=== PATIENT | female | born 1940 | race Caucasian/White ===

== ENCOUNTER 2021-12-05 19:41 | Observation (INO) | payer BC, SELFPAY ==
[2021-12-05 19:56] VITALS: BP 136/72; PULSE 76; RESP 18; TEMP 35.9; O2SAT 97; BMI 26.6
--- NOTE | 2021-12-05 20:15 | ED.GENADULT ---
HPI - General Adult General Time Seen by Provider: 20:16 Date Seen: 12/05/21 Chief complaint: Diarrhea Stated complaint: Black Stool Time Seen by Provider: 12/05/21 20:15 Source: patient, RN notes reviewed and old records reviewed Mode of arrival: ambulatory Limitations: no limitations History of Present Illness HPI narrative: Patient is an 81-year-old female coming in with diarrhea and dark tarry stools for about 2 weeks. She states every time she goes to the bathroom she is passing some stool and even has had 2 incontinent episodes today of stool. She is having some lower abdominal pain but no upper abdominal pain. She has had an ulcer about 20 years ago. She is taking iron but not using anything like Pepto-Bismol. She has no appetite but no nausea vomiting, no fevers or chills. The diarrhea has been present for 2 weeks. She has been on antibiotics in the past but has not had a history of C difficile colitis. She has some lower abdominal discomfort but no severe abdominal pain with this. She had contacted her doctor's office they recommended coming into the ER. She states she has not had a colonoscopy for about 20 years but has 1 scheduled for January 21. She was in with diarrhea and dark stools on 06/13/2021 post surgery. There is no significant concerning abnormality as far as labs are exam here in the ER. She was discharged home that visit. Related Data Home Medications Medication Instructions Recorded Confirmed acetaminophen 500 mg tablet mg 12/05/21 albuterol sulfate 2.5 mg/3 mL mg 12/05/21 (0.083 %) solution for nebulization amlodipine 5 mg tablet mg 12/05/21 aspirin 81 mg chewable tablet 12/05/21 atorvastatin 40 mg tablet mg 12/05/21 calcium carbonate 600 mg-vitamin tab PO 12/05/21 D3 10 mcg (400 unit) tablet cetirizine 10 mg tablet mg 12/05/21 cholecalciferol (vitamin D3) 50 12/05/21 mcg (2,000 unit) tablet fentanyl 50 mcg/hr transdermal 12/05/21 patch ferrous sulfate 324 mg (65 mg mg PO 12/05/21 iron) tablet,delayed release furosemide 40 mg tablet mg 12/05/21 ipratropium bromide 21 mcg (0.03 intranasal 12/05/21 %) nasal spray isosorbide mononitrate 120 mg mg PO 12/05/21 tablet,extended release 24 hr metformin 500 mg tablet mg 12/05/21 metoprolol succinate 50 mg mg PO 12/05/21 tablet,extended release 24 hr morphine 30 mg tablet,extended mg PO 12/05/21 release morphine 60 mg tablet,extended mg PO 12/05/21 release (MS Contin) mupirocin 2 % topical ointment topical 12/05/21 nitroglycerin 0.4 mg sublingual mg 12/05/21 tablet nystatin 100,000 unit/gram topical topical 12/05/21 powder (Nystop) omeprazole 20 mg capsule,delayed mg 12/05/21 release sennosides 8.6 mg tablet (senna) mg 12/05/21 sertraline 100 mg tablet mg 12/05/21 trazodone 50 mg tablet mg 12/05/21 Allergies Allergy/AdvReac Type Severity Reaction Status Date / Time Sulfa (Sulfonamide Allergy Intermediate Hives Verified 12/05/21 20:10 Antibiotics) nitrofurantoin AdvReac Unknown Verified 12/05/21 20:10 [From Macrobid] Review of Systems Status of ROS: Reports: 10 or more systems reviewed and unremarkable except as noted in History and below PFSH PFSH Social History Smoking Status: Former smoker What tobacco products do you use: cigarettes Smoking quit date/years: >15 years ago How often do you have a drink containing alcohol: never AUDIT-C Alcohol total score: 0 Non-prescribed substance use: denies use Exam Const: Vital Signs, click to edit/add: Vital Signs - 24 hr 12/05/21 19:56 12/05/21 20:45 12/05/21 23:22 Temperature 96.6 F L 97.6 F Pulse Rate [Pulse Oximeter] 76 67 Respiratory Rate 18 16 Blood Pressure [Le ft Upper Arm] 136/72 123/63 Pulse Oximetry 97 97 96 Oxygen Delivery Me thod Nasal Cannula Nasal Cannula Nasal Cannula Oxygen Flow Rate 2 2 2 Documenting provider has reviewed patient's vital signs: yes Common normals: no apparent distress, oriented x3, no limitations, healthy appearing, alert and well nourished General appearance: cooperative and comfortable Nutritional appearance: overweight HENMT: Common normals: normocephalic, head/scalp atraumatic, hearing grossly normal bilaterally, external ears normal, external nose normal, nasal mucous membranes and turbinates normal, moist oral mucous membranes, oropharynx normal, dentition normal and gingiva normal Head and scalp: normocephalic and atraumatic Nose: external nose normal and nasal mucous membranes and turbinates normal External ear: external ears normal Eye: Common normals: PERRL, EOMs intact bilaterally, conjunctivae normal and no scleral icterus Conjunctiva: conjunctiva(e) normal Pupil: PERRL Neck & C-Spine: Common normals: full ROM, no lymphadenopathy, supple, no meningeal signs, no JVD and thyroid normal Thyroid: thyroid normal Resp: Common normals: normal respiratory effort, no retractions, no use of accessory muscles and clear to auscultation bilaterally Auscultation: clear to auscultation bilaterally Cardio: Common normals: no JVD, regular rate, regular rhythm, S1 normal heart sound, S2 normal heart sound, no gallops and no clicks Rate: regular rate Rhythm: regular rhythm Heart sounds: S1 normal, S2 normal and murmur (2/6 systolic murmur heard upper sternal borders) GI: Common normals: Normal to inspection, nondistended, normoactive bowel sounds present, soft to palpation, non-tender, no hepatosplenomegaly and no masses Palpation: soft and no hepatosplenomegaly Other: Perianal area has some erythema and excoriations. She has a hemorrhoid that is non thrombosed. No active bleeding noted. Rectal vault is devoid of stool or masses. On withdrawal of the gloved finger, could see some dark flaxseed and darkish stool which was guaiac positive. Extremity: Other: No lower extremity edema noted the patient does have some noted excoriated areas of her lower legs. No active evidence of infection noted at this time. She does have some bandages over some smaller wounds on her legs. Neuro: Common normals: oriented x3 Sensorium/orientation: alert Meningeal signs: no meningeal signs Course Course Hospital Course: We will establish an IV, obtain blood work and obtain CT abdomen pelvis with IV contrast. We will give her a 500 mL fluid bolus. I have ordered C diff, stool culture and ova and parasites. With a 2 week history of diarrheal stools, colitis in her age range seems to be most probable. She does not seem ill like I would expect with C difficile but this is being considered. I am doubtful after 2 weeks that she has an ongoing active infection but again will look at stool culture and ova and parasite as well. With her having a colonoscopy scheduled in January, do wonder if she has been having some ongoing issues with diarrhea since we do have a visit from her in May of 2021 with diarrhea as a presenting problem as well. Reevaluation(s) Reevaluation #1: Have reviewed with patient that there are no concerning findings in the colon. It actually looks like there is some stool burden. However, reviewed that there could be some abnormalities within the stomach on the CT. I am going to have a hemoglobin 3 checked just to ensure no significant drop in, will type and screen her, give her 40 mg IV Protonix. I have spoken with Dr. Chino whom has taken many admits tonight. He has asked that I try to talk to JENNY for the admit which I will try to do. This patient certainly is hemodynamically stable, not actively profusely bleeding whatsoever. I do think that she is going to need follow-up endoscopy and have talked to her that I am not promising that this will be done in hospital but may have to be arranged somewhat more urgently outpatient. In any event, I feel it is safest for her to be monitored overnight, see if the scope could perhaps be done prior to discharge. Time: 22:56 Reevaluation #2: Spoke with JENNY hospitalist. Reviewed the case. He is aware that we have a pending hemoglobin and a type and screen have been ordered. He will be accepting of this patient. We did order COVID screening as well. Time: 23:21 Reevaluation #3: Reviewed stable repeat hemoglobin at 11.4, same as prior. No change in plan. Time: 00:36 Vital Signs Vital signs: Initial Vital Signs Temperature 96.6 F L 12/05/21 19:56 Temperature Source Temporal Artery Scan 12/05/21 19:56 Pulse Rate 76 12/05/21 19:56 Respiratory Rate 18 12/05/21 19:56 Blood Pressure 136/72 12/05/21 19:56 Blood Pressure Mean 93 12/05/21 19:56 Blood Pressure Position Sitting 12/05/21 19:56 Pulse Oximetry 97 12/05/21 19:56 Oxygen Delivery Method 12/05/21 19:56 Oxygen Flow Rate 2 12/05/21 19:56 Vital Signs Temperature 96.6 F L 12/05/21 19:56 Pulse Rate 76 12/05/21 19:56 Respiratory Rate 18 12/05/21 19:56 Blood Pressure 136/72 12/05/21 19:56 Pulse Oximetry 97 12/05/21 19:56 Oxygen Delivery Method 12/05/21 19:56 Oxygen Flow Rate 2 12/05/21 19:56 Temperature 97.6 F 12/05/21 23:22 Pulse Rate 67 12/05/21 23:22 Respiratory Rate 16 12/05/21 23:22 Blood Pressure 123/63 12/05/21 23:22 Pulse Oximetry 96 12/05/21 23:22 Oxygen Delivery Method 12/05/21 23:22 Oxygen Flow Rate 2 12/05/21 23:22 Medical Decision Making Lab Data Lab results reviewed: Yes I reviewed the patient's lab results Labs: Lab Results 12/05/21 12/05/21 12/05/21 Range/Units 20:35 20:35 20:35 WBC 10.06 (4.50-11.00) K/uL RBC 4.23 (4.00-5.20) m/uL Hgb 11.4 L (12.0-16.0) gm/dL Hct 35.0 (33.0-51.0) % MCV 83 (80-100) fL MCH 27 (26-34) pg MCHC 33 (32-36) gm/dL RDW Coeff of Sue 14.6 (11.5-15.5) % Plt Count 172 (140-440) K/uL Neut % (Auto) 68.8 (42.0-72.0) % Lymph % (Auto) 18.1 L (20-44) % [place] % (Auto) 6.9 (0.0-11.0) % Eos % (Auto) 5.1 (0.0-7.0) % Baso % (Auto) 0.5 (0.0-3.0) % Neut # (Auto) 6.93 (1.7-7.0) K/uL Lymph # (Auto) 1.80 (0.90-2.90) K/uL [place] # (Auto) 0.70 (0.00-0.90) K/UL Eos # (Auto) 0.51 H (0.00-0.50) K/uL Baso # (Auto) 0.05 (0.00-0.30) K/uL Abs Immat Gran (auto) 0.06 (0.00-0.30) K/uL Sodium 137 (135-149) mmol/L Potassium 4.1 (3.6-5.1) mmol/L Chloride 96 (96-114) mmol/L Carbon Dioxide 31 (20-32) mmol/L BUN 31 H (7-30) mg/dL Creatinine 1.4 (0.5-1.5) mg/dL Estimated Creat Clear 25.19 Estimated GFR 37 ml/min Glucose 143 H (60-115) mg/dL Lactate 1.0 (0.5-1.9) mmol/L Calcium 8.9 (8.4-10.6) mg/dL Total Bilirubin 0.5 (0.1-1.5) mg/dL AST 45 H (12-35) U/L ALT 24 (4-35) U/L Alkaline Phosphatase 154 H (40-150) U/L C-Reactive Protein 0.5 (0.5-1.0) mg/dL Total Protein 7.7 (6.0-8.3) g/dL Albumin 4.5 (3.3-5.0) g/dL Stl C.difficile Tox PCR (Negative) St C. diff Tox Epid 027 (Negative) SARS-CoV-2 (PCR) (Negative) Blood Type Antibody Screen 12/05/21 12/05/21 12/05/21 Range/Units 21:00 22:54 23:15 WBC (4.50-11.00) K/uL RBC (4.00-5.20) m/uL Hgb 11.4 L (12.0-16.0) gm/dL Hct (33.0-51.0) % MCV (80-100) fL MCH (26-34) pg MCHC (32-36) gm/dL RDW Coeff of Sue (11.5-15.5) % Plt Count (140-440) K/uL Neut % (Auto) (42.0-72.0) % Lymph % (Auto) (20-44) % [place] % (Auto) (0.0-11.0) % Eos % (Auto) (0.0-7.0) % Baso % (Auto) (0.0-3.0) % Neut # (Auto) (1.7-7.0) K/uL Lymph # (Auto) (0.90-2.90) K/uL [place] # (Auto) (0.00-0.90) K/UL Eos # (Auto) (0.00-0.50) K/uL Baso # (Auto) (0.00-0.30) K/uL Abs Immat Gran (auto) (0.00-0.30) K/uL Sodium (135-149) mmol/L Potassium (3.6-5.1) mmol/L Chloride (96-114) mmol/L Carbon Dioxide (20-32) mmol/L BUN (7-30) mg/dL Creatinine (0.5-1.5) mg/dL Estimated Creat Clear Estimated GFR ml/min Glucose (60-115) mg/dL Lactate (0.5-1.9) mmol/L Calcium (8.4-10.6) mg/dL Total Bilirubin (0.1-1.5) mg/dL AST (12-35) U/L ALT (4-35) U/L Alkaline Phosphatase (40-150) U/L C-Reactive Protein (0.5-1.0) mg/dL Total Protein (6.0-8.3) g/dL Albumin (3.3-5.0) g/dL Stl C.difficile Tox PCR Negative (Negative) St C. diff Tox Epid 027 PRESUMPTIVE NEGATIVE (Negative) SARS-CoV-2 (PCR) Negative SARS-CoV-2 (Negative) Blood Type Antibody Screen 12/05/21 Range/Units 23:15 WBC (4.50-11.00) K/uL RBC (4.00-5.20) m/uL Hgb (12.0-16.0) gm/dL Hct (33.0-51.0) % MCV (80-100) fL MCH (26-34) pg MCHC (32-36) gm/dL RDW Coeff of Sue (11.5-15.5) % Plt Count (140-440) K/uL Neut % (Auto) (42.0-72.0) % Lymph % (Auto) (20-44) % [place] % (Auto) (0.0-11.0) % Eos % (Auto) (0.0-7.0) % Baso % (Auto) (0.0-3.0) % Neut # (Auto) (1.7-7.0) K/uL Lymph # (Auto) (0.90-2.90) K/uL [place] # (Auto) (0.00-0.90) K/UL Eos # (Auto) (0.00-0.50) K/uL Baso # (Auto) (0.00-0.30) K/uL Abs Immat Gran (auto) (0.00-0.30) K/uL Sodium (135-149) mmol/L Potassium (3.6-5.1) mmol/L Chloride (96-114) mmol/L Carbon Dioxide (20-32) mmol/L BUN (7-30) mg/dL Creatinine (0.5-1.5) mg/dL Estimated Creat Clear Estimated GFR ml/min Glucose (60-115) mg/dL Lactate (0.5-1.9) mmol/L Calcium (8.4-10.6) mg/dL Total Bilirubin (0.1-1.5) mg/dL AST (12-35) U/L ALT (4-35) U/L Alkaline Phosphatase (40-150) U/L C-Reactive Protein (0.5-1.0) mg/dL Total Protein (6.0-8.3) g/dL Albumin (3.3-5.0) g/dL Stl C.difficile Tox PCR (Negative) St C. diff Tox Epid 027 (Negative) SARS-CoV-2 (PCR) (Negative) Blood Type B Positive Antibody Screen NEGATIVE Imaging Data CT scan - abdomen: Attestation: I have reviewed the pertinent imaging results. Radiologist's impression: Patient: REGIS MONTGOMERY Facility:?[facility] Patient ID:?[id number] Site Patient ID:?[id number]. Site :?[id number] Study:?CT Abdomen/Pelvis W/ISOVUE 370 74CC-12/05/2021 10:23:39 PM Ordering Physician:Susan Boss Final Report: INDICATION: Lower abdominal pain, diarrhea, dark tarry stools. TECHNIQUE: CT of the abdomen and pelvis with 74 cc Isovue 370 IV contrast. Coronal and sagittal reconstructions. COMPARISON: None. FINDINGS: The liver, gallbladder, spleen, pancreas, and adrenal glands are negative. No biliary dilation. Portal veins are patent. Symmetric enhancement of the kidneys. No hydronephrosis or ureteral dilation. No obstructing urinary calculi identified. The bladder is normal in appearance. Hysterectomy. No bowel dilation. Mild wall thickening of the gastric antrum is likely inflammatory. Multiple lobulated hyperdensities within the lumen of the gastric antrum could represent ingested material versus blood products. No active extravasation identified. Large amount of formed stool throughout the colon. No evidence of colonic inflammation. The appendix is not identified. No intraperitoneal free air or fluid. Aortoiliac vascular calcifications. There is subtle increased density of the left abdominal mesentery with mildly prominent mesenteric lymph nodes. 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 No lymphadenopathy by size criteria. Degenerative changes of the spine. Bibasilar atelectasis or scarring. Sternotomy. Coronary artery calcifications. IMPRESSION: 1. Mild wall thickening of the gastric antrum is likely inflammatory. 2. Multiple lobulated hyperdensities within the lumen of the gastric antrum could represent ingested material versus blood products. 3. Large amount of formed stool throughout the colon. No evidence of colonic inflammation. Please note that all CT scans at this facility use dose modulation, iterative reconstruction, and/or weight-based dosing when appropriate to reduce radiation dose to as low as reasonably achievable. Dictated by Belia Singh MD @ 12/05/2021 10:40:58 PM (Electronic Signature) Critical Care Time Critical Care Time Critical Care Time: No Discharge Plan Discharge Clinical Impression: Diarrhea, Abnormal CT of the abdomen, Guaiac positive stools Patient Disposition: Admitted As Inpatient Condition: Stable
--- NOTE | 2021-12-05 20:22 | CRLHL7_ITS ---
For Patients: As a result of the Century Cures Act, medical imaging exams and procedure reports are released immediately into your electronic medical record. You may view this report before your referring provider. If you have questions, please contact your health care provider. INDICATION: Lower abdominal pain, diarrhea, dark tarry stools. TECHNIQUE: CT of the abdomen and pelvis with 74 cc Isovue 370 IV contrast. Coronal and sagittal reconstructions. COMPARISON: None. FINDINGS: The liver, gallbladder, spleen, pancreas, and adrenal glands are negative. No biliary dilation. Portal veins are patent. Symmetric enhancement of the kidneys. No hydronephrosis or ureteral dilation. No obstructing urinary calculi identified. The bladder is normal in appearance. Hysterectomy. No bowel dilation. Mild wall thickening of the gastric antrum is likely inflammatory. Multiple lobulated hyperdensities within the lumen of the gastric antrum could represent ingested material versus blood products. No active extravasation identified. Large amount of formed stool throughout the colon. No evidence of colonic inflammation. The appendix is not identified. No intraperitoneal free air or fluid. Aortoiliac vascular calcifications. There is subtle increased density of the left abdominal mesentery with mildly prominent mesenteric lymph nodes. 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 No lymphadenopathy by size criteria. Degenerative changes of the spine. Bibasilar atelectasis or scarring. Sternotomy. Coronary artery calcifications. IMPRESSION: 1. Mild wall thickening of the gastric antrum is likely inflammatory. 2. Multiple lobulated hyperdensities within the lumen of the gastric antrum could represent ingested material versus blood products. 3. Large amount of formed stool throughout the colon. No evidence of colonic inflammation. Please note that all CT scans at this facility use dose modulation, iterative reconstruction, and/or weight-based dosing when appropriate to reduce radiation dose to as low as reasonably achievable. Dictated by Belia Singh MD @ 12/05/2021 10:40:58 PM (Electronically Signed)
[2021-12-05 20:45] VITALS: O2SAT 97
[2021-12-05] MEDS: 0.9 % SODIUM CHLORIDE 500 ML 500 ML IV (20:52)
[2021-12-05 21:03] LABS: Basophils Absolute Auto 0.05 K/uL (0.00-0.30); Basophils Percent Auto 0.5 % (0.0-3.0); Eosinophils Absolute Auto 0.51 K/uL (0.00-0.50); Eosinophils Percent Auto 5.1 % (0.0-7.0); Hemoglobin* 11.4 gm/dL (12.0-16.0); Immature Granulocytes Abs Auto 0.06 K/uL (0.00-0.30); Lymphocytes Percent Auto 18.1 % (20-44); Mean Corpuscular HGB Conc 33 gm/dL (32-36); Mean Corpuscular Hemoglobin 27 pg (26-34); Mean Corpuscular Volume 83 fL (80-100); Monocytes Percent Auto 6.9 % (0.0-11.0); Neutrophils Absolute Auto 6.93 K/uL (1.7-7.0); Neutrophils Percent Auto 68.8 % (42.0-72.0); Platelet Count* 172 K/uL (140-440); RDW Coefficient of Variation % 14.6 % (11.5-15.5); Red Blood Count 4.23 m/uL (4.00-5.20); White Blood Count* 10.06 K/uL (4.50-11.00)
[2021-12-05 21:05] LABS: Albumin* 4.5 g/dL (3.3-5.0); Chloride* 96 mmol/L (96-114)
[2021-12-05 21:06] LABS: Potassium* 4.1 mmol/L (3.6-5.1); Sodium* 137 mmol/L (135-149)
[2021-12-05 21:09] LABS: Alanine Aminotransferase* 24 U/L (4-35); Alkaline Phosphatase* 154 U/L (40-150); Aspartate Amino Transferase* 45 U/L (12-35); Bilirubin Total* 0.5 mg/dL (0.1-1.5); Blood Urea Nitrogen* 31 mg/dL (7-30); Calcium* 8.9 mg/dL (8.4-10.6); Carbon Dioxide* 31 mmol/L (20-32); Creatinine* 1.4 mg/dL (0.5-1.5); Est. Creatinine Clearance* 25.19; Estimated Glomerular Filt Rate 37 ml/min; Glucose* 143 mg/dL (60-115); Slide Review Reflex No; Total Protein* 7.7 g/dL (6.0-8.3)
[2021-12-05 21:11] LABS: C Reactive Protein* 0.5 mg/dL (0.5-1.0)
--- OUTSIDE RECORDS SUMMARY | 2021-12-05 21:16 | XMS_ITS | Clinical Summary ---
:1940 External Reference #:CL#[id number] Author Organization [facility] [place] [address] Care Team Providers Name Role Phone Marissa Williamson MD Primary Care Provider [phone] [facility], [place] Unavailable [phone] Allergies Active Allergy Reactions Severity Noted Date Comments Camphor Rash Low 06/13/2021 Camphor-Menthol Itching 12/06/2009 Sarna Lotion Makes itching worse Nitrofurantoin *Unknown 08/02/2005 Sulfa (Sulfonamide Antibiotics) Hives 6 Medications Medication Sig Dispensed Refills Start End Status Date Date estrogens, Twice weekly at 60 g 3 12/04/19 Act hilary conjugated bedtime on (PREMARIN) 0.625 Tuesdays and mg/gram vaginal Fridays creamIndications: Atrophic vaginitis Diaper,Brief, For home use. 1 box 12/30/19 Ac tive Adult,DisposableI ndications: Female stress incontinence oxygen-air Oxygen for home 1 Device 0 04/07/19 Act hilary delivery systems use. Liters per 20 (HOME minute: 2 per OXYGEN)Indication nasal cannula. s: Chronic Frequency of use: obstructive Nocturnal and pulmonary with activity disease, Length of need: unspecified COPD 99 Months. type (HC) flash glucose As directed. 1 Each 0 05/17/19 Act hilary scanning reader Indications: 20 (FREESTYLE GERMAN diabetes 14 DAY READER) miscIndications: diabetes mellitus fluticasone (50 Inhale 2 Sprays 1 Bottle 11 09/22/19 Active mcg per to both nostrils 21 actuation) nasal 2 times daily. solution (FLONASE)Indicati ons: Allergic rhinitis, unspecified seasonality, unspecified trigger ipratropium Inhale 2 Sprays 60 mL 2 09/22/19 Ac tive (ATROVENT NASAL) into affected 21 21 mcg (0.03 %) nostril(s) 3 nasal times daily. sprayIndications: Jeanerette dose in Chronic rhinitis each nostril. cholecalciferol, TAKE ONE TABLET 90 Tablet 2 01/16/20 Active Vitamin D3, 2,000 BY MOUTH EVERY 21 unit DAY tabletIndications : Vitamin D deficiency aspirin chewable CHEW AND SWALLOW 90 Tablet 3 03/16/20 Active 81 mg chewable 1 TABLET BY MOUTH 21 tabletIndications ONCE A DAY WITH A : CAD in [place] MEAL artery albuterol INHALE 3ML VIAL 75 mL 3 03/26/19 Acti ve (PROVENTIL) 0.083 VIA NEBULIZER 22 % neb EVERY 6 HOURS IF solutionIndicatio NEEDED FOR ns: Mild SHORTNESS OF persistent asthma BREATH. without complication BiPapIndications: BIPAP machine for 1 Each 03/29/19 Active Complex sleep home use at 22 apnea syndrome pressure: epap 11cmw PS 5-12cmw , full face mask x1/3month with full face cushion x2/mo Mucinex 600 mg TAKE 1 TABLET BY 180 Tablet 2 04/26/19 Active Extended-Release MOUTH 2 TIMES 22 tabletIndications DAILY. : Allergic rhinitis, unspecified seasonality, unspecified trigger clotrimazole-beta Apply topically 0 Active methasone cream to affected (LOTRISONE) area(s) 2 times 1-0.05 % cream daily. Restasis 0.05 % Place 1 Drop into 1 Each 05/30/19 Active ophthalmic the eye(s) 2 22 emulsionIndicatio times daily. ns: Dry eyes nitroglycerin Place 1 Tablet 25 tablet. 3 05/30/19 Active (NITROSTAT) 0.4 (0.4 mg) under 22 mg sublingual the tongue every tabletIndications 5 minutes if : CAD in [place] needed for Chest artery Pain. If patient requesting 25 or more dose doses in 30D, to provider to authorize mupirocin Apply topically 30 g 11 05/30/19 Acti ve (BACTROBAN to affected 22 OINTMENT) area(s) once ointmentIndicatio daily if needed ns: Recurrent (rash). boils Ventolin HFA 90 Inhale 1-2 Puffs 18 g 5 05/30/19 Active mcg/actuation by mouth every 4 22 inhalerIndication hours while s: Chronic awake. obstructive pulmonary disease, unspecified COPD type (HC) nystatin powder Apply 1 Strip 60 g 2 05/30/19 Active (MYCOSTATIN) topically to 22 powderIndications affected area(s) : Yeast 3 times daily. To dermatitis rash in the belly button acetaminophen Take 2 Tablets 30 Tablet 0 06/07/19 A ctive (TYLENOL EXTRA (1,000 mg) by 22 STRGTH) 500 mg mouth 3 times tabletIndications daily if needed : Closed for Pain. Max displaced oblique acetaminophen fracture of shaft dose: 4000mg in of left humerus 24 hrs. with nonunion amLODIPine Take 1 Tablet (5 90 Tablet 3 06/30/19 Ac tive (NORVASC) 5 mg mg) by mouth once 22 tabletIndications daily. : Essential hypertension atorvastatin Take 1 Tablet (40 90 Tablet 06/30/19 Active (LIPITOR) 40 mg mg) by mouth at 22 tabletIndications bedtime. : S/P CABG x 5 calcium combo Take 1 Tablet 90 Tablet 3 06/30/19 Ac tive no.2-vit. D3 (600 mg) by mouth 22 (CITRACAL + D once daily. SLOW REL.) 600 mg-12.5 mcg (500 unit) Extended-Release tabletIndications : Low calcium levels cetirizine Take 1 Tablet (10 90 Tablet 3 06/30/19 A ctive (ZYRTEC) 10 mg mg) by mouth once 22 tabletIndications daily. : Seasonal allergic rhinitis due to pollen exenatide Inject 10.2 mL 06/30/19 Active microspheres subcutaneous once 22 (Bydureon BCise) weekly. 2 mg/0.85 mL atInIndications: Type 2 diabetes mellitus with other circulatory complication, without long-term current use of insulin (HC) ferrous sulfate, Take 1 Tablet 90 Tablet 3 06/30/19 Active 65 mg elemental, (324 mg) by mouth 22 324 mg (65 mg once daily with a iron) meal. Delayed-Release tabletIndications : Anemia of unknown etiology omeprazole Take 1 Capsule 180 capsule. 3 06/30/19 A ctive (PRILOSEC) 20 mg (20 mg) by mouth 22 Delayed-Release 2 times daily capsuleIndication before meals. s: Chest pain, unspecified type sertraline TAKE 2 TABLETS 180 tablet. 3 06/30/19 Ac tive (ZOLOFT) 100 mg (200MG) BY MOUTH 22 tabletIndications ONCE DAILY. : Major depressive disorder, recurrent episode, moderate (HC) traZODone Take 1 Tablet (50 90 Tablet 3 06/30/19 Ac tive (DESYREL) 50 mg mg) by mouth at 22 tabletIndications bedtime. : Insomnia, unspecified type furosemide Take 2 Tablets 90 tablet. 3 07/28/19 Act hilary (LASIX) 40 mg (80 mg) by mouth 22 tabletIndications every morning. : Lower extremity edema Insulin [place], As directed. 100 Each 3 07/30/19 Active Disposable, 32 Remove the 2 22 gauge x covers on the Indications: insulin pen Type 2 diabetes needle before mellitus without administering complication, insulin dose. 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 mellitus without complication, without long-term current use of insulin (HC) Senna 8.6 mg TAKE ONE TABLET 180 Tablet 3 11/07/19 Active tabletIndications BY MOUTH TWO 22 : Chronic TIMES A DAY constipation metoprolol Take 1 Tablet (50 90 Tablet 3 11/14/19 A ctive succinate (Toprol mg) by mouth once 22 XL) 50 mg daily. sustained-release tabletIndications : CAD in [place] artery FreeStyle German WEAR EACH SENSOR 6 Each 3 11/17/19 Active 14 Day FOR 14 DAYS AT A 22 SensorIndications TIME. : Diabetes mellitus without complication (HC) isosorbide Take 2 Tablets 180 Tablet 3 11/14/19 Act hilary mononitrate SR (240 mg) by mouth 22 (IMDUR) 120 mg once daily. Sustained-Release tabletIndications : CAD in [place] artery morphine Take 1 Tablet (60 60 Tablet 0 12/15/19 Ac tive CONTROLLED mg) by mouth 22 RELEASE (MS twice daily 12 Contin) 60 mg hours apart. Take tabletIndications evening dose with : Chronic 30 mg tablet to bilateral low equal 90 mg at back pain without bedtime sciatica morphine TAKE 1 TABLET (30 30 Tablet 0 12/15/19 Ac tive CONTROLLED MG) BY MOUTH 22 RELEASE (MS EVERY 24 HOURS. CONTIN) 30 mg CR IN THE EVENING tabletIndications WITH 60 MG TO : Chronic EQUAL 90 MG AT bilateral low BEDTIME back pain without sciatica morphine Take 1 Tablet (60 60 Tablet 0 01/13/20 Ac tive CONTROLLED mg) by mouth 22 RELEASE (MS twice daily 12 Contin) 60 mg hours apart. Take tabletIndications evening dose with : Chronic 30 mg tablet to bilateral low equal 90 mg at back pain without bedtime. sciatica morphine TAKE 1 TABLET (30 30 Tablet 0 01/13/20 Ac tive CONTROLLED MG) BY MOUTH 22 RELEASE (MS EVERY 24 HOURS. Contin) 30 mg CR IN THE EVENING tabletIndications WITH 60 MG TO : Chronic EQUAL 90 MG AT bilateral low BEDTIME back pain without sciatica Lantus Christienohemyar Take 8-10 units 3 mL 3 11/21/19 Active U-100 Insulin 100 once daily. 22 unit/mL (3 mL) penIndications: Type 2 diabetes mellitus without complication, with long-term current use of insulin (HC) metFORMIN Take 1 Tablet 180 Tablet 3 11/21/19 Activ e (GLUCOPHAGE) 500 (500 mg) by mouth 22 mg three times daily tabletIndications with meals. : Type 2 diabetes mellitus without complication, without long-term current use of insulin (HC) MS Contin 60 mg Take 1 Tablet (60 60 Tablet 0 11/24/19 Active tabletIndications mg) by mouth 22 : Chronic twice daily 12 bilateral low hours apart. Take back pain without evening dose with sciatica 30 mg tablet to equal 90 mg at bedtime. MS Contin 30 mg Take 1 Tablet (30 30 Tablet 0 11/24/19 Active CR mg) by mouth 22 tabletIndications every 24 hours. : Chronic TAKE ONE TABLET bilateral low BY MOUTH ONCE back pain without DAILY IN THE sciatica evening WITH A 60MG TAB. TOTAL 90MG at bedtime polyethylene Drink half the 4000 mL 0 12/01/19 Ac tive glycol-electrolyt day before 22 e (GOLYTELY) procedure and [id number] half 6 hours -5.86 gram before procedure. suspensionIndicat ions: Black tarry stools FreeStyle German WEAR EACH SENSOR 6 Each 3 02/06/20 Discontinued 14 Day FOR 14 DAYS AT A 21 022 SensorIndications TIME. : Diabetes mellitus without complication (HC) isosorbide Take 3 tablets 270 Tablet 3 06/30/19 Dis continued mononitrate (180 mg) by mouth (*Medication (IMDUR) 60 mg once daily before adjustment) extended release a meal tablet 24 hourIndications: CAD in [place] artery metFORMIN Take 1 Tablet 180 Tablet 3 06/30/19 Disco ntinued (GLUCOPHAGE) 500 (500 mg) by mouth (Reorder mg 2 times daily (E-can hunter not tabletIndications with meals. sent)) : Type 2 diabetes mellitus without complication, without long-term current use of insulin (HC) metoprolol Take 1 Tablet (25 180 tablet. 3 06/30/19 Discontinued tartrate mg) by mouth 2 (*Med (LOPRESSOR) 25 mg times daily. complete/Regime tabletIndications n : CAD in [place] comp lete/Level artery of care ch ryan) Lantus Solostar Inject 8 units 3 mL 3 09/21/19 Discontinued U-100 Insulin 100 subcutaneous in (Reorder unit/mL (3 mL) the morning and 8 (E-cancel not penIndications: units in the s ent)) Type 2 diabetes evening. Product mellitus without desired: BASAGLAR complication, or long acting with long-term insulin as current use of covered by insulin () patient insurance.. MS Contin 60 mg Take 1 Tablet (60 90 Tablet 0 10/19/19 Discontinued tabletIndications mg) by mouth (Reorder : Chronic twice daily 12 (E-ca ncel not bilateral low hours apart. Take sent)) back pain without evening dose with sciatica 30 mg tablet to equal 90 mg at bedtime. morphine Take 1 Tablet (30 30 Tablet 0 10/19/19 Di scontinued CONTROLLED mg) by mouth RELEASE (MS every 24 hours. Contin) 30 mg CR In the evening tabletIndications with 60 mg to : Chronic equal 90 mg at bilateral low bedtime back pain without sciatica morphine TAKE 1 TABLET (30 30 Tablet 0 11/07/19 Di scontinued CONTROLLED MG) BY MOUTH 22 022 RELEASE (MS EVERY 24 HOURS. CONTIN) 30 mg CR IN THE EVENING tabletIndications WITH 60 MG TO : Chronic EQUAL 90 MG AT bilateral low BEDTIME back pain without sciatica isosorbide Take 2 Tablets 180 Tablet 3 11/14/19 Dis continued mononitrate (240 mg) by mouth 22 022 (Reorder (IMDUR) 120 mg once daily. Take (E-cancel not Sustained-Release 3 tablets (180 sent)) tabletIndications mg) by mouth once : CAD in [place] daily before a artery meal MS Contin 30 mg TAKE ONE TABLET 30 Tablet 0 11/16/19 Discontinued CR BY MOUTH ONCE 22 022 (Reord er tabletIndications DAILY IN THE (E-cancel not : Chronic MORNING WITH A sent) ) bilateral low 60MG TAB. TOTAL back pain without 90MG IN THE sciatica MORNING MS Contin 60 mg Take 1 Tablet (60 60 Tablet 0 11/16/19 Discontinued tabletIndications mg) by mouth 22 022 (Reorder : Chronic twice daily 12 (E-ca ncel not bilateral low hours apart. Take sent)) back pain without evening dose with sciatica 30 mg tablet to equal 90 mg at bedtime. fentaNYL Apply 1 Patch on 10 Patch 0 11/21/19 Dis continued (DURAGESIC) 50 dry, clean, 022 (*M edication mcg/hr trasdermal hairless skin adjustment) patchIndications: every 72 hours. Chronic pain disorder Active Problems Problem Noted Date S/p Right humeral shaft repair of nonunion with compre ssion plating and 06/27/2021 autograft bone grafting 06/04/21 Dr. Roland Goel Renal insufficiency 02/26/2021 Stable angina pectoris 06/22/2020 Chest pain 07/24/2018 Type 2 diabetes mellitus with complication, without lo ng-term current use 05/19/2018 of insulin Major depressive disorder, recurrent episode, moderate 05/19/2018 Venous stasis ulcer 02/17/2018 Ulcer of left lower extremity, limited to breakdown of skin 01/28/2018 Paroxysmal A-fib 07/08/2017 S/P CABG x 5 06/21/2017 Overview: Formatting of this note is dif ferent from the original. 06/20/17 s/p CABG X5 with MIR MIR to LAD Saphenous vein graft to PDA Saphenous vein graft sequential to D1, R 1, OM ?? Chronic midline low back pain without sciatica 018 COPD mixed type 06/03/2017 Overview: - home O2 Prurigo nodularis 06/23/2015 HTN (hypertension) 01/18/2014 [facility] arthritis, thumb, degenerative 11/24/2013 Chronic back pain 05/28/2013 Pain medication agreement 08/16/2011 Overview: Controlled substance agreement for MSCon tin 60mg, 3 tablets bid on file and signed 08/16/2011 . Designated pharmacy: [facility] Prescribing physician: Duane Gardiner M.D Diagnosis: chronic severe back pain. Primary central sleep apnea 11/12/2010 REAL/CSA AHI-52 04/22, 08/25 AHI-12,CSA 6 09/30/2010 Overview: 05/10/2005 AHI- 52, treatment brought out central apnea Repeat 09/11/2010 AHI-12, CSA-6 Female stress incontinence 10/06/2009 DIABETES, type 2, A1c goal < 7 09/12/2008 Unspecified vitamin D deficiency 04/27/2007 ASCVD (arteriosclerotic cardiovascular disease) 2006 Overview: - 06/20/17 s/p CABG X5: MIR to LAD, saphe nous vein graft to PDA, Saphenous vein graft sequential to D1, R 1, OM - 07/2018 angiogram: patent grafts - 08/30/2020 NM Stress test: There is a s mall area of mild ischemia in the apical inferolateral wall. EF 58%. 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 Resolved Problems Problem Noted Date Resolved Date Thrombocytopenia 07/24/2018 01/20/2020 Uncomplicated opioid dependence 05/19/2018 07/25/19 19 Other forms of angina pectoris 05/19/2018 9 Chest pain 06/18/2017 07/24/2018 Chronic midline back pain 06/18/2017 07/24/2018 IDDM (insulin dependent diabetes mellitus) 11/09/2015 10/28/2017 Mild persistent asthma without complication 06/22/2015 07/24/2018 SLEEP DISTURBANCE 05/12/2014 07/24/2018 Asthma 01/21/2012 06/22/2015 REAL 05/10/2005 AHI- 52, treatment brought out central apnea 0 08/20/2010 09/30/2010 Neck pain 03/27/2009 07/24/2018 Depression, major 07/25/2008 07/24/2018 Chronic airway obstruction, not elsewhere classified 007 07/24/2018 Overview: WITH BRONCHOSPASM Sleep disturbance, unspecified 06/05/2006 1 Unspecified essential hypertension 06/05/200604/27 Other and unspecified hyperlipidemia 06/05/200601/2008 DIABETES 02/04/2002 09/12/2008 Anemia 12/04/2012 Acute postoperative pain 07/24/2018 Chest wall pain following surgery 2018 Hx of CABG 07/24/2018 Encounters Date Type Specialty Care Team Description 12/05/2021 Telephone Marissa Williamson Questions MD [place] 11/30/2021 Office Visit Marissa Williamson Procedure ( Right great toe MD [place] nail removal) 11/30/2021 Telephone Marissa Williamson Prior Autho rishakeel Arias MD 11/30/2021 Telephone Ambrosio Maciel MD 11/30/2021 Travel 11/28/2021 Nurse Triage Marissa Williamson illness (Trell childress has runs MD [place] and her stool i s very black in color. ) 11/23/2021 Telephone Marissa Williamson Form; RETUR FRANCISCO CALL MD [place] 11/20/2021 Office Visit Marissa Williamson Follow Up; Medication MD [place] Management; Edenilson m Problem (Recheck cellul itis of bilateral lower legs) 11/20/2021 Telephone Marissa Williamson Prior Autho rishakeel Arias MD (fentaNYL (DURA GESIC) 50 mcg/hr trasderm al patch APPROVED (08/23/21-11/21)) 11/20/2021 Travel 11/16/2021 Telephone Marissa Williamson Prior Autho rupa (MS [place] MD Contin 60 mg ta blet (SWITCHED TO FE NTANYL)) 11/16/2021 Telephone Marissa Williamson Prior Autho rupa (MS [place] MD Contin 30 mg CR tablet APPROVED (08/18/21-11/16)) 11/14/2021 Refill Marissa Williamson Refill Requ est MD [place] (Clarification Request -- ISOSORBIDE MONO NITRATE ER 1) 11/14/2021 Refill Marissa Williamson Refill Requ est (Ms Contin) MD [place] 11/13/2021 Phone Office Visit Liam James MD 11/13/2021 Refill Marissa Williamson Refill Requ est (Roslyn Arias MD German 14 Day Se nsor) 11/01/2021 Refill Marissa Williamson Refill Requ est ([place] Marino MD Morphine Contro lled Release) 10/26/2021 Telephone Marissa Williamson Error-pleas e disregard MD [place] 10/23/2021 Telephone Marissa Williamson Questions ( Ingrown Nail) MD [place] 10/18/2021 Office Visit Marissa Williamson Procedure ( Toenail MD [place] removal); Medic ation Management 10/18/2021 Travel 10/17/2021 Refill Marissa Williamson Refill Requ est (Ms Contin) MD [place] 10/15/2021 Telephone Raúl Arrieta MD DME Supply 10/08/2021 Telephone Marissa Williamson Refill Requ est (ROSLYN Arias MD GERMAN METER) 09/20/2021 Office Visit Marissa Williamson Follow Up; Diabetes; MD [place] Medication Velia gement (pt has increased d ose to 12 units); Derm Pr oblem (sores all over body, small water blisters/rash t hat pop open by themsel ves then cause red sores ) 09/20/2021 Orders Only Lab, [facility] 09/20/2021 Travel 09/19/2021 Telephone Marissa Williamson Form MD [place] 09/14/2021 Refill Marissa Williamson Refill Requ est (Ms Contin) MD [place] 09/11/2021 Telephone Marissa Williamson Prior Autho rization (MS [place] MD Contin 60 mg ta blet JEFERSON DENIED) from Last 3 Months Immunizations Name Administration Dates Next Due COVID-19 vaccine ([place] 01/05/2021, 06/01/2020, 30mcg/0.3mL) PF, MDV Hepatitis A (Adult) 07/25/2008, 11/02/2007 Influenza A (H1N1), Inactivated 03/27/2009 Influenza A (H1N1), Inactivated (Age 0103/27/2009 >=3 Years) Influenza, High-dose Inactivated 12/28/2015, 01/10/2015, 06/2013 Influenza, IIV3 (Age 6-35 mos) 11/09/2010, 12/13/2009 Influenza, IIV3 (Age >=3 years) 12/04/2012, 12/06/2011, 10/16, 12/13/2009, 11/23/2008, 02/15/2008, 01/19/2007, 12/18/2005, 01/07/2005, 01/05/2004, 02/18/2003, 01/21/2002 Influenza, Inactivated AIIV4 (Age 65+ 11/30/2020, 12/16/2019 Years) Preserv Free Influenza, Inactivated IIV3 (Age 65+ 12/17/2018, 12/18/2017, 01/14/2017 Years) Preserv Free Pneumococcal Poly,23-Valent 12/14/2010, 02/18/2003 (Pneumovax) Pneumococcal conj 13-Valent (Prevnar 10/27/2014 13) Td, Preservative Free (age >= 7 08/04/2006 Years) Tdap 11/30/2020, 05/25/2010 Zoster (Shingrix-RZV, recombinant) 01/22/2018, 07/31/2017 Zoster (Zostavax-ZVL, live) 08/03/2007 Family History Medical History Relation Name Comments Cancer-prostate Brother Heart Disease Father at 45 then mi at 59 Diabetes Mother Cancer Sister stomache Relation Name Status Comments Brother Father (Age 84) Mother (Age 59) Sister Social History Tobacco Use Types Packs/Day Years Used Date Former Smoker Cigarettes 3 10 Quit: 03/17/18 69 Smokeless Tobacco: Never Used Tobacco Cessation: Counseling Given: Yes Alcohol Use Standard Drinks/Week Comments Not Currently 0 (1 standard drink = 0.6 oz pure alcoho l) very seldom Alcohol Habits Answer Date Recorded How often do you have a drink containing alcohol? Never 08/22/2020 How many drinks containing alcohol do you have on a typical Not asked day when you are drinking? How often do you have six or more drinks on one occasion? No t asked Comment: very seldom 09/20/2021 Sex Assigned at Date Recorded Not on file COVID-19 Exposure Response Date Recorded In the last 10 days, have you been in contact with No / Unsu re 11/30/2021 9:34 AM CDT someone who was confirmed or suspected to have Coronavirus/COVID-19? Obstetrics History Last Filed Vital Signs Vital Sign Reading Time Taken Comments Blood Pressure 116/69 11/30/2021 10:37 AM CDT Pulse 75 11/30/2021 10:37 AM CDT Temperature 35 ??C (95 ??F) 09/20/2021 9:49 AM CDT Respiratory Rate 18 06/07/2021 8:00 AM CDT Oxygen Saturation 96% 11/30/2021 10:37 AM CDT Inhaled Oxygen Concentration - - Weight 71.8 kg (158 lb 3.2 oz) 11/20/2021 9:46 AM CDT Height 161.3 cm (5' 3.5) 06/04/2021 6:40 AM CDT Body Mass Index 27.58 06/04/2021 6:40 AM CDT Plan of Treatment Upcoming Encounters Date Type Specialty Care Team Description 01/01/2022 Orders Only Lab, [facility] 01/01/2022 Office Visit Marissa Williamson MD [address] [phone] (Wo rk) 01/17/2022 Nurse/Clinic Staff Only 01/21/2022 Procedure Only Ambrosio Maciel MD [address] [place], [place] [phone] (Wo rk) Health Maintenance Due Date Last Done Comments COVID-19 vaccine series (4 - 05/08/2021 01/05/2021, 021, Booster for Pfizer series) 05/11/2020 Influenza for age 65+ 11/15/2021 11/30/2020, 12/16/2019, 12/17/2018, Additional history exists Depression screening for age 12+ 01/05/2022 01/05/2021, , 12/16/2019, Additional history exists BMI (ht and wt on same day) for 05/29/2022 05/29/2021, 05/15, age 18+ 02/27/2021, Additional history exists Tetanus booster 11/30/2030 11/30/2020, 05/25/2010, 08/04/2006 DEXA/DXA scan for age 65+ Completed 10/25/2014, 11/03/2007 , 11/24/2001 Pneumococcal series for age 65+ Completed 10/27/2014, 11/17, 02/18/2003 Zoster (shingles) series for age Completed 01/22/2018, , 50+ 08/03/2007 Tdap Completed 11/30/2020, 05/25/2010 Medical Devices Implanted Type Area Stoneworking Sander Device Shelf Model / Identifier Expiration Serial / Date Lot Screw Sm Joint 2.7x24mm Variax 2 Bone Titnm - [id number] Lef t: Arm [place] [id number] / Implanted: Qty: 2 on 06/04/2021 by Roland Goel MD at [facility] Orthopaedics / Explanted Type Area Stoneworking Sander Device Shelf Model / Identifier Expiration Date Ser ial / Lot Screw Sm Joint 6x30mm [id number] Canclls Full Thrd Titnm Left: A [id number] / Explanted: Qty: 1 on 06/04/2021 at [facility] / Description: SCREW SM JOINT 6X30MM AXSOS 3 CANCLLS FULL THRD TITNM Procedures Procedure Name Priority Date/Time Associated Comments Diagnosis CBC WITH AUTO Routine 11/30/2021 12:04 Black tarry stools Resu lts for this DIFFERENTIAL PM CDT procedure are i n the results section. CBC WITH AUTO Routine 11/30/2021 12:04 Black tarry stools Resu lts for this DIFFERENTIAL PM CDT procedure are i n the results section. CBC WITH AUTO Routine 09/20/2021 9:33 AM Anemia of unknown Res ults for this DIFFERENTIAL CDT etiology procedure are i n the results section. LIPID PANEL W REFLEX Routine 09/20/2021 9:33 AM S/P CABG x 5 R esults for this MEASURED LDL CDT procedure are i n the results section. CBC WITH AUTO Routine 09/20/2021 9:33 AM Anemia of unknown Res ults for this DIFFERENTIAL CDT etiology procedure are i n the results section. BASIC METABOLIC PANEL Routine 09/20/2021 9:33 AM Type 2 diabet es Results for this CDT mellitus without procedure a re in complication, with the resul ts long-term current section. use of insulin (HC) HEMOGLOBIN A1C Routine 09/20/2021 9:33 AM Type 2 diabetes Resu lts for this CDT mellitus without procedure a re in complication, with the resul ts long-term current section. use of insulin (HC) from Last 3 Months Results (ABNORMAL) CBC WITH AUTO DIFFERENTIAL (11/30/2021 12:04 PM CDT)Only the most recent of2 resultswithin the time period is included. [facility] Method Time Signature WHITE BLOOD 8.1 4.5 - 11/30/2021 [facility] COUNT 11.0 12:12 PM T [facility]/cu CLINIC mm RED BLOOD COUNT 4.11 4.00 - 11/30/2021 [facility] 5.20 12:12 PM T [facility]/ mm CLINIC HEMOGLOBIN 11.4 (L) 12.0 - 11/30/2021 [facility] 16.0 g/dL 12:12 PM [facility] [facility] HEM[facility]IT 34.7 33.0 - 11/30/2021 [facility] 51.0 % 12:12 PM [facility] MCV 84 80 - 100 11/30/2021 [facility] fL 12:12 PM T [facility] MCH 27.7 26.0 - 11/30/2021 [facility] 34.0 pg 12:12 PM CDT [facility] MCHC 32.9 32.0 - 11/30/2021 [facility] 36.0 g/dL 12:12 PM CDT [facility] RDW 15.3 11.5 - 11/30/2021 [facility] 15.5 % 12:12 PM CDT [facility] PLATELET COUNT 158 140 - 440 11/30/2021 [facility] thou/cu 12:12 PM CDT [facility] MPV 9.7 6.5 - 11/30/2021 [facility] 11.0 fL 12:12 PM CDT [facility] NEUTROPHILS 65.9 % 11/30/2021 [facility] 12:12 PM CDT [facility] LYMPHOCYTES 20.6 % 11/30/2021 [facility] 12:12 PM CDT [facility] MONOCYTES 7.3 % 11/30/2021 [facility] 12:12 PM CDT [facility] EOSINOPHILS 5.6 % 11/30/2021 [facility] 12:12 PM CDT [facility] BASOPHILS 0.6 % 11/30/2021 [facility] 12:12 PM CDT [facility] ABSOLUTE 5.3 1.7 - 7.0 11/30/2021 [facility] NEUTROPHILS thou/cu 12:12 PM CDT [facility] ABSOLUTE 1.7 0.9 - 2.9 11/30/2021 [facility] LYMPHOCYTES thou/cu 12:12 PM CDT [facility] ABSOLUTE 0.6 <0.9 11/30/2021 [facility] MONOCYTES thou/cu 12:12 PM CDT [facility] ABSOLUTE 0.5 (H) <0.5 11/30/2021 [facility] EOSINOPHILS thou/cu 12:12 PM CDT [facility] ABSOLUTE 0.1 <0.3 11/30/2021 [facility] BASOPHILS thou/cu 12:12 PM CDT [facility] Specimen Anatomical Collection Method / Collection Time Recei ramesh Time (Source) Location / Volume Laterality Blood BLOOD SPECIMEN / Venipuncture / 11/30/2021 12:04 11/30 Unknown Unknown PM CDT 12:05 PM CDT Marissa Williamson MD HEMATOLOGY Performing Organization Address City/State/ZIP Code Phon e Number [facility] [address] [place] [address] (ABNORMAL) LIPID PANEL W REFLEX MEASURED LDL (09/20/2021 9:33 AM CDT) [facility] gist Method Time Signature CHOLESTEROL,TOTAL 122 100 - 199 09/20/2021 [facility] mg/dL 4:23 PM CDT [facility] TRIGLYCERIDES 144 <150 09/20/2021 [facility] mg/dL 4:23 PM CDT [facility] HDL CHOLESTEROL 35 (L) >40 mg/dL 09/20/2021 [facility] 4:23 PM CDT [facility] NON-HDL 87 <145 09/20/2021 [facility] CHOLESTEROL mg/dl 4:23 PM CDT [facility] CHOL/HDL RATIO 3.49 <4.50 09/20/2021 [facility] 4:23 PM CDT [facility] LDL CHOLESTEROL 58 <=130 09/20/2021 [facility] mg/dL 4:23 PM CDT [facility] VLDL CHOLESTEROL 29 <=30 09/20/2021 [facility] mg/dL 4:23 PM CDT [facility] PROVIDER ORDERED RANDOM 09/20/2021 [facility] STATUS 4:23 PM CDT [facility] Specimen Anatomical Collection Method / Collection Time Recei ramesh Time (Source) Location / Volume Laterality Blood BLOOD SPECIMEN / Venipuncture / 09/20/2021 9:33 2021 9:33 Unknown Unknown AM CDT AM CDT Marissa Williamson MD CHEMISTRY Performing Organization Address City/State/ZIP Code Phon e Number [facility] [address] [place] [address] [place] [address] [facility]ORY (ABNORMAL) HEMOGLOBIN A1C MONITORING (POCT) (09/20/2021 9:33 AM CDT) Analysis Performed At [facility] logist Time Signature HEMOGLOBIN A1C 8.1 (H) <=6.4 % 09/20/2021 [facility] MONITORING 9:42 AM CDT [facility] Specimen Anatomical Collection Method / Collection Time Recei ramesh Time (Source) Location / Volume Laterality Blood BLOOD SPECIMEN / Venipuncture / 09/20/2021 9:33 2021 9:33 Unknown Unknown AM CDT AM CDT Narrative [facility] - 2021 9:42 AM CDT ? (<=6.9%) ? Indicates good control ? (7.0% to 7.9%) ? Indicates fa ir control ? (>=8.0%) ? Indicates poor control ?? NOTE: ??These thresholds are guideli jyoti and ?individual targets may va ry. Falsely low levels may be seen with: Recent Transfusion, Recent Significant B lood Loss, Hemolytic Diseases, or Falsely elevated levels may be seen with : Untreated Anemias, Splenectomy ? Marissa Williamson MD CHEMISTRY Performing Organization Address City/State/ZIP Code Phon e Number [facility] [address] [place] [address] (ABNORMAL) BASIC METABOLIC PANEL (09/20/2021 9:33 AM CDT) [facility] Method Time Signature SODIUM 140 135 - 145 09/20/2021 [facility] mmol/L 4:22 PM CDT [facility] POTASSIUM 4.2 3.5 - 5.0 09/20/2021 [facility] mmol/L 4:22 PM CDT [facility] CHLORIDE 98 98 - 110 09/20/2021 [facility] mmol/L 4:22 PM CDT [facility] CO2,TOTAL 31 21 - 31 09/20/2021 [facility] mmol/L 4:22 PM CDT [facility] ANION GAP 11 5 - 18 09/20/2021 [facility] 4:22 PM CDT [facility] GLUCOSE 181 (H) 65 - 100 09/20/2021 [facility] mg/dL 4:22 PM CDT [facility] CALCIUM 9.1 8.5 - 10.5 09/20/2021 [facility] mg/dL 4:22 PM CDT [facility] BUN 35 (H) 8 - 25 09/20/2021 [facility] mg/dL 4:22 PM CDT [facility] CREATININE 1.51 (H) 0.57 - 09/20/2021 [facility] 1.11 mg/dL 4:22 PM CDT [facility] BUN/CREAT RATIO 23 (H) 10 - 20 09/20/2021 [facility] 4:22 PM CDT [facility] eGFR 34 (L) >90 09/20/2021 [facility] mL/min/1.7 4:22 PM CDT [facility] 3m2 [facility] Comment: As of 2021, eGFR is calcu lated by the CKD-EPI creatinine equation without race adjustment. eGFR can be inf luenced by muscle mass, exercise, and diet. The reported eGFR is an estimation only and is only applicable if the renal function is stable. Specimen Anatomical Collection Method / Collection Time Recei ramesh Time (Source) Location / Volume Laterality Blood BLOOD SPECIMEN / Venipuncture / 09/20/2021 9:33 2021 9:33 Unknown Unknown AM CDT AM CDT Marissa Williamson MD CHEMISTRY Performing Organization Address City/State/ZIP Code Phon e Number [employer] [address] [address] [facility] [address] LABORATORY from Last 3 Months Insurance Payer Benefit Plan / Subscriber ID Effective Dates Phone Addre ss Type Group WC WORKERS COMP WINNIE [id number] 2019-Prese [address] [address] [place] [address] MEDICARE PART A MEDICARE PART A [id number] 1991-Presen ATTN: CLAIMS - HB USE ONLY HB ONLY t [address] 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 Explanati on Healthcare Directive 05/29/2021 10:02 AM HEALTH C ARE DIRECTIVE/NFLD A HC 05/29/2021 Healthcare Directive 06/25/2017 12:08 PM HEALTHCA RE DIRECTIVE, [facility], 06/13/17 Healthcare Directive 11/09/2015 12:00 AM CRITICAL LIEF SUSTANING MEDICA L EQUIPMENT Latest Code Status on File Code Status Date Activated Date Inactivated Comments Full Code 06/05/2021 9:50 AM 06/07/2021 2:44 PM Code Status Discussion: Reviewed Preferences Full Code 06/04/2021 6:19 AM 06/05/2021 9:50 AM Code Status Discussion: Unable to Assess Preferences, Provid er to review later Full Code 02/26/2021 9:08 AM 02/26/2021 4:45 PM Code Status Discussion: Reviewed Preferences Full Code 07/25/2018 11:12 AM 07/27/2018 10:18 PM DNR 07/24/2018 6:55 PM 07/25/2018 11:12 AM 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
[2021-12-05 22:15] LABS: C.Difficile Negative (Negative); CDIFFEPI 027 PRESUMPTIVE NEGATIVE (Negative)
[2021-12-05] MEDS: PANTOPRAZOLE SODIUM 40 MG INJ IVP (23:00)
[2021-12-05 23:22] VITALS: BP 123/63; PULSE 67; RESP 16; TEMP 36.4; O2SAT 96
[2021-12-05 23:24] LABS: Hemoglobin* 11.4 gm/dL (12.0-16.0)
[2021-12-06] VITALS (13 sets, daily range): BP systolic 132–180; BP diastolic 64–94; PULSE 63–76; RESP 16–20; TEMP 36.3–36.8; O2SAT 91–100; BMI 27.7
[2021-12-06] LABS: SARS PCR* Negative SARS-CoV-2 (Negative)
--- NOTE | 2021-12-06 00:05 | W.PC.EDHO ---
Primary Language: Preferred Language: Orientation Status: [] Alert & Oriented [] Slight Confusion [] Known Dx Dementia Transfers By: [] Assist of 1 [] Assist of 2 [] Lift Active Medications Discontinued Medications Generic Name Dose Route Start Last Admin Trade Name Vicki PRN Reason Stop Dose Admin Sodium Chloride 500 mls @ 500 mls/hr 12/05/21 20:25 12/05/21 21:42 0.9 % Sodium Chloride 500 Ml IV 12/05/21 21:24 Infused .Q1H ONE Infusion Pantoprazole Sodium 40 mg 12/05/21 22:46 12/05/21 23:00 Pantoprazole Sodium 40 Mg Inj IVP 12/05/21 22:47 40 mg ONCE ONE Administration Description of Symptoms ED Triage Present Problem black stool for 2 weeks, pt states occasional Description bright red. for past few days pt unable to control bowel movements, diarrhea. abd pain. no N/V. Called MD and advised to come to ED. wears 2L O2 at home. Pain Pain Intensity 6 Pain Intensity 7 Pain Scale Used Numeric (1 - 10) Pain Scale Used Numeric (1 - 10) Oxygen Administration Pulse Oximetry 96 Pulse Oximetry 97 Pulse Oximetry 97 Oxygen Delivery Method Nasal Cannula Oxygen Delivery Method Nasal Cannula Oxygen Delivery Method Nasal Cannula Oxygen Flow Rate 2 Oxygen Flow Rate 2 Oxygen Flow Rate 2
--- NOTE | 2021-12-06 01:11 | P.IMCN_ITS ---
Date of Consult Consult date: 12/06/21 Primary Care Provider: Marissa Williamson MD Consult Narrative Narrative: Cathy Kaplan is a 81 year old female [facility] Social History (Updated 12/06/21 @ 00:36 by Karyn Liu MD) Smoking Status: Former smoker What tobacco products do you use: cigarettes Smoking quit date/years: >15 years ago How often do you have a drink containing alcohol: never AUDIT-C Alcohol total score: 0 Non-prescribed substance use: denies use Meds Home Medications and Allergies Home Medications Medication Instructions Recorded Confirmed Type acetaminophen 500 mg tablet mg 12/05/21 History albuterol sulfate 2.5 mg/3 mL mg 12/05/21 History (0.083 %) solution for nebulization amlodipine 5 mg tablet mg 12/05/21 History aspirin 81 mg chewable tablet 12/05/21 History atorvastatin 40 mg tablet mg 12/05/21 History calcium carbonate 600 mg-vitamin tab PO 12/05/21 History D3 10 mcg (400 unit) tablet cetirizine 10 mg tablet mg 12/05/21 History cholecalciferol (vitamin D3) 50 12/05/21 History mcg (2,000 unit) tablet fentanyl 50 mcg/hr transdermal 12/05/21 History patch ferrous sulfate 324 mg (65 mg mg PO 12/05/21 History iron) tablet,delayed release furosemide 40 mg tablet mg 12/05/21 History ipratropium bromide 21 mcg (0.03 intranasal 12/05/21 History %) nasal spray isosorbide mononitrate 120 mg mg PO 12/05/21 History tablet,extended release 24 hr metformin 500 mg tablet mg 12/05/21 History metoprolol succinate 50 mg mg PO 12/05/21 History tablet,extended release 24 hr morphine 30 mg tablet,extended mg PO 12/05/21 History release morphine 60 mg tablet,extended mg PO 12/05/21 History release (MS Contin) mupirocin 2 % topical ointment topical 12/05/21 History nitroglycerin 0.4 mg sublingual mg 12/05/21 History tablet nystatin 100,000 unit/gram topical topical 12/05/21 History powder (Nystop) omeprazole 20 mg capsule,delayed mg 12/05/21 History release sennosides 8.6 mg tablet (senna) mg 12/05/21 History sertraline 100 mg tablet mg 12/05/21 History trazodone 50 mg tablet mg 12/05/21 History Allergies Allergy/AdvReac Type Severity Reaction Status Date / Time Sulfa (Sulfonamide Allergy Intermediate Hives Verified 12/05/21 20:10 Antibiotics) nitrofurantoin AdvReac Unknown Verified 12/05/21 20:10 [From Macrobid] Exam Const: Vital Signs, click to edit/add: Vital Signs - 24 hr 12/05/21 19:56 12/05/21 20:45 12/05/21 23:22 Temperature 96.6 F L 97.6 F Pulse Rate [Pulse Oximeter] 76 67 Respiratory Rate 18 16 Blood Pressure [Le ft Upper Arm] 136/72 123/63 Pulse Oximetry 97 97 96 Oxygen Delivery Me thod Nasal Cannula Nasal Cannula Nasal Cannula Oxygen Flow Rate 2 2 2 Labs Labs: Short CBC 12/05/21 12/05/21 Range/Units 20:35 23:15 WBC 10.06 (4.50-11.00) K/uL Hgb 11.4 L 11.4 L (12.0-16.0) gm/dL Hct 35.0 (33.0-51.0) % Plt Count 172 (140-440) K/uL BMP 12/05/21 20:35 Sodium 137 Potassium 4.1 Chloride 96 Carbon Dioxide 31 BUN 31 H Creatinine 1.4 Glucose 143 H Calcium 8.9 Liver Function 12/05/21 Range/Units 20:35 Total Bilirubin 0.5 (0.1-1.5) mg/dL AST 45 H (12-35) U/L ALT 24 (4-35) U/L Alkaline Phosphatase 154 H (40-150) U/L Albumin 4.5 (3.3-5.0) g/dL Assessment and Plan Assessment and plan (1) Diarrhea: Status: Acute (2) Guaiac positive stools: Status: Acute Plan [facility] Hospitalist CONSULTATION NOTE: Reason for consult: Diarrhea, concern for GI bleed HPI: Patient is a pleasant 81-year-old female who comes in for several weeks of diarrhea which has become dark. She is also had loss of appetite and some lower abdominal pain. In the ER she was noted to have guaiac positive stool. Her hemoglobin was measured twice and was stable however. She does have a history of prior GI bleed in the past. Patient has not had any significant headaches or lightheadedness. She denies any chest pain or shortness of breath. As mentioned she has had some lower abdominal pain. She has not had any nausea or vomiting. She has had a lot of's of appetite. She has had diarrhea for around 2 weeks. She denies any dysuria. She has not had fevers or chills. Patient is a former smoker quitting in the 70s. She does not drink alcohol. She does not use recreational drugs. We did discuss CODE STATUS and she wishes to be full code. Exam (performed via interactive video with assistance of bedside nurse): General: Alert, cooperative, no acute distress HEENT: Pupils reported ERRL, oral mucosa pink and moist without erythema Abd: Tenderness to left lower quadrant, but otherwise nontender palpation done by bedside nurse Ext: No pitting edema noted Skin: No rashes, bruises or lesions appreciated on gross visualization of exposed skin Neuro: Alert, oriented x 3. CN III -VII, XI, XII grossly intact, moves all extremities without any significant focal deficit appreciated by nurse Assessment and Plan: 1. Diarrhea 2. Concern for GI bleed Patient is a pleasant 81-year-old female admitted for concern for GI bleed. We will get serial hemoglobins and transfuse for hemoglobins less than 7. We will place her on pantoprazole IV twice daily. We will keep her on a clear liquid diet until she can be evaluated for endoscopy and colonoscopy by surgical service. Patient will PRNs available for pain and nausea. Chronic outpatient medications will need to be continued as appropriate once fully verified, all antiplatelets and anticoagulants will need to be held. No pharmacologic DVT prophylaxis has been ordered with GI bleed. Patient is a full code. Thank you for including Semaj Tobar in the patients care. This service is available for further assistance as requested by your care team by calling [phone].
--- NOTE | 2021-12-06 05:12 | PC.NURSE ---
[id number]: patient admitted to floor, ambulates with assist X1, walker and gait belt. c/o chronic low back pain upon arrival but fell asleep and remained asleep for remainder of shift. no stools this shift. patient is alert/oriented. 2L oxygen chronically, sats 100%.
[2021-12-06 07:10] LABS: Basophils Absolute Auto 0.04 K/uL (0.00-0.30); Basophils Percent Auto 0.6 % (0.0-3.0); Eosinophils Absolute Auto 0.44 K/uL (0.00-0.50); Eosinophils Percent Auto 6.8 % (0.0-7.0); Hematocrit 32.3 % (33.0-51.0); Hemoglobin* 10.6 gm/dL (12.0-16.0); Immature Granulocytes Abs Auto 0.01 K/uL (0.00-0.30); Lymphocytes Absolute Auto 1.43 K/uL (0.90-2.90); Lymphocytes Percent Auto 22.2 % (20-44); Mean Corpuscular HGB Conc 33 gm/dL (32-36); Mean Corpuscular Hemoglobin 27 pg (26-34); Mean Corpuscular Volume 83 fL (80-100); Neutrophils Absolute Auto 3.93 K/uL (1.7-7.0); Neutrophils Percent Auto 61.2 % (42.0-72.0); Platelet Count* 147 K/uL (140-440); RDW Coefficient of Variation % 14.5 % (11.5-15.5); White Blood Count* 6.43 K/uL (4.50-11.00)
[2021-12-06 07:11] LABS: Slide Review Reflex No
[2021-12-06] MEDS: PANTOPRAZOLE SODIUM 40 MG INJ IVP ×2 (08:46→21:25)
[2021-12-06 11:19] LABS: Hemoglobin* 11.9 gm/dL (12.0-16.0)
[2021-12-06] MEDS: bisacodyL 5 MG TABLET DR 10 MG PO ×2 (12:33→23:33)
[2021-12-06] MEDS: PEG-3350 SODIUM CL/BICARB-KCL 4,000 ML SOLN 4000 ML PO (13:22)
--- NOTE | 2021-12-06 13:53 | P.IMHP_ITS ---
Hospitalist- H&P: HPI History of Present Illness Time Seen by Provider: 10:00 Date Seen: 12/06/21 Chief complaint: Black Stools Narrative: Cathy Kaplan is a 81 year old woman who presents for assessment of recurrent black and bloody stools. These black runny stools started on 11/27/2021. Lasted 2-3 days. Has intermittently had the same off and on since then. Has known hemorrhoids. On aspirin daily for coronary artery disease. Denies abdominal pain. Denies nausea vomiting. Acknowledges decreased interest in eating or drinking. In hospitals hemoglobins have been running around 11. Denies orthostasis. Has been hemodynamically stable. Last colonoscopy was 20 years ago. Review of Systems Status of ROS: Reports: 10 or more systems reviewed and unremarkable except as noted in History and below Narrative: Denies chest heaviness, pressure, tightness, or pain. Denies syncope or near-syncope. Denies orthostasis. Denies nausea vomiting. Has had loose stools with this, soft and pasty. Denies diarrhea. Denies palpitations or fluttering. Denies dyspnea at rest. Acknowledges baseline dyspnea with exertion. Acknowledges that she utilizes oxygen 2 liters/minute via nasal cannula when she goes to bed at night. This is longstanding. Denies fevers, rigors, diaphoresis. Denies dysuria, urgency, frequency, hematuria. Denies polyuria, polydipsia, polyphagia. No focal motor neurologic deficits. Denies myalgias or arthralgias other than her baseline. 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 Diabetes mellitus type 2 in nonobese Essential hypertension Hyperlipidemia Major depressive disorder, recurrent 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) Obstructive sleep apnea Osteopenia Pain medication agreement Paroxysmal atrial fibrillation Primary central sleep apnea Primary hypothyroidism Stable angina pectoris JOSE (stress urinary incontinence, female) Venous insufficiency (chronic) (peripheral) Venous stasis ulcer Vitamin D deficiency Surgical History Status post abdominal hysterectomy and left salpingo-oophorectomy Status post appendectomy Status post bilateral cataract extraction Status post bunionectomy Status post carpal tunnel release Status post coronary artery bypass grafts x 5 Status post nasal septoplasty Status post tonsillectomy Status post uvulopalatopharyngoplasty Status post vein stripping Family History Sister Cancer Brother FH: prostate cancer Mother Diabetes Father Coronary artery disease Social History Narrative: Lives alone with pet dog and cat. Adopted grand son, Omid donato, is her POA for health. Requests full resuscitation measures in event of cardiopulmonary demise (12/06/2021). Smoking Status: Former smoker What tobacco products do you use: cigarettes Smoking packs per day: 3 Smoking cigarettes per day: 60.0 Years smoked: 10 Smoking pack-years: 30.00 Smoking quit date/years: >15 years ago How often do you have a drink containing alcohol: never AUDIT-C Alcohol total score: 0 Non-prescribed substance use: denies use Caffeine: Yes (green tea) service: No Meds Home Medications and Allergies Home Medications Medication Instructions Recorded Confirmed Type albuterol sulfate 2.5 mg/3 mL 2.5 mg inhalation Q6H PRN 12/05/21 12/06/21 History (0.083 %) solution for nebulization amlodipine 5 mg tablet 5 mg PO DAILY 12/05/21 12/06/21 History aspirin 81 mg chewable tablet 81 mg PO DAILY 12/05/21 12/06/21 History atorvastatin 40 mg tablet 40 mg PO HS 12/05/21 12/06/21 History calcium carbonate 600 mg-vitamin 1 tab PO DAILY 12/05/21 12/06/21 History D3 10 mcg (400 unit) tablet cetirizine 10 mg tablet 10 mg PO DAILY 12/05/21 12/06/21 History cholecalciferol (vitamin D3) 50 2,000 unit PO DAILY 12/05/21 12/06/21 History mcg (2,000 unit) tablet ferrous sulfate 324 mg (65 mg 324 mg PO DAILY 12/05/21 12/06/21 History iron) tablet,delayed release furosemide 40 mg tablet 80 mg PO DAILY 12/05/21 12/06/21 History ipratropium bromide 21 mcg (0.03 2 spray intranasal TID 12/05/21 12/06/21 History %) nasal spray isosorbide mononitrate 120 mg 360 mg PO DAILY 12/05/21 12/06/21 History tablet,extended release 24 hr metformin 500 mg tablet 500 mg PO TIDWM 12/05/21 12/06/21 History metoprolol succinate 50 mg 50 mg PO DAILY 12/05/21 12/06/21 History tablet,extended release 24 hr morphine 30 mg tablet,extended 30 mg PO HS 12/05/21 12/06/21 History release morphine 60 mg tablet,extended 60 mg PO BID 12/05/21 12/06/21 History release (MS Contin) mupirocin 2 % topical ointment 1 applic topical DAILY PRN 12/05/21 12/06/21 History nitroglycerin 0.4 mg sublingual 0.4 mg sublingual Q5-10M PRN 12/05/21 12/06/21 History tablet nystatin 100,000 unit/gram topical 1 applic topical TID PRN 12/05/21 12/06/21 History powder (Nystop) omeprazole 20 mg capsule,delayed 20 mg PO BID 12/05/21 12/06/21 History release sertraline 100 mg tablet 200 mg PO DAILY 12/05/21 12/06/21 History trazodone 50 mg tablet 50 mg PO HS 12/05/21 12/06/21 History albuterol sulfate 90 mcg/actuation 1 - 2 puff inhalation Q4H PRN 12/06/21 12/06/21 History aerosol inhaler exenatide microspheres 2 mg/0.85 2 mg subcut Q7D 12/06/21 12/06/21 History mL subcutaneous auto-injector (Bydureon BCi) guaifenesin 600 mg tablet, 600 mg PO BID 12/06/21 12/06/21 History extended release 12 hr (Mucinex) insulin glargine 100 unit/mL (3 8 unit subcut QAM 12/06/21 12/06/21 History mL) subcutaneous pen (Lantus Solostar U-100 Insulin) Allergies Allergy/AdvReac Type Severity Reaction Status Date / Time Sulfa (Sulfonamide Allergy Intermediate Hives Verified 12/05/21 20:10 Antibiotics) nitrofurantoin AdvReac Unknown Verified 12/05/21 20:10 [From Macrobid] Exam Narrative: Exam Narrative: No acute distress. Appears tired. Pale complexion. Oriented to self, place, time, situation. Somewhat anxious, but friendly, cooperative, articulate. Mood and affect are congruent. Hearing and vision are grossly normal. Dentition in fair repair. Dry buccal mucosa. No icterus. Pupils equally round and reactive to light and accommodation. Extraocular muscles are intact. Neck is supple. Midline trachea. No JVD, hepatojugular reflux, or carotid bruits. No adenopathy in the pre or postauricular chains, anterior or posterior cervical chains, submandibular or submental fossa, supra or infraclavicular fossa, or axilla bilaterally. Lungs are clear to auscultation without wheezing, rhonchi, or rales. Barrel- shaped chest. Chest wall excursions are full with respiratory efforts. No CVA tenderness. Heart tones with regular rhythm, normal S1, S2. Abdomen with active bowel sounds, soft, nontender. No organomegaly or masses. No rebound or guarding. Bilateral lower extremity chronic venous stasis dermatitis. Trace edema pretibially bilaterally. Independent transfer, station, and gait. Moves all 4 extremities. Skin is warm, dry, intact. Const: Vital Signs, click to edit/add: Vital Signs - 24 hr 12/05/21 19:56 12/05/21 20:45 12/05/21 23:22 Temperature 96.6 F L 97.6 F Pulse Rate [Apical ] Pulse Rate [Pulse Oximeter] 76 67 Respiratory Rate 18 16 Blood Pressure [Le ft Upper Arm] 136/72 123/63 Blood Pressure [Ri ght Arm] Pulse Oximetry 97 97 96 Oxygen Delivery Me thod Nasal Cannula Nasal Cannula Nasal Cannula Oxygen Flow Rate 2 2 2 12/06/21 01:02 12/06/21 01:02 12/06/21 01:02 Temperature 98 F 98 F Pulse Rate [Apical ] 72 Pulse Rate [Pulse Oximeter] 72 Respiratory Rate 16 18 Blood Pressure [Le ft Upper Arm] Blood Pressure [Ri ght Arm] 132/75 132/75 Pulse Oximetry 91 92 92 Oxygen Delivery Me thod Nasal Cannula Nasal Cannula Nasal Cannula Oxygen Flow Rate 2 2 2 12/06/21 01:03 12/06/21 01:05 12/06/21 03:00 Temperature 98 F Pulse Rate [Apical ] 72 Pulse Rate [Pulse Oximeter] 72 68 Respiratory Rate 18 18 Blood Pressure [Le ft Upper Arm] Blood Pressure [Ri ght Arm] 132/75 Pulse Oximetry 92 94 100 Oxygen Delivery Me thod Nasal Cannula Nasal Cannula Oxygen Flow Rate 2 2 12/06/21 07:00 12/06/21 07:00 12/06/21 10:50 Temperature 98 F Pulse Rate [Apical ] Pulse Rate [Pulse Oximeter] 69 69 Respiratory Rate 18 18 Blood Pressure [Le ft Upper Arm] Blood Pressure [Ri ght Arm] Pulse Oximetry 98 96 Oxygen Delivery Me thod Nasal Cannula Oxygen Flow Rate 2 12/06/21 11:00 Temperature 98 F Pulse Rate [Apical ] Pulse Rate [Pulse Oximeter] 63 Respiratory Rate 18 Blood Pressure [Le ft Upper Arm] Blood Pressure [Ri ght Arm] 154/75 H Pulse Oximetry 96 Oxygen Delivery Me thod Nasal Cannula Oxygen Flow Rate 2 Hospitalist - H&P: Result Labs Labs: Short CBC 12/05/21 12/05/21 12/06/21 Range/Units 20:35 23:15 06:55 WBC 10.06 6.43 (4.50-11.00) K/uL Hgb 11.4 L 11.4 L 10.6 L (12.0-16.0) gm/dL Hct 35.0 32.3 L (33.0-51.0) % Plt Count 172 147 (140-440) K/uL 12/06/21 Range/Units 11:15 WBC (4.50-11.00) K/uL Hgb 11.9 L (12.0-16.0) gm/dL Hct (33.0-51.0) % Plt Count (140-440) K/uL BMP 12/05/21 20:35 Sodium 137 Potassium 4.1 Chloride 96 Carbon Dioxide 31 BUN 31 H Creatinine 1.4 Glucose 143 H Calcium 8.9 Liver Function 12/05/21 Range/Units 20:35 Total Bilirubin 0.5 (0.1-1.5) mg/dL AST 45 H (12-35) U/L ALT 24 (4-35) U/L Alkaline Phosphatase 154 H (40-150) U/L Albumin 4.5 (3.3-5.0) g/dL Imaging CT scan - abdomen: Attestation: I have reviewed the pertinent imaging results. Radiologist's impression: 1. Mild wall thickening of the gastric antrum is likely inflammatory. 2. Multiple lobulated hyperdensities within the lumen of the gastric antrum could represent ingested material versus blood products. 3. Large amount of formed stool throughout the colon. No evidence of colonic inflammation. Assessment and Plan Assessment and plan (1) Complaint of melena: Status: Acute (2) Guaiac positive stools: Status: Acute (3) Anemia: Status: Acute (4) Diarrhea: Status: Acute Plan 1. Patient has a constellation of chronic active problems as specified in the past medical history. 2. Melena most likely from an upper gastrointestinal source. CT scan suggests likely in the gastric antrum. 3. Continue with IV proton pump inhibitor pantoprazole for now. 4. Monitor serial hemoglobins and vital signs. 5. Will need to check a colonoscopy in esophagogastroduodenoscopies tomorrow. Reviewed with the patient and answered her questions. She is agreeable. Made arrangements for the same here in our hospital, including support from anesthesia. 6. Continue with other supportive efforts. Hold her aspirin. 7. Initiate bowel prep today. Continue on clear liquids only. 8. Patient agreeable to above stated plans and recommendations. 9. On observation status for now.
--- NOTE | 2021-12-06 15:34 | PC.NURSE ---
Pt. pleasant and cooperative, alert and oriented x4, ambulates with assist X1, walker and gait belt. c/o chronic low back pain but has been sleeping most of the shift. no stools this shift. 2L oxygen chronically, sats 98%. Pt. will remain clears until midnight in preparation for Endoscopy and Colonoscopy in the AM. Pt. had first extra large BM after Golytely drink, greenish in color.
[2021-12-06] MEDS: TRAZODONE HCL 50 MG TABLET PO (21:25)
[2021-12-06] MEDS: guaiFENesin 600 MG TAB.ER.12H PO (21:25)
[2021-12-06] MEDS: ATORVASTATIN CALCIUM 40 MG TABLET PO (21:25)
[2021-12-06] MEDS: MORPHINE 30 MG TABLET.ER 90 MG PO (21:25)
[2021-12-06] MEDS: OMEPRAZOLE 20 MG CAPSULE DR PO (21:25)
[2021-12-06] MEDS: ONDANSETRON 2 MG/ML inj 4 MG IVP (23:06)
[2021-12-07 02:00] VITALS: O2SAT 97
[2021-12-07 02:57] VITALS: BP 165/61; PULSE 59; RESP 18; TEMP 36.6; O2SAT 97
--- NOTE | 2021-12-07 05:34 | PC.NURSE ---
[id number]: Patient cooperative with cares. A&Ox3. Chronic back pain controlled with scheduled Morphine. A1,4ww,GB. Completed bowel prep at 0115 and stools clear/yellow since 0200. Continent and incontinent. Fatigued and extremely sleepy at times. NPO. Awaiting upper and lower scopes at 0830.
[2021-12-07 07:00] VITALS: BP 177/79; PULSE 68; RESP 16; TEMP 36.2; O2SAT 97
[2021-12-07 07:39] LABS: Hematocrit 37.9 % (33.0-51.0); Hemoglobin* 12.5 gm/dL (12.0-16.0); Mean Corpuscular HGB Conc 33 gm/dL (32-36); Mean Corpuscular Hemoglobin 27 pg (26-34); Mean Corpuscular Volume 82 fL (80-100); Platelet Count* 173 K/uL (140-440); Red Blood Count 4.62 m/uL (4.00-5.20); Reticulocyte Hemoglobin Equivi 28.1 pg (29.0-35.0); Reticulocyte Percent 1.4 % (0.5-2.0); Reticulocytes Absolute 0.06 # (0.03-0.08); White Blood Count* 7.88 K/uL (4.50-11.00)
[2021-12-07 07:40] LABS: Lactate* 1.2 mmol/L (0.5-1.9)
[2021-12-07 07:42] LABS: Slide Review Reflex No
[2021-12-07 07:57] LABS: Chloride* 97 mmol/L (96-114); Potassium* 3.1 mmol/L (3.6-5.1); Sodium* 139 mmol/L (135-149)
[2021-12-07 07:59] LABS: Est. Creatinine Clearance* 35.26; Estimated Glomerular Filt Rate 56 ml/min
[2021-12-07 08:00] LABS: Blood Urea Nitrogen* 19 mg/dL (7-30); Calcium* 8.6 mg/dL (8.4-10.6); Carbon Dioxide* 34 mmol/L (20-32); Glucose* 134 mg/dL (60-115); Phosphorus* 3.3 mg/dL (2.5-4.5)
[2021-12-07 08:01] LABS: Magnesium* 1.5 mg/dL (1.5-2.6)
--- NOTE | 2021-12-07 09:56 | W.ANESCHARGE ---
Anesthesia Charges Start Date/Time Anesthesia Start Date: 12/07/21 Anesthesia Start Time: 09:10 Stop Date/Time Anesthesia Stop Date: 12/07/21 Anesthesia Stop Time: 09:55 Summary Emergency: No Extremes of Age: Over 70-CPT 89304
[2021-12-07 10:00] VITALS: O2SAT 92
--- NOTE | 2021-12-07 10:10 | W.ANESCHARGE ---
Anesthesia Charges Start Date/Time Anesthesia Start Date: 12/07/21 Anesthesia Start Time: 09:10 Stop Date/Time Anesthesia Stop Date: 12/07/21 Anesthesia Stop Time: 09:55 Summary Emergency: No Extremes of Age: Over 68-CPT 46044
[2021-12-07 11:00] VITALS: BP 165/68; PULSE 64; RESP 16; TEMP 35.8; O2SAT 92
[2021-12-07] MEDS: SERTRALINE 100 MG TABLET 200 MG PO (11:27)
[2021-12-07] MEDS: METOPROLOL SUCCINATE (XL) 50 MG TAB PO (11:27)
[2021-12-07] MEDS: MORPHINE 30 MG TABLET.ER 60 MG PO (11:28)
[2021-12-07] MEDS: guaiFENesin 600 MG TAB.ER.12H PO (11:29)
[2021-12-07] MEDS: CETIRIZINE HCL 10 MG TABLET PO (11:29)
[2021-12-07] MEDS: AMLODIPINE 5 MG TABLET PO (11:29)
[2021-12-07] MEDS: FUROSEMIDE 40 MG TABLET 80 MG PO (11:29)
[2021-12-07] MEDS: OMEPRAZOLE 20 MG CAPSULE DR PO (11:29)
[2021-12-07] MEDS: PANTOPRAZOLE SODIUM 40 MG INJ IVP (11:30)
--- NOTE | 2021-12-07 14:31 | PC.NURSE ---
Pt. alert and oriented x4. Left for endoscopy and colonoscopy at 815 and returned to unit at 1015. Pt. denied any N/V or SOB. Pt. rated pain 2/10. Pt. did not have any more bowel movements. Pt. ate lunch and tolerated well. Pt. discharged at 1400 via wheelchair accompanied by grandson. Pt. verbalized understanding of discharge teaching and instructions. Pt. IV removed intact. Pt. signed belongings list and discharge sheet.
--- NOTE | 2021-12-07 16:39 | P.DS_ITS ---
DS: Providers Provider Time Seen by Provider: 13:00 Date Seen: 12/07/21 Date of admission: 12/05/21 23:48 Primary care physician: Marissa Williamson MD Admitting Clinician: Moise Chino MD Attending Physician on discharge: Gamal Cantor MD Date of Discharge: 12/07/21 DS: Diagnosis Discharge Diagnosis (1) Complaint of melena: Status: Acute (2) Diarrhea: Status: Acute (3) Anemia: Status: Acute (4) Abnormal CT of the abdomen: Status: Acute Problem details: Slightly thickened gastric mucosa 12/06/21, with normal EGD 12/07/2021 (5) Guaiac positive stools: Status: Acute DS: Summary Hospital Course Hospital Course: Cathy Kaplan is a 81 year old woman who presents for assessment of recurrent black and bloody stools.? These black runny stools started on 11/27/2021.? Lasted 2-3 days.? Has intermittently had the same off and on since then.? Has known hemorrhoids.? On aspirin daily for coronary artery disease.? Denies abdominal pain.? Denies nausea vomiting.? Acknowledges decreased interest in eating or drinking.? In hospitals hemoglobins have been running around 11.? Denies ortho stasis.? Has been hemodynamically stable.? Last colonoscopy was [address] scan abdomen and pelvis suggests thickening of the wall of the stomach otherwise no obvious etiology for her symptoms. Hemoglobin remained stable throughout hospitalization. Or time she does not have any melena or bloody stools in hospital. Ultimately decided on proceeding with colonoscopy and esophagogastroduodenoscopy while in hospital. This is undertaken on the date of discharge with support from anesthesia. No findings to explain patient's reported diarrhea and melena. Biopsies obtained. Those results are pending. Patient tolerated resumption of regular diet prior to discharge. Tolerated increased activities. Status at Discharge Overall status at discharge: patient is back to baseline Time Spent with Patient Time attestation: Total time spent providing and/or coordinating discharge services: Exam Narrative: Exam Narrative: No acute distress.? Appears tired.? Pale complexion. Oriented to self, place, time, situation. Somewhat anxious, but friendly, cooperative, articulate.? Mood and affect are congruent. Hearing and vision are grossly normal.? Upper and lower dentures.? Dry buccal mucosa.? No icterus.? Pupils equally round and reactive to light and accommodation.? Extraocular muscles are intact.? Neck is supple.? Midline trachea.? No JVD, hepatojugular reflux, or carotid bruits.? No adenopathy in the pre or postauricular chains, anterior or posterior cervical chains, submandibular or submental fossa, supra or infraclavicular fossa, or axilla bilaterally. Lungs are clear to auscultation without wheezing, rhonchi, or rales.? Barrel- shaped chest.? Chest wall excursions are full with respiratory efforts. No CVA tenderness. Heart tones with regular rhythm, normal S1, S2. Abdomen with active bowel sounds, soft, nontender.? No organomegaly or masses.? No rebound or guarding.? Bilateral lower extremity chronic venous stasis dermatitis.? Trace edema pretibially bilaterally. Independent transfer, station, and gait.? Moves all 4 extremities. Skin is warm, dry, intact. Const: Vital Signs, click to edit/add: Vital Signs - 24 hr 12/06/21 18:00 12/06/21 19:00 12/06/21 23:00 Temperature 97.7 F 97.7 F Pulse Rate [Pulse Oximeter] 74 74 Respiratory Rate 20 20 Blood Pressure [Ri ght Arm] 180/94 H 144/64 H Pulse Oximetry 93 95 95 Oxygen Delivery Me thod Nasal Cannula Nasal Cannula Oxygen Flow Rate 2 2 12/06/21 23:19 12/07/21 02:00 12/07/21 02:57 Temperature 97.4 F L 97.8 F Pulse Rate [Pulse Oximeter] 65 59 L Respiratory Rate 16 18 Blood Pressure [Ri ght Arm] 144/64 H 165/61 H Pulse Oximetry 97 97 97 Oxygen Delivery Me thod Nasal Cannula Nasal Cannula Oxygen Flow Rate 2.0 2.0 12/07/21 07:00 12/07/21 07:00 12/07/21 10:00 Temperature 97.1 F L Pulse Rate [Pulse Oximeter] 68 68 Respiratory Rate 16 16 Blood Pressure [Ri ght Arm] 177/79 H Pulse Oximetry 97 92 Oxygen Delivery Me thod Nasal Cannula Oxygen Flow Rate 2.0 12/07/21 11:00 Temperature 96.4 F L Pulse Rate [Pulse Oximeter] 64 Respiratory Rate 16 Blood Pressure [Ri ght Arm] 165/68 H Pulse Oximetry 92 Oxygen Delivery Me thod Nasal Cannula Oxygen Flow Rate 2.0 Documenting provider has reviewed patient's vital signs: yes DS: Data Data Completed and Pending Labs on day of discharge: Labs from last 24 hours 12/07/21 12/07/21 12/07/21 06:55 06:55 06:55 WBC 7.88 RBC 4.62 Hgb 12.5 Hct 37.9 MCV 82 MCH 27 MCHC 33 Plt Count 173 Absolute Retic 0.06 Percent Retic 1.4 Immature Retic Fraction 9.0 Retic Hgb Equivalent 28.1 L Sodium 139 Potassium 3.1 L Chloride 97 Carbon Dioxide 34 H BUN 19 Creatinine 1.0 Estimated Creat Clear 35.26 Estimated GFR 56 Glucose 134 H Lactate 1.2 Calcium 8.6 Phosphorus 3.3 Magnesium 1.5 Discharge Plan Discharge Disposition: Home, Self-Care Date of Admission: 12/05/21 23:48 Attending Provider on Discharge: Gamal Cantor Primary Care Provider: Marissa Williamson Condition: Stable Anticipated Discharge Date/Time: 12/07/21 13:45 Discharge Medications: Continued furosemide 40 mg tablet 80 mg PO DAILY atorvastatin 40 mg tablet 40 mg PO HS metformin 500 mg tablet 500 mg PO TIDWM albuterol sulfate 2.5 mg /3 mL (0.083 %) solution for nebulization 2.5 mg inhalation Q6H PRN trazodone 50 mg tablet 50 mg PO HS cetirizine 10 mg tablet 10 mg PO DAILY metoprolol succinate 50 mg tablet extended release 24 hr 50 mg PO DAILY sertraline 100 mg tablet 200 mg PO DAILY amlodipine 5 mg tablet 5 mg PO DAILY morphine 30 mg tablet extended release 30 mg PO HS Label Comments: TOTAL DOSE 90MG HS isosorbide mononitrate 120 mg tablet extended release 24 hr 360 mg PO DAILY morphine [MS Contin] 60 mg tablet extended release 60 mg PO BID nitroglycerin 0.4 mg tablet, sublingual 0.4 mg sublingual Q5-10M PRN omeprazole 20 mg capsule,delayed release(DR/EC) 20 mg PO BID aspirin 81 mg tablet,chewable 81 mg PO DAILY mupirocin 2 % ointment 1 applic TOPICAL DAILY PRN nystatin [Nystop] 100,000 unit/gram powder 1 applic TOPICAL TID PRN ipratropium bromide 21 mcg (0.03 %) spray,non-aerosol 2 spray INTRANASAL TID calcium carbonate-vitamin D3 600 mg-10 mcg (400 unit) tablet 1 tab PO DAILY ferrous sulfate 324 mg (65 mg iron) tablet,delayed release (DR/EC) 324 mg PO DAILY cholecalciferol (vitamin D3) 50 mcg (2,000 unit) tablet 2,000 unit PO DAILY albuterol sulfate 90 mcg/actuation HFA aerosol inhaler 1 - 2 puff INHALATION Q4H PRN Bydureon BCise 2 mg/0.85 mL auto-injector 2 mg SUBCUT Q7D guaifenesin [Mucinex] 600 mg tablet extended release 12hr 600 mg PO BID insulin glargine [Lantus Solostar U-100 Insulin] 100 unit/mL (3 mL) insulin pen 8 unit SUBCUT QAM Discharge Orders: Discharge Order (Routine); Ordered 12/07/21 Ordered By: Gamal Cantor Patient Education: [place] (GEN) Activity Restrictions/Additional Instructions: 1. Continue with oxygen use at home as directed. 2. Activity Level: Activity as Tolerated Discharge Diet: Heart Healthy (2 gm sodium, low fat) Follow Up Appointments: Marissa Williamson MD [Primary Care Provider] - 12/14/21 (Follow-up 5-7 days with pre-visit hemoglobin.) Forms: [employer] Info Instructions
--- NOTE | 2021-12-13 15:11 | PC.NURSE ---
REGIS ONOFRE CALLED NURSING STATION ON 12/13. SHE HAD DISCHARGED ON 12/07 AND FORGOT HER PILL BOX ON MED/SURG. SHE REPORTS SHE HAD CALLED ON 12/07 AND TALKED WITH A STAFF MEMBER WHO STATED SHE WOULD MAIL THE PILL BOX TO HER AND REGIS ONOFRE WAS CONCERNED IT HAD NOT YET ARRIVED. DISCUSSED WITH LXEUS SO WHO WAS CHARGE NURSE ON 12/07 EVENING AND JUDAH REPORTS THAT SHE DID SEND THE PILL BOX IN THE MAIL THAT DAY. CALLED REGIS ONOFRE BACK AND INFORMED HER IT WAS SENT BUT IT MAY TAKE LONGER IT WAS LIKELY NOT SENT OUT UNTIL FRIDAY. SHE WILL CONTACT US IF SHE HAS NOT RECEIVED BY NEXT WEEK.
[2021-12-13 15:35] LABS: Ova and Parasite, Fecal Negative (Negative)
== END 2021-12-07 14:00 | disposition home or self-care (01) ==
LOC: ED 23:23 → MEDSURG 23:49
PROVIDERS: Hospitalist; Internal Medicine; Admitting Provider Internal Medicine; Emergency Provider Family Medicine; PCP Family Medicine; Visit Provider Internal Medicine
DX: R19.5 Other fecal abnormalities (principal); R93.5 Abnormal findings on diagnostic imaging of other abdominal regions, including retroperitoneum; R19.7 Diarrhea, unspecified; D64.9 Anemia, unspecified; I25.10 Atherosclerotic heart disease of native coronary artery without angina pectoris; K64.9 Unspecified hemorrhoids; Z79.82 Long term (current) use of aspirin; Z79.84 Long term (current) use of oral hypoglycemic drugs; Z79.4 Long term (current) use of insulin; R10.30 Lower abdominal pain, unspecified; Z87.891 Personal history of nicotine dependence; Z87.19 Personal history of other diseases of the digestive system; E11.9 Type 2 diabetes mellitus without complications; I10 Essential (primary) hypertension; E78.5 Hyperlipidemia, unspecified; Z98.890 Other specified postprocedural states
CPT/HCPCS: 36415; 43239; 45380; 74177; 80048; 80053; 813; 82947; 82962; 83605; 83735; 84100; 85018; 85025; 85027; 85045; 86140; 86850; 86900; 86901; 87045; 87046; 87177; 87209; 87427; 87493; 87635; 88305; 94761; 99100; 99253; 99284; 99285; A9270; C9113; G0378; J2405; J2704; J7120; Q9967

== ENCOUNTER 2022-10-01 12:08 | Emergency (ER) | payer BC, SELFPAY ==
[2022-10-01 12:28] VITALS: BP 140/90; PULSE 64; RESP 12; TEMP 36.2; O2SAT 96; BMI 23.9
--- NOTE | 2022-10-01 12:43 | CRLHL7_ITS ---
For Patients: As a result of the Century Cures Act, medical imaging exams and procedure reports are released immediately into your electronic medical record. You may view this report before your referring provider. If you have questions, please contact your health care provider. INDICATION: Leg swelling TECHNIQUE: Ultrasound venous duplex lower left extremity. Compression venous exam was performed using bruno-scale, color Doppler, and spectral Doppler analysis. COMPARISON: None. FINDINGS: Sonographic imaging demonstrates the left common femoral, deep femoral, superficial femoral, popliteal, posterior tibial and greater saphenous and the contralateral right common femoral veins to be fully compressible with normal color Doppler blood flow. Atherosclerosis. IMPRESSION: No evidence of deep venous thrombosis left lower extremity. Dictated by Abelardo Smith MD @ 10/01/2022 2:55:43 PM (Electronically Signed)
--- NOTE | 2022-10-01 12:49 | ED_ITS ---
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 Patient states she has no skin wounds and legs for the past few weeks but started having swelling in the leg starting yesterday. States the swelling is better today compared to yesterday. Denies any history of blood clots no history of cancer or recent surgeries. Patient does have diabetes and states she has no sensation in her feet. Does have some pain leg at this time. Denies fevers, chills, chest pain, shortness of breath, abdominal pain, diarrhea, constipation, headache, weakness, numbness. Patient denies ever having symptoms like this before. Related Data Home Medications Medication Instructions Recorded Confirmed albuterol sulfate 2.5 mg/3 mL 2.5 mg inhalation Q6H PRN 12/05/21 10/01/22 (0.083 %) solution for nebulization amlodipine 5 mg tablet 5 mg PO DAILY 12/05/21 10/01/22 aspirin 81 mg chewable tablet 81 mg PO DAILY 12/05/21 10/01/22 atorvastatin 40 mg tablet 40 mg PO HS 12/05/21 10/01/22 calcium carbonate 600 mg-vitamin 1 tab PO DAILY 12/05/21 10/01/22 D3 10 mcg (400 unit) tablet cetirizine 10 mg tablet 10 mg PO DAILY 12/05/21 10/01/22 cholecalciferol (vitamin D3) 50 2,000 unit PO DAILY 12/05/21 10/01/22 mcg (2,000 unit) tablet ferrous sulfate 324 mg (65 mg 324 mg PO DAILY 12/05/21 10/01/22 iron) tablet,delayed release furosemide 40 mg tablet 80 mg PO DAILY 12/05/21 10/01/22 ipratropium bromide 21 mcg (0.03 2 spray intranasal TID 12/05/21 10/01/22 %) nasal spray isosorbide mononitrate 120 mg 360 mg PO DAILY 12/05/21 10/01/22 tablet,extended release 24 hr metformin 500 mg tablet 500 mg PO TIDWM 12/05/21 10/01/22 metoprolol succinate 50 mg 50 mg PO DAILY 12/05/21 10/01/22 tablet,extended release 24 hr morphine 30 mg tablet,extended 30 mg PO HS 12/05/21 10/01/22 release morphine 60 mg tablet,extended 60 mg PO BID 12/05/21 10/01/22 release (MS Contin) mupirocin 2 % topical ointment 1 applic topical DAILY PRN 12/05/21 10/01/22 nitroglycerin 0.4 mg sublingual 0.4 mg sublingual Q5-10M PRN 12/05/21 10/01/22 tablet nystatin 100,000 unit/gram topical 1 applic topical TID PRN 12/05/21 10/01/22 powder (Nystop) omeprazole 20 mg capsule,delayed 20 mg PO BID 12/05/21 10/01/22 release sertraline 100 mg tablet 200 mg PO DAILY 12/05/21 10/01/22 trazodone 50 mg tablet 50 mg PO HS 12/05/21 10/01/22 albuterol sulfate 90 mcg/actuation 1 - 2 puff inhalation Q4H PRN 12/06/21 10/01/22 aerosol inhaler exenatide microspheres 2 mg/0.85 2 mg subcut Q7D 12/06/21 10/01/22 mL subcutaneous auto-injector ([employer]) guaifenesin 600 mg tablet, 600 mg PO BID 12/06/21 10/01/22 extended release 12 hr (Mucinex) Previous Rx's Medication Instructions Recorded cephalexin 500 mg capsule 500 mg PO QID #20 caps 10/01/22 Allergies Allergy/AdvReac Type Severity Reaction Status Date / Time Sulfa (Sulfonamide Allergy Intermediate Hives Verified 10/01/22 12:18 Antibiotics) nitrofurantoin AdvReac Unknown Verified 10/01/22 12:18 [From Macrobid] [facility] Medical History Allergic rhinitis Atherosclerotic cardiovascular disease Atopic dermatitis and related condition Chronic back pain Chronic kidney disease Chronic, continuous use of opioids 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 Diabetes mellitus type 2 in nonobese Essential hypertension Hyperlipidemia Major depressive disorder, recurrent 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) Obstructive sleep apnea Osteopenia Pain medication agreement Paroxysmal atrial fibrillation Primary central sleep apnea Primary hypothyroidism Stable angina pectoris JOSE (stress urinary incontinence, female) Venous insufficiency (chronic) (peripheral) Venous stasis ulcer Vitamin D deficiency Surgical History Status post abdominal hysterectomy and left salpingo-oophorectomy Status post appendectomy Status post bilateral cataract extraction Status post bunionectomy Status post carpal tunnel release Status post coronary artery bypass grafts x 5 Status post nasal septoplasty Status post tonsillectomy Status post uvulopalatopharyngoplasty Status post vein stripping Family History Sister Cancer Brother FH: prostate cancer Mother Diabetes Father Coronary artery disease Social History Narrative: Lives alone with pet dog and cat. Adopted grand son, Omid Kaplan, is her POA for health. Requests full resuscitation measures in event of cardiopulmonary demise (12/06/2021). Smoking Status: Former smoker What tobacco products do you use: cigarettes Smoking packs per day: 3 Smoking cigarettes per day: 60.0 Years smoked: 10 Smoking pack-years: 30.00 Smoking quit date/years: >15 years ago How often do you have a drink containing alcohol: never AUDIT-C Alcohol total score: 0 Non-prescribed substance use: denies use Caffeine: Yes (green tea) service: No Exam Narrative: Exam Narrative: Const: Well-nourished, Well-developed, in mild distress Eyes: PERRL, no conjunctival injection, and symmetrical lids ENMT: Atraumatic external nose and ears. Moist mucous membranes. Neck: Symmetric, trachea midline, No thyromegaly. CVS: RRR, No murmurs or gallops. Peripheral pulses 2+ and equal in all extremities RESP: Unlabored respiratory effort. Clear to auscultation bilaterally. GI: Nontender/Nondistended, No rebound or guarding. MSK:Extremities w/o deformity, Normal Active ROM, mild tenderness to palpation left lower leg Skin: Warm, Dry. Erythema noted to low left lower leg going about residential up the leg with multiple small wounds with no current purulent discharge Neuro: Normal Muscle tone, No focal neurological deficits. Psych: Awake, Alert, & Oriented x3. Appropriate mood and affect. Const: Vital Signs, click to edit/add: Vital Signs - 24 hr 10/01/22 12:28 10/01/22 14:45 Temperature 97.1 F L 97.2 F L Pulse Rate [Pulse Oximeter] 64 55 L Respiratory Rate 12 16 Blood Pressure [Ri t Upper Arm] 140/90 H 142/61 H Pulse Oximetry 96 96 Oxygen Delivery Me thod Room Air Room Air Course Vital Signs Vital signs: Initial Vital Signs Temperature 97.1 F L 10/01/22 12:28 Temperature Source Temporal Artery Scan 10/01/22 12:28 Pulse Rate 64 10/01/22 12:28 Respiratory Rate 12 10/01/22 12:28 Blood Pressure 140/90 H 10/01/22 12:28 Blood Pressure Mean 106 H 10/01/22 12:28 Blood Pressure Position Sitting 10/01/22 12:28 Pulse Oximetry 96 10/01/22 12:28 Oxygen Delivery Method Room Air 10/01/22 12:28 Vital Signs Temperature 97.1 F L 10/01/22 12:28 Pulse Rate 64 10/01/22 12:28 Respiratory Rate 12 10/01/22 12:28 Blood Pressure 140/90 H 10/01/22 12:28 Pulse Oximetry 96 10/01/22 12:28 Oxygen Delivery Method Room Air 10/01/22 12:28 Temperature 97.2 F L 10/01/22 14:45 Pulse Rate 55 L 10/01/22 14:45 Respiratory Rate 16 10/01/22 14:45 Blood Pressure 142/61 H 10/01/22 14:45 Pulse Oximetry 96 10/01/22 14:45 Oxygen Delivery Method Room Air 10/01/22 14:45 Medical Decision Making MDM Narrative Medical decision making narrative: Patient is a 81-year-old female presenting was read for left lower leg swelling and erythema. 1st viewing the leg it does appear to be cellulitic in nature. She does note swelling has improved since yesterday. There are multiple nondraining wound seen on her legs. We cannot rule out a DVT at this time the also on ultrasound was ordered. Results came back showing no signs of a DVT. Her vital also color was well in her lab work shows no concerning abnormalities. I do not believe she has compartment syndrome over necrotizing fasciitis at this time. We she is safe for discharge home with antibiotics. She is agreeable to this plan. Lab Data Labs: Lab Results 10/01/22 Range/Units 13:00 WBC 6.46 (4.50-11.00) K/uL RBC 3.66 L (4.00-5.20) m/uL Hgb 10.3 L (12.0-16.0) gm/dL Hct 32.9 L (33.0-51.0) % MCV 90 (80-100) fL MCH 28 (26-34) pg MCHC 31 L (32-36) gm/dL RDW Coeff of Sue 13.5 (11.5-15.5) % Plt Count 140 (140-440) K/uL Neut % (Auto) 61.9 (42.0-72.0) % Lymph % (Auto) 21.2 (20-44) % [place] % (Auto) 8.0 (0.0-11.0) % Eos % (Auto) 7.9 H (0.0-7.0) % Baso % (Auto) 0.8 (0.0-3.0) % Neut # (Auto) 4.00 (1.7-7.0) K/uL Lymph # (Auto) 1.37 (0.90-2.90) K/uL [place] # (Auto) 0.50 (0.00-0.90) K/UL Eos # (Auto) 0.50 (0.00-0.50) K/uL Baso # (Auto) 0.05 (0.00-0.30) K/uL Abs Immat Gran (auto) 0.01 (0.00-0.30) K/uL Imm/Tot Granulo (auto) 0.2 % Sodium 137 (135-149) mmol/L Potassium 3.9 (3.6-5.1) mmol/L Chloride 91 L (96-114) mmol/L Carbon Dioxide 39 H (20-32) mmol/L BUN 36 H (7-30) mg/dL Creatinine 1.4 (0.5-1.5) mg/dL Estimated Creat Clear 25.19 Estimated GFR 37 ml/min Glucose 292 H (60-115) mg/dL Calcium 8.6 (8.4-10.6) mg/dL Discharge Plan Discharge Clinical Impression: Cellulitis Qualifiers: Site of cellulitis: extremity Site of cellulitis of extremity: lower extremity Laterality: left Qualified Code(s): L03.116 - Cellulitis of left lower limb Patient Disposition: Home, Self-Care Condition: Stable Instructions: Cellulitis (ED) Additional Instructions: Follow-up with the primary care provider in the next few days. Take the antibiotics directed. Return for new worsening symptoms. Prescriptions: New cephalexin 500 mg capsule 500 mg PO QID Qty: 20 0RF No Action furosemide 40 mg tablet 80 mg PO DAILY atorvastatin 40 mg tablet 40 mg PO HS metformin 500 mg tablet 500 mg PO TIDWM albuterol sulfate 2.5 mg /3 mL (0.083 %) solution for nebulization 2.5 mg inhalation Q6H PRN trazodone 50 mg tablet 50 mg PO HS cetirizine 10 mg tablet 10 mg PO DAILY metoprolol succinate 50 mg tablet extended release 24 hr 50 mg PO DAILY sertraline 100 mg tablet 200 mg PO DAILY amlodipine 5 mg tablet 5 mg PO DAILY morphine 30 mg tablet extended release 30 mg PO HS Patient Comments: TOTAL DOSE 90MG HS isosorbide mononitrate 120 mg tablet extended release 24 hr 360 mg PO DAILY morphine [MS Contin] 60 mg tablet extended release 60 mg PO BID nitroglycerin 0.4 mg tablet, sublingual 0.4 mg sublingual Q5-10M PRN omeprazole 20 mg capsule,delayed release(DR/EC) 20 mg PO BID aspirin 81 mg tablet,chewable 81 mg PO DAILY mupirocin 2 % ointment 1 applic TOPICAL DAILY PRN nystatin [Nystop] 100,000 unit/gram powder 1 applic TOPICAL TID PRN ipratropium bromide 21 mcg (0.03 %) spray,non-aerosol 2 spray INTRANASAL TID calcium carbonate-vitamin D3 600 mg-10 mcg (400 unit) tablet 1 tab PO DAILY ferrous sulfate 324 mg (65 mg iron) tablet,delayed release (DR/EC) 324 mg PO DAILY cholecalciferol (vitamin D3) 50 mcg (2,000 unit) tablet 2,000 unit PO DAILY albuterol sulfate 90 mcg/actuation HFA aerosol inhaler 1 - 2 puff INHALATION Q4H PRN Bydureon BCise 2 mg/0.85 mL auto-injector 2 mg SUBCUT Q7D guaifenesin [Mucinex] 600 mg tablet extended release 12hr 600 mg PO BID Follow Up/Referrals: Marissa Williamson MD [Primary Care Provider] - Stand Alone Forms: [facility] Info Instructions
[2022-10-01 13:15] LABS: Basophils Absolute Auto 0.05 K/uL (0.00-0.30); Basophils Percent Auto 0.8 % (0.0-3.0); Eosinophils Percent Auto 7.9 % (0.0-7.0); Hematocrit 32.9 % (33.0-51.0); Hemoglobin* 10.3 gm/dL (12.0-16.0); Immature Granulocytes Abs Auto 0.01 K/uL (0.00-0.30); Immature Granulocytes Pct Auto 0.2 %; Lymphocytes Absolute Auto 1.37 K/uL (0.90-2.90); Lymphocytes Percent Auto 21.2 % (20-44); Mean Corpuscular HGB Conc 31 gm/dL (32-36); Mean Corpuscular Hemoglobin 28 pg (26-34); Mean Corpuscular Volume 90 fL (80-100); Neutrophils Percent Auto 61.9 % (42.0-72.0); Platelet Count* 140 K/uL (140-440); RDW Coefficient of Variation % 13.5 % (11.5-15.5); Red Blood Count 3.66 m/uL (4.00-5.20); White Blood Count* 6.46 K/uL (4.50-11.00)
[2022-10-01 13:24] LABS: Slide Review Reflex No
[2022-10-01 13:29] LABS: Chloride* 91 mmol/L (96-114)
[2022-10-01 13:30] LABS: Potassium* 3.9 mmol/L (3.6-5.1); Sodium* 137 mmol/L (135-149)
[2022-10-01 13:32] LABS: Creatinine* 1.4 mg/dL (0.5-1.5); Est. Creatinine Clearance* 25.19; Estimated Glomerular Filt Rate 37 ml/min
[2022-10-01 13:33] LABS: Blood Urea Nitrogen* 36 mg/dL (7-30); Calcium* 8.6 mg/dL (8.4-10.6); Carbon Dioxide* 39 mmol/L (20-32); Glucose* 292 mg/dL (60-115)
[2022-10-01] MEDS: cephALEXin 500 MG CAPSULE PO (14:39)
[2022-10-01 14:45] VITALS: BP 142/61; PULSE 55; RESP 16; TEMP 36.2; O2SAT 96
== END 2022-10-01 15:22 | disposition home or self-care (01) ==
PROVIDERS: Emergency Provider Student in an Organized Health Care Education/Training Program; PCP Family Medicine
DX: L03.116 Cellulitis of left lower limb (principal)
CPT/HCPCS: 36415; 80048; 85025; 93971; 99283; 99284; A9270

== ENCOUNTER 2022-10-12 14:05 | Emergency (ER) | payer BC, SELFPAY ==
[2022-10-12 14:20] VITALS: BP 128/78; PULSE 93; RESP 18; TEMP 36.3; O2SAT 93; BMI 23.0
--- NOTE | 2022-10-12 14:25 | CRLHL7_ITS ---
For Patients: As a result of the Cures Act, medical imaging exams and procedure reports are released immediately into your electronic medical record. You may view this report before your referring provider. If you have questions, please contact your health care provider. INDICATION: Fall, hip pain. TECHNIQUE: Pelvis and right hip 3 views. COMPARISON: None. FINDINGS: No acute fracture or dislocation. Mild degenerative changes of the hips. Degenerative changes of the lower lumbar spine. The sacroiliac joints are normal in appearance. Vascular calcifications. Surgical clips left groin. Soft tissues are unremarkable. IMPRESSION: No acute findings. Dictated by Belia Singh MD @ 10/12/2022 4:00:41 PM (Electronically Signed)
--- NOTE | 2022-10-12 14:25 | CRLHL7_ITS ---
For Patients: As a result of the Century Cures Act, medical imaging exams and procedure reports are released immediately into your electronic medical record. You may view this report before your referring provider. If you have questions, please contact your health care provider. INDICATION: Fall rib pain TECHNIQUE: Two view chest. FINDINGS: Median sternotomy. Normal cardiac silhouette. Left basilar atelectasis. Postsurgical changes left humerus partially seen. No rib fractures seen. No pneumo thorax or effusion. Dictated by Leeann Gabriel MD @ 10/12/2022 5:02:46 PM (Electronically Signed)
[2022-10-12 14:30] VITALS: BP 132/61; RESP 16
--- NOTE | 2022-10-12 14:32 | ED_ITS ---
HPI - Fall General Date Seen: 10/12/22 Chief Complaint: Fall/Minor Trauma Stated Complaint: Multiple falls, hip pain Time Seen by Provider: 10/12/22 14:25 Source: patient and EMS Mode of arrival: EMS Limitations: no limitations History of Present Illness HPI Narrative: Patient is delightful 81-year-old female who presents here from her house where she lives on her own in [place], she has someone who helps her during the day, is a bit immobile, but is able to bear weight and walk with a walker, but notice that right hip pain is worsening, after a fall a couple days ago. She has no nu mbness tingling weakness, no nausea vomiting, she also some mild upper back discomfort she says, when she fell, she rolled out of bed. She does have a history of chronic back pain. She is brought in by EMS good she tells me there is no other way she could get to the hospital. Denies any loss of conscious, nausea vomiting, numbness tingling weakness, or visual changes. She is on no anticoagulants MD complaint: fall Onset (ago): day(s) Fall from: out of bed Fall witnessed: no Prolonged down time: no Symptoms prior to fall: none Context: history of frequent falls Related Data Home Medications Medication Instructions Recorded Confirmed albuterol sulfate 2.5 mg/3 mL 2.5 mg inhalation Q6H PRN 12/05/21 10/01/22 (0.083 %) solution for nebulization amlodipine 5 mg tablet 5 mg PO DAILY 12/05/21 10/12/22 aspirin 81 mg chewable tablet 81 mg PO DAILY 12/05/21 10/12/22 atorvastatin 40 mg tablet 40 mg PO HS 12/05/21 10/12/22 calcium carbonate 600 mg-vitamin 1 tab PO DAILY 12/05/21 10/12/22 D3 10 mcg (400 unit) tablet cetirizine 10 mg tablet 10 mg PO DAILY 12/05/21 10/12/22 cholecalciferol (vitamin D3) 50 2,000 unit PO DAILY 12/05/21 10/12/22 mcg (2,000 unit) tablet ferrous sulfate 324 mg (65 mg 324 mg PO DAILY 12/05/21 10/01/22 iron) tablet,delayed release furosemide 40 mg tablet 80 mg PO DAILY 12/05/21 10/12/22 ipratropium bromide 21 mcg (0.03 2 spray intranasal TID 12/05/21 10/01/22 %) nasal spray isosorbide mononitrate 120 mg 240 mg PO DAILY 12/05/21 10/12/22 tablet,extended release 24 hr metformin 500 mg tablet 500 mg PO BIDWM 12/05/21 10/12/22 metoprolol succinate 50 mg 50 mg PO DAILY 12/05/21 10/12/22 tablet,extended release 24 hr morphine 30 mg tablet,extended 30 mg PO HS 12/05/21 10/12/22 release morphine 60 mg tablet,extended 60 mg PO BID 12/05/21 10/12/22 release (MS Contin) mupirocin 2 % topical ointment 1 applic topical DAILY PRN 12/05/21 10/01/22 nitroglycerin 0.4 mg sublingual 0.4 mg sublingual Q5-10M PRN 12/05/21 10/12/22 tablet nystatin 100,000 unit/gram topical 1 applic topical TID PRN 12/05/21 10/01/22 powder (Nystop) omeprazole 20 mg capsule,delayed 20 mg PO BID 12/05/21 10/12/22 release sertraline 100 mg tablet 200 mg PO DAILY 12/05/21 10/12/22 trazodone 50 mg tablet 200 mg PO HS 12/05/21 10/12/22 albuterol sulfate 90 mcg/actuation 1 - 2 puff inhalation Q4H PRN 12/06/21 10/01/22 aerosol inhaler exenatide microspheres 2 mg/0.85 2 mg subcut Q7D 12/06/21 10/01/22 mL subcutaneous auto-injector (Bytone Otto) guaifenesin 600 mg tablet, 600 mg PO BID 12/06/21 10/12/22 extended release 12 hr (Mucinex) acetaminophen 500 mg capsule 1,000 mg PO .Q8 PRN 10/12/22 10/12/22 empagliflozin 10 mg tablet 10 mg PO DAILY 10/12/22 10/12/22 (Jardiance) Allergies Allergy/AdvReac Type Severity Reaction Status Date / Time Sulfa (Sulfonamide Allergy Intermediate Hives Verified 10/12/22 14:20 Antibiotics) camphor AdvReac Intermediate Rash Verified 10/12/22 14:54 nitrofurantoin AdvReac Unknown Verified 10/12/22 14:20 [From Macrobid] Review of Systems Status of ROS: Reports: 10 or more systems reviewed and unremarkable except as noted in History and below [facility] Medical History 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 ?S42.332K - Displaced oblique fracture of shaft of humerus, left arm, subsequent encounter for fracture with nonunion (ICD-10) Chronic kidney disease ?N18.9 - Chronic kidney disease, unspecified (ICD-10) Stable angina pectoris ?I20.8 - Other forms of angina pectoris (ICD-10) Major depressive disorder, recurrent ?F33.9 - Major depressive disorder, recurrent, unspecified (ICD-10) Venous stasis ulcer ?I83.009 - Varicose veins of unspecified lower extremity with ulcer of unspecified site (ICD-10) ?L97.909 - Non-pressure chronic ulcer of unspecified part of unspecified lower leg with unspecified severity (ICD-10) Venous insufficiency (chronic) (peripheral) ?I87.2 - Venous insufficiency (chronic) (peripheral) (ICD-10) Paroxysmal atrial fibrillation ?I48.0 - Paroxysmal atrial fibrillation (ICD-10) Chronic, continuous use of opioids ?F11.90 - Opioid use, unspecified, uncomplicated (ICD-10) 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) ?J44.9 - Chronic obstructive pulmonary disease, unspecified (ICD-10) Chronic back pain ?M54.9 - Dorsalgia, unspecified (ICD-10) ?G89.29 - Other chronic pain (ICD-10) Pain medication agreement ?Z02.89 - Encounter for other administrative examinations (ICD-10) Primary central sleep apnea ?G47.31 - Primary central sleep apnea (ICD-10) Obstructive sleep apnea ?G47.33 - Obstructive sleep apnea (adult) (pediatric) (ICD-10) JOSE (stress urinary incontinence, female) ?N39.3 - Stress incontinence (female) (male) (ICD-10) Diabetes mellitus type 2 in nonobese ?E11.9 - Type 2 diabetes mellitus without complications (ICD-10) Osteopenia ?M85.80 - Other specified disorders of bone density and structure, unspecified site (ICD-10) Primary hypothyroidism ?E03.9 - Hypothyroidism, unspecified (ICD-10) Vitamin D deficiency ?E55.9 - Vitamin D deficiency, unspecified (ICD-10) Atopic dermatitis and related condition ?L20.9 - Atopic dermatitis, unspecified (ICD-10) Allergic rhinitis ?J30.9 - Allergic rhinitis, unspecified (ICD-10) Hyperlipidemia ?E78.5 - Hyperlipidemia, unspecified (ICD-10) Essential hypertension ?I10 - Essential (primary) hypertension (ICD-10) Atherosclerotic cardiovascular disease ?I25.10 - Atherosclerotic heart disease of picayune coronary artery without angina pectoris (ICD-10) Surgical History Status post vein stripping ?Z98.890 - Other specified postprocedural states (ICD-10) Status post uvulopalatopharyngoplasty ?Z98.890 - Other specified postprocedural states (ICD-10) Status post tonsillectomy ?Z90.89 - Acquired absence of other organs (ICD-10) Status post nasal septoplasty ?Z98.890 - Other specified postprocedural states (ICD-10) Status post abdominal hysterectomy and left salpingo-oophorectomy ?Z90.710 - Acquired absence of both cervix and uterus (ICD-10) ?Z90.721 - Acquired absence of ovaries, unilateral (ICD-10) ?Z90.79 - Acquired absence of other genital organ(s) (ICD-10) Status post carpal tunnel release ?Z98.890 - Other specified postprocedural states (ICD-10) Status post bunionectomy ?Z98.890 - Other specified postprocedural states (ICD-10) Status post appendectomy ?Z90.49 - Acquired absence of other specified parts of digestive tract (ICD- 10) Status post bilateral cataract extraction ?Z98.41 - Cataract extraction status, right eye (ICD-10) ?Z98.42 - Cataract extraction status, left eye (ICD-10) Status post coronary artery bypass grafts x 5 ?Z95.1 - Presence of aortocoronary bypass graft (ICD-10) Family History Sister Cancer Brother FH: prostate cancer Mother Diabetes Father Coronary artery disease Social History Narrative: Lives alone with pet dog and cat. Adopted grand son, Omid Montgomery, is her POA for health. Requests full resuscitation measures in event of cardiopulmonary demise (12/06/2021). Smoking Status: Former smoker What tobacco products do you use: cigarettes Smoking packs per day: 3 Smoking cigarettes per day: 60.0 Years smoked: 10 Smoking pack-years: 30.00 Smoking quit date/years: >15 years ago Do you use any of these nicotine containing products: None Second hand tobacco smoke exposure: No How often do you have a drink containing alcohol: never AUDIT-C Alcohol total score: 0 Non-prescribed substance use: denies use Caffeine: Yes (green tea) service: No Exam Narrative: Exam Narrative: Patient is seen in room a, she has appears to be in no apparent distress, alert oriented x3. Pupils equal round reactive to light, TMs are normal, cranial nerves 3-12 are normal oropharynx is normal her neck is supple, excellent flexion extension, lateral flexion rotation there is no C-spine tenderness tenderness over her lumbar or thoracic. Is notable. Chest is good air entry bilaterally with no wheezing crackles noted colorist photography strengths are equal bilaterally both proximal distal muscle groups are equal. Bilaterally in her upper lower extremities. Her abdomen is soft, there is no guarding, no organomegaly, bowel sounds are normal, no bruising, she does have some bruising over upper back region across her scapula, consistent with her fall. They appear to be old older bruises. Her right hip does have some limitation on flexion, with pain, there is no shortening of her legs, there is internal external rotation which a re normal, pelvis otherwise seems normal stable to rocking her left leg is normal. Const: Vital Signs, click to edit/add: Vital Signs - 24 hr 10/12/22 14:20 10/12/22 14:30 10/12/22 15:30 Temperature 97.4 F L Pulse Rate [Pulse Oximeter] 93 58 L Respiratory Rate 18 16 16 Blood Pressure [Le ft Upper Arm] 128/78 132/61 135/69 Pulse Oximetry 93 96 Oxygen Delivery Me thod Room Air Room Air 10/12/22 16:00 Temperature Pulse Rate [Pulse Oximeter] 64 Respiratory Rate 16 Blood Pressure [Le ft Upper Arm] 147/66 H Pulse Oximetry 95 Oxygen Delivery Me thod Room Air Documenting provider has reviewed patient's vital signs: yes Course Vital Signs Vital signs: Initial Vital Signs Temperature 97.4 F L 10/12/22 14:20 Temperature Source Temporal Artery Scan 10/12/22 14:20 Pulse Rate 93 10/12/22 14:20 Respiratory Rate 18 10/12/22 14:20 Blood Pressure 128/78 10/12/22 14:20 Blood Pressure Mean 94 10/12/22 14:20 Blood Pressure Position Sitting 10/12/22 14:20 Pulse Oximetry 93 10/12/22 14:20 Oxygen Delivery Method Room Air 10/12/22 14:20 Vital Signs Temperature 97.4 F L 10/12/22 14:20 Pulse Rate 93 10/12/22 14:20 Respiratory Rate 18 10/12/22 14:20 Blood Pressure 128/78 10/12/22 14:20 Pulse Oximetry 93 10/12/22 14:20 Oxygen Delivery Method Room Air 10/12/22 14:20 Temperature 97.4 F L 10/12/22 14:20 Pulse Rate 64 10/12/22 16:00 Respiratory Rate 16 10/12/22 16:00 Blood Pressure 147/66 H 10/12/22 16:00 Pulse Oximetry 95 10/12/22 16:00 Oxygen Delivery Method Room Air 10/12/22 16:00 MDM - Fall MDM Narrative Medical decision making narrative: We will go ahead and do an x-ray of her right hip pelvis, and chest x-ray, she may be an issue with her ability to go home, Medical Records Attestation: I reviewed the patient's medical records. Imaging Data Pelvic x-ray: Attestation: I have reviewed the pertinent imaging results. My impression: Negative for fracture Radiologist's impression: Patient: REGIS MONTGOMERY Facility: [facility] Site . Site : 1940 Study: XRay Chest 2 VIEW-10/12/2022 3:03:38 PM Ordering Physician: Dipti Perez Final Report: INDICATION: Fall rib pain TECHNIQUE: Two view chest. FINDINGS: Median sternotomy. Normal cardiac silhouette. Left basilar atelectasis. Postsurgical changes left humerus partially seen. No rib fractures seen. No pneumo thorax or effusion. Dictated by Leeann Gabriel MD @ 10/12/2022 5:02:46 PM (Electronic Signature) Patient: REGIS MONTGOMERY Facility: [facility] Site . Site : 1940 Study: XRay Hip Right -10/12/2022 3:04:19 PM Ordering Physician: Dipti Perez Final Report: INDICATION: Fall, hip pain. TECHNIQUE: Pelvis and right hip 3 views. COMPARISON: None. FINDINGS: No acute fracture or dislocation. Mild degenerative changes of the hips. Degenerative changes of the lower lumbar spine. The sacroiliac joints are normal in appearance. Vascular calcifications. Surgical clips left groin. Soft tissues are unremarkable. IMPRESSION: No acute findings. Dictated by Belia Singh MD @ 10/12/2022 4:00:41 PM (Electronic Signature) Discharge Plan Discharge Clinical Impression: Acute pain of right hip, Back pain, Fall Patient Disposition: Home w/ Parent or Adult Condition: Stable Instructions: Fall Prevention for Older Adults (ED), Chronic Back Pain (DC), Fall Prevention (ED), Hip Pain (ED) Additional Instructions: Home rest continue medications, be careful, return here if unable to get around or the pain gets worse. Prescriptions: No Action furosemide 40 mg tablet 80 mg PO DAILY atorvastatin 40 mg tablet 40 mg PO HS metformin 500 mg tablet 500 mg PO BIDWM albuterol sulfate 2.5 mg /3 mL (0.083 %) solution for nebulization 2.5 mg inhalation Q6H PRN trazodone 50 mg tablet 200 mg PO HS cetirizine 10 mg tablet 10 mg PO DAILY metoprolol succinate 50 mg tablet extended release 24 hr 50 mg PO DAILY sertraline 100 mg tablet 200 mg PO DAILY amlodipine 5 mg tablet 5 mg PO DAILY morphine 30 mg tablet extended release 30 mg PO HS Patient Comments: TOTAL DOSE 90MG HS isosorbide mononitrate 120 mg tablet extended release 24 hr 240 mg PO DAILY morphine [MS Contin] 60 mg tablet extended release 60 mg PO BID nitroglycerin 0.4 mg tablet, sublingual 0.4 mg sublingual Q5-10M PRN omeprazole 20 mg capsule,delayed release(/EC) 20 mg PO BID aspirin 81 mg tablet,chewable 81 mg PO DAILY mupirocin 2 % ointment 1 applic TOPICAL DAILY PRN nystatin [Nystop] 100,000 unit/gram powder 1 applic TOPICAL TID PRN ipratropium bromide 21 mcg (0.03 %) spray,non-aerosol 2 spray INTRANASAL TID calcium carbonate-vitamin D3 600 mg-10 mcg (400 unit) tablet 1 tab PO DAILY ferrous sulfate 324 mg (65 mg iron) tablet,delayed release (DR/EC) 324 mg PO DAILY cholecalciferol (vitamin D3) 50 mcg (2,000 unit) tablet 2,000 unit PO DAILY albuterol sulfate 90 mcg/actuation HFA aerosol inhaler 1 - 2 puff INHALATION Q4H PRN Bydureon BCise 2 mg/0.85 mL auto-injector 2 mg SUBCUT Q7D guaifenesin [Mucinex] 600 mg tablet extended release 12hr 600 mg PO BID acetaminophen 500 mg capsule 1,000 mg PO .Q8 PRN Jardiance 10 mg tablet 10 mg PO DAILY Follow Up/Referrals: Marissa Williamson MD [Primary Care Provider] - Stand Alone Forms: [facility] Info Instructions
[2022-10-12 15:30] VITALS: BP 135/69; PULSE 58; RESP 16; O2SAT 96
[2022-10-12 16:00] VITALS: BP 147/66; PULSE 64; RESP 16; O2SAT 95
== END 2022-10-12 16:58 | disposition home or self-care (01) ==
PROVIDERS: Emergency Provider Family Medicine; PCP Family Medicine
DX: M25.551 Pain in right hip (principal); M54.9 Dorsalgia, unspecified; W06.XXXA Fall from bed, initial encounter
CPT/HCPCS: 71046; 73502; 99284

== ENCOUNTER 2022-10-25 08:15 | Emergency (ER) | payer BC, SELFPAY ==
[2022-10-25] VITALS (7 sets, daily range): BP systolic 122–160; BP diastolic 61–93; PULSE 64–72; RESP 16–18; TEMP 36.6; O2SAT 94–97; BMI 23.0
--- NOTE | 2022-10-25 08:29 | ED_ITS ---
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 She has been falling more, just states when she gets up she collapses. There was no loss of consciousness. She has been having increasing falls. She has underlying COPD and has a chronic ex-smoker's cough per the care provider but this has not worsened or changed from baseline. No fevers or chills. No known illness. She has a little sore in her buttocks from the fall, did hit her chest wall with the falls at 1 point. She can walk without any pain in the hips or knees. She is unclear why she is falling. She does report over 100 lb weight loss over the last 2-3 years. She does do the cooking for her and her care provider. The care provider has lost over 100 lb as well. She believes for her it is a combination of being more active having to take stairs where she resides as well as eating strictly 3 meals a day and possibly healthier eating. Patient is on chronic morphine for her back pain from an old injury. She states she has significant back pain. On questioning the back pain is not worse with getting up to cause her to fall. Falls are reportedly escalating. She denies any underlying chest pain that she feels might be cardiac. As far as her morphine, she used to be on quite high amounts and states she is back down to 60 mg twice a day and then another 30 mg dose. Her buttocks are most sore, maybe some right knee pain. She has some chest wall soreness. There is no dizziness, no loss of consciousness, does not sound syncopal. She is reportedly using a walker to ambulate. Related Data Home Medications Medication Instructions Recorded Confirmed albuterol sulfate 2.5 mg/3 mL 2.5 mg inhalation Q6H PRN 12/05/21 10/01/22 (0.083 %) solution for nebulization amlodipine 5 mg tablet 5 mg PO DAILY 12/05/21 10/12/22 aspirin 81 mg chewable tablet 81 mg PO DAILY 12/05/21 10/12/22 atorvastatin 40 mg tablet 40 mg PO HS 12/05/21 10/12/22 calcium carbonate 600 mg-vitamin 1 tab PO DAILY 12/05/21 10/12/22 D3 10 mcg (400 unit) tablet cetirizine 10 mg tablet 10 mg PO DAILY 12/05/21 10/12/22 cholecalciferol (vitamin D3) 50 2,000 unit PO DAILY 12/05/21 10/12/22 mcg (2,000 unit) tablet ferrous sulfate 324 mg (65 mg 324 mg PO DAILY 12/05/21 10/01/22 iron) tablet,delayed release furosemide 40 mg tablet 80 mg PO DAILY 12/05/21 10/12/22 ipratropium bromide 21 mcg (0.03 2 spray intranasal TID 12/05/21 10/01/22 %) nasal spray isosorbide mononitrate 120 mg 240 mg PO DAILY 12/05/21 10/12/22 tablet,extended release 24 hr metformin 500 mg tablet 500 mg PO BIDWM 12/05/21 10/12/22 metoprolol succinate 50 mg 50 mg PO DAILY 12/05/21 10/12/22 tablet,extended release 24 hr morphine 30 mg tablet,extended 30 mg PO HS 12/05/21 10/12/22 release morphine 60 mg tablet,extended 60 mg PO BID 12/05/21 10/12/22 release (MS Contin) mupirocin 2 % topical ointment 1 applic topical DAILY PRN 12/05/21 10/01/22 nitroglycerin 0.4 mg sublingual 0.4 mg sublingual Q5-10M PRN 12/05/21 10/12/22 tablet nystatin 100,000 unit/gram topical 1 applic topical TID PRN 12/05/21 10/01/22 powder (Nystop) omeprazole 20 mg capsule,delayed 20 mg PO BID 12/05/21 10/12/22 release sertraline 100 mg tablet 200 mg PO DAILY 12/05/21 10/12/22 trazodone 50 mg tablet 200 mg PO HS 12/05/21 10/12/22 albuterol sulfate 90 mcg/actuation 1 - 2 puff inhalation Q4H PRN 12/06/21 10/01/22 aerosol inhaler exenatide microspheres 2 mg/0.85 2 mg subcut Q7D 12/06/21 10/01/22 mL subcutaneous auto-injector (ByCollarity) guaifenesin 600 mg tablet, 600 mg PO BID 12/06/21 10/12/22 extended release 12 hr (Mucinex) acetaminophen 500 mg capsule 1,000 mg PO .Q8 PRN 10/12/22 10/12/22 empagliflozin 10 mg tablet 10 mg PO DAILY 10/12/22 10/12/22 (Jardiance) Previous Rx's Medication Instructions Recorded magnesium oxide,aspartate,citr 400 mg PO DAILY #30 caps 10/25/22 Allergies Allergy/AdvReac Type Severity Reaction Status Date / Time Sulfa (Sulfonamide Allergy Intermediate Hives Verified 10/12/22 14:20 Antibiotics) camphor AdvReac Intermediate Rash Verified 10/12/22 14:54 nitrofurantoin AdvReac Unknown Verified 10/12/22 14:20 [From Macrobid] Review of Systems Status of ROS: Reports: 6 or more systems reviewed and unremarkable except as noted in History and below [facility] Medical History 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 ?S42.332K - Displaced oblique fracture of shaft of humerus, left arm, subsequent encounter for fracture with nonunion (ICD-10) Chronic kidney disease ?N18.9 - Chronic kidney disease, unspecified (ICD-10) Stable angina pectoris ?I20.8 - Other forms of angina pectoris (ICD-10) Major depressive disorder, recurrent ?F33.9 - Major depressive disorder, recurrent, unspecified (ICD-10) Venous stasis ulcer ?I83.009 - Varicose veins of unspecified lower extremity with ulcer of unspecified site (ICD-10) ?L97.909 - Non-pressure chronic ulcer of unspecified part of unspecified lower leg with unspecified severity (ICD-10) Venous insufficiency (chronic) (peripheral) ?I87.2 - Venous insufficiency (chronic) (peripheral) (ICD-10) Paroxysmal atrial fibrillation ?I48.0 - Paroxysmal atrial fibrillation (ICD-10) Chronic, continuous use of opioids ?F11.90 - Opioid use, unspecified, uncomplicated (ICD-10) 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) ?J44.9 - Chronic obstructive pulmonary disease, unspecified (ICD-10) Chronic back pain ?M54.9 - Dorsalgia, unspecified (ICD-10) ?G89.29 - Other chronic pain (ICD-10) Pain medication agreement ?Z02.89 - Encounter for other administrative examinations (ICD-10) Primary central sleep apnea ?G47.31 - Primary central sleep apnea (ICD-10) Obstructive sleep apnea ?G47.33 - Obstructive sleep apnea (adult) (pediatric) (ICD-10) JOSE (stress urinary incontinence, female) ?N39.3 - Stress incontinence (female) (male) (ICD-10) Diabetes mellitus type 2 in nonobese ?E11.9 - Type 2 diabetes mellitus without complications (ICD-10) Osteopenia ?M85.80 - Other specified disorders of bone density and structure, unspecified site (ICD-10) Primary hypothyroidism ?E03.9 - Hypothyroidism, unspecified (ICD-10) Vitamin D deficiency ?E55.9 - Vitamin D deficiency, unspecified (ICD-10) Atopic dermatitis and related condition ?L20.9 - Atopic dermatitis, unspecified (ICD-10) Allergic rhinitis ?J30.9 - Allergic rhinitis, unspecified (ICD-10) Hyperlipidemia ?E78.5 - Hyperlipidemia, unspecified (ICD-10) Essential hypertension ?I10 - Essential (primary) hypertension (ICD-10) Atherosclerotic cardiovascular disease ?I25.10 - Atherosclerotic heart disease of [place] coronary artery without angina pectoris (ICD-10) Surgical History Status post vein stripping ?Z98.890 - Other specified postprocedural states (ICD-10) Status post uvulopalatopharyngoplasty ?Z98.890 - Other specified postprocedural states (ICD-10) Status post tonsillectomy ?Z90.89 - Acquired absence of other organs (ICD-10) Status post nasal septoplasty ?Z98.890 - Other specified postprocedural states (ICD-10) Status post abdominal hysterectomy and left salpingo-oophorectomy ?Z90.710 - Acquired absence of both cervix and uterus (ICD-10) ?Z90.721 - Acquired absence of ovaries, unilateral (ICD-10) ?Z90.79 - Acquired absence of other genital organ(s) (ICD-10) Status post carpal tunnel release ?Z98.890 - Other specified postprocedural states (ICD-10) Status post bunionectomy ?Z98.890 - Other specified postprocedural states (ICD-10) Status post appendectomy ?Z90.49 - Acquired absence of other specified parts of digestive tract (ICD- 10) Status post bilateral cataract extraction ?Z98.41 - Cataract extraction status, right eye (ICD-10) ?Z98.42 - Cataract extraction status, left eye (ICD-10) Status post coronary artery bypass grafts x 5 ?Z95.1 - Presence of aortocoronary bypass graft (ICD-10) Family History Sister Cancer Brother FH: prostate cancer Mother Diabetes Father Coronary artery disease Social History Narrative: Lives alone with pet dog and cat. Adopted grand son, Omid Montgomery, is her POA for health. Requests full resuscitation measures in event of cardiopulmonary demise (12/06/2021). Smoking Status: Former smoker What tobacco products do you use: cigarettes Smoking packs per day: 3 Smoking cigarettes per day: 60.0 Years smoked: 10 Smoking pack-years: 30.00 Smoking quit date/years: >15 years ago Do you use any of these nicotine containing products: None Second hand tobacco smoke exposure: No How often do you have a drink containing alcohol: never AUDIT-C Alcohol total score: 0 Non-prescribed substance use: denies use Caffeine: Yes (green tea) service: No Exam Const: Vital Signs, click to edit/add: Vital Signs - 24 hr 10/25/22 08:24 10/25/22 08:31 10/25/22 08:31 Temperature 97.9 F Pulse Rate [Right Pulse Oximeter] 67 Pulse Rate [orthos tatic lying Right Pulse Oximeter] 64 Pulse Rate [orthos tatic sitting Righ t Pulse Oximeter] 65 Pulse Rate [orthos tatic standing Rig ht Pulse Oximeter] 66 Respiratory Rate 18 Blood Pressure [Ri ght Upper Arm] 160/76 H Blood Pressure [or thostatic lying Ri ght Arm] 126/93 H Blood Pressure [or thostatic sitting Right Arm] 133/75 Blood Pressure [or thostatic standing Right Arm] 122/61 Pulse Oximetry 95 96 Oxygen Delivery Me thod Room Air Documenting provider has reviewed patient's vital signs: yes Common normals: no apparent distress, average body habitus, oriented x3, no limitations and alert General appearance: cooperative, comfortable, well kempt, well developed and frail appearing Other: Is very pleasant and conversive, does seem mildly pale to me. HENMT: Common normals: normocephalic, head/scalp atraumatic, hearing grossly normal bilaterally, external ears normal, external nose normal and oropharynx normal Head and scalp: normocephalic and atraumatic Nose: external nose normal External ear: external ears normal Other: She has a small superficial open area above her left eye which they state is from her picking. This is not an injury. Eye: Common normals: PERRL, EOMs intact bilaterally, conjunctivae normal and no scleral icterus Conjunctiva: conjunctiva(e) normal Pupil: PERRL Neck & C-Spine: Common normals: full ROM (No midline tenderness, no paraspinous tenderness.), no lymphadenopathy, supple, no meningeal signs, no JVD and thyroid normal Thyroid: thyroid normal Chest: Other: She has bruising over the left posterior chest wall over the lateral scapula area, right upper anterior chest wall bruising. Resp: Common normals: normal respiratory effort, no retractions, no use of accessory muscles and clear to auscultation bilaterally Effort & inspection: able to speak in complete sentences Auscultation: clear to auscultation bilaterally Cardio: Common normals: no JVD, regular rate, regular rhythm, S1 normal heart sound, S2 normal heart sound, no gallops, no clicks and no murmurs Rate: regular rate Rhythm: regular rhythm Heart sounds: S1 normal and S2 normal GI: Common normals: Normal to inspection, nondistended, normoactive bowel sounds present, soft to palpation, non-tender, no hepatosplenomegaly and no masses Palpation: soft and no hepatosplenomegaly Neuro: Common normals: oriented x3 Sensorium/orientation: alert Meningeal signs: no meningeal signs Psych: Appearance: well kempt Course Course Hospital Course: Orthostatics were done on intake as I had ordered them, was able to review with the patient that she is not showing any orthostatic changes at this time. Will have her on cardiac monitoring and pulse oximetry to see if there is any hypoxia or arrhythmia. Will get EKG and full complement of labs. Will do neuro imaging with a head CT, chest x-ray, pelvis and right knee. Have reviewed if we find no underlying metabolic derangement, any evidence of infectious etiology that we need to consider medications which would include the morphine. Did review that narcotics are a well known cause of increased risk of falls in the elderly. It certainly could be combined medication issues combine with aging. Have stressed 1st and foremost that we need to rule out underlying causative etiologies such as infection, electrolyte disturbances, things like anemia and look for resultant diagnoses if we find an abnormality. Reevaluation(s) Time of Reevaluation #1: 11:15 Reevaluation #1: Patient is an 81-year-old female that is re-evaluated. Have reviewed her imaging is all coming back normal. Only new abnormality on her labs is low magnesium of 1.3. She believes that this has been low. We are going to give her 2 g IV magnesium and initiate oral supplementation. As far as her falls, do think that this is probably multifactorial with aging in her chronic conditions, medications and potentially even the hypo magnesemia contributing. She has assistance at her home, would like to return to home. They have been working on trying to find an assisted living that she is happy with and will continue to do so. I have talked about making sure she either uses her walker at home, she states she also has a wheelchair. In any event she is likely to be at risk for falls and highly encourage consideration of tapering or stopping the narcotics. The other thing that we could potentially provide is a referral for physical therapy to do gait assessment and potentially strengthening. She would like this. She has a follow-up appointment with her primary care provider at the end of the month which she should keep. Vital Signs Vital signs: Initial Vital Signs Temperature 97.9 F 10/25/22 08:24 Temperature Source Temporal Artery Scan 10/25/22 08:24 Pulse Rate 67 10/25/22 08:24 Respiratory Rate 18 10/25/22 08:24 Blood Pressure 160/76 H 10/25/22 08:24 Blood Pressure Mean 104 10/25/22 08:24 Blood Pressure Position Sitting 10/25/22 08:24 Pulse Oximetry 95 10/25/22 08:24 Oxygen Delivery Method Room Air 10/25/22 08:24 Vital Signs Temperature 97.9 F 10/25/22 08:24 Pulse Rate 67 10/25/22 08:24 Respiratory Rate 18 10/25/22 08:24 Blood Pressure 160/76 H 10/25/22 08:24 Pulse Oximetry 95 10/25/22 08:24 Oxygen Delivery Method Room Air 10/25/22 08:24 Temperature 97.9 F 10/25/22 08:24 Pulse Rate 66 10/25/22 11:00 Respiratory Rate 16 10/25/22 11:00 Blood Pressure 139/92 H 10/25/22 11:00 Pulse Oximetry 96 10/25/22 11:00 Oxygen Delivery Method Room Air 10/25/22 11:00 Medical Decision Making Lab Data Lab results reviewed: Yes I reviewed the patient's lab results Labs: Lab Results 10/25/22 10/25/22 10/25/22 Range/Units 08:34 09:15 Unknown WBC 9.49 (4.50-11.00) K/uL RBC 3.73 L (4.00-5.20) m/uL Hgb 10.6 L (12.0-16.0) gm/dL Hct 33.0 (33.0-51.0) % MCV 89 (80-100) fL MCH 28 (26-34) pg MCHC 32 (32-36) gm/dL RDW Coeff of Sue 12.8 (11.5-15.5) % Plt Count 168 (140-440) K/uL Neut % (Auto) 77.0 H (42.0-72.0) % Lymph % (Auto) 12.0 L (20-44) % [place] % (Auto) 6.4 (0.0-11.0) % Eos % (Auto) 4.0 (0.0-7.0) % Baso % (Auto) 0.3 (0.0-3.0) % Neut # (Auto) 7.30 H (1.7-7.0) K/uL Lymph # (Auto) 1.10 (0.90-2.90) K/uL [place] # (Auto) 0.60 (0.00-0.90) K/UL Eos # (Auto) 0.38 (0.00-0.50) K/uL Baso # (Auto) 0.03 (0.00-0.30) K/uL Abs Immat Gran (auto) 0.03 (0.00-0.30) K/uL Imm/Tot Granulo (auto) 0.3 % Sodium 137 (135-149) mmol/L Potassium 3.9 (3.6-5.1) mmol/L Chloride 93 L (96-114) mmol/L Carbon Dioxide 36 H (20-32) mmol/L BUN 41 H (7-30) mg/dL Creatinine 1.4 (0.5-1.5) mg/dL Estimated Creat Clear 25.19 Estimated GFR 37 ml/min Glucose 343 H (60-115) mg/dL Lactate 1.3 (0.5-1.9) mmol/L Calcium 8.5 (8.4-10.6) mg/dL Magnesium 1.3 L (1.5-2.6) mg/dL Total Bilirubin 0.5 (0.1-1.5) mg/dL AST 43 H (12-35) U/L ALT 29 (4-35) U/L Alkaline Phosphatase 182 H (40-150) U/L Troponin I < 0.01 L (0.01-0.04) ng/mL C-Reactive Protein 1.0 (0.5-1.0) mg/dL NT-Pro-B Natriuret Pep 1030 pg/mL Total Protein 6.5 (6.0-8.3) g/dL Albumin 3.7 (3.3-5.0) g/dL TSH 3.910 (0.270-4.200) uIU/mL Urine Color Yellow (Yellow) Urine Appearance Clear (Clear) Urine pH 7.0 (5.0-8.5) Ur Specific [place] 1.015 (1.000-1.030) Urine Protein Negative (Negative) Urine Glucose (UA) 1+ A (Negative) Urine Ketones Negative (Negative) Urine Blood Trace-intact A (Negative) Urine Nitrite Negative (Negative) Urine Bilirubin Negative (Negative) Urine Urobilinogen 0.2 (0.2-1.0) Ur Leukocyte Esterase Negative (Negative) Urine RBC 0-2 (0-2) Urine WBC 0-2 (0-5) Ur Squamous Epith Cells Few (None-Few) Urine Bacteria None (None) SARS-CoV-2 (PCR) Negative SARS-CoV-2 (Negative) Lab Acknowledgement Test Added Imaging Data Chest x-ray: Attestation: I have reviewed the pertinent imaging results. My impression: I see no evidence of any acute infiltrate or congestive heart failure my preliminary review, no traumatic changes or pneumothorax. Await Radiology over- read. Radiologist's impression: Patient: REGIS MONTGOMERY Facility:?[facility] Patient ID:?[id number] Site Patient ID:?[id number]. Site :?[id number] Study:?XRay Chest v-10/25/2022 10:05:13 AM Ordering Physician:Susan Boss Final Report: INDICATION: Recurrent falls. TECHNIQUE: Chest 1 views. COMPARISON: 10/12/2022. FINDINGS: Cardiovasculature and mediastinum: Stable Lungs and pleural spaces: Unchanged peripheral left basilar linear opacity consistent with nonspecific fibrosis. Differential diagnostic considerations include subsegmental atelectasis. No sign of infiltrate or mass. No sign of pleural effusion. No pneumothorax. Bones and soft tissues: Prior CABG. Postsurgical change involving the right shoulder and proximal left humor. IMPRESSION: No acute findings and no significant changes from the prior exam. Dictated by Caio Galloway MD @ 10/25/2022 11:01:39 AM (Electronic Signature) XR pelvis: Attestation: I have reviewed the pertinent imaging results. My impression: No acute fracture on my preliminary review, can see calcifications of arteries on the pelvic film. Radiologist's impression: Patient: REGIS MONTGOMERY Facility:?[facility] Patient ID:?[id number] Site Patient ID:?[id number]. Site :?[id number] Study:?XRay Pelvis v-10/25/2022 10:04:32 AM Ordering Physician:Susan Boss Final Report: Indication: Falling 3-4 times/day x 2 weeks Technique: AP pelvis Comparison: 10/12/2022 Findings: Degenerative changes are present at both hips and both SI joints. There is no fracture. Vascular calcifications. No intrinsic lesion. Spurring at the iliac crests. Impression: No fracture deformity. Dictated by Paresh Tovar MD @ 10/25/2022 10:18:43 AM (Electronic Signature) XR right knee: Attestation: I have reviewed the pertinent imaging results. My impression: No acute fracture my preliminary review. Radiologist's impression: Patient: REGIS MONTGOMERY Facility:?[facility] Patient ID:?[id number] Site Patient ID:?[id number]. Site :?[id number] Study:?XRay Knee Right 2v-10/25/2022 10:04:01 AM Ordering Physician:Susan Boss Final Report: Indication: Knee pain Technique: Right knee 2 views Comparison: None Findings: Vascular calcifications are present. Mild spurring at the medial compartment. Spurring of the medial tibial spine. Patellofemoral spurring. No fracture. Osteopenia. Impression: No sign of acute injury. Dictated by Paresh Tovar MD @ 10/25/2022 10:11:37 AM (Electronic Signature) ECG Data Attestation: I personally reviewed and interpreted this ECG as follows: (Normal sinus rhythm, 63 beats per minute. No ischemia on, QT corrected 442 milliseconds.) Critical Care Time Critical Care Time Critical Care Time: No Discharge Plan Discharge Clinical Impression: Contusion of front wall of thorax, Contusion of back wall of thorax, Recurrent falls, Hypomagnesemia Patient Disposition: Home, Self-Care Condition: Unchanged Instructions: Fall Prevention for Older Adults (ED), Contusion in Adults (ED), Hypomagnesemia (ED) Additional Instructions: Do not attempt ambulation with out using a gait aid like your walker. Need to discuss with her primary care provider about medications and consider diminishing narcotic pain medicines as they are well known to increase falls in older patients. Physical therapy referral form provided, do recommend going through with this. Take magnesium supplement as this was found to be mildly low while you were here. This can be rechecked at your clinic follow-up. Prescriptions: New magnesium oxide,aspartate,citr 400 mg magnesium capsule 400 mg PO DAILY Qty: 30 0RF No Action furosemide 40 mg tablet 80 mg PO DAILY atorvastatin 40 mg tablet 40 mg PO HS metformin 500 mg tablet 500 mg PO BIDWM albuterol sulfate 2.5 mg /3 mL (0.083 %) solution for nebulization 2.5 mg inhalation Q6H PRN trazodone 50 mg tablet 200 mg PO HS cetirizine 10 mg tablet 10 mg PO DAILY metoprolol succinate 50 mg tablet extended release 24 hr 50 mg PO DAILY sertraline 100 mg tablet 200 mg PO DAILY amlodipine 5 mg tablet 5 mg PO DAILY morphine 30 mg tablet extended release 30 mg PO HS Patient Comments: TOTAL DOSE 90MG HS isosorbide mononitrate 120 mg tablet extended release 24 hr 240 mg PO DAILY morphine [MS Contin] 60 mg tablet extended release 60 mg PO BID nitroglycerin 0.4 mg tablet, sublingual 0.4 mg sublingual Q5-10M PRN omeprazole 20 mg capsule,delayed release(DR/EC) 20 mg PO BID aspirin 81 mg tablet,chewable 81 mg PO DAILY mupirocin 2 % ointment 1 applic TOPICAL DAILY PRN nystatin [Nystop] 100,000 unit/gram powder 1 applic TOPICAL TID PRN ipratropium bromide 21 mcg (0.03 %) spray,non-aerosol 2 spray INTRANASAL TID calcium carbonate-vitamin D3 600 mg-10 mcg (400 unit) tablet 1 tab PO DAILY ferrous sulfate 324 mg (65 mg iron) tablet,delayed release (DR/EC) 324 mg PO DAILY cholecalciferol (vitamin D3) 50 mcg (2,000 unit) tablet 2,000 unit PO DAILY albuterol sulfate 90 mcg/actuation HFA aerosol inhaler 1 - 2 puff INHALATION Q4H PRN Bydureon BCise 2 mg/0.85 mL auto-injector 2 mg SUBCUT Q7D guaifenesin [Mucinex] 600 mg tablet extended release 12hr 600 mg PO BID acetaminophen 500 mg capsule 1,000 mg PO .Q8 PRN Jardiance 10 mg tablet 10 mg PO DAILY Follow Up/Referrals: Marissa Williamson MD [Primary Care Provider] - Stand Alone Forms: [facility] Info Instructions
--- NOTE | 2022-10-25 08:54 | CRLHL7_ITS ---
For Patients: As a result of the Century Cures Act, medical imaging exams and procedure reports are released immediately into your electronic medical record. You may view this report before your referring provider. If you have questions, please contact your health care provider. Indication: Following 3 to 4 times a day x2 weeks Technique: Volumetric multidetector CT images of the head were obtained without the administration of low osmolar intravenous contrast. Comparison: None available Findings: There is no intra-axial or extra-axial fluid collection. There is no mass effect or midline shift. There is age-related cortical atrophy with mild sulcal widening and ex vacuo dilatation of the lateral ventricles. There are chronic small vessel disease changes in the subcortical and periventricular white matter without lost bruno-white differentiation. The orbits and their contents are grossly within normal limits. There is mild to moderate frontal hyperostosis. The bony calvarium is grossly intact. The paranasal sinuses are clear. The mastoid air cells are well aerated. Impression: Age-related and chronic small-vessel disease changes of the brain without acute intracranial abnormality. Please note that all CT scans at this facility use dose modulation, iterative reconstruction, and/or weight-based dosing when appropriate to reduce radiation dose to as low as reasonably achievable. Dictated by Brandon Jeffries MD @ 10/25/2022 9:56:25 AM (Electronically Signed)
--- NOTE | 2022-10-25 08:54 | CRLHL7_ITS ---
For Patients: As a result of the Cures Act, medical imaging exams and procedure reports are released immediately into your electronic medical record. You may view this report before your referring provider. If you have questions, please contact your health care provider. Indication: Falling 3-4 times/day x 2 weeks Technique: AP pelvis Comparison: 10/12/2022 Findings: Degenerative changes are present at both hips and both SI joints. There is no fracture. Vascular calcifications. No intrinsic lesion. Spurring at the iliac crests. Impression: No fracture deformity. Dictated by Paresh Tovar MD @ 10/25/2022 10:18:43 AM (Electronically Signed)
--- NOTE | 2022-10-25 08:54 | XR_ITS ---
Patient: REGIS MONTGOMERY Facility:?[facility] Patient ID:?[id number] Site Patient ID:?[id number]. Site :?[id number] Study:?XRay-Chest 1v-10/25/2022 10:05:13 AM Ordering Physician:Susan Boss Final Report: INDICATION: Recurrent falls. TECHNIQUE: Chest 1 views. COMPARISON: 10/12/2022. FINDINGS: Cardiovasculature and mediastinum: Stable Lungs and pleural spaces: Unchanged peripheral left basilar linear opacity consistent with nonspecific fibrosis. Differential diagnostic considerations include subsegmental atelectasis. No sign of infiltrate or mass. No sign of pleural effusion. No pneumothorax. Bones and soft tissues: Prior CABG. Postsurgical change involving the right shoulder and proximal left humor. IMPRESSION: No acute findings and no significant changes from the prior exam. Dictated by Caio Galloway MD @ 10/25/2022 11:01:39 AM Signed by:?Caio Galloway MD @10/25/2022 11:01:39 AM (Electronic Signature)
--- NOTE | 2022-10-25 09:09 | CRLHL7_ITS ---
For Patients: As a result of the Century Cures Act, medical imaging exams and procedure reports are released immediately into your electronic medical record. You may view this report before your referring provider. If you have questions, please contact your health care provider. Indication: Knee pain Technique: Right knee 2 views Comparison: None Findings: Vascular calcifications are present. Mild spurring at the medial compartment. Spurring of the medial tibial spine. Patellofemoral spurring. No fracture. Osteopenia. Impression: No sign of acute injury. Dictated by Paresh Tovar MD @ 10/25/2022 10:11:37 AM (Electronically Signed)
[2022-10-25 09:23] LABS: Lactate* 1.3 mmol/L (0.5-1.9)
[2022-10-25 09:53] LABS: Albumin* 3.7 g/dL (3.3-5.0); Chloride* 93 mmol/L (96-114); Potassium* 3.9 mmol/L (3.6-5.1); Sodium* 137 mmol/L (135-149)
[2022-10-25 09:54] LABS: Magnesium* 1.3 mg/dL (1.5-2.6)
[2022-10-25 09:55] LABS: Bilirubin Total* 0.5 mg/dL (0.1-1.5); Creatinine* 1.4 mg/dL (0.5-1.5); Est. Creatinine Clearance* 25.19; Estimated Glomerular Filt Rate 37 ml/min
[2022-10-25 09:56] LABS: Alkaline Phosphatase* 182 U/L (40-150); Aspartate Amino Transferase* 43 U/L (12-35); Blood Urea Nitrogen* 41 mg/dL (7-30); Carbon Dioxide* 36 mmol/L (20-32); Glucose* 343 mg/dL (60-115); Total Protein* 6.5 g/dL (6.0-8.3)
[2022-10-25 09:57] LABS: Calcium* 8.5 mg/dL (8.4-10.6)
[2022-10-25 10:04] LABS: NT Pro B Type NatriureticPept* 1030 pg/mL
[2022-10-25 10:07] LABS: Troponin I* < 0.01 ng/mL (0.01-0.04)
[2022-10-25 10:11] LABS: SARS PCR* Negative SARS-CoV-2 (Negative)
[2022-10-25 10:12] LABS: Alanine Aminotransferase* 29 U/L (4-35)
[2022-10-25 10:36] LABS: Appearance Urine Clear (Clear); Bilirubin Urine Negative (Negative); Blood Urine Trace-intact (Negative); Color Urine Yellow (Yellow); Glucose Urine 1+ (Negative); Ketones Urine Negative (Negative); Leukocyte Esterase Urine Negative (Negative); Nitrite Urine Negative (Negative); Protein Urine Negative (Negative); Specific Gravity Urine 1.015 (1.000-1.030); Urobilinogen Urine 0.2 (0.2-1.0)
[2022-10-25 10:53] LABS: RBC Urine 0-2 (0-2); Squamous Epithelial Cell Urine Few (None-Few); WBC Urine 0-2 (0-5)
[2022-10-25 10:54] LABS: Basophils Absolute Auto 0.03 K/uL (0.00-0.30); Basophils Percent Auto 0.3 % (0.0-3.0); Eosinophils Absolute Auto 0.38 K/uL (0.00-0.50); Hemoglobin* 10.6 gm/dL (12.0-16.0); Immature Granulocytes Abs Auto 0.03 K/uL (0.00-0.30); Immature Granulocytes Pct Auto 0.3 %; Mean Corpuscular HGB Conc 32 gm/dL (32-36); Mean Corpuscular Hemoglobin 28 pg (26-34); Mean Corpuscular Volume 89 fL (80-100); Monocytes Percent Auto 6.4 % (0.0-11.0); Platelet Count* 168 K/uL (140-440); RDW Coefficient of Variation % 12.8 % (11.5-15.5); Red Blood Count 3.73 m/uL (4.00-5.20); White Blood Count* 9.49 K/uL (4.50-11.00)
[2022-10-25 11:08] LABS: Slide Review Reflex No
[2022-10-25] MEDS: MAGNESIUM IV 2 GM/50 ML PIGGYBACK IVPB (11:19)
--- NOTE | 2022-10-25 12:40 | ED.NURSE ---
patient wanted the medication to go in as fast as can and provider is okay with 50cc/hr to infuse in an hour as patient requested.
== END 2022-10-25 12:37 | disposition home or self-care (01) ==
PROVIDERS: Emergency Provider Family Medicine; PCP Family Medicine
DX: S20.229A Contusion of unspecified back wall of thorax, initial encounter (principal); S20.219A Contusion of unspecified front wall of thorax, initial encounter; W19.XXXA Unspecified fall, initial encounter; E83.42 Hypomagnesemia
CPT/HCPCS: 36415; 70450; 71045; 72170; 73560; 80053; 81001; 83605; 83735; 83880; 84443; 84484; 85025; 86140; 87635; 93005; 94761; 96365; 99284; 99285; J3475

== ENCOUNTER 2022-11-27 17:40 | Observation (INO) | payer BC, SELFPAY ==
[2022-11-27] VITALS (15 sets, daily range): BP systolic 96–130; BP diastolic 42–65; PULSE 62–80; RESP 18; TEMP 36.4–36.8; O2SAT 74–100; BMI 22.1; BMI 22.9
--- NOTE | 2022-11-27 17:46 | ED.GENADULT ---
HPI - General Adult General Time Seen by Provider: 17:47 Date Seen: 11/27/22 Chief complaint: Nausea/Vomiting Stated complaint: Vomiting Time Seen by Provider: 11/27/22 17:42 Source: patient and RN notes reviewed Mode of arrival: ambulatory Limitations: no limitations History of Present Illness HPI narrative: This 82-year-old female is coming in with complaint of vomiting for 3 days now. She has had nausea vomiting, only able to taken ice water. Is not able to eat or drink otherwise. She had a normal bowel movement this morning, denies any diarrhea. She is not having any abdominal pain. There are no fevers with this. She states she does feel cold all the time. Denies any sore throat or any respiratory symptoms with this. She did have a CABG in 2018, 5 vessel. She also has chronic kidney disease, paroxysmal atrial fibrillation, chronic opioid use with pain management agreement. Type 2 diabetes. She has had an appendectomy. She has had a total abdominal hysterectomy with LSO. Related Data Home Medications Medication Instructions Recorded Confirmed albuterol sulfate 2.5 mg/3 mL 2.5 mg inhalation Q6H PRN 12/05/21 10/01/22 (0.083 %) solution for nebulization amlodipine 5 mg tablet 5 mg PO DAILY 12/05/21 10/12/22 aspirin 81 mg chewable tablet 81 mg PO DAILY 12/05/21 10/12/22 atorvastatin 40 mg tablet 40 mg PO HS 12/05/21 10/12/22 calcium carbonate 600 mg-vitamin 1 tab PO DAILY 12/05/21 10/12/22 D3 10 mcg (400 unit) tablet cetirizine 10 mg tablet 10 mg PO DAILY 12/05/21 10/12/22 cholecalciferol (vitamin D3) 50 2,000 unit PO DAILY 12/05/21 10/12/22 mcg (2,000 unit) tablet ferrous sulfate 324 mg (65 mg 324 mg PO DAILY 12/05/21 10/01/22 iron) tablet,delayed release furosemide 40 mg tablet 80 mg PO DAILY 12/05/21 10/12/22 ipratropium bromide 21 mcg (0.03 2 spray intranasal TID 12/05/21 10/01/22 %) nasal spray isosorbide mononitrate 120 mg 240 mg PO DAILY 12/05/21 10/12/22 tablet,extended release 24 hr metformin 500 mg tablet 500 mg PO BIDWM 12/05/21 10/12/22 metoprolol succinate 50 mg 50 mg PO DAILY 12/05/21 10/12/22 tablet,extended release 24 hr morphine 30 mg tablet,extended 30 mg PO HS 12/05/21 10/12/22 release morphine 60 mg tablet,extended 60 mg PO BID 12/05/21 10/12/22 release (MS Contin) mupirocin 2 % topical ointment 1 applic topical DAILY PRN 12/05/21 10/01/22 nitroglycerin 0.4 mg sublingual 0.4 mg sublingual Q5-10M PRN 12/05/21 10/12/22 tablet nystatin 100,000 unit/gram topical 1 applic topical TID PRN 12/05/21 10/01/22 powder (Nystop) omeprazole 20 mg capsule,delayed 20 mg PO BID 12/05/21 10/12/22 release sertraline 100 mg tablet 200 mg PO DAILY 12/05/21 10/12/22 trazodone 50 mg tablet 200 mg PO HS 12/05/21 10/12/22 albuterol sulfate 90 mcg/actuation 1 - 2 puff inhalation Q4H PRN 12/06/21 10/01/22 aerosol inhaler exenatide microspheres 2 mg/0.85 2 mg subcut Q7D 12/06/21 10/01/22 mL subcutaneous auto-injector ([employer]) guaifenesin 600 mg tablet, 600 mg PO BID 12/06/21 10/12/22 extended release 12 hr (Mucinex) acetaminophen 500 mg capsule 1,000 mg PO .Q8 PRN 10/12/22 10/12/22 empagliflozin 10 mg tablet 10 mg PO DAILY 10/12/22 10/12/22 (Jardiance) Previous Rx's Medication Instructions Recorded magnesium oxide,aspartate,citr 400 mg PO DAILY #30 caps 10/25/22 Allergies Allergy/AdvReac Type Severity Reaction Status Date / Time Sulfa (Sulfonamide Allergy Intermediate Hives Verified 11/27/22 19:33 Antibiotics) camphor AdvReac Intermediate Rash Verified 11/27/22 19:33 nitrofurantoin AdvReac Unknown Verified 11/27/22 19:33 [From Macrobid] Review of Systems Status of ROS: Reports: 6 or more systems reviewed and unremarkable except as noted in History and below [facility] Medical History 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 ?S42.332K - Displaced oblique fracture of shaft of humerus, left arm, subsequent encounter for fracture with nonunion (ICD-10) Chronic kidney disease ?N18.9 - Chronic kidney disease, unspecified (ICD-10) Stable angina pectoris ?I20.8 - Other forms of angina pectoris (ICD-10) Major depressive disorder, recurrent ?F33.9 - Major depressive disorder, recurrent, unspecified (ICD-10) Venous stasis ulcer ?I83.009 - Varicose veins of unspecified lower extremity with ulcer of unspecified site (ICD-10) ?L97.909 - Non-pressure chronic ulcer of unspecified part of unspecified lower leg with unspecified severity (ICD-10) Venous insufficiency (chronic) (peripheral) ?I87.2 - Venous insufficiency (chronic) (peripheral) (ICD-10) Paroxysmal atrial fibrillation ?I48.0 - Paroxysmal atrial fibrillation (ICD-10) Chronic, continuous use of opioids ?F11.90 - Opioid use, unspecified, uncomplicated (ICD-10) 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) ?J44.9 - Chronic obstructive pulmonary disease, unspecified (ICD-10) Chronic back pain ?M54.9 - Dorsalgia, unspecified (ICD-10) ?G89.29 - Other chronic pain (ICD-10) Pain medication agreement ?Z02.89 - Encounter for other administrative examinations (ICD-10) Primary central sleep apnea ?G47.31 - Primary central sleep apnea (ICD-10) Obstructive sleep apnea ?G47.33 - Obstructive sleep apnea (adult) (pediatric) (ICD-10) JOSE (stress urinary incontinence, female) ?N39.3 - Stress incontinence (female) (male) (ICD-10) Diabetes mellitus type 2 in nonobese ?E11.9 - Type 2 diabetes mellitus without complications (ICD-10) Osteopenia ?M85.80 - Other specified disorders of bone density and structure, unspecified site (ICD-10) Primary hypothyroidism ?E03.9 - Hypothyroidism, unspecified (ICD-10) Vitamin D deficiency ?E55.9 - Vitamin D deficiency, unspecified (ICD-10) Atopic dermatitis and related condition ?L20.9 - Atopic dermatitis, unspecified (ICD-10) Allergic rhinitis ?J30.9 - Allergic rhinitis, unspecified (ICD-10) Hyperlipidemia ?E78.5 - Hyperlipidemia, unspecified (ICD-10) Essential hypertension ?I10 - Essential (primary) hypertension (ICD-10) Atherosclerotic cardiovascular disease ?I25.10 - Atherosclerotic heart disease of campo coronary artery without angina pectoris (ICD-10) Surgical History Status post vein stripping ?Z98.890 - Other specified postprocedural states (ICD-10) Status post uvulopalatopharyngoplasty ?Z98.890 - Other specified postprocedural states (ICD-10) Status post tonsillectomy ?Z90.89 - Acquired absence of other organs (ICD-10) Status post nasal septoplasty ?Z98.890 - Other specified postprocedural states (ICD-10) Status post abdominal hysterectomy and left salpingo-oophorectomy ?Z90.710 - Acquired absence of both cervix and uterus (ICD-10) ?Z90.721 - Acquired absence of ovaries, unilateral (ICD-10) ?Z90.79 - Acquired absence of other genital organ(s) (ICD-10) Status post carpal tunnel release ?Z98.890 - Other specified postprocedural states (ICD-10) Status post bunionectomy ?Z98.890 - Other specified postprocedural states (ICD-10) Status post appendectomy ?Z90.49 - Acquired absence of other specified parts of digestive tract (ICD-10) Status post bilateral cataract extraction ?Z98.41 - Cataract extraction status, right eye (ICD-10) ?Z98.42 - Cataract extraction status, left eye (ICD-10) Status post coronary artery bypass grafts x 5 ?Z95.1 - Presence of aortocoronary bypass graft (ICD-10) Family History Sister Cancer Brother FH: prostate cancer Mother Diabetes Father Coronary artery disease Social History Narrative: Lives alone with pet dog and cat. Adopted grand son, Omid Montgomery, is her POA for health. Requests full resuscitation measures in event of cardiopulmonary demise (12/06/2021). Smoking Status: Former smoker What tobacco products do you use: cigarettes Smoking packs per day: 3 Smoking cigarettes per day: 60.0 Years smoked: 10 Smoking pack-years: 30.00 Smoking quit date/years: >15 years ago Do you use any of these nicotine containing products: None Second hand tobacco smoke exposure: No How often do you have a drink containing alcohol: never How often do you have six or more drinks on one occasion: Never AUDIT-C Alcohol total score: 0 Non-prescribed substance use: denies use Caffeine: Yes (green tea) service: No Exam Const: Vital Signs, click to edit/add: Vital Signs - 24 hr 11/27/22 17:43 11/27/22 17:51 11/27/22 18:44 Temperature 97.5 F L Pulse Rate 65 Pulse Rate [Right Pulse Oximeter] 80 Respiratory Rate 18 Blood Pressure 104/53 L Blood Pressure [Ri ght Upper Arm] 120/65 Pulse Oximetry 98 96 96 Oxygen Delivery Me thod Room Air 11/27/22 18:47 11/27/22 19:00 11/27/22 19:01 Temperature Pulse Rate 66 63 62 Pulse Rate [Right Pulse Oximeter] Respiratory Rate Blood Pressure 96/44 L Blood Pressure [Ri ght Upper Arm] Pulse Oximetry 94 96 92 Oxygen Delivery Me thod 11/27/22 19:02 11/27/22 19:33 11/27/22 19:37 Temperature Pulse Rate 64 70 65 Pulse Rate [Right Pulse Oximeter] Respiratory Rate Blood Pressure 102/45 L Blood Pressure [Ri ght Upper Arm] Pulse Oximetry 96 74 L 94 Oxygen Delivery Me thod She is an 82-year-old frail looking female but is alert and interactive, very pleasant. She has pictures nodules on her face and extremities. Sclera clear, conjugate gaze. Symmetrical facial function. Bottom denture is out, mucosa is dry. Neck is supple, no masses, nontender. Some kyphosis but lungs are clear, no wheezing or crackles, good air entry. CV regular rate and rhythm, no murmur noted, normal S1 and S2. Abdomen is soft, nondistended, no organomegaly, normal bowel sounds. She was ambulatory in the ED of her own accord, no lower extremity edema. Documenting provider has reviewed patient's vital signs: yes Course Course ED Course: Will place an IV, give her 4 mg IV Zofran and a L of normal saline. Will do imaging with flattened upright. She is having no fevers, is passing stool and abdominal exam is quite benign. Will consider advanced imaging depending on her course here and the laboratory results. Will get a full complement of labs, will include COVID in this. This could be gastroenteritis, other intra-abdominal pathology presenting as nausea vomiting. This also could be a cardiac equivalent and will get an EKG and troponin. She will be monitored on pulse oximetry while here. Reevaluation(s) Time of Reevaluation #1: 18:44 Reevaluation #1: Patient continues to ask nursing staff to drink. I have went back to review with her that her abdominal film looks to have abnormal small bowel on my preliminary review. She is getting IV fluids, we are going to hold NPO status at this time. She will be getting a CT of her abdomen pelvis with IV contrast. Time of Reevaluation #2: 20:27 Reevaluation #2: Have explained to the patient that she seems to have a significant fecal burden, there could be early partial bowel obstruction but she certainly has definitely been vomiting for 3 days from what she is telling me. It is recommended that she come into the hospital, she does agree, will be talking to our hospitalist. Consultations Consultation #1: Have spoken with Dr. Hoffman on this patient. She will await to see the CT and the radiology report. 2024pm have spoken with Dr. Hoffman again. The patient certainly could have an early or partial obstruction, given that she has been vomiting 3 days and does have fecal burden, it is recommended that she come into the hospital for decompression or ball working on constipation, monitoring her vomiting. Hopefully with reduction of the stool burden, she may improve. Time: 19:34 Consultation #2: Have spoken with our hospitalist Dr. Cantor, he accepts. Time: 20:31 Vital Signs Vital signs: Initial Vital Signs Temperature 97.5 F L 11/27/22 17:43 Temperature Source Temporal Artery Scan 11/27/22 17:43 Pulse Rate 80 11/27/22 17:43 Respiratory Rate 18 11/27/22 17:43 Blood Pressure 120/65 11/27/22 17:43 Blood Pressure Mean 83 11/27/22 17:43 Blood Pressure Position Sitting 11/27/22 17:43 Pulse Oximetry 98 11/27/22 17:43 Oxygen Delivery Method Room Air 11/27/22 17:43 Vital Signs Temperature 97.5 F L 11/27/22 17:43 Pulse Rate 80 11/27/22 17:43 Respiratory Rate 18 11/27/22 17:43 Blood Pressure 120/65 11/27/22 17:43 Pulse Oximetry 98 11/27/22 17:43 Oxygen Delivery Method Room Air 11/27/22 17:43 Temperature 97.5 F L 11/27/22 17:43 Pulse Rate 65 11/27/22 19:37 Respiratory Rate 18 11/27/22 17:43 Blood Pressure 102/45 L 11/27/22 19:37 Pulse Oximetry 94 11/27/22 19:37 Oxygen Delivery Method Room Air 11/27/22 17:43 Medical Decision Making Lab Data Labs: Lab Results 11/27/22 11/27/22 11/27/22 Range/Units 17:53 18:14 18:14 WBC 10.73 (4.50-11.00) K/uL RBC 4.03 (4.00-5.20) m/uL Hgb 11.4 L (12.0-16.0) gm/dL Hct 35.3 (33.0-51.0) % MCV 88 (80-100) fL MCH 28 (26-34) pg MCHC 32 (32-36) gm/dL RDW Coeff of Sue 14.1 (11.5-15.5) % Plt Count 233 (140-440) K/uL Neut % (Auto) 85.7 H (42.0-72.0) % Lymph % (Auto) 4.8 L (20-44) % [place] % (Auto) 8.5 (0.0-11.0) % Eos % (Auto) 0.1 (0.0-7.0) % Baso % (Auto) 0.2 (0.0-3.0) % Neut # (Auto) 9.20 H (1.7-7.0) K/uL Lymph # (Auto) 0.50 L (0.90-2.90) K/uL [place] # (Auto) 0.90 (0.00-0.90) K/UL Eos # (Auto) 0.01 (0.00-0.50) K/uL Baso # (Auto) 0.02 (0.00-0.30) K/uL Abs Immat Gran (auto) 0.07 (0.00-0.30) K/uL Imm/Tot Granulo (auto) 0.7 % Sodium 135 (135-149) mmol/L Potassium 3.6 (3.6-5.1) mmol/L Chloride 94 L (96-114) mmol/L Carbon Dioxide 33 H (20-32) mmol/L Anion Gap 8 (7-15) mEq/L BUN 35 H (7-30) mg/dL Creatinine 1.4 (0.5-1.5) mg/dL Estimated Creat Clear 24.74 Estimated GFR 37 ml/min Glucose 447 H* (60-115) mg/dL Lactate 2.3 H (0.5-1.9) mmol/L Calcium 9.7 (8.4-10.6) mg/dL Total Bilirubin 0.6 (0.1-1.5) mg/dL AST 43 H (12-35) U/L ALT 31 (4-35) U/L Alkaline Phosphatase 194 H (40-150) U/L C-Reactive Protein 1.4 H (0.5-1.0) mg/dL Total Protein 7.3 (6.0-8.3) g/dL Albumin 4.1 (3.3-5.0) g/dL Lipase 128 Cancelled (23-300) U/L SARS-CoV-2 (PCR) Negative SARS-CoV-2 (Negative) POC Troponin I 0.04 (0.01-0.04) ng/ml Imaging Data Abdominal x-ray: Attestation: I have reviewed the pertinent imaging results. My impression: She looks to have abnormal character of small bowel on her abdominal x-ray my preliminary review. Will be ordering CT of her abdomen pelvis with IV contrast while I await Radiology over-read and labs to return. Radiologist's impression: Patient: REGIS MONTGOMERY Facility:[facility] Patient ID:?[id number] Site Patient ID:?[id number] Site :?[id number] Study:?XRay Abdomen/Pelvis 2V-11/27/2022 6:43:08 PM Ordering Physician:Susan Boss Final Report: INDICATION: Vomiting TECHNIQUE: Upright and supine views. COMPARISON: None available FINDINGS: There are dilated loops of small bowel with air-fluid levels on upright within the central abdomen consistent with likely bowel obstruction. There is a moderate to severe diffuse amount of intracolonic fecal distention. There is no intra-abdominal free air or pathologic calcification. There is no acute osseous abnormality. IMPRESSION: Multiple dilated loops of central small bowel consistent with bowel obstruction. Dictated by Brandon Jeffries MD @ 11/27/2022 7:08:01 PM (Electronic Signature) CT scan - abdomen: Attestation: I have reviewed the pertinent imaging results. Radiologist's impression: Patient: REGIS MONTGOMERY Facility:?[facility] Patient ID:?[id number] Site Patient ID:?[id number]. Site :?[id number] Study:?CT Abdomen/Pelvis w/62 cc's Isovue 370-11/27/2022 7:32:32 PM Ordering Physician:?Noe Boss Final Report: Indication: Vomiting, abnormal x-ray and Technique: Volumetric multidetector CT images of the abdomen and pelvis were obtained after the administration of intravenous contrast. 62 cc Isovue 370 low osmolar intravenous contrast Comparison: And two-view abdomen November 27, [address] abdomen and pelvis December 05, 2021 Findings: The lung bases are clear. The liver is normal in attenuation without intrahepatic biliary ductal dilatation. The portal vein is patent. The gallbladder is unremarkable without evidence of radiopaque calculus. There is no significant common biliary ductal dilatation or abrupt cut off. The spleen is normal in enhancement and size. There is mild thickening of the gastric antrum with gastric rugal fold thickening. The pancreas is normal in enhancement without significant atrophy. The adrenal glands are unremarkable. The kidneys demonstrate preserved corticomedullary differentiation without evidence of obstructive uropathy. There is moderate stool seen throughout the colon with severe stool in the distal rectum consistent with constipation and fecal impaction. There again seen moderately dilated fluid-filled loops of central small bowel with mucosal hyperemia which may represent early obstruction versus enteritis changes. The appendix is unremarkable. There is no significant mesenteric, retroperitoneal, or pelvic sidewall lymph nodes. The aorta is not aneurysmal with moderate scattered atherosclerotic calcification. There is prior hysterectomy. The bladder is somewhat distended. There is minimal fluid within the central pelvis. The anterior abdominal wall is intact without significant hernias. The lumbar vertebral body heights are grossly maintained with minimal endplate Schmorl`s defects. There is moderate to severe facet arthrosis. Impression: Fluid-filled central small bowel loops with minimal mucosal hyperemia which may represent early obstruction versus enteritis changes. Severe stool seen throughout the colon and rectum consistent with constipation and fecal impaction. Please note that all CT scans at this facility use dose modulation, iterative reconstruction, and/or weight-based dosing when appropriate to reduce radiation dose to as low as reasonably achievable. Dictated by Brandon Jeffries MD @ 11/27/2022 7:59:52 PM (Electronic Signature) ECG Data Attestation: I personally reviewed and interpreted this ECG as follows: (Sinus rhythm, 65 beats per minute. No evidence of any ischemic change. QT corrected 4 and 65 milliseconds.) Critical Care Time Critical Care Time Critical Care Time: No Discharge Plan Discharge Clinical Impression: Partial bowel obstruction, Constipation, Vomiting Patient Disposition: Admitted As Observation
--- NOTE | 2022-11-27 17:51 | CRLHL7_ITS ---
For Patients: As a result of the Century Cures Act, medical imaging exams and procedure reports are released immediately into your electronic medical record. You may view this report before your referring provider. If you have questions, please contact your health care provider. INDICATION: Vomiting TECHNIQUE: Upright and supine views. COMPARISON: None available FINDINGS: There are dilated loops of small bowel with air-fluid levels on upright within the central abdomen consistent with likely bowel obstruction. There is a moderate to severe diffuse amount of intracolonic fecal distention. There is no intra-abdominal free air or pathologic calcification. There is no acute osseous abnormality. IMPRESSION: Multiple dilated loops of central small bowel consistent with bowel obstruction. Dictated by Brandon Jeffries MD @ 11/27/2022 7:08:01 PM (Electronically Signed)
[2022-11-27] MEDS: 0.9 % SODIUM CHLORIDE 1000 ml 1,000 ML 500 ML IV (18:18)
[2022-11-27] MEDS: ONDANSETRON 2 MG/ML inj 4 MG IVP (18:18)
[2022-11-27 18:32] LABS: Troponin, Point-of-Care* 0.04 ng/ml (0.01-0.04)
[2022-11-27 18:36] LABS: Lactate* 2.3 mmol/L (0.5-1.9)
[2022-11-27 18:38] LABS: Basophils Absolute Auto 0.02 K/uL (0.00-0.30); Basophils Percent Auto 0.2 % (0.0-3.0); Eosinophils Absolute Auto 0.01 K/uL (0.00-0.50); Eosinophils Percent Auto 0.1 % (0.0-7.0); Hematocrit 35.3 % (33.0-51.0); Hemoglobin* 11.4 gm/dL (12.0-16.0); Immature Granulocytes Abs Auto 0.07 K/uL (0.00-0.30); Immature Granulocytes Pct Auto 0.7 %; Lymphocytes Percent Auto 4.8 % (20-44); Mean Corpuscular HGB Conc 32 gm/dL (32-36); Mean Corpuscular Hemoglobin 28 pg (26-34); Mean Corpuscular Volume 88 fL (80-100); Monocytes Percent Auto 8.5 % (0.0-11.0); Neutrophils Percent Auto 85.7 % (42.0-72.0); Platelet Count* 233 K/uL (140-440); RDW Coefficient of Variation % 14.1 % (11.5-15.5); Red Blood Count 4.03 m/uL (4.00-5.20); White Blood Count* 10.73 K/uL (4.50-11.00)
--- NOTE | 2022-11-27 18:38 | CRLHL7_ITS ---
For Patients: As a result of the Century Cures Act, medical imaging exams and procedure reports are released immediately into your electronic medical record. You may view this report before your referring provider. If you have questions, please contact your health care provider. Indication: Vomiting, abnormal x-ray and Technique: Volumetric multidetector CT images of the abdomen and pelvis were obtained after the administration of intravenous contrast. 62 cc Isovue 370 low osmolar intravenous contrast Comparison: And two-view abdomen November 27, [address] abdomen and pelvis December 05, 2021 Findings: The lung bases are clear. The liver is normal in attenuation without intrahepatic biliary ductal dilatation. The portal vein is patent. The gallbladder is unremarkable without evidence of radiopaque calculus. There is no significant common biliary ductal dilatation or abrupt cut off. The spleen is normal in enhancement and size. There is mild thickening of the gastric antrum with gastric rugal fold thickening. The pancreas is normal in enhancement without significant atrophy. The adrenal glands are unremarkable. The kidneys demonstrate preserved corticomedullary differentiation without evidence of obstructive uropathy. There is moderate stool seen throughout the colon with severe stool in the distal rectum consistent with constipation and fecal impaction. There again seen moderately dilated fluid-filled loops of central small bowel with mucosal hyperemia which may represent early obstruction versus enteritis changes. The appendix is unremarkable. There is no significant mesenteric, retroperitoneal, or pelvic sidewall lymph nodes. The aorta is not aneurysmal with moderate scattered atherosclerotic calcification. There is prior hysterectomy. The bladder is somewhat distended. There is minimal fluid within the central pelvis. The anterior abdominal wall is intact without significant hernias. The lumbar vertebral body heights are grossly maintained with minimal endplate Schmorl`s defects. There is moderate to severe facet arthrosis. Impression: Fluid-filled central small bowel loops with minimal mucosal hyperemia which may represent early obstruction versus enteritis changes. Severe stool seen throughout the colon and rectum consistent with constipation and fecal impaction. Please note that all CT scans at this facility use dose modulation, iterative reconstruction, and/or weight-based dosing when appropriate to reduce radiation dose to as low as reasonably achievable. Dictated by Brandon Jeffries MD @ 11/27/2022 7:59:52 PM (Electronically Signed)
[2022-11-27 18:41] LABS: Slide Review Reflex No
[2022-11-27 18:56] LABS: Albumin* 4.1 g/dL (3.3-5.0); Chloride* 94 mmol/L (96-114)
[2022-11-27 18:57] LABS: Potassium* 3.6 mmol/L (3.6-5.1); Sodium* 135 mmol/L (135-149)
[2022-11-27 18:59] LABS: Bilirubin Total* 0.6 mg/dL (0.1-1.5); Creatinine* 1.4 mg/dL (0.5-1.5); Est. Creatinine Clearance* 24.74; Estimated Glomerular Filt Rate 37 ml/min
[2022-11-27 19:00] LABS: Alanine Aminotransferase* 31 U/L (4-35); Alkaline Phosphatase* 194 U/L (40-150); Anion Gap 8 mEq/L (7-15); Aspartate Amino Transferase* 43 U/L (12-35); Blood Urea Nitrogen* 35 mg/dL (7-30); Calcium* 9.7 mg/dL (8.4-10.6); Carbon Dioxide* 33 mmol/L (20-32); Lipase* 128 U/L (23-300); Total Protein* 7.3 g/dL (6.0-8.3)
[2022-11-27 19:03] LABS: C Reactive Protein* 1.4 mg/dL (0.5-1.0); Glucose* 447 mg/dL (60-115)
--- NOTE | 2022-11-27 19:03 | ED.NURSE ---
Critical result from lab: Glucose 447. and RN updated.
[2022-11-27 19:28] LABS: SARS PCR* Negative SARS-CoV-2 (Negative)
--- NOTE | 2022-11-27 22:22 | PM.IMHP1 ---
Hospitalist- H&P: HPI History of Present Illness Time Seen by Provider: 21:30 Date Seen: 11/27/22 Chief complaint: Partial SBO with nausea and vomiting Narrative: Cathy Kaplan is a 82 year old woman who has had nausea and vomiting for the past 3 days. Unable to eat anything and keep it down. Has been drinking a lot of cold water. Did have a bowel movement this morning. Does not believe she has constipation or diarrhea. For the most part she is not having abdominal pain. Denies fevers, rigors, diaphoresis. Believes her abdomen is more distended than usual. Review of Systems Status of ROS: Reports: 10 or more systems reviewed and unremarkable except as noted in History and below Narrative: Denies chest heaviness, pressure, tightness, or pain. Denies dyspnea at rest, paroxysmal nocturnal dyspnea, orthopnea. Has baseline level of dyspnea with exertion. Very active in her house including she does most of the cooking and cleaning in the kitchen. Has chronic obstructive pulmonary disease and utilizing her medications successfully at this time in that regard. No recent cough. Denies syncope or near-syncope. Denies orthostasis, lightheadedness, dizziness. Has chronic pain. Takes opioids on a chronic basis. Recently decreased her morphine dose by 30 mg per day such that she is now taking MS Contin 60 mg twice daily. Does not take senna or other medication to prevent constipation. Lives with her friend. Her friend works outside of the home. Her friend helps her with some of her activities. Patient still very active in her home. 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 ?S42.332K - Displaced oblique fracture of shaft of humerus, left arm, subsequent encounter for fracture with nonunion (ICD-10) Chronic kidney disease ?N18.9 - Chronic kidney disease, unspecified (ICD-10) Stable angina pectoris ?I20.8 - Other forms of angina pectoris (ICD-10) Major depressive disorder, recurrent ?F33.9 - Major depressive disorder, recurrent, unspecified (ICD-10) Venous stasis ulcer ?I83.009 - Varicose veins of unspecified lower extremity with ulcer of unspecified site (ICD-10) ?L97.909 - Non-pressure chronic ulcer of unspecified part of unspecified lower leg with unspecified severity (ICD-10) Venous insufficiency (chronic) (peripheral) ?I87.2 - Venous insufficiency (chronic) (peripheral) (ICD-10) Paroxysmal atrial fibrillation ?I48.0 - Paroxysmal atrial fibrillation (ICD-10) Chronic, continuous use of opioids ?F11.90 - Opioid use, unspecified, uncomplicated (ICD-10) 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) ?J44.9 - Chronic obstructive pulmonary disease, unspecified (ICD-10) Chronic back pain ?M54.9 - Dorsalgia, unspecified (ICD-10) ?G89.29 - Other chronic pain (ICD-10) Pain medication agreement ?Z02.89 - Encounter for other administrative examinations (ICD-10) Primary central sleep apnea ?G47.31 - Primary central sleep apnea (ICD-10) Obstructive sleep apnea ?G47.33 - Obstructive sleep apnea (adult) (pediatric) (ICD-10) JOSE (stress urinary incontinence, female) ?N39.3 - Stress incontinence (female) (male) (ICD-10) Diabetes mellitus type 2 in nonobese ?E11.9 - Type 2 diabetes mellitus without complications (ICD-10) Osteopenia ?M85.80 - Other specified disorders of bone density and structure, unspecified site (ICD-10) Primary hypothyroidism ?E03.9 - Hypothyroidism, unspecified (ICD-10) Vitamin D deficiency ?E55.9 - Vitamin D deficiency, unspecified (ICD-10) Atopic dermatitis and related condition ?L20.9 - Atopic dermatitis, unspecified (ICD-10) Allergic rhinitis ?J30.9 - Allergic rhinitis, unspecified (ICD-10) Hyperlipidemia ?E78.5 - Hyperlipidemia, unspecified (ICD-10) Essential hypertension ?I10 - Essential (primary) hypertension (ICD-10) Atherosclerotic cardiovascular disease ?I25.10 - Atherosclerotic heart disease of [place] coronary artery without angina pectoris (ICD-10) Surgical History Status post vein stripping ?Z98.890 - Other specified postprocedural states (ICD-10) Status post uvulopalatopharyngoplasty ?Z98.890 - Other specified postprocedural states (ICD-10) Status post tonsillectomy ?Z90.89 - Acquired absence of other organs (ICD-10) Status post nasal septoplasty ?Z98.890 - Other specified postprocedural states (ICD-10) Status post abdominal hysterectomy and left salpingo-oophorectomy ?Z90.710 - Acquired absence of both cervix and uterus (ICD-10) ?Z90.721 - Acquired absence of ovaries, unilateral (ICD-10) ?Z90.79 - Acquired absence of other genital organ(s) (ICD-10) Status post carpal tunnel release ?Z98.890 - Other specified postprocedural states (ICD-10) Status post bunionectomy ?Z98.890 - Other specified postprocedural states (ICD-10) Status post appendectomy ?Z90.49 - Acquired absence of other specified parts of digestive tract (ICD-10) Status post bilateral cataract extraction ?Z98.41 - Cataract extraction status, right eye (ICD-10) ?Z98.42 - Cataract extraction status, left eye (ICD-10) Status post coronary artery bypass grafts x 5 ?Z95.1 - Presence of aortocoronary bypass graft (ICD-10) Family History Sister Cancer Brother FH: prostate cancer Mother Diabetes Father Coronary artery disease Social History (Updated 11/27/22 @ 22:29 by Gamal Cantor MD) Narrative: Lives with her girlfriend and with pet dog and cat. Adopted grand son, Omid Kaplan, is her POA for health. Requests full resuscitation measures in event of cardiopulmonary demise (12/14/2022). What is your current living situation?: I presently have a place to live Problems where you live: no known problems Problems where you live details: na In the past 12 months, utilities in danger of being shut off: no In the past 12 mos, have been you worried that your food would run out before you had money to buy more?: never true In the past 12 mos, the food you bought just didn't last and you didn't have money to buy more?: never true Smoking Status: Former smoker What tobacco products do you use: cigarettes Smoking packs per day: 3 Smoking cigarettes per day: 60.0 Years smoked: 10 Smoking pack-years: 30.00 Smoking quit date/years: >15 years ago Do you use any of these nicotine containing products: None Second hand tobacco smoke exposure: No How often do you have a drink containing alcohol: monthly or less Alcohol type: other Alcohol type details: Occ [employer] How many standard drinks containing alcohol do you have on a typical day: 1 or 2 How often do you have six or more drinks on one occasion: Never AUDIT-C Alcohol total score: 1 Non-prescribed substance use: denies use Caffeine: Yes How often does anyone, including family, friends and others, physically hurt you: never How often does anyone, including family, friends and others, insult or talk down to you: never How often does anyone, including family, friends and others, threaten you with harm: never How often does anyone, including family, friends and others, scream or curse at you: never service: No Meds Home Medications and Allergies Home Medications Medication Instructions Recorded Confirmed Type albuterol sulfate 2.5 mg/3 mL 2.5 mg inhalation Q6H PRN 12/05/21 10/01/22 History (0.083 %) solution for nebulization amlodipine 5 mg tablet 5 mg PO DAILY 12/05/21 10/12/22 History aspirin 81 mg chewable tablet 81 mg PO DAILY 12/05/21 10/12/22 History atorvastatin 40 mg tablet 40 mg PO HS 12/05/21 10/12/22 History calcium carbonate 600 mg-vitamin 1 tab PO DAILY 12/05/21 10/12/22 History D3 10 mcg (400 unit) tablet cetirizine 10 mg tablet 10 mg PO DAILY 12/05/21 10/12/22 History cholecalciferol (vitamin D3) 50 2,000 unit PO DAILY 12/05/21 10/12/22 History mcg (2,000 unit) tablet ferrous sulfate 324 mg (65 mg 324 mg PO DAILY 12/05/21 10/01/22 History iron) tablet,delayed release furosemide 40 mg tablet 80 mg PO DAILY 12/05/21 10/12/22 History ipratropium bromide 21 mcg (0.03 2 spray intranasal TID 12/05/21 10/01/22 History %) nasal spray isosorbide mononitrate 120 mg 240 mg PO DAILY 12/05/21 10/12/22 History tablet,extended release 24 hr metformin 500 mg tablet 500 mg PO BIDWM 12/05/21 10/12/22 History metoprolol succinate 50 mg 50 mg PO DAILY 12/05/21 10/12/22 History tablet,extended release 24 hr morphine 30 mg tablet,extended 30 mg PO HS 12/05/21 10/12/22 History release morphine 60 mg tablet,extended 60 mg PO BID 12/05/21 10/12/22 History release (MS Contin) mupirocin 2 % topical ointment 1 applic topical DAILY PRN 12/05/21 10/01/22 History nitroglycerin 0.4 mg sublingual 0.4 mg sublingual Q5-10M PRN 12/05/21 10/12/22 History tablet nystatin 100,000 unit/gram topical 1 applic topical TID PRN 12/05/21 10/01/22 History powder (Nystop) omeprazole 20 mg capsule,delayed 20 mg PO BID 12/05/21 10/12/22 History release sertraline 100 mg tablet 200 mg PO DAILY 12/05/21 10/12/22 History trazodone 50 mg tablet 200 mg PO HS 12/05/21 10/12/22 History albuterol sulfate 90 mcg/actuation 1 - 2 puff inhalation Q4H PRN 12/06/21 10/01/22 History aerosol inhaler exenatide microspheres 2 mg/0.85 2 mg subcut Q7D 12/06/21 10/01/22 History mL subcutaneous auto-injector (Bytone Otto) guaifenesin 600 mg tablet, 600 mg PO BID 12/06/21 10/12/22 History extended release 12 hr (Mucinex) acetaminophen 500 mg capsule 1,000 mg PO .Q8 PRN 10/12/22 10/12/22 History empagliflozin 10 mg tablet 10 mg PO DAILY 10/12/22 10/12/22 History (Jardiance) Allergies Allergy/AdvReac Type Severity Reaction Status Date / Time Sulfa (Sulfonamide Allergy Intermediate Hives Verified 11/27/22 19:33 Antibiotics) camphor AdvReac Intermediate Rash Verified 11/27/22 19:33 nitrofurantoin AdvReac Unknown Verified 11/27/22 19:33 [From Macrobid] Exam Narrative: Exam Narrative: Examined the patient in hospital room. When I 1st walk in the room she is sound asleep. She is easily arousable by calling out her name. Appears comfortable and in no acute distress. Vision and hearing are grossly normal. Alert and oriented to self, place, time, situation. Friendly, articulate, cooperative. Mood and affect are congruent. Appears thin. Normal conjunctiva without injection or icterus. Pupils equally round and reactive to light and accommodation. Extraocular muscles are intact. Conjugate gaze. Normal tympanic membranes. Midline nasal septum. Edentulous. Dry buccal mucosa. Neck is supple. Midline trachea. No JVD or hepatojugular reflux. No carotid bruits. No head neck lymphadenopathy. Lungs for the most part clear with some scattered rhonchi. No wheezing or rales. Chest wall excursions are full. Barrel-shaped chest. No CVA tenderness. Heart tones with regular rhythm, normal S1-S2. Soft systolic murmur lot of some left lower sternal border. No gallop or rub. PMI not laterally displaced. Abdomen with active bowel sounds and soft. Does have hypertympany. No rebound or guarding however. No organomegaly or masses. Moves all 4 extremities. No focal motor neurologic deficits. Skin is dry and intact. No jaundice. No petechiae. No rashes. Const: Vital Signs, click to edit/add: Vital Signs - 24 hr 11/27/22 17:43 11/27/22 17:51 11/27/22 18:44 Temperature 97.5 F L Pulse Rate 65 Pulse Rate [Right Brachial] Pulse Rate [Right Pulse Oximeter] 80 Respiratory Rate 18 Blood Pressure 104/53 L Blood Pressure [Ri ght Arm] Blood Pressure [Ri ght Upper Arm] 120/65 Pulse Oximetry 98 96 96 Oxygen Delivery Me thod Room Air Oxygen Flow Rate 11/27/22 18:47 11/27/22 19:00 11/27/22 19:01 Temperature Pulse Rate 66 63 62 Pulse Rate [Right Brachial] Pulse Rate [Right Pulse Oximeter] Respiratory Rate Blood Pressure 96/44 L Blood Pressure [Ri ght Arm] Blood Pressure [Ri ght Upper Arm] Pulse Oximetry 94 96 92 Oxygen Delivery Me thod Oxygen Flow Rate 11/27/22 19:02 11/27/22 19:33 11/27/22 19:37 Temperature Pulse Rate 64 70 65 Pulse Rate [Right Brachial] Pulse Rate [Right Pulse Oximeter] Respiratory Rate Blood Pressure 102/45 L Blood Pressure [Ri ght Arm] Blood Pressure [Ri ght Upper Arm] Pulse Oximetry 96 74 L 94 Oxygen Delivery Me thod Oxygen Flow Rate 11/27/22 19:38 11/27/22 20:00 11/27/22 20:01 Temperature Pulse Rate 64 68 67 Pulse Rate [Right Brachial] Pulse Rate [Right Pulse Oximeter] Respiratory Rate Blood Pressure 112/51 L Blood Pressure [Ri ght Arm] Blood Pressure [Ri ght Upper Arm] Pulse Oximetry 94 99 99 Oxygen Delivery Me thod Oxygen Flow Rate 11/27/22 20:30 11/27/22 20:31 11/27/22 21:12 Temperature 98.3 F Pulse Rate 64 63 Pulse Rate [Right Brachial] 70 Pulse Rate [Right Pulse Oximeter] Respiratory Rate 18 Blood Pressure 99/42 L Blood Pressure [Ri ght Arm] 130/60 Blood Pressure [Ri ght Upper Arm] Pulse Oximetry 98 98 100 Oxygen Delivery Me thod Nasal Cannula Oxygen Flow Rate 2 Documenting provider has reviewed patient's vital signs: yes Hospitalist - H&P: Result Labs Labs: Short CBC 11/27/22 Range/Units 18:14 WBC 10.73 (4.50-11.00) K/uL Hgb 11.4 L (12.0-16.0) gm/dL Hct 35.3 (33.0-51.0) % Plt Count 233 (140-440) K/uL BMP 11/27/22 18:14 Sodium 135 Potassium 3.6 Chloride 94 L Carbon Dioxide 33 H BUN 35 H Creatinine 1.4 Glucose 447 H* Calcium 9.7 Liver Function 11/27/22 Range/Units 18:14 Total Bilirubin 0.6 (0.1-1.5) mg/dL AST 43 H (12-35) U/L ALT 31 (4-35) U/L Alkaline Phosphatase 194 H (40-150) U/L Albumin 4.1 (3.3-5.0) g/dL ECG Attestation: I personally reviewed and interpreted this ECG as follows: ECG interpretation date: 11/27/22 ECG interpretation time: 22:00 Prior ECG tracings: not available for review Interpretation: Normal sinus rhythm without evidence of ischemic changes. Imaging Abdominal x-ray: Attestation: I have reviewed the pertinent imaging results. Radiologist's impression: Dilated loops of small bowel with scattered stool throughout colon. CT scan - abdomen: Attestation: I have reviewed the pertinent imaging results. Radiologist's impression: Impression: Fluid-filled central small bowel loops with minimal mucosal hyperemia which may represent early obstruction versus enteritis changes. Severe stool seen throughout the colon and rectum consistent with constipation and fecal impaction. Assessment and Plan Assessment and plan (1) Partial bowel obstruction: Status: Acute (2) Obstipation: Status: Acute (3) Vomiting: Status: Acute (4) Dehydration: Status: Acute (5) Anemia: Status: Acute (6) Pain medication agreement: Status: Acute (7) Chronic, continuous use of opioids: Status: Acute (8) Chronic back pain: Status: Acute Plan 1. Reviewed impression with patient. 2. Recommended admission to the hospital 3. IV fluids and pain management. 4. Antiemetics as needed. 5. Clear liquids as tolerated. 6. Glycerin suppository per rectum. 7. Polyethylene glycol modified bowel prep slowly as tolerated to initiate evacuation of colon. 8. Of medications in an effort to try to prevent recurrent constipation and obstipation. 9. Monitor labs closely 10. Sliding scale insulin 11. Continue with other supportive medications. 12. Answered patient's questions to her satisfaction. She asked us to proceed.
[2022-11-27] MEDS: polyethylene glycoL 238 GM BULK BOTTLE PO (23:11)
[2022-11-27] MEDS: GLYCERIN SUPP (ADULT) 1 SUPP PR (23:12)
[2022-11-27] MEDS: 0.9 % SODIUM CHLORIDE 1000 ml 1,000 ML 125 ML IV (23:12)
[2022-11-28 01:38] VITALS: BP 123/107; PULSE 75; RESP 18; O2SAT 97
[2022-11-28 01:54] VITALS: O2SAT 96
[2022-11-28 02:01] LABS: Appearance Urine Cloudy (Clear); Bilirubin Urine Negative (Negative); Blood Urine 1+ (Negative); Color Urine Yellow (Yellow); Glucose Urine 3+ (Negative); Ketones Urine Negative (Negative); Leukocyte Esterase Urine 1+ (Negative); Nitrite Urine Positive (Negative); Protein Urine Negative (Negative); Specific Gravity Urine <= 1.005 (1.000-1.030); Urobilinogen Urine 0.2 (0.2-1.0); pH Urine 5.5 (5.0-8.5)
[2022-11-28 02:08] LABS: Bacteria Urine Many; Squamous Epithelial Cell Urine Moderate (None-Few); WBC Urine 25-50 (0-5)
[2022-11-28] MEDS: 0.9 % SODIUM CHLORIDE 1000 ml 1,000 ML 125 ML IV (06:05)
--- NOTE | 2022-11-28 06:11 | PC.NURSE ---
End Of Shift: VSS on RA. Pleasant and cooperative. Arrived to the floor last night w/ 3 days of N/V. No complaints of nausea this shift, and no vomiting. Clear liquid diet, blue bowel prep is in her room she needs to drink all that is remaining. Abdominal CT showed possible impaction/ SBO. Incontinent of both urine and stool. No reports of pain. Calls appropriately. Normal saline running @ 125 hr. Per patient she uses a wheelchair at home and has had recent falls. Up to BR Ax1 and RW. UA was collected and resulted see diagnostics. Sacral Mepilex to coccyx, buttocks is reddened- barrier cream applied PRN.
[2022-11-28 06:44] LABS: Hematocrit 30.7 % (33.0-51.0); Hemoglobin* 9.9 gm/dL (12.0-16.0); Mean Corpuscular HGB Conc 32 gm/dL (32-36); Mean Corpuscular Hemoglobin 28 pg (26-34); Mean Corpuscular Volume 88 fL (80-100); Platelet Count* 225 K/uL (140-440); Red Blood Count 3.48 m/uL (4.00-5.20); White Blood Count* 9.09 K/uL (4.50-11.00)
[2022-11-28 06:46] LABS: Lactate* 1.4 mmol/L (0.5-1.9)
[2022-11-28 07:00] VITALS: BP 141/66; PULSE 58; RESP 12; TEMP 36.8; O2SAT 92
[2022-11-28 07:02] LABS: Slide Review Reflex No
[2022-11-28 07:11] LABS: Chloride* 102 mmol/L (96-114); Potassium* 3.4 mmol/L (3.6-5.1); Sodium* 140 mmol/L (135-149)
[2022-11-28 07:14] LABS: Creatinine* 1.3 mg/dL (0.5-1.5); Est. Creatinine Clearance* 26.65; Estimated Glomerular Filt Rate 41 ml/min
[2022-11-28 07:15] LABS: Anion Gap 5 mEq/L (7-15); Blood Urea Nitrogen* 36 mg/dL (7-30); Carbon Dioxide* 33 mmol/L (20-32); Glucose* 76 mg/dL (60-115); Phosphorus* 3.6 mg/dL (2.5-4.5)
[2022-11-28 07:16] LABS: Magnesium* 1.8 mg/dL (1.5-2.6)
[2022-11-28 07:18] LABS: C Reactive Protein* 1.7 mg/dL (0.5-1.0)
[2022-11-28 09:34] VITALS: BMI 20.7
[2022-11-28] MEDS: cefTRIAXone 1 GM in 0.9 % SODIUM CHLORIDE Mini-bag 100 ML IVPB (09:43)
[2022-11-28] MEDS: MORPHINE 30 MG TABLET.ER 60 MG PO ×2 (09:44→20:29)
[2022-11-28] MEDS: SENNOSIDES/DOCUSATE TABLET 2 TAB PO ×2 (09:44→20:29)
[2022-11-28] MEDS: ISOSORBIDE MONONITRATE ER 30 MG TAB 240 MG PO (09:45)
[2022-11-28] MEDS: FUROSEMIDE 40 MG TABLET 80 MG PO (09:46)
[2022-11-28] MEDS: SERTRALINE 100 MG TABLET 200 MG PO (09:47)
[2022-11-28] MEDS: CETIRIZINE HCL 10 MG TABLET PO (09:47)
[2022-11-28] MEDS: METOPROLOL SUCCINATE (XL) 50 MG TAB PO (09:47)
[2022-11-28] MEDS: guaiFENesin 600 MG TAB.ER.12H PO ×2 (09:47→20:30)
[2022-11-28] MEDS: OMEPRAZOLE 20 MG CAPSULE DR PO ×2 (09:48→20:29)
[2022-11-28 11:00] VITALS: BP 124/58; PULSE 68; RESP 12; TEMP 37; O2SAT 95
--- NOTE | 2022-11-28 14:33 | P.IMPN_ITS ---
Progress Note: A&P Assessment and plan (1) Partial bowel obstruction: Problem details: - no further nausea or abdominal pain on hospital day 1 - tolerating MiraLax Status: Acute (2) Obstipation: Problem details: - likely iatrogenic from chronic opiate use Status: Acute (3) Anemia: Problem details: - normocytic, chronic per chart review Status: Acute (4) Pain medication agreement: Status: Acute (5) Chronic, continuous use of opioids: Status: Acute (6) Chronic back pain: Status: Acute (7) Diabetes mellitus type 2 in nonobese: Problem details: - Accu-Chek and SSI Status: Acute Plan - per above - continue home medications for other comorbidities - SCDs and aspirin for prophylaxis - likely home with close PCP follow-up after resumption of normal bowel function Subjective Date Seen: 11/28/22 Interval history: Cathy Sahu was admitted last night for abdominal pain and constipation, likely iatrogenic from chronic opiate use. She is tolerating a clear liquid diet with MiraLax, she has not yet passed flatus or stool, but does feel like things are ?moving?. She has had no further vomiting since hospitalization and has no other concerns for hospitalist staff. Exam Narrative: Exam Narrative: GEN: Alert and oriented, answering questions appropriately HEENT: EOMIs bilaterally, no scleral icterus CV: RRR, soft systolic murmur without concerning features R: LCTA bilaterally without concerning wheezing Ab: Soft, tolerates palpation, hyperactive bowel sounds Skin: No concerning skin lesions or rashes on exposed skin Neuro: No focal deficits Psych: Appropriate Const: Vital Signs, click to edit/add: Vital Signs - 24 hr 11/27/22 17:43 11/27/22 17:51 11/27/22 18:44 Temperature 97.5 F L Pulse Rate 65 Pulse Rate [Pulse Oximeter] Pulse Rate [Right Brachial] Pulse Rate [Right Pulse Oximeter] 80 Respiratory Rate 18 Blood Pressure 104/53 L Blood Pressure [Ri ght Arm] Blood Pressure [Ri ght Upper Arm] 120/65 Pulse Oximetry 98 96 96 Oxygen Delivery Me thod Room Air Oxygen Flow Rate 11/27/22 18:47 11/27/22 19:00 11/27/22 19:01 Temperature Pulse Rate 66 63 62 Pulse Rate [Pulse Oximeter] Pulse Rate [Right Brachial] Pulse Rate [Right Pulse Oximeter] Respiratory Rate Blood Pressure 96/44 L Blood Pressure [Ri ght Arm] Blood Pressure [Ri ght Upper Arm] Pulse Oximetry 94 96 92 Oxygen Delivery Me thod Oxygen Flow Rate 11/27/22 19:02 11/27/22 19:33 11/27/22 19:37 Temperature Pulse Rate 64 70 65 Pulse Rate [Pulse Oximeter] Pulse Rate [Right Brachial] Pulse Rate [Right Pulse Oximeter] Respiratory Rate Blood Pressure 102/45 L Blood Pressure [Ri ght Arm] Blood Pressure [Ri ght Upper Arm] Pulse Oximetry 96 74 L 94 Oxygen Delivery Me thod Oxygen Flow Rate 11/27/22 19:38 11/27/22 20:00 11/27/22 20:01 Temperature Pulse Rate 64 68 67 Pulse Rate [Pulse Oximeter] Pulse Rate [Right Brachial] Pulse Rate [Right Pulse Oximeter] Respiratory Rate Blood Pressure 112/51 L Blood Pressure [Ri ght Arm] Blood Pressure [Ri ght Upper Arm] Pulse Oximetry 94 99 99 Oxygen Delivery Me thod Oxygen Flow Rate 11/27/22 20:30 11/27/22 20:31 11/27/22 21:12 Temperature 98.3 F Pulse Rate 64 63 Pulse Rate [Pulse Oximeter] Pulse Rate [Right Brachial] 70 Pulse Rate [Right Pulse Oximeter] Respiratory Rate 18 Blood Pressure 99/42 L Blood Pressure [Ri ght Arm] 130/60 Blood Pressure [Ri ght Upper Arm] Pulse Oximetry 98 98 100 Oxygen Delivery Me thod Nasal Cannula Oxygen Flow Rate 2 11/28/22 01:38 11/28/22 01:54 11/28/22 07:00 Temperature Pulse Rate Pulse Rate [Pulse Oximeter] Pulse Rate [Right Brachial] 75 Pulse Rate [Right Pulse Oximeter] Respiratory Rate 18 Blood Pressure Blood Pressure [Ri ght Arm] 123/107 H Blood Pressure [Ri ght Upper Arm] Pulse Oximetry 97 96 92 Oxygen Delivery Me thod Room Air Room Air Room Air Oxygen Flow Rate 11/28/22 07:00 11/28/22 11:00 Temperature 98.2 F 98.6 F Pulse Rate Pulse Rate [Pulse Oximeter] 68 Pulse Rate [Right Brachial] 58 L Pulse Rate [Right Pulse Oximeter] Respiratory Rate 12 12 Blood Pressure Blood Pressure [Ri ght Arm] 141/66 H 124/58 L Blood Pressure [Ri ght Upper Arm] Pulse Oximetry 92 95 Oxygen Delivery Me thod Room Air Room Air Oxygen Flow Rate Labs Labs: Laboratory Results - last 24 hr 11/27/22 11/27/22 11/27/22 17:53 18:14 18:14 WBC 10.73 RBC 4.03 Hgb 11.4 L Hct 35.3 MCV 88 MCH 28 MCHC 32 RDW Coeff of Sue 14.1 Plt Count 233 Neut % (Auto) 85.7 H Lymph % (Auto) 4.8 L [place] % (Auto) 8.5 Eos % (Auto) 0.1 Baso % (Auto) 0.2 Neut # (Auto) 9.20 H Lymph # (Auto) 0.50 L [place] # (Auto) 0.90 Eos # (Auto) 0.01 Baso # (Auto) 0.02 Abs Immat Gran (auto) 0.07 Imm/Tot Granulo (auto) 0.7 Sodium 135 Potassium 3.6 Chloride 94 L Carbon Dioxide 33 H Anion Gap 8 BUN 35 H Creatinine 1.4 Estimated Creat Clear 24.74 Estimated GFR 37 Glucose 447 H* Lactate 2.3 H Calcium 9.7 Phosphorus Magnesium Total Bilirubin 0.6 AST 43 H ALT 31 Alkaline Phosphatase 194 H C-Reactive Protein 1.4 H Total Protein 7.3 Albumin 4.1 Lipase 128 Cancelled TSH Urine Color Urine Appearance Urine pH Ur Specific [place] Urine Protein Urine Glucose (UA) Urine Ketones Urine Blood Urine Nitrite Urine Bilirubin Urine Urobilinogen Ur Leukocyte Esterase Urine RBC Urine WBC Ur Squamous Epith Cells Urine Bacteria SARS-CoV-2 (PCR) Negative SARS-CoV-2 POC Troponin I 0.04 11/28/22 11/28/22 01:57 05:52 WBC 9.09 RBC 3.48 L Hgb 9.9 L Hct 30.7 L MCV 88 MCH 28 MCHC 32 RDW Coeff of Sue Plt Count 225 Neut % (Auto) Lymph % (Auto) [place] % (Auto) Eos % (Auto) Baso % (Auto) Neut # (Auto) Lymph # (Auto) [place] # (Auto) Eos # (Auto) Baso # (Auto) Abs Immat Gran (auto) Imm/Tot Granulo (auto) Sodium 140 Potassium 3.4 L Chloride 102 Carbon Dioxide 33 H Anion Gap 5 L BUN 36 H Creatinine 1.3 Estimated Creat Clear 26.65 Estimated GFR 41 Glucose 76 Lactate 1.4 Calcium 9.0 Phosphorus 3.6 Magnesium 1.8 Total Bilirubin AST ALT Alkaline Phosphatase C-Reactive Protein 1.7 H Total Protein Albumin Lipase TSH 1.500 Urine Color Yellow Urine Appearance Cloudy A Urine pH 5.5 Ur Specific [place] <= 1.005 Urine Protein Negative Urine Glucose (UA) 3+ A Urine Ketones Negative Urine Blood 1+ A Urine Nitrite Positive A Urine Bilirubin Negative Urine Urobilinogen 0.2 Ur Leukocyte Esterase 1+ A Urine RBC 2-5 A Urine WBC 25-50 A Ur Squamous Epith Cells Moderate A Urine Bacteria Many A SARS-CoV-2 (PCR) POC Troponin I
[2022-11-28 15:00] VITALS: BP 133/61; PULSE 65; RESP 16; TEMP 36.7; O2SAT 95
--- NOTE | 2022-11-28 15:32 | PC.NURSE ---
Patient is alert and oriented to person, place, time, and situation. Patient is pleasant and cooperative, with instances of forgetfulness. Patient ambulates with an assist of 1 and requires assistance in the bathroom. Patient requires encouragement to move from bed to chair and ambulate to bathroom. Patient tolerates physical activity well. Patient had 1 BM during shift and is currently on a clear liquid diet, which is being tolerated. Patient denies pain during shift, given scheduled pain relief per MAY.
--- NOTE | 2022-11-28 15:46 | PC.SOCIAL ---
Received a phone call from Chrissie Loomis ([facility], ) requesting an update on pt. Chrissie informs that pt is not as forth coming on needs for assistance and [facility] has concerns that pt may need SNF for rehab due to mobility issues in the home. Provided information on PT evaluation (recommendation to return to prior living situation) informed that pt was standby assist when completing PT evaluation and moving well. Provided information to charge nurse and therapy. Social work will follow up as needed.
[2022-11-28 19:00] VITALS: BP 131/57; PULSE 70; RESP 16; TEMP 36.9; O2SAT 94
[2022-11-28] MEDS: TRAZODONE HCL 50 MG TABLET 200 MG PO (20:29)
[2022-11-28] MEDS: SODIUM CHLORIDE 0.9 % (FLUSH) 10 ML SYRINGE 5 ML IVF (20:29)
[2022-11-28] MEDS: ATORVASTATIN CALCIUM 40 MG TABLET PO (20:30)
--- NOTE | 2022-11-28 23:40 | PC.NURSE ---
Tolerated malt-o-meal without difficulty for supper, she is continuing to drink bowel prep solution. Elevated BG, sliding scale Novolog given per protocol. Ongoing urinary incontinence.
[2022-11-29 01:05] VITALS: BP 121/70; PULSE 59; RESP 16; TEMP 36.4; O2SAT 97
[2022-11-29 06:40] VITALS: BP 150/70; PULSE 66; RESP 14; TEMP 36.8; O2SAT 97
[2022-11-29 06:40] LABS: Basophils Absolute Auto 0.05 K/uL (0.00-0.30); Basophils Percent Auto 0.6 % (0.0-3.0); Eosinophils Absolute Auto 0.34 K/uL (0.00-0.50); Eosinophils Percent Auto 4.3 % (0.0-7.0); Hematocrit 34.2 % (33.0-51.0); Hemoglobin* 10.9 gm/dL (12.0-16.0); Immature Granulocytes Abs Auto 0.02 K/uL (0.00-0.30); Immature Granulocytes Pct Auto 0.3 %; Lymphocytes Absolute Auto 2.11 K/uL (0.90-2.90); Lymphocytes Percent Auto 26.8 % (20-44); Mean Corpuscular HGB Conc 32 gm/dL (32-36); Mean Corpuscular Hemoglobin 28 pg (26-34); Mean Corpuscular Volume 88 fL (80-100); Monocytes Percent Auto 7.5 % (0.0-11.0); Neutrophils Absolute Auto 4.77 K/uL (1.7-7.0); Neutrophils Percent Auto 60.5 % (42.0-72.0); Platelet Count* 193 K/uL (140-440); RDW Coefficient of Variation % 14.2 % (11.5-15.5); Red Blood Count 3.87 m/uL (4.00-5.20); White Blood Count* 7.88 K/uL (4.50-11.00)
[2022-11-29 06:52] LABS: Slide Review Reflex No
[2022-11-29 06:58] LABS: Albumin* 3.7 g/dL (3.3-5.0); Chloride* 99 mmol/L (96-114); Potassium* 3.4 mmol/L (3.6-5.1); Sodium* 138 mmol/L (135-149)
[2022-11-29 07:00] VITALS: BP 145/70; PULSE 67; RESP 16; TEMP 36.6; O2SAT 97
[2022-11-29 07:00] LABS: Bilirubin Total* 0.5 mg/dL (0.1-1.5); Creatinine* 1.2 mg/dL (0.5-1.5); Est. Creatinine Clearance* 28.87; Estimated Glomerular Filt Rate 45 ml/min
[2022-11-29 07:01] LABS: Alanine Aminotransferase* 25 U/L (4-35); Alkaline Phosphatase* 147 U/L (40-150); Anion Gap 12 mEq/L (7-15); Aspartate Amino Transferase* 48 U/L (12-35); Blood Urea Nitrogen* 31 mg/dL (7-30); Calcium* 8.8 mg/dL (8.4-10.6); Carbon Dioxide* 27 mmol/L (20-32); Glucose* 182 mg/dL (60-115)
--- NOTE | 2022-11-29 07:42 | PC.NURSE ---
END OF SHIFT NOTE: PT PLEASANT AND COOPERATIVE. A&Ox3. DENIES CP, SOB, N/V. AMBULATES 1/WALKER, GB. VSS ON RA; AFEBRILE. PT INCONTINENT OF BOWEL AND BLADDER. PT SLEPT WELL. UNEVENTFUL NIGHT. BED ALARM ON AND CALL LIGHT WITHIN PT?S REACH
[2022-11-29] MEDS: cefTRIAXone 1 GM in 0.9 % SODIUM CHLORIDE Mini-bag 100 ML IVPB (07:45)
[2022-11-29] MEDS: guaiFENesin 600 MG TAB.ER.12H PO (09:11)
[2022-11-29] MEDS: MORPHINE 30 MG TABLET.ER 60 MG PO (09:11)
[2022-11-29] MEDS: CETIRIZINE HCL 10 MG TABLET PO (09:11)
[2022-11-29] MEDS: SENNOSIDES/DOCUSATE TABLET 2 TAB PO (09:11)
[2022-11-29] MEDS: SERTRALINE 100 MG TABLET 200 MG PO (09:11)
[2022-11-29] MEDS: METOPROLOL SUCCINATE (XL) 50 MG TAB PO (09:11)
[2022-11-29] MEDS: FUROSEMIDE 40 MG TABLET 80 MG PO (09:11)
[2022-11-29] MEDS: ISOSORBIDE MONONITRATE ER 30 MG TAB 240 MG PO (09:12)
[2022-11-29] MEDS: OMEPRAZOLE 20 MG CAPSULE DR PO (09:17)
[2022-11-29 11:00] VITALS: BP 112/61; PULSE 64; RESP 16; TEMP 36.6; O2SAT 98
--- NOTE | 2022-11-29 13:01 | P.DS_ITS ---
DS: Providers Provider Date Seen: 11/29/22 Date of admission: 11/28/22 10:45 Primary care physician: Marissa Williamson MD Admitting Clinician: Gamal Cantor MD Consults: 11/27/22 22:18 Consult to Building Maintenance Supervisor [CONS] Routine Comment: Reason for Consult:: Social Service Consult 11/28/22 02:14 Consult to Physical Therapy [CONS] Routine Comment: Reason(s) for PT Consult:: Recent Falls Any Restrictions?:: No Restrictions Attending Physician on discharge: ARMIDA Melgoza, [facility] Date of Discharge: 11/29/22 DS: Diagnosis Discharge Diagnosis (1) Partial bowel obstruction: Status: Acute Problem details: - CT showed evidence of early obstruction versus enteritis. - patient initiated on IV fluids, clear liquid diet, and a modified bowel prep resulting in passing gas and significant bowel movement the following day. - abdominal pain, nausea, vomiting resolved without further episodes. Diet advanced as tolerated without return of symptoms. (2) Obstipation: Status: Acute Problem details: - CT showing severe stool throughout the colon and rectum consistent with constipation and fecal impaction. Suspected likely iatrogenic from chronic opiate use. Discussed use of daily stool softeners, appropriate fluid intake, and activity. Management as above. (3) UTI (urinary tract infection): Status: Acute Problem details: -urine culture grew out E coli. Patient was started on IV ceftriaxone, receiving 2 doses, and transitioned to oral Omnicef on discharge to complete a 5 day course of antibiotic therapy. DS: Summary Hospital Course Hospital Course: [age] year old female past medical history significant for chronic back pain on chronic opiates, diabetes mellitus type 2, chronic anemia was admitted to the medical floor for concern of early partial bowel obstruction in the s etting of abdominal pain, nausea, vomiting. Course of care and details as noted above. Remainder of chronic medical comorbidities were monitored and managed with home medications. Status at Discharge Overall status at discharge: patient is back to baseline Time Spent with Patient Time attestation: Total time spent providing and/or coordinating discharge services: Time spent: Greater than 30 minutes Exam Narrative: Exam Narrative: PHYSICAL EXAM General: Sitting up in chair, very pleasant, conversant, NAD HEENT: Normocephalic, atraumatic, sclera white, EOMI, oral mucosa moist Cardiovascular: RRR, S1S2. No pitting edema Pulmonary: CTA bilaterally without rhonchi, rales, expiratory wheezes. No dyspnea Abdominal: Soft, nondistended, NTTP Neurological: Alert, answering questions appropriately, cranial nerves intact, no focal findings Extremities: No gross joint deformity or swelling. AROMI Skin: Warm, dry. No rash Const: Vital Signs, click to edit/add: Vital Signs - 24 hr 11/28/22 15:00 11/28/22 15:00 11/28/22 15:00 Temperature 98.0 F Pulse Rate [Pulse Oximeter] 65 65 Respiratory Rate 16 16 16 Blood Pressure [Ri ght Arm] 133/61 Pulse Oximetry 95 95 Oxygen Delivery Me thod Room Air Room Air 11/28/22 19:00 11/29/22 01:05 11/29/22 01:05 Temperature 98.4 F Pulse Rate [Pulse Oximeter] 70 59 L Respiratory Rate 16 16 16 Blood Pressure [Ri ght Arm] 131/57 L Pulse Oximetry 94 97 Oxygen Delivery Ca thod Room Air Room Air 11/29/22 01:05 11/29/22 06:40 11/29/22 07:00 Temperature 97.5 F L 98.2 F Pulse Rate [Pulse Oximeter] 59 L 66 67 Respiratory Rate 16 14 16 Blood Pressure [Ri ght Arm] 121/70 150/70 H Pulse Oximetry 97 97 Oxygen Delivery Ca thod Room Air Room Air 11/29/22 07:00 11/29/22 07:00 Temperature 98 F Pulse Rate [Pulse Oximeter] 67 Respiratory Rate 16 16 Blood Pressure [Ri ght Arm] 145/70 H Pulse Oximetry 97 97 Oxygen Delivery Me thod Room Air Room Air DS: Data Data Completed and Pending Labs on day of discharge: Labs from last 24 hours 11/29/22 05:41 WBC 7.88 RBC 3.87 L Hgb 10.9 L Hct 34.2 MCV 88 MCH 28 MCHC 32 RDW Coeff of Sue 14.2 Plt Count 193 Neut % (Auto) 60.5 Lymph % (Auto) 26.8 [place] % (Auto) 7.5 Eos % (Auto) 4.3 Baso % (Auto) 0.6 Neut # (Auto) 4.77 Lymph # (Auto) 2.11 [place] # (Auto) 0.60 Eos # (Auto) 0.34 Baso # (Auto) 0.05 Abs Immat Gran (auto) 0.02 Imm/Tot Granulo (auto) 0.3 Sodium 138 Potassium 3.4 L Chloride 99 Carbon Dioxide 27 Anion Gap 12 BUN 31 H Creatinine 1.2 Estimated Creat Clear 28.87 Estimated GFR 45 Glucose 182 H Calcium 8.8 Total Bilirubin 0.5 AST 48 H ALT 25 Alkaline Phosphatase 147 Total Protein 7.0 Albumin 3.7 Discharge Plan Discharge Disposition: Home, Self-Care Date of Admission: 11/28/22 10:45 Attending Provider on Discharge: Leora Interiano Primary Care Provider: Marissa Williamson Condition: Stable Anticipated Discharge Date/Time: 11/29/22 13:22 Discharge Medications: New sennosides-docusate sodium [Stool Softener-Laxative] 8.6-50 mg Tablet 2 tab PO BID Qty: 120 0RF cefdinir 300 mg capsule 300 mg PO BID 3 Days Qty: 6 0RF Continued furosemide 40 mg tablet 40 mg PO DAILY atorvastatin 40 mg tablet 40 mg PO HS metformin 500 mg tablet 500 mg PO BIDWM cetirizine 10 mg tablet 10 mg PO DAILY metoprolol succinate 50 mg tablet extended release 24 hr 50 mg PO DAILY sertraline 100 mg tablet 200 mg PO DAILY amlodipine 5 mg tablet 5 mg PO DAILY isosorbide mononitrate 120 mg tablet extended release 24 hr 240 mg PO DAILY morphine [MS Contin] 60 mg tablet extended release 60 mg PO BID nitroglycerin 0.4 mg tablet, sublingual 0.4 mg sublingual Q5-10M PRN omeprazole 20 mg capsule,delayed release(DR/EC) 20 mg PO DAILY aspirin 81 mg tablet,chewable 81 mg PO DAILY calcium carbonate-vitamin D3 600 mg-10 mcg (400 unit) tablet 1 tab PO DAILY cholecalciferol (vitamin D3) 50 mcg (2,000 unit) tablet 2,000 unit PO DAILY guaifenesin [Mucinex] 600 mg tablet extended release 12hr 600 mg PO BID acetaminophen 500 mg capsule 1,000 mg PO TID PRN Jardiance 10 mg tablet 20 mg PO DAILY magnesium gluconate 27 mg magnesium (500 mg) tablet 27 mg PO DAILY trazodone 100 mg tablet 200 mg PO HS Discharge Orders: Discharge Order (Routine); Ordered 11/29/22 Ordered By: Leora Interiano Patient Education: Obstipation (DC), Urinary Tract Infection in Older Adults (DC) Activity Level: No Restrictions Discharge Diet: Regular Diet Detail: gradually resume your routine diet as tolerated Follow Up Appointments: Marissa Williamson MD [Primary Care Provider] - 12/06/22 (Post hospital follow up for suspected early bowel obstruction, obstipation, acute cystitis) Forms: [facility] Info Instructions
--- NOTE | 2022-11-29 15:05 | PC.NURSE ---
End of Shift: Pt AO, pleasant and cooperative throughout shift. Pt denied any pain. Remained incontinent with bladder frequently, no BM. Ambulatory with walker, GB, SBA. Pt advanced to regular diet as tolerated. Tolerated well, denied any pain or discomfort. Public health nurse updated on d/c plan per pt request. Discharge teaching completed, IV removed without issue. Pt brought home with roommate via w/c.
== END 2022-11-29 14:50 | disposition home or self-care (01) ==
LOC: ED 20:25 → MEDSURG 21:48
PROVIDERS: Family Medicine; Admitting Provider Internal Medicine; Emergency Provider Family Medicine; PCP Family Medicine; Visit Provider Internal Medicine
DX: K56.600 Partial intestinal obstruction, unspecified as to cause (principal); N39.0 Urinary tract infection, site not specified; K56.41 Fecal impaction; K59.00 Constipation, unspecified; I12.9 Hypertensive chronic kidney disease with stage 1 through stage 4 chronic kidney disease, or unspecified chronic kidney disease; E11.22 Type 2 diabetes mellitus with diabetic chronic kidney disease; N18.9 Chronic kidney disease, unspecified; D64.9 Anemia, unspecified; I48.0 Paroxysmal atrial fibrillation; K21.9 Gastro-esophageal reflux disease without esophagitis; B96.20 Unspecified Escherichia coli [E. coli] as the cause of diseases classified elsewhere; J44.9 Chronic obstructive pulmonary disease, unspecified; E78.5 Hyperlipidemia, unspecified; E03.9 Hypothyroidism, unspecified; M85.80 Other specified disorders of bone density and structure, unspecified site; I87.2 Venous insufficiency (chronic) (peripheral); E86.0 Dehydration; M54.9 Dorsalgia, unspecified; G89.29 Other chronic pain; R10.9 Unspecified abdominal pain; R11.0 Nausea; R11.10 Vomiting, unspecified; M40.209 Unspecified kyphosis, site unspecified; Z79.82 Long term (current) use of aspirin; Z79.01 Long term (current) use of anticoagulants; Z79.84 Long term (current) use of oral hypoglycemic drugs; Z79.891 Long term (current) use of opiate analgesic; Z90.49 Acquired absence of other specified parts of digestive tract; Z90.710 Acquired absence of both cervix and uterus; Z90.721 Acquired absence of ovaries, unilateral; Z98.890 Other specified postprocedural states; Z90.89 Acquired absence of other organs; Z90.79 Acquired absence of other genital organ(s); Z98.41 Cataract extraction status, right eye; Z98.42 Cataract extraction status, left eye; Z95.1 Presence of aortocoronary bypass graft; Z87.891 Personal history of nicotine dependence
CPT/HCPCS: 36415; 74019; 74177; 80048; 80053; 81001; 82962; 83605; 83690; 83735; 84100; 84443; 84484; 85025; 85027; 86140; 87086; 87186; 87635; 93005; 94640; 94761; 96361; 96365; 96366; 96372; 96375; 97116; 97161; 99284; 99285; A9270; G0378; J0696; J2405; J7030; Q9967

== ENCOUNTER 2023-09-20 14:45 | Emergency (ER) | payer BC, SELFPAY ==
[2023-09-20 14:49] VITALS: BP 145/66; PULSE 68; RESP 18; TEMP 36.2; O2SAT 96; BMI 26.6
--- NOTE | 2023-09-20 15:00 | ED_ITS ---
HPI - General Adult General Date Seen: 09/20/23 Chief complaint: Weakness Stated complaint: flu like symptoms, fever, chills Time Seen by Provider: 09/20/23 14:51 Source: patient, RN notes reviewed and old records reviewed Mode of arrival: EMS Limitations: no limitations History of Present Illness HPI narrative: Patient is an 82-year-old woman who lives in an assisted living in [place], sees Dr. Williamson for primary care. She presents for evaluation of flu-like symptoms for the past couple of days including body aches, chills, nausea, diarrhea. She has not had a fever that she knows of. She denies specific symptoms such as headache, sore throat congestion, cough, chest pain, shortness of breath, abdominal pain, or urinary symptoms. She has chronic back pain, she notes that she has been on MS Contin since the , she had been on over 200 mg a day and has been weaning down. She said that she was down to 30 mg twice a day, but there was an issue this week with getting the prescription filled and so she has not had any for the past several days. She wonders if her symptoms might be related to withdrawal. She does not smoke or drink. She lives in assisted living where her medications are dispensed to her. Related Data Home Medications ?Medication ?Instructions ?Recorded ?Confirmed amlodipine 5 mg tablet 5 mg PO DAILY 12/05/21 11/28/22 aspirin 81 mg chewable tablet 81 mg PO DAILY 12/05/21 11/28/22 atorvastatin 40 mg tablet 40 mg PO HS 12/05/21 11/28/22 calcium carbonate 600 mg-vitamin 1 tab PO DAILY 12/05/21 11/28/22 D3 10 mcg (400 unit) tablet cetirizine 10 mg tablet 10 mg PO DAILY 12/05/21 11/28/22 cholecalciferol (vitamin D3) 50 2,000 unit PO DAILY 12/05/21 11/28/22 mcg (2,000 unit) tablet furosemide 40 mg tablet 40 mg PO DAILY 12/05/21 11/28/22 isosorbide mononitrate 120 mg 240 mg PO DAILY 12/05/21 11/28/22 tablet,extended release 24 hr metformin 500 mg tablet 500 mg PO BIDWM 12/05/21 11/28/22 metoprolol succinate 50 mg 50 mg PO DAILY 12/05/21 11/28/22 tablet,extended release 24 hr morphine 60 mg tablet,extended 60 mg PO BID 12/05/21 11/28/22 release (MS Contin) nitroglycerin 0.4 mg sublingual 0.4 mg sublingual Q5-10M PRN 12/05/21 11/28/22 tablet omeprazole 20 mg capsule,delayed 20 mg PO DAILY 12/05/21 11/28/22 release sertraline 100 mg tablet 200 mg PO DAILY 12/05/21 11/28/22 guaifenesin 600 mg tablet, 600 mg PO BID 12/06/21 11/28/22 extended release 12 hr (Mucinex) acetaminophen 500 mg capsule 1,000 mg PO TID PRN 10/12/22 11/28/22 empagliflozin 10 mg tablet 20 mg PO DAILY 10/12/22 11/28/22 (Jardiance) magnesium gluconate 27 mg 27 mg PO DAILY 11/28/22 11/28/22 magnesium (500 mg) tablet trazodone 100 mg tablet 200 mg PO HS 11/28/22 11/28/22 Previous Rx's ?Medication ?Instructions ?Recorded cefdinir 300 mg capsule 300 mg PO BID 3 days #6 caps 11/29/22 sennosides 8.6 mg-docusate sodium 2 tab PO BID #120 tabs 11/29/22 50 mg tablet (Stool Softener-Laxative) Allergies Allergy/AdvReac Type Severity Reaction Status Date / Time Sulfa (Sulfonamide Allergy Intermediate Hives Verified 11/27/22 19:33 Antibiotics) camphor AdvReac Intermediate Rash Verified 11/27/22 19:33 nitrofurantoin AdvReac Unknown Verified 11/27/22 19:33 [From Macrobid] Review of Systems Status of ROS: Reports: 10 or more systems reviewed and unremarkable except as noted in History and below [facility] Medical History Dehydration ?E86.0 - Dehydration (ICD-10) Vomiting ?R11.10 - Vomiting, unspecified (ICD-10) Constipation ?K59.00 - Constipation, unspecified (ICD-10) Anemia ?D64.9 - Anemia, unspecified (ICD-10) 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 ?S42.332K - Displaced oblique fracture of shaft of humerus, left arm, subsequent encounter for fracture with nonunion (ICD-10) Chronic kidney disease ?N18.9 - Chronic kidney disease, unspecified (ICD-10) Stable angina pectoris ?I20.8 - Other forms of angina pectoris (ICD-10) Major depressive disorder, recurrent ?F33.9 - Major depressive disorder, recurrent, unspecified (ICD-10) Venous stasis ulcer ?I83.009 - Varicose veins of unspecified lower extremity with ulcer of unspecified site (ICD-10) ?L97.909 - Non-pressure chronic ulcer of unspecified part of unspecified lower leg with unspecified severity (ICD-10) Venous insufficiency (chronic) (peripheral) ?I87.2 - Venous insufficiency (chronic) (peripheral) (ICD-10) Paroxysmal atrial fibrillation ?I48.0 - Paroxysmal atrial fibrillation (ICD-10) Chronic, continuous use of opioids ?F11.90 - Opioid use, unspecified, uncomplicated (ICD-10) 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) ?J44.9 - Chronic obstructive pulmonary disease, unspecified (ICD-10) Chronic back pain ?M54.9 - Dorsalgia, unspecified (ICD-10) ?G89.29 - Other chronic pain (ICD-10) Pain medication agreement ?Z02.89 - Encounter for other administrative examinations (ICD-10) Primary central sleep apnea ?G47.31 - Primary central sleep apnea (ICD-10) Obstructive sleep apnea ?G47.33 - Obstructive sleep apnea (adult) (pediatric) (ICD-10) JOSE (stress urinary incontinence, female) ?N39.3 - Stress incontinence (female) (male) (ICD-10) Diabetes mellitus type 2 in nonobese ?E11.9 - Type 2 diabetes mellitus without complications (ICD-10) Osteopenia ?M85.80 - Other specified disorders of bone density and structure, unspecified site (ICD-10) Primary hypothyroidism ?E03.9 - Hypothyroidism, unspecified (ICD-10) Vitamin D deficiency ?E55.9 - Vitamin D deficiency, unspecified (ICD-10) Atopic dermatitis and related condition ?L20.9 - Atopic dermatitis, unspecified (ICD-10) Allergic rhinitis ?J30.9 - Allergic rhinitis, unspecified (ICD-10) Hyperlipidemia ?E78.5 - Hyperlipidemia, unspecified (ICD-10) Essential hypertension ?I10 - Essential (primary) hypertension (ICD-10) Atherosclerotic cardiovascular disease ?I25.10 - Atherosclerotic heart disease of [place] coronary artery without angina pectoris (ICD-10) Surgical History Status post vein stripping ?Z98.890 - Other specified postprocedural states (ICD-10) Status post uvulopalatopharyngoplasty ?Z98.890 - Other specified postprocedural states (ICD-10) Status post tonsillectomy ?Z90.89 - Acquired absence of other organs (ICD-10) Status post nasal septoplasty ?Z98.890 - Other specified postprocedural states (ICD-10) Status post abdominal hysterectomy and left salpingo-oophorectomy ?Z90.710 - Acquired absence of both cervix and uterus (ICD-10) ?Z90.721 - Acquired absence of ovaries, unilateral (ICD-10) ?Z90.79 - Acquired absence of other genital organ(s) (ICD-10) Status post carpal tunnel release ?Z98.890 - Other specified postprocedural states (ICD-10) Status post bunionectomy ?Z98.890 - Other specified postprocedural states (ICD-10) Status post appendectomy ?Z90.49 - Acquired absence of other specified parts of digestive tract (ICD- 10) Status post bilateral cataract extraction ?Z98.41 - Cataract extraction status, right eye (ICD-10) ?Z98.42 - Cataract extraction status, left eye (ICD-10) Status post coronary artery bypass grafts x 5 ?Z95.1 - Presence of aortocoronary bypass graft (ICD-10) Family History Sister Cancer Brother FH: prostate cancer Mother Diabetes Father Coronary artery disease Social History Narrative: Lives with her girlfriend and with pet dog and cat. Adopted grand son, Omid Kaplan, is her POA for health. Requests full resuscitation measures in event of cardiopulmonary demise (12/14/2022). What is your current living situation?: I presently have a place to live Problems where you live: no known problems Problems where you live details: na In the past 12 months, utilities in danger of being shut off: no In past 12 months, lack of transportation kept you from medical appts, meetings, work, or getting things needed for daily living: yes In the past 12 mos, have been you worried that your food would run out before you had money to buy more?: never true In the past 12 mos, the food you bought just didn't last and you didn't have money to buy more?: never true Smoking Status: Former smoker What tobacco products do you use: cigarettes Smoking packs per day: 3 Smoking cigarettes per day: 60.0 Years smoked: 10 Smoking pack-years: 30.00 Smoking quit date/years: >15 years ago Do you use any of these nicotine containing products: None Second hand tobacco smoke exposure: No How often do you have a drink containing alcohol: monthly or less Alcohol type: other Alcohol type details: Occ [employer] How many standard drinks containing alcohol do you have on a typical day: 1 or 2 How often do you have six or more drinks on one occasion: Never AUDIT-C Alcohol total score: 1 Non-prescribed substance use: denies use Caffeine: Yes How often does anyone, including family, friends and others, physically hurt you : never How often does anyone, including family, friends and others, insult or talk down to you: never How often does anyone, including family, friends and others, threaten you with harm: never How often does anyone, including family, friends and others, scream or curse at you: never service: No Exam Narrative: Exam Narrative: Vital signs as noted above. In general, an alert, well-appearing patient. Head: Normocephalic, atraumatic. Eyes: Pupils are equal reactive. Extraocular movements are full. Conjunctivae are normal. ENT: Mucous membranes are moist. Throat is normal. Neck: Supple without lymphadenopathy. Heart: Regular rate and rhythm. No murmur or rub. Lungs: Clear bilaterally. No increased work of breathing, crackles or wheezes. Abdomen: Soft and nontender. No organomegaly. Extremities: Well perfused. No edema. No calf tenderness. Pulses intact. Neurologic: Patient is alert and oriented to person and place. Speech is fluent. Face is symmetric. Moves all extremities equally. Affect: Normal. Skin: Warm and dry. Well perfused. Const: Vital Signs, click to edit/add: Vital Signs - 24 hr 09/20/23 14:49 09/20/23 15:31 09/20/23 16:01 Temperature 97.2 F L Pulse Rate 61 62 Pulse Rate [Pulse Oximeter] 68 Respiratory Rate 18 14 12 Blood Pressure 150/68 H 152/70 H Blood Pressure [Ri ght Upper Arm] 145/66 H Pulse Oximetry 96 96 96 Oxygen Delivery Me thod Room Air 09/20/23 16:32 09/20/23 17:02 Temperature Pulse Rate 65 68 Pulse Rate [Pulse Oximeter] Respiratory Rate 12 16 Blood Pressure 144/66 H 154/70 H Blood Pressure [Ri ght Upper Arm] Pulse Oximetry 95 94 Oxygen Delivery Me thod Course Course ED Course: Patient presents with flu-like symptoms in the setting of possible opioid withdrawal. Looking through her records, it does appear that she has been weaning down but not completely off of the MS Contin. Will give her a dose of 30 mg here. Also will evaluate for possible infectious etiology of her symptoms with UA, blood work, at this time imaging does not seem warranted in the absence of symptoms. Will assess further when labs are back and we see how she feels after medication. Workup here is reassuring, white blood cell count is 7.35, hemoglobin is 9.4, which is down a little over a g since last fall. This can be followed with primary care, I do not think this is directly related to her symptoms today. Metabolic panel is normal, blood sugar 166, LFTs are unremarkable and CRP is less than 0.5. Viral swab is negative, point of care troponin is 0, EKG by my review showed a sinus rhythm, ventricular rate of 66, first-degree AV block, unremarkable T-waves and no acute ST segment changes. She is feeling improved after morphine. Urine is still pending and we will obtain that before she goes, but I think it is likely that her symptoms represented some opioid withdrawal. I will prescribe some oxycodone so that she has something she can take over the next 36 hours. She feels she will have access to her MS Contin again at that point but if not call clinic. Return to the ER at any time for acute worsening, new symptoms such as fever etcetera. Vital Signs Vital signs: Initial Vital Signs Temperature 97.2 F L 09/20/23 14:49 Temperature Source Temporal Artery Scan 09/20/23 14:49 Pulse Rate 68 09/20/23 14:49 Pulse Rhythm Regular 09/20/23 14:49 Respiratory Rate 18 09/20/23 14:49 Blood Pressure 145/66 H 09/20/23 14:49 Blood Pressure Mean 92 09/20/23 14:49 Blood Pressure Position Supine 09/20/23 14:49 Pulse Oximetry 96 09/20/23 14:49 Oxygen Delivery Method Room Air 09/20/23 14:49 Vital Signs Temperature 97.2 F L 09/20/23 14:49 Pulse Rate 68 09/20/23 14:49 Respiratory Rate 18 09/20/23 14:49 Blood Pressure 145/66 H 09/20/23 14:49 Pulse Oximetry 96 09/20/23 14:49 Oxygen Delivery Method Room Air 09/20/23 14:49 Temperature 97.2 F L 09/20/23 14:49 Pulse Rate 68 09/20/23 17:02 Respiratory Rate 16 09/20/23 17:02 Blood Pressure 154/70 H 09/20/23 17:02 Pulse Oximetry 94 09/20/23 17:02 Oxygen Delivery Method Room Air 09/20/23 14:49 Medications Administered Medications: Discontinued Medications Generic Name Dose Route Start Last Admin Trade Name Freq PRN Reason Stop Dose Admin Sodium Chloride 500 mls @ 500 mls/hr 09/20/23 14:58 09/20/23 16:25 0.9 % Sodium Chloride 500 Ml IV 09/20/23 15:57 Infused .Q1H ONE Infusion Morphine Sulfate 30 mg 09/20/23 14:59 09/20/23 15:23 Morphine 30 Mg Tablet.Er PO 09/20/23 15:00 30 mg ONCE ONE Administration Medical Decision Making Lab Data Labs: Lab Results 09/20/23 09/20/23 09/20/23 Range/Units 15:10 15:25 17:40 WBC 7.35 (4.50-11.00) K/uL RBC 3.51 L (4.00-5.20) m/uL Hgb 9.4 L (12.0-16.0) gm/dL Hct 30.0 L (33.0-51.0) % MCV 86 (80-100) fL MCH 27 (26-34) pg MCHC 31 L (32-36) gm/dL RDW Coeff of Sue 14.2 (11.5-15.5) % Plt Count 162 (140-440) K/uL Neut % (Auto) 78.6 H (42.0-72.0) % Lymph % (Auto) 12.1 L (20-44) % [place] % (Auto) 6.1 (0.0-11.0) % Eos % (Auto) 1.5 (0.0-7.0) % Baso % (Auto) 0.7 (0.0-3.0) % Neut # (Auto) 5.80 (1.7-7.0) K/uL Lymph # (Auto) 0.90 (0.90-2.90) K/uL [place] # (Auto) 0.40 (0.00-0.90) K/UL Eos # (Auto) 0.11 (0.00-0.50) K/uL Baso # (Auto) 0.05 (0.00-0.30) K/uL Abs Immat Gran (auto) 0.07 (0.00-0.30) K/uL Imm/Tot Granulo (auto) 1.0 % Sodium 138 (135-149) mmol/L Potassium 4.1 (3.6-5.1) mmol/L Chloride 107 (96-114) mmol/L Carbon Dioxide 25 (20-32) mmol/L Anion Gap 6 L (7-15) mEq/L BUN 29 (7-30) mg/dL Creatinine 1.4 (0.5-1.5) mg/dL Estimated Creat Clear 24.74 Estimated GFR 37 ml/min Glucose 166 H (60-115) mg/dL Lactate 1.9 (0.5-1.9) mmol/L Calcium 8.6 (8.4-10.6) mg/dL Total Bilirubin 0.4 (0.1-1.5) mg/dL Direct Bilirubin 0.4 (0.0-0.5) mg/dL AST 35 (12-35) U/L ALT 18 (4-35) U/L Alkaline Phosphatase 119 (40-150) U/L C-Reactive Protein < 0.5 L (0.5-1.0) mg/dL Total Protein 6.8 (6.0-8.3) g/dL Albumin 3.8 (3.3-5.0) g/dL Urine Color Yellow (Yellow) Urine Appearance Slightly Cloudy A (Clear) Urine pH 8.5 (5.0-8.5) Ur Specific [place] 1.020 (1.000-1.030) Urine Protein 2+ A (Negative) Urine Glucose (UA) Negative (Negative) Urine Ketones Negative (Negative) Urine Blood Negative (Negative) Urine Nitrite Negative (Negative) Urine Bilirubin Negative (Negative) Urine Urobilinogen 0.2 (0.2-1.0) Ur Leukocyte Esterase Negative (Negative) Urine RBC 5-10 A (0-2) Urine WBC 0-2 (0-5) Ur Squamous Epith Cells Few (None-Few) Urine Bacteria None (None) SARS-CoV-2 (PCR) Negative SARS-CoV-2 (Negative) Influenza Type A (PCR) Negative PCR FLU A (Negative) Influenza Type B (PCR) Negative PCR FLU B (Negative) RSV (PCR) Negative PCR RSV (Negative) POC Troponin I 0.00 L (0.01-0.04) ng/ml Discharge Plan Discharge Clinical Impression: Opioid 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 Over the weekend, I prescribed oxycodone that you can used to bridge the gap until you have your MS Contin again. If any problems on Friday, please call Dr. Williamson's clinic. Prescriptions: No Action furosemide 40 mg tablet 40 mg PO DAILY atorvastatin 40 mg tablet 40 mg PO HS metformin 500 mg tablet 500 mg PO BIDWM cetirizine 10 mg tablet 10 mg PO DAILY metoprolol succinate 50 mg tablet extended release 24 hr 50 mg PO DAILY sertraline 100 mg tablet 200 mg PO DAILY amlodipine 5 mg tablet 5 mg PO DAILY isosorbide mononitrate 120 mg tablet extended release 24 hr 240 mg PO DAILY morphine [MS Contin] 60 mg tablet extended release 60 mg PO BID nitroglycerin 0.4 mg tablet, sublingual 0.4 mg sublingual Q5-10M PRN omeprazole 20 mg capsule,delayed release(DR/EC) 20 mg PO DAILY aspirin 81 mg tablet,chewable 81 mg PO DAILY calcium carbonate-vitamin D3 600 mg-10 mcg (400 unit) tablet 1 tab PO DAILY cholecalciferol (vitamin D3) 50 mcg (2,000 unit) tablet 2,000 unit PO DAILY guaifenesin [Mucinex] 600 mg tablet extended release 12hr 600 mg PO BID acetaminophen 500 mg capsule 1,000 mg PO TID PRN Jardiance 10 mg tablet 20 mg PO DAILY magnesium gluconate 27 mg magnesium (500 mg) tablet 27 mg PO DAILY trazodone 100 mg tablet 200 mg PO HS sennosides-docusate sodium [Stool Softener-Laxative] 8.6-50 mg Tablet 2 tab PO BID Qty: 120 0RF cefdinir 300 mg capsule 300 mg PO BID 3 Days Qty: 6 0RF Follow Up/Referrals: Marissa Williamson MD [Primary Care Provider] - Stand Alone Forms: [facility] Info Instructions
--- OUTSIDE RECORDS SUMMARY | 2023-09-20 15:18 | XMS_ITS | Continuity of Care Document ---
Author Organization TONI Ferris Address [address] [place] [address] Phone Care Team Providers Care Bell Attendant Name Role Phone Leidy Hernandez PA-C Unavailable [...] QA DONE Inj-s I Jt Arthrog &/ Anes/harper 11 Rad Exam S I Jt Arthrogrphy [...] Lumb/sac 1 Le 11 Offic/outpt E&m Estab [facility] [place]-md 2 11 Trans Epid Lumbosac each addl 1 Inj Anes Epidur; Lumb/sac 1 Le 11 QA DONE Offic/outpt E&m Estab [facility] Offic/outpt E&m Estab [facility] Offic/outpt E&m Estab [facility] Offic/outpt E&m Estab [facility] [place]-md 2 10 Offic/outpt E&m Estab [facility] Offic/outpt E&m Estab [facility] Offic/outpt E&m Estab [facility] [place]-md 2 10 Offic/outpt E&m Estab [facility] [place]-md 2 10 Destrct; Nerv Lumbar Ea Add Le 10 Destrct; Paravert Facet Jt Lum 10 Fluoroscopic Guidance For Needle Placeme nt - Spine Destrct; Nerv Lumbar Ea Add Le 10 Destrct; Nerv Lumbar Ea Add Le 10 Offic/outpt E&m Estab [facility] 0 Inj Anes Epidur; Lumb/sac 1 Le 10 Fluoroscopic Guidance For Needle Placeme nt - Spine Inj Not Lytic-epidur; Lumb/sac 10 Epidurography Rad S&i Offic/outpt E&m Estab Mod-md 2 10 Offic/outpt E&m Estab Mod-md 2 10 Offic/outpt E&m Estab Low-mod 0 Offic/outpt E&m Estab Low-mod 0 Offic/outpt E&m Estab Low-mod 0 Offic/outpt E&m Estab Mod-md 2 10 Offic/outpt E&m Estab Mod-md 2 09 Offic/outpt E&m Estab Mod-md 2 09 Offic/outpt E&m Estab Low-mod 9 [...] Placeme nt - Spine Offic/outpt E&m Estab Mod-md 2 09 Offic/outpt E&m Estab [facility] [place]-md 2 09 Current Med Dosages Verified & [...] ented In Final Report Offic/outpt E&m Estab Mod-md 2 09 Patient encounter was documented using a CCHIT cer Subsequent Visit For Low Back Pain Offic/outpt E&m Estab Low-mod 9 Offic/outpt E&m Estab Mod-hi 2 09 Offic/outpt E&m Estab Mod-md 2 09 Destruc Facet Nrv; Cerv/thor 1 [...] Placeme nt - Spine Offic/outpt E&m Estab Mod-md 2 09 Destrct; Paravert Facet Jt Lum [...] Placeme nt - Spine Offic/outpt E&m Estab [facility] [place]-md 2 08 Destrct; Paravert Facet Jt Lum 08 Destrct; Nerv Lumbar Ea Add Le 08 Destrct; Nerv Lumbar Ea Add Le 08 Fluoroscopic Guidance For Needle Placeme nt - Spine Inj Anes Facet Jt; Lumb/sac-1l 08 Inj Anes Facet Jt; Lumb/sac-ea 08 Inj Anes Facet Jt; Lumb/sac-1l 08 Fluoroscopic Guidance For Needle Placeme nt - Spine Offic/outpt E&m Estab [facility] [place]-md 2 08 Offic/outpt E&m Estab [facility] [place]-md 2 08 Inj Not Lytic-epidur; Lumb/sac 08 Fluoroscopic Guidance For Needle Placeme nt - Spine Offic/outpt E&m Estab [facility] [place]-md 2 08 Offic/outpt E&m Estab [facility]-md 2 08 Offic/outpt E&m Estab [facility] 8 Inj Anes Facet Jt; Cerv/thor-1 08 Inj Anes Facet Jt; Cerv/thor-e 08 Fluoroscopic Guidance For Needle Placeme nt - Spine Offic/outpt E&m Estab [facility] [place]-md 2 08 Offic/outpt E&m Estab [facility] [place] 8 Offic/outpt E&m Estab [facility] 8 Offic/outpt E&m Estab [facility] 8 Offic/outpt E&m Estab [facility] [place] 7 Offic/outpt E&m Estab [facility] [place] 7 Inj Not Lytic-epidur; Lumb/sac 07 Fluoroscopic Guidance For Needle Placeme nt - Spine Inj Not Lytic-epidur; Lumb/sac 07 Fluoroscopic Guidance For Needle Placeme nt - Spine Offic/outpt E&m Estab [facility] [place] 7 Offic/outpt E&m Estab [facility] 2 07 Offic/outpt E&m Estab [facility] 7 Offic/outpt E&m Estab [facility] 2 07 Offic/outpt E&m Estab [facility] 7 Offic/outpt E&m Estab [facility] 2 07 Offic/outpt E&m Estab [facility] [place] 7 Offic/outpt E&m Estab [facility] 2 07 Offic/outpt E&m Estab [facility] 2 06 Offic/outpt E&m Estab [facility] [place] 6 Offic/outpt E&m Estab Minor 06 Offic/outpt E&m Estab [facility] [place] 6 Offic/outpt E&m Estab [facility] 6 Offic/outpt E&m Estab [facility] 6 Offic/outpt E&m Estab [facility] 6 Offic/outpt E&m Estab [facility] [place] 5 Offic/outpt E&m Estab [facility] [place] 5 Offic/outpt E&m Estab [facility] [place] 5 Offic/outpt E&m Estab [facility] [place] 5 Advance Directives Directive Yes / No Effective Date File Name No Information Encounters Encounter Description Practice Location Reason(s) For Visit Diagnoses Date Provider Providers Copied on Encounter Offic/outpt E&m Estab [facility] Barrington [facility], [address], [place], [place], [address], [place] tel:[phone] [facility] No Information 2 David Forbes. [address] [place], [address], [place]. tel:[phone] Referring Provider: Duane Gardiner MD, [address] [place], [address]. tel:[phone] Offic/outpt E&m Estab Low [place] [facility], [address], [place], [place], [address], [place] tel:[phone] [facility] No Information 4201 2 David Forbes. [address], [facility] [place], [address], [place]. tel:[phone] Referring Provider: Duane Gardiner MD, [address] [place], [address]. tel:[phone] Offic/outpt E&m Estab Mod [place] [facility], [address], [place], [place], [address], [place] tel:[phone] [facility] No Information Dec-2 0-201 1 David Forbes. [address], [place], [address], [place]. tel:[phone] KEVIN Ferris, [address], [place], [place], [address], [place] tel:[phone] [facility] No Information Dec-0 9-201 1 Cassim Hazmer. [address], [place], [address], [place]. tel:[phone] Referring Provider: REFERRAL SELF, [place]. TOIN Ferris, [address], [place], [place], [address], [place] tel:[phone] [facility] No Information Dec-0 2-201 1 Cassim Hazmer. [address], [place], [address], [place]. tel:[phone] Referring Provider: REFERRAL SELF, [place]. KEVIN Ferris, [address], [place], [place], [address], [place] tel:[phone] [facility] No Information 1 Mikel Corey. [address], [address], [place], [address], [place]. tel:[phone] Referring Provider: REFERRAL SELF, [place]. Offic/outpt [facility], [facility], [address], [place], [place], [address], [place] tel:[phone] [facility] No Information 1 David Forbes. [address], [facility] [place], [address], [place]. tel:[phone] Referring Provider: REFERRAL SELF, HUNTER. Offic/outpt E&m Estab [facility], [facility], [address], [place], [place], [address], [place] tel:[phone] [facility] No Information 1 David Forbes. [address], [facility] [place], [address], [place]. tel:[phone] Referring Provider: REFERRAL SELF, [place]UNTER. Offic/outpt E&m Estab Low [facility], [facility], [address], [place], [place], [address], [place] tel:[phone] [facility] No Information 1 David Forbes. [address], [place], [address], [place]. tel:[phone] Referring Provider: REFERRAL SELF, [place]. Offic/outpt E&m Estab [facility], [facility], [address] [facility], [place], [place], [address], [place] tel:[phone] [facility] No Information 1 David Forbes. [address], [facility], [place], [address], [place]. tel:[phone] Referring Provider: REFERRAL [place] SHIELDS. KEVIN Ferris, [address], [place], [place], [address], [place] tel:[phone] [facility] No Information 1 David Forbes. [address], [facility], [place], [address], [place]. tel:[phone] Referring Provider: REFERRAL [place] SHIELDS. Offic/outpt E&m Estab Mod-hi 2 KEVIN Ferris, [address], [place], [place], [address], [place] tel:[phone] [facility] No Information 1 Leier Joanna. [address] [place], [address], [place]. tel:[phone] Referring Provider: REFERRAL [place]. [facility], [address], [place], [place], [address], [place] tel:[phone] [facility] No Information 1 Leier Joanna. [address] [place], [address], [place]. tel:[phone] Referring Provider: REFERRAL [place] SHIELDS. KEVIN Ferris, [address], [place], [place], [address], [place] tel:[phone] [facility] No Information 1 Mikel Starrmer. [address], [address], [place], [address], [place]. tel:[phone] Referring Provider: REFERRAL [place] [facility], [address], [place], [place], [address], [place] tel:[phone] [facility] No Information 1 Cassim Hazmer. [address], [address], [place], [address], [place]. tel:[phone] Referring Provider: REFERRAL SELF, [place]. KEVIN Ferris, [address], [place], [place], [address], [place] tel:[phone] [facility] No Information 1 Cassim Hazmer. [address], [address], [place], [address], [place]. tel:[phone] Referring Provider: REFERRAL SELF, [place]. TONI Ferris, [address], [place], [place], [address], [place] tel:[phone] [facility] No Information 1 Cassim Hazmer. [address], [address], [place], [address], [place]. tel:[phone] Referring Provider: Minor Fierro MD, [address] [facility], [place], [address]. tel:[phone] Offic/outpt E&m Estab Mod-hi 2 Barrington [facility], [address], [place], [place], [address], [place] tel:[phone] [facility] No Information 1 Andres Masrhall. [address], [place], [address], [place]. tel:[phone] Referring Provider: Minor Fierro MD, [address] [facility], [place], [address]. tel:[phone] Bar[place] [facility], [address], [place], [place], [address], [place] tel:[phone] [facility] No Information 1 Cassim Hazmer. [address], [address], [place], [address], [place]. tel:[phone] Referring Provider: Leora Griffiths, [address], [place], [address]. tel:[phone] [place], [facility], [address], [place], [place], [address], [place] tel:[phone] [facility] No Information Feb-2 2-201 0 Averyer Joanna. [address] [place], [address], [place]. tel:[phone] Referring Provider: REFERRAL SELFHUNTER. Offic/outpt E&m Estab Low-mod [place], [facility], [address], [place], [place], [address], [place] tel:[phone] [facility] No Information Dec-0 3-201 0 Leier Joanna. [address] [place], [address], [place]. tel:[phone] Referring Provider: Joanna Campos, [address] [place], [address]. tel:[phone] Offic/outpt E&m Estab Low-mod [facility], [address], [place], [place], [address], [place] tel:[phone] [facility] No Information 0-201 0 Leier Joanna. [address] [place], [address], [place]. tel:[phone] Referring Provider: REFERRAL SELFHUNTER. Offic/outpt E&m Estab Mod-hi 2 [place], [facility], [address], [place], [place], [address], [place] tel:[phone] [facility] No Information Dec-2 2-201 0 Andres Marshall. [address] [place], [address], [place]. tel:[phone] Referring Provider: REFERRAL SELF, [place]. Offic/outpt E&m Estab Low-mod [place], [facility], [address], [place], [place], [address], [place] tel:[phone] [facility] No Information 1-201 0 Leier Joanna. [address], [place], [place], [facility], [place]. tel:[phone] Referring Provider: REFERRAL SELF, [place]. Offic/outpt E&m Estab Low-mod [place], [facility], [address], [place], [place], [address], [place] tel:[phone] [facility] No Information 0-201 0 Leier Joanna. [address], [place], [place], [facility], [place]. tel:[phone] Referring Provider: REFERRAL SELF, [place]. Offic/outpt E&m Estab Mod-hi 2 [place], [facility], [address], [place], [place], [address], [place] tel:[phone] [facility] No Information 3-201 0 Leier Joanna. [address], [place], [address], [place]. tel:[phone] Referring Provider: REFERRAL SELF, [place]. Offic/outpt E&m Estab Mod-hi 2 [place], [facility], [address], [place], [place], [address], [place] tel:[phone] [facility] No Information 3 0-201 0 Leier Joanna. [address] [place], [address], [place]. tel:[phone] Referring Provider: REFERRAL [place]ELF, [place], [facility], [address], [place], [place], [address], [place] tel:[phone] [facility] No Information 4-201 0 Cassim Hazmer. [address] , [address], [place], [address], [place]. tel:[phone] Referring Provider: REFERRAL [place]ELF, [place]. Offic/outpt E&m Estab Low-mod [place], [facility], [address], [place], [place], [address], [place] tel:[phone] [facility] No Information 7-201 0 Leier Joanna. [address] [place], [address], [place]. tel:[phone] Referring Provider: REFERRAL SELFHUNTER. [place], [facility], [address], [place], [place], [address], [place] tel:[phone] [facility] No Information 0-201 0 Cassim Hazmer. [address] , [address], [place], [address], [place]. tel:[phone] Referring Provider: REFERRAL SELFHUNTER. [place], [facility], [address], [place], [place], [address], [place] tel:[phone] [facility] No Information 6 0 Cassim Hazmer. [address] , [address], [place], [address], [place]. tel:[phone] Referring Provider: REFERRAL SELF, [place]TER. Offic/outpt E&m Estab Mod-hi 2 [place], [facility], [address], [place], [place], [address], [place] tel:[phone] [facility] No Information 1- 0 Leier Joanna. [address], [place], [address], [place]. tel:[phone] Referring Provider: REFERRAL SELF, [place]TER. Offic/outpt E&m Estab Mod-hi 2 [place], [facility], [address], [place], [place], [address], [place] tel:[phone] [facility] No Information 0 Leier Joanna. [address], [place], [address], [place]. tel:[phone] Referring Provider: REFERRAL SELF, [place]UNTER. Offic/outpt E&m Estab Low-mod [place], [facility], [address], [place], [place], [address], [place] tel:[phone] [facility] No Information 0 Leier Joanna. [address] [place], [address], [place]. tel:[phone] Referring Provider: REFERRAL SELFHUNTER. Offic/outpt E&m Estab Low-mod [place], [facility], [address], [place], [place], [address], [place] tel:[phone] [facility] No Information 0 Budnick Noreen. [address], [address], [place], [place], [address], [place]. tel:[phone] Referring Provider: REFERRAL SELFHUNTER. Offic/outpt E&m Estab Low-mod [place], [facility], [address], [place], [place], [address], [place] tel:[phone] [facility] No Information 0 Leier Joanna. [address] [place], [address], [place]. tel:[phone] Referring Provider: REFERRAL SELFHUNTER. Offic/outpt E&m Estab Mod-hi 2 [place], [facility], [address], [place], [place], [address], [place] tel:[phone] [facility] No Information 0 Leier Joanna. [address] [place], [address], [place]. tel:[phone] Referring Provider: REFERRAL [place]ELF, [place]. Offic/outpt E&m Estab Mod-hi 2 [place], [facility], [address], [place], [place], [address], [place] tel:[phone] [facility] No Information Dec-0 9-200 9 Leier Joanna. [address], [place], [place], [facility], [place]. tel:[phone] Referring Provider: REFERRAL SELF, HUNTER. Offic/outpt E&m Estab Mod-hi 2 [place], [facility], [address], [place], [place], [address], [place] tel:[phone] [facility] No Information 6-200 9 Leier Joanna. [address] [place], [place], [facility], [place]. tel:[phone] Referring Provider: REFERRAL SELF, HUNTER. Offic/outpt E&m Estab Low-mod [place], [facility], [address], [place], [place], [address], [place] tel:[phone] [facility] No Information Oct-2 3-200 9 Leier Joanna. [address] [place], [place], [facility], [place]. tel:[phone] Referring Provider: REFERRAL SELF, TONI Power, [address], [place], [place], [address], [place] tel:[phone] [facility] No Information Oct-0 7-200 9 No Information Referring Provider: REFERRAL SELF, KEVIN Power, [address], [place], [place], [address], [place] tel:[phone] [facility] No Information Sep-3 0-200 9 No Information Referring Provider: REFERRAL SELF, TONI PowerC, [address], [place], [place], [address], [place] tel:[phone] [facility] No Information Nov-2 3-200 9 No Information Referring Provider: REFERRAL SELF, [place]. Offic/outpt E&m Estab Mod-hi 2 [facility], [address], [place], [place], [address], [place] tel:[phone] [facility] No Information Sep-0 4200 9 Leier Joanna. [address] [place], [address], [place]. tel:[phone] Referring Provider: REFERRAL SELF, [place]. Offic/outpt E&m Estab Mod-hi 2 [place], [facility], [address], [place], [place], [address], [place] tel:[phone] [facility] No Information 0-200 9 Leier Joanna. [address] [place], [address], [place]. tel:[phone] Referring Provider: REFERRAL SELF, H[place]TER. [place], [facility], [address], [place], [place], [address], [place] tel:[phone] [facility] No Information 2 2-200 9 No Information Referring Provider: REFERRAL SELF, [place]TER. [place], [facility], [address], [place], [place], [address], [place] tel:[phone] [facility] No Information 0 8200 9 No Information Referring Provider: REFERRAL SELF, [place]. Offic/outpt E&m Estab Mod-hi 2 [place], [facility], [address], [place], [place], [address], [place] tel:[phone] [facility] No Information 2 6200 9 Leier Joanna. [address] [place], [address], [place]. tel:[phone] Referring Provider: REFERRAL SELF, [place]. Offic/outpt E&m Estab Low-mod [place] [facility], [address] [facility], [place], [place], [address], [place] tel:[phone] [facility] No Information 1200 9 Leier Joanna. [address] [place], [address], [place]. tel:[phone] Referring Provider: REFERRAL SELF, HUNTER. Offic/outpt E&m Estab Mod-hi 2 [facility], [address], [place], [place], [address], [place] tel:[phone] [facility] No Information 6200 9 Leier Joanna. [address] [place], [address], [place]. tel:[phone] Referring Provider: REFERRAL SELF, HUNTER. Offic/outpt [facility], [address] [facility] [address], [place], [address], [place] tel:[phone] [facility] No Information 3200 9 Leier Joanna. [address] [place], [address], [place]. tel:[phone] Referring Provider: Nagi Bailey, [address], [address]. tel:[phone] [place] [facility], [address] [facility] [address], [place], [address], [place] tel:[phone] [facility] No Information 2 5200 9 Denice Kennedy. [address], [address], [place]. tel:[phone] Referring Provider: REFERRAL SELF, HUNTER. Barrington [facility], [address] [facility] [address], [place], [address], [place] tel:[phone] [facility] No Information Mar 9 Denice Kennedy. [address], [place], [address], [place]. tel:[phone] Referring Provider: REFERRAL SELF, HUNTER. KEVIN Ferris, [address], [place], [place], [address], [place] tel:[phone] [facility] No Information 9 Denice Kennedy. [address], [address], [place], [address], [place]. tel:[phone] Referring Provider: REFERRAL SELF, HUNTER. Offic/outpt E&m Estab Mod-hi 2 KEVIN Ferris, [address], [place], [address], [place] tel:[phone] [facility] No Information 9 Andres Marshall. [address] [place], [address], [place]. tel:[phone] Referring Provider: Brent Dutta, [address], [address]. tel:[phone] KEVIN Ferris, [address], [place], [address], [place] tel:[phone] [facility] No Information 9 Denice Kennedy. [address], [address], [place]. tel:[phone] Referring Provider: REFERRAL SELF, HUNTER. KEVIN Ferris, [address], [place], [address], [place] tel:[phone] [facility] No Information 9 Denice Kennedy. [address], [address], [place], [address], [place]. tel:[phone] Referring Provider: REFERRAL SELF, HUNTER. KEVIN Ferris, [address], [place], [place], [address], [place] tel:[phone] [facility] No Information 9 Denice Kennedy. [address], [address], [place], [address], [place]. tel:[phone] Referring Provider: REFERRAL SELF, HUNTER. KEVIN Ferris, [address], [place], [place], [address], [place] tel:[phone] [facility] No Information 9 Denice Kennedy. [address], [address], [place], [address], [place]. tel:[phone] Referring Provider: REFERRAL SELF, HUNTER. KEVIN Ferris, [address], [place], [place], [address], [place] tel:[phone] [facility] No Information 9 Denice Kennedy. [address], [address], [place], [address], [place]. tel:[phone] Referring Provider: REFERRAL SELF, HUNTER. KEVIN Ferris, [address] [facility], [place], [place], [address], [place] tel:[phone] [facility] No Information 9 Denice Kennedy. [address], [address], [place], [address], [place]. tel:[phone] Referring Provider: REFERRAL SELF, HUNTER. Offic/outpt E&m Estab Mod-hi 2 Barrington [facility], [address], [place], [place], [address], [place] tel:[phone] [facility] No Information 8 Andres Marshall. [address] [facility], [place], [address], [place]. tel:[phone] Referring Provider: Brent Dutta, [address], [place], [address]. tel:[phone] [place], [facility], [address], [place], [place], [address], [place] tel:[phone] [facility] No Information 7-200 8 Denice Kennedy. [address], [address], [place], [address], [place]. tel:[phone] Referring Provider: Brent Dutta, [address], [place], [address]. tel:[phone] [place], [facility], [address] [facility], [place], [place], [id number], [place] tel:[phone] [facility] No Information 0200 8 Denice Kennedy. [address] , [address], [place], [address], [place]. tel:[phone] Referring Provider: REFERRAL SELF, HUNTER. [place], [facility], [address] [facility], [place], [place], [address], [place] tel:[phone] [facility] No Information 0 3200 8 Denice Kennedy. [address] , [address], [place], [address], [place]. tel:[phone] Referring Provider: REFERRAL SELF, HUNTER. Offic/outpt E&m Estab Mod-hi 2 [place]rington, [facility], [address] [facility] [place], [place], [address], [place] tel:[phone] [facility] No Information 8 Andres Marshall. [address] [facility] [address], [place], [address], [place]. tel:[phone] Referring Provider: REFERRAL SELF, [place]. Offic/outpt E&m Estab Mod-hi 2 [facility], [address] [facility], [place], [place], [address], [place] tel:[phone] [facility] No Information Oct-2 7-200 8 Serena Chandra. [address] [place], [address], [place]. Referring Provider: REFERRAL SELFHUNTER. TONI Ferris, [address], [place], [place], [address], [place] tel:[phone] [facility] No Information Sep-2 5-200 8 Denice Kennedy. [address] [address], [place], [address], [place]. tel:[phone] Referring Provider: REFERRAL SELF, HUNTER. Offic/outpt E&m Estab Mod-hi 2 [place], [facility], [address] [facility] [address], [place], [place], [address], [place] tel:[phone] [facility] No Information Sep-1 9-200 8 Andres Marshall. [address] [place], [address], [place]. tel:[phone] Referring Provider: REFERRAL SELF, HUNTER. Offic/outpt E&m Estab Mod-hi 2 Barrington [facility], [address] [facility], [place], [place], [address], [place] tel:[phone] [facility] No Information Sep-1 0-200 8 Andres Marshall. [address] [place], [address], [place]. tel:[phone] Referring Provider: REFERRAL SELF, HUNTER. Offic/outpt E&m Estab Low-mod [place], [facility], [address] [facility] [address], [place], [place], [address], [place] tel:[phone] [facility] No Information Sep-0 8-200 8 Maria E Ying. [address], [facility] [place], [address], [place]. tel:[phone] Referring Provider: REFERRAL SELF, HUNTER. Offic/outpt E&m Estab Mod-hi 2 [place], [facility], [address] [facility] [address], [place], [place], [address], [place] tel:[phone] [facility] No Information 8 Leier Joanna. [address] [place], [address], [place]. tel:[phone] Referring Provider: [facility], HUNTER. Offic/outpt E&m Estab Low-mod [facility], [facility], [address] [facility] [address], [place], [place], [address], [place] tel:[phone] [facility] No Information 8 Leier Joanna. [address] [place], [address], [place]. tel:[phone] Referring Provider: Stepan Pryor, [address] [place], [address]. tel:[phone] Offic/outpt E&m Estab Low-mod [place], [facility], [address] [facility] [address], [place], [address], [place] tel:[phone] [facility] No Information 8 Leier Joanna. [address] [place], [address], [place]. tel:[phone] Referring Provider: Stepan Pryor, [address] [place], [address]. tel:[phone] Offic/outpt E&m Estab Low-mod [facility], [facility], [address] [facility] [address], [place], [address], [place] tel:[phone] [facility] No Information 8 Leier Joanna. [address] [place], [address], [place]. tel:[phone] Referring Provider: Stepan Pryor, [address] [place], [address]. tel:[phone] Offic/outpt E&m Estab Low-mod [facility], [address], [place], [place], [address], [place] tel:[phone] [facility] No Information 8 Kor[employer] Gail. [address], [address], [address], [place]. tel:[phone] Referring Provider: Brent Dutta, [address], [address]. tel:[phone] Offic/outpt E&m Estab Low-mod [facility], [address], [place], [address], [place] tel:[phone] [facility] No Information 200 7 [employer] Gail. [address], [address], [address], [place]. tel:[phone] Referring Provider: Stepan Pryor, [address] [facility], [place], [address]. tel:[phone] [facility], [address] [facility] [facility] , [place], [place], [address], [place] tel:[phone] [facility] No Information 7 Denice Kennedy. [address], [address], [address], [place]. tel:[phone] Referring Provider: Brent Dutta, [address], [address]. tel:[phone] [facility], [address] [facility] [address], [place], [address], [place] tel:[phone] [facility] No Information 200 7 Denice Kennedy. [address], [address], [address], [place]. tel:[phone] Referring Provider: Brent Dutta, [address], [place], [address]. tel:[phone] Offic/outpt E&m Estab Low-mod [facility], [address] [facility], [place], [place], [address], [place] tel:[phone] [facility] No Information Nov-0 2-200 7 [employer] Gail. [address] [facility], [address], [place], [address], [place]. tel:[phone] Referring Provider: Stepan Pryor, [address] [place], [address]. tel:[phone] Offic/outpt E&m Estab Mod-hi 2 [place], [facility], [address] [facility] 220[place], [place], [address], [place] tel:[phone] [facility] No Information Sep-2 1-200 [address] [facility], [address], [place], [address], [place]. tel:[phone] Referring Provider: Stepan Pryor, [address] [place] [address], [address]. tel:[phone] Offic/outpt E&m Estab Low-mod [facility], [facility], [address] [facility], [place], [place], [address], [place] tel:[phone] [facility] No Information Sep-0 5-200 7 [employer] Gail. [address] [facility], [facility] [address], [place], [address], [place]. tel:[phone] Referring Provider: Brent Dutta, [address], [place], [address]. tel:[phone] Offic/outpt E&m Estab Mod-hi 2 [place], [facility], [address] [facility], [place], [place], [address], [place] tel:[phone] [facility] No Information 6200 7 Kor[employer]ATOR Gail. [address] [facility], [address], [place], [address], [place]. tel:[phone] Referring Provider: REFERRAL SELF, [place]. Offic/outpt E&m Estab Low-mod [place], [facility], [address] [facility], [place], [place], [address], [place] tel:[phone] [facility] No Information 0200 7 [employer] Gail. [address] [facility], [facility] [address], [place], [address], [place]. tel:[phone] Referring Provider: REFERRAL SELF, HUNTER. Offic/outpt E&m Estab Mod-hi 2 [facility], [facility], [address] [facility], [place], [place], [address], [place] tel:[phone] [facility] No Information 200 7 [employer]ATOR Gail. [address] [facility] [address], [address], [place]. tel:[phone] Referring Provider: Stepan Pryor, [address] [place], [address]. tel:[phone] Offic/outpt E&m Estab Low-mod [facility], [facility], [address] [facility] [address], [place], [address], [place] tel:[phone] [facility] No Information 200 7 [employer] Gail. [address] [facility] 220[place], [address], [place]. tel:[phone] Referring Provider: Stepan Pryor, [address] [place], [address]. tel:[phone] Offic/outpt E&m Estab Mod-hi 2 [place], [facility], [address] [facility], [place], [address], [place] tel:[phone] [facility] No Information 6-200 7 [employer]INATOR Gail. [address] [facility], [address], [place], [address], [place]. tel:[phone] Referring Provider: Stepan Pryor, [address] [place], [address]. tel:[phone] Offic/outpt E&m Estab Mod-hi 2 [facility], [facility], [address], [address], [place] tel:[phone] [facility] No Information 7-200 6 Budnick Noreen. [address] , [address], [place], [place], [address], [place]. tel:[phone] Referring Provider: Stepan Pryor, [address] [facility], [place], [address]. tel:[phone] Offic/outpt E&m Estab Low-mod [facility], [facility], [address] [facility] [address], [place], [address], [place] tel:[phone] [facility] No Information Dec- 4-200 6 Budnick Noreen. [address], [place], [place], [address], [place]. tel:[phone] Offic/outpt E&m Estab Minor 10 [place], [facility], [address] [facility] [address], [place], [address], [place] tel:[phone] [facility] No Information Sep-0 5-200 6 Budnick Noreen. [address] , [address], [place], [place], [address], [place]. tel:[phone] Referring Provider: Brent Dutta, [address], [place], [address]. tel:[phone] Offic/outpt E&m Estab Low-mod [facility], [facility], [address], [place], [place], [address], [place] tel:[phone] [facility] No Information 200 6 Pete Abdul. [address], [address], [place], [address], [place]. tel:[phone] Referring Provider: Brent Dutta, [address], [place], [address]. tel:[phone] Offic/outpt E&m Estab Low-mod [place], [facility], [address], [place], [place], [address], [place] tel:[phone] [facility] No Information 200 6 Budnick Noreen. [address], [address], [place], [place], [address], [place]. tel:[phone] Offic/outpt E&m Estab Low-mod [place], [facility], [address], [place], [place], [address], [place] tel:[phone] [facility] No Information 1-200 6 Budnick Noreen. [address], [address], [place], [place], [address], [place]. tel:[phone] Referring Provider: Stepan Pryor, [address] [facility], [place], [address]. tel:[phone] Offic/outpt E&m Estab Low-mod [place], [facility], [address], [place], [place], [address], [place] tel:[phone] [facility] No Information 5200 6 Budnick Noreen. [address], [address], [place], [place], [address], [place]. tel:[phone] Referring Provider: Leisa Moore MD, [address], [address]. tel:[phone] Offic/outpt E&m Estab Low-mod [facility], [address], [place], [place], [address], [place] tel:[phone] [facility] No Information 5 Pete Abdul. [address], [address], [place], [address], [place]. tel:[phone] Referring Provider: Stepan Pryor, [address] [place], [address]. tel:[phone] Offic/outpt E&m Estab Low-mod [facility], [address], [place], [place], [address], [place] tel:[phone] [facility] No Information 0 5 Pete Abdul. [address] , [address], [place], [address], [place]. tel:[phone] Referring Provider: Stepan Pryor, [address] [place], [address]. tel:[phone] Offic/outpt E&m Estab Low-mod [facility], [address], [place], [address], [place] tel:[phone] [facility] No Information 4200 5 Budchris Noreen. [address], [address], [place], [place], [address], [place]. tel:[phone] Referring Provider: Stepan Pryor, [address] [facility], [place], [address]. tel:[phone] Offic/outpt E&m Estab Low-mod [facility], [address] [facility] [address], [place], [place], [address], [place] tel:[phone] [facility] No Information 5 Debbie Sorto. [address] [facility] [address], [place], [place], [address], [place]. tel:[phone] Referring Provider: REFERRAL SELF, HUNTER. Family History Family Member Type Diagnosis Age At Onset No Information Payers Payer name Insurance type Covered republican ID Authordeepak butler(s) [facility] Administrators [facility] [id number] [employer] [id number] Social History Type Description Quantity Date Captured [...]
--- OUTSIDE RECORDS SUMMARY | 2023-09-20 15:18 | XMS_ITS | Clinical Summary ---
Author Organization [facility] Address [place], [place] [address] Care Team Providers Care Aerodynamic Consultant Name Role Phone Marissa Williamson MD Primary Care Provide r Allergies Active Allergy Reactions Criticality Noted Date Comments Camphor Rash High 06/13/2021 Camphor-Menthol Itching 12/06/2009 Sarna Lotion Makes itching worse Nitrofurantoin *Unknown 08/02/2005 Sulfa (Sulfonamide Antibiotics) Hives High 08/02/2005 Medications Medication Sig Dispensed Refills Start Date End Date Status flash glucose scanning reader (FREESTYLE GERMAN 14 DAY READER) miscIndications:di abetes mellitus As directed. 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 Max acetaminophen dose: 4000mg in 24 hrs. 30 Tablet 2 Active continuous glucose monitor READER (FREESYLE GERMAN)Indications: Type 2 diabetes mellitus without complication, without long-term current use of insulin (HC) To be used to read blood sugars per behavioral technician's directions. 1 Each 2 Active FreeStyle German 2 ReaderIndications: Type 2 diabetes mellitus with diabetic nephropathy, unspecified whether snf insulin use (HC) To be used to read blood sugars per behavioral technician's directions. 1 Each 2 Active FreeStyle German 2 SensorIndications: Type 2 diabetes mellitus with diabetic nephropathy, unspecified whether termite control servicer insulin use (HC) To be used to read blood sugars per behavioral technician's directions. 7 Each 3 2 Active BiPapIndications:C omplex sleep apnea syndrome BIPAP machine for home use at pressure: epap 11cmw PS 3-8cmw , full face mask x1/3month with full face cushion x2/mo 1 Each 3 Active oxygen-air delivery systems (HOME OXYGEN)Indications :Chronic obstructive pulmonary disease, unspecified COPD type (HC) Oxygen conserving for home use. Liters per minute: 2 per nasal cannula. Frequency of use: Nocturnal and with activity Length of need: 99 Months. 1 Each 3 Active isosorbide mononitrate SR (IMDUR) 120 mg Sustained-Release tabletIndications: CAD in [place] artery Take 2 Tablets (240 mg) by mouth once daily. 180 Tablet 3 3 Active Viviana Pen Needle 32 gauge x 5/32Indications:T ype 2 diabetes mellitus without complication, with long-term current use of insulin (HC) USE DIRECTED FOR INJECTIONS TWO TIMES A DAY 100 Each 3 3 Active metFORMIN (GLUCOPHAGE) 500 mg tabletIndications: Type 2 diabetes mellitus without complication, without long-term current use of insulin (HC) Take 1 Tablet (500 mg) by mouth two times daily with meals. 270 Tablet 3 3 Active Diaper,Brief, Adult,DisposableIn dications:Female stress incontinence For home use. 120 per box 1 Each 3 Active Incontinence Pad, Liner, Disp padsIndications:Fe male stress incontinence As directed. Use the pads 3 times a day as needed. 96 Each 3 Active omeprazole 20 mg tabletIndications: Nausea Take 1 Tablet (20 mg) by mouth once daily before a meal. 90 Tablet 3 3 Active amLODIPine (NORVASC) 5 mg tabletIndications: HTN (hypertension) Take 1 Tablet (5 mg) by mouth once daily. 90 Tablet 3 3 Active miscellaneous medical supply miscIndications:Ur ge incontinence of urine As directed. Bedside commode 1 Each 3 Active OneTouch Ultra Test stripIndications:T ype 2 diabetes mellitus without complication, with long-term current use of insulin (HC) USE TO TEST BLOOD SUGAR FOUR TIMES A DAY 100 Each 3 3 Active magnesium oxide (MAG-OX 400) 400 mg tabletIndications: Hypomagnesemia Take 1 Tablet (400 mg) by mouth two times daily. 60 Tablet 3 3 Active Dexcom G7 Sensor for continuous blood glucose monitor (CGM)Indications:T ype 2 diabetes mellitus with diabetic mononeuropathy, with long-term current use of insulin (HC) To be used to read blood sugars, follow behavioral technician directions. 9 Each 3 3 Active Dexcom G7 Med Peds for continuous blood glucose monitor (CGM)Indications:T ype 2 diabetes mellitus with diabetic mononeuropathy, with long-term current use of insulin (HC) To be used to read blood sugars follow behavioral technician directions. 1 Each 3 Active Magnesium 200 mg tabIndications:Low magnesium level Take 1 Tablet (200 mg) by mouth once daily. 90 Tablet 3 3 Active cholecalciferol, Vitamin D3, 2,000 unit tabletIndications: Vitamin D deficiency TAKE ONE TABLET BY MOUTH EVERY DAY 30 Tablet 3 3 Active durable medical equipment (DME)Indications:C hronic pain of both knees Foam Wedge for under legs at night Fax to [facility] Dhruv Escobar 1 Each 3 Active aspirin chewable 81 mg chewable tabletIndications: CAD in [place] artery CHEW AND SWALLOW 1 TABLET BY MOUTH ONCE A DAY WITH A MEAL 90 Tablet 2 3 Active ketoconazole 2% topical (NIZORAL) creamIndications:R carolyn Apply to itchy abdomen PRN 60 g 3 Active sennosides-docusat e (SENOKOT S) (8.6-50 mg) tabletIndications: Chronic constipation Take 2 Tablets by mouth two times daily. 120 Tablet 11 3 Active insulin lispro, U-100, (HumaLOG KwikPen Insulin) 100 unit/mL inpn penIndications:Typ e 2 diabetes mellitus with diabetic mononeuropathy, with long-term current use of insulin (HC) Inject 4 units subcutaneous two times daily after meals. Breakfast and lunch only. No Humalog at supper 3 mL 3 Active pen needle, diabetic, safety (DropSafe Pen Needle) 31 gauge x 1/4 ndleIndications:Ty pe 2 diabetes mellitus without complication, with long-term current use of insulin (HC) USE DIRECTED TO INJECT INSULIN 200 Each 3 3 Active furosemide (LASIX) 20 mg tabletIndications: Lower extremity edema Take 1 Tablet (20 mg) by mouth every morning. 90 Tablet 3 3 Active ferrous gluconate 324 mg (37 mg iron) tabletIndications: Anemia of unknown etiology Take 1 Tablet by mouth once daily with a meal. 90 Tablet 3 3 Active honey (MediHoney, honey,) 80 % topical gelIndications:Lisa lulitis and abscess of left leg For bilateral lower extremities to be changed daily and PRN if saturated or falling off. 44 mL 2 3 Active Non-Adherent Bandage (Telfa) 3 X 8 bndgIndications:Ce llulitis and abscess of left leg For bilateral lower extremities to be changed daily and PRN if saturated or falling off. 144 Each 2 3 Active Gauze Bandage 2 X 5 -yard bndgIndications:Ce llulitis and abscess of left leg For bilateral lower extremities to be changed daily and PRN if saturated or falling off. 96 Each 2 3 Active Adhesive Tape (Paper Tape) 1 X 10 -yard tapeIndications:Ce llulitis and abscess of left leg For bilateral lower extremities to be changed daily and PRN if saturated or falling off. 1 Each 2 3 Active polyethylene glycoL (MIRALAX) 17 gram/scoop powderIndications: Chronic constipation Mix 1 scoop (17 g) in liquid then take by mouth every other day. 850 g 5 4 Active Phenyleph-Pramoxin -Glycr-W.Pet (Hemorrhoidal Cream) 0.25-1 % creaIndications:He morrhoids, external Apply 1 g topically to affected area(s) 2 times daily if needed (hemorrhoids). 51 g 3 4 Active dextrose (glucose) 2 gram chewIndications:Hy poglycemia Chew 2 Tablets by mouth 4 times daily if needed (hypoglycemia). 60 Tablet 3 4 Active white petrolatum-mineral oil-lanolin (Eucerin) topical creamIndications:D ry skin Apply topically to affected area(s) two times daily. 90 g 3 4 Active miscellaneous medical supply miscIndications:Ve nous stasis ulcer, unspecified site, unspecified ulcer stage, unspecified whether varicose veins present (HC),Peripheral sensory neuropathy,COPD mixed type (HC) As directed. Medical lift chair, diagnosis 1 Each 4 Active codeine-guaiFENesi n (ROBITUSSIN AC) 10-100 mg/5 mL liquidIndications: Cough, unspecified type Take 5 mL by mouth every 6 hours if needed for Cough. Max dose 60 mL per 24 hrs. 118 mL 4 Active atorvastatin (LIPITOR) 40 mg tabletIndications: S/P CABG x 5 Take 1 Tablet (40 mg) by mouth at bedtime. 90 Tablet 3 4 Active cetirizine (ZYRTEC) 10 mg tabletIndications: Seasonal allergic rhinitis due to pollen Take 1 Tablet (10 mg) by mouth once daily. 90 Tablet 3 4 Active metoprolol succinate (Toprol XL) 50 mg sustained-release tabletIndications: CAD in [place] artery Take 1 Tablet (50 mg) by mouth once daily. 90 Tablet 3 4 Active sertraline (ZOLOFT) 100 mg tabletIndications: Major depressive disorder, recurrent episode, moderate (HC) TAKE 2 TABLETS (200MG) BY MOUTH ONCE DAILY. 180 Tablet 3 4 Active traZODone (DESYREL) 100 mg tabletIndications: Insomnia, idiopathic Take 2 Tablets (200 mg) by mouth at bedtime. 180 Tablet 3 4 Active guaiFENesin (Mucus Relief ER) 600 mg Extended-Release tabletIndications: Allergic rhinitis, unspecified seasonality, unspecified trigger Take 1 Tablet (600 mg) by mouth two times daily. 180 Tablet 1 4 Active miscellaneous medical supply miscIndications:Ac cidental fall, initial encounter As directed. Gripper socks--two pair 4 Each 4 Active Restasis 0.05 % ophthalmic emulsionIndication s:Dry eyes PLACE 1 DROP INTO THE EYE(S) TWO TIMES DAILY. 60 Each 13 4 Active bacitracin ointmentIndication s:Sore on leg Apply topically to affected area(s) two times daily. 28 g 3 4 Active insulin glargine, U-100, (Lantus Solostar U-100 Insulin) 100 unit/mL (3 mL) penIndications:Typ e 2 diabetes mellitus without complication, with long-term current use of insulin (HC) Inject 8 units subcutaneous before bedtime. Product desired: LANTUS SOLOSTAR 60 mL 4 Active Ventolin HFA 90 mcg/actuation inhalerIndications :Chronic obstructive pulmonary disease, unspecified COPD type (HC) Inhale 1-2 Puffs by mouth every 4 hours if needed for Shortness Of Breath. 4 Active dextromethorphan-g uaiFENesin (ROBITUSSIN DM) (5-50 mg/5 mL) liquidIndications: Cough, unspecified type Take 10 mL by mouth every 4 hours if needed for Cough 1st choice. 4 Active durable medical equipment (DME)Indications:C OPD mixed type (HC),Venous stasis ulcer, unspecified site, unspecified ulcer stage, unspecified whether varicose veins present (HC),ASCVD (arteriosclerotic cardiovascular disease),Chronic bilateral back pain, unspecified back location Recliner chair--motorized 1 Each 4 Active miscellaneous medical supply miscIndications:Ch ronic midline low back pain without sciatica As directed. Lift chair (recliner), patient is 150 lbs, diagnosis COPD, coronary artery disease, chronic low back pain to [facility] [place] 1 Each 4 Active nitroglycerin (NITROSTAT) 0.4 mg sublingual tabletIndications: CAD in [place] artery PLACE 1 TABLET (0.4 MG) UNDER THE TONGUE EVERY 5 MINUTES IF NEEDED FOR CHEST PAIN. IF REQUESTING 25 OR MORE DOSE DOSES IN 30 DAYS TELL PROVIDER 25 Tablet 4 4 Active morphine CONTROLLED RELEASE (MS CONTIN) 30 mg CR tabletIndications: Peripheral sensory neuropathy,Celluli tis and abscess of toe of right foot Take 1 Tablet (30 mg) by mouth every 12 hours. 60 Tablet 4 Active nitroglycerin (NITROSTAT) 0.4 mg sublingual tabletIndications: CAD in [place] artery Place 1 Tablet (0.4 mg) under the tongue every 5 minutes if needed for Chest Pain (My keep at bedside and self administer). If patient requesting 25 or more dose doses in 30D, to provider to authorize 25 Tablet 5 3 024 Discontinued morphine CONTROLLED RELEASE (MS CONTIN) 30 mg CR tabletIndications: Peripheral sensory neuropathy,Celluli tis and abscess of toe of right foot TAKE ONE TABLET BY MOUTH TWICE DAILY 60 Tablet 4 024 Discontinued amoxicillin-clavul anate, 500 mg-125 mg, (AUGMENTIN) 500-125 mg tabletIndications: Cellulitis and abscess of toe, unspecified laterality Take 1 Tablet by mouth two times daily with meals for 10 days. 20 Tablet 4 024 doxycycline 100 mg tabletIndications: Bronchitis Take 1 Tablet (100 mg) by mouth two times daily before meals for 14 days. 28 Tablet 4 024 Active Problems Problem Noted Date Diagnosed Date Atherosclerosis of [place] co ronary artery of [place] heart with angina pectoris 04/01/2023 S/p Right humeral shaft repa ir of nonunion with compression plating and autograft bone grafting DOS: 06/04/21 Dr. Roland Goel 05/20/2022 Venous stasis ulcer, unspeci fied site, unspecified ulcer stage, unspecified whether varicose veins present 05/16/2022 Venous stasis ulcer, unspeci fied site, unspecified ulcer stage, unspecified whether varicose veins present 04/04/2022 Renal insufficiency 02/26/2021 Stable angina pectoris 06/22/2020 Chest pain 07/24/2018 Type 2 diabetes mellitus wit h complication, without long-term current use of insulin 05/19/2018 Major depressive disorder, recurrent episode, mo derate 05/19/2018 Venous stasis ulcer 02/17/2018 Ulcer of left lower extremity, limited to breakd own of skin 01/28/2018 S/P CABG x 5 06/21/2017 Overview: 06/20/17 s/p CABG X5 with MIR MIR to LAD Saphenous vein graft to PDA Saphenous vein graft sequential to D1, R1, OM ?? Chronic midline low back pain without sciatica 0 06/18/2017 COPD mixed type 06/03/2017 Overview: - home O2 Prurigo nodularis 06/23/2015 HTN (hypertension) 01/18/2014 [facility] arthritis, thumb, degenerative 11/24/2013 Chronic back pain 05/28/2013 Pain medication agreement 08/16/2011 Overview: Controlled substance agreement for MSContin 60mg, 3 tablets bid on file and signed 08/16/2011 . Designated pharmacy: [facility] Prescribing physician: Duane Gardiner M.D Diagnosis: chronic severe back pain. Primary central sleep apnea 11/12/2010 REAL/CSA AHI-52 04/22, 08/25 AHI-12,CSA 6 1 Overview: 05/10/2005 AHI- 52, treatment brought out central apnea Repeat 09/11/2010 AHI-12, CSA-6 Female stress incontinence 10/06/2009 DIABETES, type 2, A1c goal < 7 09/12/2008 Unspecified vitamin D deficiency 04/27/2007 ASCVD (arteriosclerotic cardiovascular disease) 06/05/2006 Overview: - 06/20/17 s/p CABG X5: MIR to LAD, saphenous vein graft to PDA, Saphenous vein graft sequential to D1, R1, OM - 07/2018 angiogram: patent grafts - 08/30/2020 NM Stress test: There is a small area of mild ischemia in the apical inferolateral wall. EF 58%. 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 Roland Goel 06/27/20212022 Thrombocytopenia 07/24/2018 01/20/2020 Uncomplicated opioid dependence 05/19/2018 07/24/2018 Other forms of angina pectoris 05/19/2018 07/24/2018 Paroxysmal A-fib 07/08/2017 04/04/2022 Chest pain 06/18/2017 07/24/2018 Chronic midline back pain 06/18/2017 IDDM (insulin dependent diabetes mellitus) 11/09/2015 10/28/2017 Mild persistent asthma without complication 06/22/2015 07/24/2018 SLEEP DISTURBANCE 05/12/2014 07/24/2018 Asthma 01/21/2012 06/22/2015 REAL 05/10/2005 AHI- 52, treat ment brought out central apnea 08/20/2010 09/30/2010 Neck pain 03/27/2009 07/24/2018 Depression, major 07/25/2008 07/24/2018 Chronic airway obstruction, not elsewhere classified 06/05/2006 07/24/2018 Overview: WITH BRONCHOSPASM Sleep disturbance, unspecified 06/05/2006 08/31/2010 Unspecified essential hypertension 06/05/2006 04/27/2007 Other and unspecified hyperlipidemia 06/05/2006 04/27/2007 DIABETES 02/04/2002 09/12/2008 Anemia 12/04/2012 Acute postoperative pain 12/2018 Chest wall pain following surgery 07/24/2018 Hx of CABG 07/24/2018 Encounters Date Type Department Care Team Description 09/17/2023 Refill [facility] [address] [place] [address] Marissa Williamson MD Refill Request (Morphine Controlled Release) 09/13/2023 Refill [facility] [address] [place] [address] Marissa Williamson MD Refill Request (Nitroglycerin) 08/25/2023 Telephone [facility] [address] [place] [address] Marissa Williamson MD 08/21/2023 7:25 AM CDT Office Visit [facility] [address] [place] [address] Marissa Williamson MD Vascular Problems (f/u sores on legs) 08/21/2023 Telephone [facility] [address] [place] [address] Marissa Williamson MD Medication Management 08/21/2023 Travel 08/13/[address] [address] Marissa Williamson MD DME Supply (Left chair/) 08/12/[address] [address] Marissa Williamson MD Medication Management 08/08/[address] [address] Marissa Williamson MD Questions (recliner chair) 08/06/2023 Telephone [facility] [address] [place] [address] Marissa Williamson MD Medication Management 08/01/2023 Nurse Triage [address] [id number] Gabrielle Sevilla NP Breathing Problem 07/31/[address] [address] Marissa Williamson MD Refill Request (Albuterol inhaler) 07/24/[address] [address] Marissa Williamson MD Refill Request (Lantus Solostar U-100 Insulin) 07/23/2023 Nurse Triage [facility] [address] [place] [address] Marissa Williamson MD Toe Pain/problem 07/23/[address] [address] Marissa Williamson MD Concerns 07/22/[address] [address] Marissa Williamson MD Medication Management 07/21/2023 Telephone [facility] [address] [place] [address] Marissa Williamson MD Refill Request (bacitracin & doxycycline) 07/19/[address] [address] Marissa Williamson MD Refill Request (Restasis) 07/17/[address] [address] Marissa Williamson MD Results 07/16/[address] [address] Marissa Williamson MD other (leg) 07/15/2023 8:50 AM CDT Office Visit [address] [address] Marissa Williamson MD Wound Check (Right outer leg, near the knee. X1 month); Fall (Fell trying to keep cat in her apartment. Aches all over) 07/15/2023 Travel 07/14/[address] [address] Marissa Williamson MD Refill Request (Morphine Controlled Release) 07/10/[address] [address] Marissa Williamson MD appointment 07/02/[address] [address] Marissa Williamson MD Referral 07/02/[address] [address] Marissa Williamson MD 06/30/2023 Refill [facility] [address] [facility] [address] Marissa Williamson MD Refill Request (Triamcinolone 0.1% Topical) 06/27/2023 Telephone [facility] [address] [place] [address] Marissa Williamson MD Questions 06/26/2023 7:00 AM CDT Office Visit [facility] [address] [place] [address] Marissa Williamson MD Follow Up (Toes look much better. Would like the ingrown toe nail off. /Ankles both coming along. Did have bruise on right randall./Has had some low readings); Urinary Problem (Can not hold urine.) 06/26/2023 Travel 06/23/2023 Refill [facility] [address] [place] [address] Marissa Williamson MD Refill Request (Triamcinolone 0.1% Topical) from Last 3 Months Immunizations Name Administration Dates Next Due COVID-19 Vaccine Spikevax (M oderna 50mcg/0.5mL) 12YO+ [id number] Formula PF 01/23/2023 COVID-19 vaccine (?-Bio NTech 30mcg/0.3mL) 12YO+ BIVALENT PF, MDV 01/01/2022 COVID-19 vaccine (?-Bio NTech 30mcg/0.3mL) PF, MDV 01/05/2021,06/01/2020,05/11/2020 Hepatitis A (Adult) 07/25/2008,11/02/2007 Influenza A (H1N1), Inactivated 03/27/2009 Influenza A (H1N1), Inactiva gael (Age >=3 Years) 03/27/2009 Influenza, High-dose Inactivated 12/28/2015,12/16,11/18/2013 Influenza, IIV3 (Age 6-35 mos) 11/09/2010,2009 Influenza, IIV3 (Age >=3 years) 12/05/19 13,12/06/2011,11/09/2010,12/13,11/23/2008,02/15/2008,01/19/2007 ,12/18/2005,01/07/2005,01/05/2004,/07/2002,01/21/2002 Influenza, Inactivated AIIV4 (Age 65+ Years) Preserv Free 12/10/2022,01/01/2022,11/30/2020,12/15 Influenza, Inactivated IIV3 (Age 65+ Years) Preserv Free 12/17/2018,12/18/2017,01/14/2017 Pneumococcal Poly,23-Valent (Pneumovax) 12/14/2010,02/18/2003 Pneumococcal conj 13-Valent (Prevnar 13) 10/27/2014 RSV, Recombinant ADJ Reconst ituted (Arexvy 120MCG/0.5mL) 12/12/2022 Td, Preservative Free (age >= 7 Years) 7 Tdap 11/30/2020,05/25/2010 Zoster (Shingrix-RZV, recombinant) 01/22/2018, Zoster (Zostavax-ZVL, live) 08/03/2007 Family History Medical History Relation Name Comments Cancer-prostate Brother Heart Disease Father at 45 then mi at 59 Diabetes Mother Cancer Sister stomache Relation Name Status Comments Brother Father (Age 84) Mother (Age 59) Sister Social History Tobacco Use Types Packs/Day Years Used Date Smoking Tobacco: Former Cigarettes 3 10 0 03/17/1960 - 03/17/1970 Smokeless Tobacco: Never Tobacco Cessation:Counseling Given: Yes Alcohol Use Standard Drinks/Week Comments Not Currently 0 (1 standard drink = 0.6 oz pur e alcohol) very seldom PHQ-2 Answer Date Recorded PHQ-2 TOTAL SCORE 5 05/15/2023 Social Connections Answer Date Recorded Frequency of Communication with Friends and Fami ly 0 01/23/2023 Financial Resource Strain Answer Date R ecorded Difficulty of Paying Living Expenses 3 01/23/2023 Difficulty of Paying Living Expenses Not on file 01/23/2023 Food Insecurity Answer Date Recorded Worried About Running Out of Food in the Last Ye ar 1 01/23/2023 Transportation Needs Answer Date Record ed Lack of Transportation (Medical) 1 01/23/2023 Housing Stability Answer Date Recorded Unable to Pay for Housing in the Last Year 1 01/23/2023 Sex and Gender Information Value Date Recorded Sex Assigned at Not on file Gender Identity Not on file Sexual Orientation Not on file Obstetrics History Last Filed Vital Signs Vital Sign Reading Time Taken Comments Blood Pressure 152/58 08/21/2023 7:16 AM CDT Pulse 64 08/21/2023 7:16 AM CDT Temperature 36.2 ??C (97.1 ??F) 11/04/2022 10:10 AM C DT Respiratory Rate 19 11/04/2022 10:10 AM CDT Oxygen Saturation 99% 08/21/2023 7:16 AM CDT Inhaled Oxygen Concentration - - Weight 68.3 kg (150 lb 9.2 oz) 08/21/2023 7:16 A M CDT Height 160 cm (5' 3) 01/09/2023 9:18 AM CDT Body Mass Index 26.67 01/09/2023 9:18 AM CDT Plan of Treatment Upcoming Encounters Date Type Department Care Team (Late st Contact Info) Description 10/01/2023 1:45 PM CDT Office Visit [facility] [address] [place] [address] Bradford Guardado DPM [address] [place] [address] 10/02/2023 7:00 AM CDT Office Visit [facility] [address] [place] [address] Marissa Williamson MD [address] [place] [address] Health Maintenance Due Date Last Done Comments COVID-19 vaccine series ( season) 2023 01/23/2023, 01/01/2022, 01/05/2021, Additional history exists Influenza for age 65+ 11/16/2023 12/10/2022 , 01/01/2022, 11/30/2020, Additional history exists BMI (ht and wt on same day) for age 18+ 01/10/2024 01/09/2023, 01/01/2022, 05/29/2021, Additional history exists Depression screening for age 12+ 05/15/2024 05/16/2023, 05/16/2023, 05/15/2023, Additional history exists Medicare Wellness for age 65+ 05/15/2024, 01/01/2022, 09/24/2018, Additional history exists Tetanus booster 11/30/2030 11/30/2020, 05/15, 08/04/2006 DEXA/DXA scan for age 65+ Completed 2014, 11/03/2007, 11/24/2001 Pneumococcal series for age 65+ Completed 10/27/2014, 12/14/2010, 02/18/2003 Zoster (shingles) series for age 50+ Completed 01/22/2018, 07/31/2017, 08/03/2007 Tdap Completed 11/30/2020, 05/25/2010 Medical Devices Implanted Type Area Information Services Manager Device Identifier Shelf Expiration Date Model / Serial / Lot Screw Sm Joint 4.5x26mm Axsos Anthony Titnm - [id number] Implanted:Qty: 1 on 06/04/2021 by Roland Goel MD at [facility] Left: Arm [employer] [id number] / / Screw Sm Joint 6x35mm [id number] Canclls Full Thrd Titnm Implanted:Qty: 1 on 06/04/2021 at [facility] Left: Arm [id number] / / Description:SCREW SM JOINT 6 X35MM AXSOS3 CANCLLS FULL THRD TITNM Screw Sm Joint 2.7x20mm Variax 2 Bone Titnm - [id number] Implanted:Qty: 1 on 06/04/2021 at [facility] Left: Arm [employer] [id number] / / Screw Sm Joint 2.7x24mm Variax 2 Bone Titnm - [id number] Implanted:Qty: 2 on 06/04/2021 at [facility] Left: Arm [employer] [id number] / / Screw Sm Joint 4.5x28mm Axsos Anthony Titnm - [id number] Implanted:Qty: 2 on 06/04/2021 by Roland Goel MD at [facility] Left: Arm [employer] [id number] / / Screw Sm Joint 4.5x30mm Axsos Anthony Titnm - [id number] Implanted:Qty: 1 on 06/04/2021 by Roland Goel MD at [facility] Left: Arm [employer] [id number] / / Screw Sm Joint 4.5x32mm [employer] Anthony Titnm - [id number] Implanted:Qty: 1 on 06/04/2021 by Roland Goel MD at [facility] Left: Arm [employer] [id number] / / Screw Sm Joint 5x32mm [employer] Lock - [id number] Implanted:Qty: 1 on 06/04/2021 by Roland Goel MD at [facility] Left: Arm [employer] [id number] / / Screw Sm Joint 5x34mm [employer] Lock - [id number] Implanted:Qty: 1 on 06/04/2021 by Roland Goel MD at [facility] Left: Arm [employer] [id number] / / 12h Straight Narrow Plate Implanted:Qty: 1 on 06/04/2021 by Roland Goel MD at [facility] Left: Arm [id number] / / Description:12H STRAIGHT FERNANDO ROW PLATE Explanted Type Area Information Services Manager Device Identifier Shelf Expiration Date Model / Serial / Lot K-Wire [employer] 10pk - [id number] Explanted:Qty: 2 on 06/04/2021 at [facility] Left: Arm [employer] [id number] / / Screw Sm Joint 6x30mm Axsos3 Canclls Full Thrd Titnm Explanted:Qty: 1 on 06/04/2021 at [facility] Left: Arm [id number] / / Description:SCREW SM JOINT 6 X30MM AXSOS3 CANCLLS FULL THRD TITNM Screw Sm Joint 4.5x34mm Axs[employer] Anthony Titnm - [id number] Explanted:Qty: 1 on 06/04/2021 at [facility] Left: Arm [employer] [id number] / / Screw Sm Joint 5x30mm [employer] Lock - [id number] Explanted:Qty: 1 on 06/04/2021 at [facility] Left: Arm [employer] [id number] / / Procedures Procedure Name Priority Date/Time Associated Diagnosis Comments PATH TISSUE EXAM Routine 07/15/2023 9:35 AM CDT Sore on leg Neoplasm of uncertain behavior of skin CBC WITH AUTO DIFFERENTIAL Routine 06/26/2023 8:10 AM CDT Type 2 diabetes mellitus without complication, with long-term current use of insulin (HC) BASIC METABOLIC PANEL Routine 06/26/2023 8:10 AM CDT Type 2 diabetes mellitus without complication, with long-term current use of insulin (HC) CBC WITH AUTO DIFFERENTIAL Routine 06/26/2023 8:10 AM CDT Type 2 diabetes mellitus without complication, with long-term current use of insulin (HC) HEMOGLOBIN A1C Routine 06/26/2023 8:10 AM CDT Type 2 diabetes mellitus without complication, with long-term current use of insulin (HC) URINALYSIS MICROSCOPIC Routine 06/26/2023 7:34 AM CDT Urinary urgency URINE CULTURE Routine 06/26/2023 7:34 AM CDT Urinary urgency UA W/ SEDIMENT EXAM REFLEXED PER CRITERIA Routine 06/26/2023 7:34 AM CDT Urinary urgency XR DXA BONE DENSITY 2 SITES AXIAL Routine 10/25/2014 8:58 AM CDT VITAMIN D DEFICIENCY from Last 3 Months or Most Recently Relevant to Health Maintenance Results * PATH TISSUE EXAM (07/15/2023 9:35 AM CDT) Case Report Pathology Report ?Case: [id number] ? Authorizing Provider: ??Clay, Marissa Arias, ??Collected: ? 07/15/2023 0935 ? MD ? [facility] ?? Received: ?07/15/2023 1004 ? Clinic ? Pathologist: ? Donnell Kohler, ? Specimen: ?Right Leg ? 07/17/2023 3:07 PM CDT [facility] Final Diagnosis A) SKIN, RIGHT LEG, BIOPSY: 1. Ulcer with suppurative inflammation and granulation tissue 2. A PAS-F stain is negative for fungal micro-organisms 3. No evidence of malignancy 07/17/2023 3:07 PM CDT [facility] [employer] [facility] Comment A) Deeper sections were examined in the interpretation for this specimen. The corresponding clinical photograph is reviewed in the interpretation. The differential diagnosis includes the various causes of ulceration including neuropathic, traumatic, infectious, and coagulopathic etiologies. Within the appropriate clinical setting, if the aforementioned causes are ruled-out with appropriate studies and tissue cultures, these findings may be seen in a chronic ulcer related pyoderma gangrenosum. Clinical correlation is recommended to determine if these features are agency sales representative of the entire targeted lesion. 07/17/2023 3:07 PM CDT [facility] Clinical Information Sore on leg 07/17/2023 3:07 PM CDT [facility] Gross Description A) Received in formalin, labeled with the patient's name and date of , is a 0.4 x 0.4 cm skin punch biopsy excised to a depth of 0.5 cm. The skin surface displays a 0.4 x 0.3 cm crusted variegated brown lesion. ??The specimen is inked red, bisected and entirely submitted in one cassette. EKW 07/15/2023 07/17/2023 3:07 PM CDT [facility] Microscopic Description The final diagnosis is based on microscopic examination of appropriate sections of all specimens. A) There is an ulcer beneath which is suppurative inflammation and granulation tissue. A distinct neoplastic process is not identified. The presence of red ink is confirmed on tissue sections. 07/17/2023 3:07 PM CDT [facility] [employer] [facility] Additional Information Interpreted at [facility], Central Laboratory - [address], [place] [address] 07/17/2023 3:07 PM CDT [facility] Other (Right Leg) Non-Blood / Unknown 07/15/2023 9:35 AM CDT 07/15/2023 10:04 AM CDT Marissa Williamson MD PATHOLOGY/CYT OLOGY [facility] [address] [place] [address], * (ABNORMAL) CBC WITH AUTO DIFFERENTIAL (06/26/2023 8:10 AM CDT) WHITE BLOOD COUNT 9.5 4.5 - 11.0 thou/cu mm 06/26/2023 8:21 AM CDT [facility] RED BLOOD COUNT 4.00 4.00 - 5.20 mil/cu mm 06/26/2023 8:21 AM CDT [facility] HEMOGLOBIN 10.9(L) 12.0 - 16.0 g/dL 06/26/2023 8:21 AM CDT [facility] HEMATOCRIT 34.4 33.0 - 51.0 % 06/26/2023 8:21 AM CDT [facility] MCV 86 80 - 100 fL 06/26/2023 8:21 AM CDT [facility] MCH 27.3 26.0 - 34.0 pg 06/26/2023 8:21 AM CDT [facility] MCHC 31.7(L) 32.0 - 36.0 g/dL 06/26/2023 8:21 AM CDT [facility] RDW 15.4 11.5 - 15.5 % 06/26/2023 8:21 AM CDT [facility] PLATELET COUNT 218 140 - 440 thou/cu mm 06/26/2023 8:21 AM CDT [facility] MPV 9.3 6.5 - 11.0 fL 06/26/2023 8:21 AM CDT [facility] % NEUT 64.6 % 06/26/2023 8:21 AM CDT [facility] % LYMPH 17.1 % 06/26/2023 8:21 AM CDT [facility] % MONO 8.0 % 06/26/2023 8:21 AM CDT [facility] % EOS 9.9 % 06/26/2023 8:21 AM CDT [facility] % BASO 0.4 % 06/26/2023 8:21 AM CDT [facility] ABSOLUTE NEUTROPHILS 6.1 1.7 - 7.0 thou/cu mm 06/26/2023 8:21 AM CDT [facility] ABSOLUTE LYMPHOCYTES 1.6 0.9 - 2.9 thou/cu mm 06/26/2023 8:21 AM CDT [facility] ABSOLUTE MONOCYTES 0.8 <0.9 thou/cu mm 06/26/2023 8:21 AM CDT [facility] ABSOLUTE EOSINOPHILS 0.9(H) <0.5 thou/cu mm 06/26/2023 8:21 AM CDT [facility] ABSOLUTE BASOPHILS 0.0 <0.3 thou/cu mm 06/26/2023 8:21 AM CDT [facility] Blood BLOOD SPECIMEN / Unknown Butterfly / Unknown 06/26/2023 8:10 AM CDT 06/26/2023 8:13 AM CDT Marissa Williamson MD HEMATOLOGY [facility] [address] [place] [address], * (ABNORMAL) HEMOGLOBIN A1C MONITORING (POCT) (06/26/2023 8:10 AM CDT) Pathologist [facility] HEMOGLOBIN A1C MONITORING (POCT) 7.2(H) <=6.4 % 06/26/2023 8:43 AM CDT [facility] Blood BLOOD SPECIMEN / Unknown Butterfly / Unknown 06/26/2023 8:10 AM CDT 06/26/2023 8:13 AM CDT Narrative [facility] - 06/26/2023 8:43 AM CDT ? (<=6.9%) ? Indicates good control ? (7.0% to 7.9%) ? Indicates fair control ? (>=8.0%) ? Indicates poor control ?? NOTE: ??These thresholds are guidelines and ?individual targets may vary. Falsely low levels may be seen with: Recent Transfusion, Recent Significant Blood Loss, Hemolytic Diseases, or Falsely elevated levels may be seen with: Untreated Anemias, Splenectomy ? Marissa Williamson MD CHEMISTRY [facility] [address] [place] [address], * (ABNORMAL) BASIC METABOLIC PANEL (06/26/2023 8:10 AM CDT) SODIUM 140 136 - 145 mmol/L 06/26/2023 2:14 PM CDT [facility] POTASSIUM 4.7 3.5 - 5.1 mmol/L 06/26/2023 2:14 PM CDT [facility] CHLORIDE 99 98 - 107 mmol/L 06/26/2023 2:14 PM CDT [facility] CO2,TOTAL 29 22 - 29 mmol/L 06/26/2023 2:14 PM CDT [facility] ANION GAP 12 5 - 18 06/26/2023 2:14 PM CDT [facility] GLUCOSE 161(H) 70 - 99 mg/dL 06/26/2023 2:14 PM CDT [facility] CALCIUM 9.3 8.8 - 10.2 mg/dL 06/26/2023 2:14 PM CDT [facility] BUN 29(H) 8 - 23 mg/dL 06/26/2023 2:14 PM CDT [facility] CREATININE 1.67(H) 0.50 - 0.90 mg/dL 06/26/2023 2:14 PM CDT [facility] BUN/CREAT RATIO 17 10 - 20 2:14 PM CDT [facility] eGFR 30(L) >90 mL/min/1.7 3m2 06/26/2023 2:14 PM CDT [facility] Comment:As of 2021, eG FR is calculated by the CKD-EPI creatinine equation without race adjustment. ??eGFR can be influenced by muscle mass, exercise, and diet. ??The reported eGFR is an estimation only and is only applicable if the renal function is stable. Blood BLOOD SPECIMEN / Unknown Butterfly / Unknown 06/26/2023 8:10 AM CDT 06/26/2023 8:13 AM CDT Marissa Williamson MD CHEMISTRY Performing Organization Address City/[facility]/ZIP Co de Phone Number [facility] [address] [place] [address], * URINALYSIS MICROSCOPIC (06/26/2023 7:34 AM CDT) RBC 0-2 0-2, None Seen /HPF 06/26/2023 7:46 AM CDT [facility] WBC 0-2 0-2, 3-5, None Seen /HPF 06/26/2023 7:46 AM CDT [facility] BACTERIA Few None Seen, Rare, Few Bacteria/H PF 06/26/2023 7:46 AM CDT [facility] EPITHELIAL CELLS Few None Seen, Few Epi/HPF 06/26/2023 7:46 AM CDT [facility] Urine URINE SPECIMEN / Unknown Non-Blood / Unknown 06/26/2023 7:34 AM CDT 06/26/2023 7:34 AM CDT Marissa Williamson MD URINE [facility] [address] [place] [address], * URINE CULTURE (06/26/2023 7:34 AM CDT) CULTURE <10,000 CFU/mL multiple organisms 06/27/2023 1:47 PM CDT [facility] Urine URINE SPECIMEN / Unknown Non-Blood / Unknown 06/26/2023 7:34 AM CDT 06/26/2023 7:34 AM CDT Marissa Williamson MD MICROBIOLOGY [facility] [address] [place] [address], [place] * (ABNORMAL) UA W/ SEDIMENT EXAM REFLEXED PER CRITERIA (06/26/2023 7:34 AM CDT) COLOR Yellow Yellow Color 06/26/2023 7:46 AM CDT [facility] CLARITY Clear Clear Clarity 06/26/2023 7:46 AM CDT [facility] SPECIFIC GRAVITY,URINE 1.020 1.010, 1.015, 1.020, 1.025 06/26/2023 7:46 AM CDT [facility] PH,URINE 8.5 6.0, 7.0, 8.0, 5.5, 6.5, 7.5, 8.5 06/26/2023 7:46 AM CDT [facility] UROBILINOGEN, QUALITATIVE Normal Normal EU/dl 06/26/2023 7:46 AM CDT [facility] PROTEIN, URINE 30(A) Negative mg/dL 06/26/2023 7:46 AM CDT [facility] GLUCOSE, URINE 500(A) Negative mg/dL 06/26/2023 7:46 AM CDT [facility] KETONES,URINE Negative Negative mg/dL 06/26/2023 7:46 AM CDT [facility] BILIRUBIN,URI NE Negative Negative 06/26/2023 7:46 AM CDT [facility] OCCULT BLOOD,URINE Negative Negative 06/26/2023 7:46 AM CDT [facility] NITRITE Negative Negative 06/26/2023 7:46 AM CDT [facility] LEUKOCYTE ESTERASE Negative Negative 06/26/2023 7:46 AM CDT [facility] Urine URINE SPECIMEN / Unknown Non-Blood / Unknown 06/26/2023 7:34 AM CDT 06/26/2023 7:34 AM CDT Marissa Williamson MD URINE [facility] [address] [place] [address], * XR DXA BONE DENSITY 2 SITES (10/25/2014 8:58 AM CDT) Anatomical Region Laterality Modality Spine, HIPS, HIPL, HIPR Other Narrative 10/26/2014 7:45 AM CDT Please see scanned document for results of this study. 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 Runner Expl anation POLST 12/10/2022 Healthcare Directive 05/29/2021 10:02 AM H EALTH CARE DIRECTIVE/[facility] 05/29/2021 Healthcare Directive 06/25/2017 12:08 PM H EALTHCARE DIRECTIVE, [facility], 06/13/17 Healthcare Directive 11/09/2015 12:00 AM C RITICAL LIEF [employer] 11/09/15 * Full Code (Latest Code Status on File) Date Activated Date Inactivated Comments 06/05/2021 9:50 AM 06/07/2021 2:44 PM Question Answer Comments Code Status Discussion: Reviewed Preferences * Full Code Date Activated Date Inactivated Comments 06/04/2021 6:19 AM 06/05/2021 9:50 AM Question Answer Comments Code Status Discussion: Unable to Assess Preferences, Provider to review later * Full Code Date Activated Date Inactivated Comments 02/26/2021 9:08 AM 02/26/2021 4:45 PM Question Answer Comments Code Status Discussion: Reviewed Preferences * Full Code Date Activated Date Inactivated Comments 07/25/2018 11:12 AM 07/27/2018 10:18 PM * DNR Date Activated Date Inactivated Comments 07/24/2018 6:55 PM 07/25/2018 11:12 AM Care Teams Aerodynamic Consultant Relationship Specialty Start Date End Date Marissa Williamson MD [address] [place] [address] PCP - General Family Practice 03/19/13
[2023-09-20] MEDS: MORPHINE 30 MG TABLET.ER PO (15:23)
[2023-09-20] MEDS: 0.9 % SODIUM CHLORIDE 500 ML 500 ML IV (15:24)
[2023-09-20 15:28] LABS: Lactate Sepsis w/Reflex* 1.9 mmol/L (0.5-1.9)
[2023-09-20 15:29] LABS: Basophils Absolute Auto 0.05 K/uL (0.00-0.30); Basophils Percent Auto 0.7 % (0.0-3.0); Eosinophils Absolute Auto 0.11 K/uL (0.00-0.50); Eosinophils Percent Auto 1.5 % (0.0-7.0); Hemoglobin* 9.4 gm/dL (12.0-16.0); Immature Granulocytes Abs Auto 0.07 K/uL (0.00-0.30); Lymphocytes Percent Auto 12.1 % (20-44); Mean Corpuscular HGB Conc 31 gm/dL (32-36); Mean Corpuscular Hemoglobin 27 pg (26-34); Mean Corpuscular Volume 86 fL (80-100); Monocytes Percent Auto 6.1 % (0.0-11.0); Neutrophils Percent Auto 78.6 % (42.0-72.0); Platelet Count* 162 K/uL (140-440); RDW Coefficient of Variation % 14.2 % (11.5-15.5); Red Blood Count 3.51 m/uL (4.00-5.20); White Blood Count* 7.35 K/uL (4.50-11.00)
[2023-09-20 15:31] VITALS: BP 150/68; PULSE 61; RESP 14; O2SAT 96
[2023-09-20 15:39] LABS: Slide Review Reflex No
[2023-09-20 15:49] LABS: Albumin* 3.8 g/dL (3.3-5.0); Chloride* 107 mmol/L (96-114)
[2023-09-20 15:50] LABS: Potassium* 4.1 mmol/L (3.6-5.1); Sodium* 138 mmol/L (135-149)
[2023-09-20 15:52] LABS: Alkaline Phosphatase* 119 U/L (40-150); Anion Gap 6 mEq/L (7-15); Aspartate Amino Transferase* 35 U/L (12-35); Bilirubin Direct* 0.4 mg/dL (0.0-0.5); Bilirubin Total* 0.4 mg/dL (0.1-1.5); Blood Urea Nitrogen* 29 mg/dL (7-30); Carbon Dioxide* 25 mmol/L (20-32); Creatinine* 1.4 mg/dL (0.5-1.5); Est. Creatinine Clearance* 24.74; Estimated Glomerular Filt Rate 37 ml/min; Total Protein* 6.8 g/dL (6.0-8.3)
[2023-09-20 15:53] LABS: Alanine Aminotransferase* 18 U/L (4-35); Calcium* 8.6 mg/dL (8.4-10.6); Glucose* 166 mg/dL (60-115)
[2023-09-20 15:55] LABS: C Reactive Protein* < 0.5 mg/dL (0.5-1.0)
[2023-09-20 16:01] VITALS: BP 152/70; PULSE 62; RESP 12; O2SAT 96
[2023-09-20 16:28] LABS: PCR FLU A Negative PCR FLU A (Negative); PCR FLU B Negative PCR FLU B (Negative); PCR RSV Negative PCR RSV (Negative); SARS PCR* Negative SARS-CoV-2 (Negative)
[2023-09-20 16:32] VITALS: BP 144/66; PULSE 65; RESP 12; O2SAT 95
[2023-09-20 17:02] VITALS: BP 154/70; PULSE 68; RESP 16; O2SAT 94
[2023-09-20 17:46] LABS: Appearance Urine Slightly Cloudy (Clear); Bilirubin Urine Negative (Negative); Blood Urine Negative (Negative); Color Urine Yellow (Yellow); Glucose Urine Negative (Negative); Ketones Urine Negative (Negative); Leukocyte Esterase Urine Negative (Negative); Nitrite Urine Negative (Negative); Protein Urine 2+ (Negative); Urobilinogen Urine 0.2 (0.2-1.0); pH Urine 8.5 (5.0-8.5)
[2023-09-20 17:55] LABS: Squamous Epithelial Cell Urine Few (None-Few); WBC Urine 0-2 (0-5)
== END 2023-09-20 19:17 | disposition home or self-care (01) ==
PROVIDERS: Emergency Provider Emergency Medicine; PCP Family Medicine
DX: F11.93 Opioid use, unspecified with withdrawal (principal)
CPT/HCPCS: 36415; 80048; 80076; 81001; 83605; 84484; 85025; 86140; 87631; 93005; 96360; 99284; A9270; J7030

== ENCOUNTER 2023-09-20 18:58 | Outpatient (CLI) | payer BC, SELFPAY ==
--- OUTSIDE RECORDS SUMMARY | 2023-09-22 20:33 | XMS_ITS | Continuity of Care Document ---
Author Organization TONI Ferris Address [address] [place] [address] Phone Care Team Providers Care Automobile Locator Name Role Phone Leidy Hernandez PA-C Unavailable [...] Lumb/sac 1 Le 11 Offic/outpt E&m Estab [facility]-[place] 2 11 Trans Epid Lumbosac each addl 1 Inj Anes Epidur; Lumb/sac 1 Le 11 QA DONE Offic/outpt E&m Estab [facility] Offic/outpt E&m Estab [facility] [place] 0 Offic/outpt E&m Estab [facility] [place] 0 Offic/outpt E&m Estab [facility]-[place] 2 10 Offic/outpt E&m Estab [facility] [place] 0 Offic/outpt E&m Estab [facility] [place] 0 Offic/outpt E&m Estab [facility]-[place] 2 10 Offic/outpt E&m Estab [facility]-[place] 2 10 Destrct; Nerv Lumbar Ea Add Le 10 Destrct; Paravert Facet Jt Lum 10 Fluoroscopic Guidance For Needle Placeme nt - Spine Destrct; Nerv Lumbar Ea Add Le 10 Destrct; Nerv Lumbar Ea Add Le 10 Offic/outpt E&m Estab [facility] [place] 0 Inj Anes Epidur; Lumb/sac 1 Le 10 Fluoroscopic Guidance For Needle Placeme nt - Spine Inj Not Lytic-epidur; Lumb/sac 10 Epidurography Rad S&i Offic/outpt E&m Estab Mod-il 2 10 Offic/outpt E&m Estab Mod-il 2 10 Offic/outpt E&m Estab Low-mod 0 Offic/outpt E&m Estab Low-mod 0 Offic/outpt E&m Estab Low-mod 0 Offic/outpt E&m Estab Mod-il 2 10 Offic/outpt E&m Estab Mod-il 2 09 Offic/outpt E&m Estab Mod-il 2 09 Offic/outpt E&m Estab Low-mod 9 [...] Placeme nt - Spine Offic/outpt E&m Estab Mod-il 2 09 Offic/outpt E&m Estab [facility]-[place] 2 09 Current Med Dosages Verified & [...] ented In Final Report Offic/outpt E&m Estab Mod-il 2 09 Patient encounter was documented using a CCHIT cer Subsequent Visit For Low Back Pain Offic/outpt E&m Estab Low-mod 9 Offic/outpt E&m Estab Mod-hi 2 09 Offic/outpt E&m Estab Mod-il 2 09 Destruc Facet Nrv; Cerv/thor 1 [...] Placeme nt - Spine Offic/outpt E&m Estab Mod-il 2 09 Destrct; Paravert Facet Jt Lum [...] Placeme nt - Spine Offic/outpt E&m Estab [facility] 2 08 Destrct; Paravert Facet Jt Lum 08 Destrct; Nerv Lumbar Ea Add Le 08 Destrct; Nerv Lumbar Ea Add Le 08 Fluoroscopic Guidance For Needle Placeme nt - Spine Inj Anes Facet Jt; Lumb/sac-1l 08 Inj Anes Facet Jt; Lumb/sac-ea 08 Inj Anes Facet Jt; Lumb/sac-1l 08 Fluoroscopic Guidance For Needle Placeme nt - Spine Offic/outpt E&m Estab [facility]-[place] 2 08 Offic/outpt E&m Estab [facility]-[place] 2 08 Inj Not Lytic-epidur; Lumb/sac 08 Fluoroscopic Guidance For Needle Placeme nt - Spine Offic/outpt E&m Estab [facility]-[place] 2 08 Offic/outpt E&m Estab [facility]-[place] 2 08 Offic/outpt E&m Estab [facility] [place] 8 Inj Anes Facet Jt; Cerv/thor-1 08 Inj Anes Facet Jt; Cerv/thor-e 08 Fluoroscopic Guidance For Needle Placeme nt - Spine Offic/outpt E&m Estab [facility] 2 08 [facility] Offic[facility]outpt E&m Estab [facility] [place] 8 Offic/outpt E&m Estab [facility] [place] 8 [facility] Inj Not Lytic-epidur; Lumb/sac 07 Fluoroscopic Guidance For Needle Placeme nt - Spine Inj Not Lytic-epidur; Lumb/sac 07 Fluoroscopic Guidance For Needle Placeme nt - Spine Offic[facility] Offic/outpt E&m Estab [facility] 2 07 Offic/outpt E&m Estab [facility] 7 Offic/outpt E&m Estab [facility] 2 07 Offic/outpt E&m Estab [facility] 7 Offic/outpt E&m Estab [facility] 2 07 Offic[facility] Offic/outpt E&m Estab [facility] 2 07 Offic/outpt E&m Estab [facility] 2 06 Offic[facility] Offic/outpt E&m Estab Minor 06 Offic[facility] Offic/outpt E&m Estab [facility] [place] 6 Offic/outpt E&m Estab [facility] [place] 6 Offic/outpt E&m Estab [facility] [place] 6 [facility] Advance Directives Directive Yes / No Effective Date File Name No Information Encounters Encounter Description Practice Location Reason(s) For Visit Diagnoses Date Provider Providers Copied on Encounter Offic/outpt E&m Estab [facility], [address], [place], [place], [address], [place] tel:[phone] [facility] No Information 2 David Forbes. [address] [place], [address], [place]. tel:[phone] Referring Provider: Duane Gardiner MD, [address] [place], [address]. tel:[phone] Offic/outpt E&m Estab Low [facility], [address], [place], [place], [address], [place] tel:[phone] [facility] No Information 4201 2 David Forbes. [address], [facility] [place], [address], [place]. tel:[phone] Referring Provider: Duane Gardiner MD, [address] [place], [address]. tel:[phone] Offic/outpt E&m Estab Mod [facility], [address], [place], [place], [address], [place] tel:[phone] [facility] No Information Dec-2 0-201 1 David Frobes. [address], [place], [address], [place]. tel:[phone] KEVIN Ferris, [address], [place], [place], [address], [place] tel:[phone] [facility] No Information Dec-0 9-201 1 Cassim Hazmer. [address], [address], [place], [address], [place]. tel:[phone] Referring Provider: REFERRAL SELF, [place]. TONI Ferris, [address], [place], [place], [address], [place] tel:[phone] [facility] No Information Dec-0 2-201 1 Cassim Hazmer. [address], [address], [place], [address], [place]. tel:[phone] Referring Provider: REFERRAL SELF, [place]. KEVIN Ferris, [address], [place], [place], [address], [place] tel:[phone] [facility] No Information 1 Mikel Corey. [address], [address], [place], [address], [place]. tel:[phone] Referring Provider: REFERRAL SELF, HUNTER. Offic/outpt E&m Estab [facility], [facility], [address], [place], [place], [address], [place] tel:[phone] [facility] No Information 1 David Forbes. [address], [facility] [place], [address], [place]. tel:[phone] Referring Provider: REFERRAL SELF, HUNTER. Offic/outpt E&m Estab [facility], [facility], [address], [place], [place], [address], [place] tel:[phone] [facility] No Information 1 David Forbes. [address], [facility] [place], [address], [place]. tel:[phone] Referring Provider: REFERRAL SELF, HUNTER. Offic/outpt E&m Estab [facility], [facility], [address], [place], [place], [address], [place] tel:[phone] [facility] No Information 1 David Forbes. [address], [place], [address], [place]. tel:[phone] Referring Provider: REFERRAL SELF, HUNTER. Offic/outpt E&m Estab [facility], [facility], [address] [facility], [place], [place], [address], [place] tel:[phone] [facility] No Information 1 David Forbes. [address], [facility], [place], [address], [place]. tel:[phone] Referring Provider: REFERRAL [place]DS. KEVIN Ferris, [address], [place], [place], [address], [place] tel:[phone] [facility] No Information 1 David Forbes. [address], [facility], [place], [address], [place]. tel:[phone] Referring Provider: REFERRAL [place] SHIELDS. Offic/outpt E&m Estab Mod-hi 2 KEVIN Ferris, [address], [place], [place], [address], [place] tel:[phone] [facility] No Information 1 Leier Joanna. [address] [place], [address], [place]. tel:[phone] Referring Provider: REFERRAL [place]. [facility], [address], [place], [place], [address], [place] tel:[phone] [facility] No Information 1 Leier Joanna. [address] [place], [address], [place]. tel:[phone] Referring Provider: REFERRAL [place] SHIELDS. KEVIN Ferris, [address], [place], [place], [address], [place] tel:[phone] [facility] No Information 1 Mikel Starrmer. [address], [address], [place], [address], [place]. tel:[phone] Referring Provider: REFERRAL [place], [address], [place], [place], [address], [place] tel:[phone] [facility] No Information 1 Cassim Hazmer. [address], [address], [place], [address], [place]. tel:[phone] Referring Provider: REFERRAL SELF, [place]. KEVIN Ferris, [address], [place], [place], [address], [place] tel:[phone] [facility] No Information 1 Cassim Hazmer. [address], [address], [place], [address], [place]. tel:[phone] Referring Provider: REFERRAL [place]ELF, [place]. TONI Ferris, [address], [place], [place], [address], [place] tel:[phone] [facility] No Information 1 Cassim Hazmer. [address], [address], [place], [address], [place]. tel:[phone] Referring Provider: Minor Fierro MD, [address] [facility], [place], [address]. tel:[phone] Offic/outpt E&m Estab Mod-hi 2 [facility], [address], [place], [place], [address], [place] tel:[phone] [facility] No Information 1 Andres Marshall. [address] [facility], [place], [address], [place]. tel:[phone] Referring Provider: Minor Fierro MD, [address] [facility], [place], [address]. tel:[phone] [facility], [address], [place], [place], [address], [place] tel:[phone] [facility] No Information 1 Cassim Hazmer. [address], [address], [place], [address], [place]. tel:[phone] Referring Provider: Leora Griffiths, [address], [place], [address]. tel:[phone] [facility], [facility], [address], [place], [place], [address], [place] tel:[phone] [facility] No Information Feb-2 2-201 0 Averyer Joanna. [address] [place], [address], [place]. tel:[phone] Referring Provider: REFERRAL SELFHUNTER. Offic/outpt E&m Estab Low-mod [place], [facility], [address], [place], [place], [address], [place] tel:[phone] [facility] No Information Dec-0 3-201 0 Leier Joanna. [address] [place], [address], [place]. tel:[phone] Referring Provider: Joanna Campos, [address] [place], [address]. tel:[phone] Offic/outpt E&m Estab Low-mod [facility], [address], [place], [place], [address], [place] tel:[phone] [facility] No Information 0-201 0 Leier Joanna. [address] [place], [address], [place]. tel:[phone] Referring Provider: REFERRAL SELFHUNTER. Offic/outpt E&m Estab Mod-hi 2 [facility], [facility], [address], [place], [place], [address], [place] tel:[phone] [facility] No Information Dec-2 2-201 0 Andres Marshall. [address] [place], [address], [place]. tel:[phone] Referring Provider: REFERRAL [place]ELF, [place]. Offic/outpt E&m Estab Low-mod [facility], [facility], [address], [place], [place], [address], [place] tel:[phone] [facility] No Information 1-201 0 Leier Joanna. [address] [facility], [place], [place], [facility], [place]. tel:[phone] Referring Provider: REFERRAL SELF, [place]. Offic/outpt E&m Estab Low-mod [facility], [facility], [address], [place], [place], [address], [place] tel:[phone] [facility] No Information 0-201 0 Leier Joanna. [address] [facility], [place], [place], [facility], [place]. tel:[phone] Referring Provider: REFERRAL SELF, [place]. Offic/outpt E&m Estab Mod-hi 2 [facility], [facility], [address], [place], [place], [address], [place] tel:[phone] [facility] No Information 3-201 0 Leier Joanna. [address] [facility], [place], [address], [place]. tel:[phone] Referring Provider: REFERRAL [place]ELF, [place]. Offic/outpt E&m Estab Mod-hi 2 [facility], [facility], [address], [place], [place], [address], [place] tel:[phone] [facility] No Information 3 0-201 0 Leier Joanna. [address] [place], [address], [place]. tel:[phone] Referring Provider: REFERRAL SELF, [place] [facility], [facility], [address], [place], [place], [address], [place] tel:[phone] [facility] No Information 4-201 0 Cassim Hazmer. [address] , [address], [place], [address], [place]. tel:[phone] Referring Provider: REFERRAL SELF, [place]. Offic/outpt E&m Estab Low-mod [facility], [facility], [address], [place], [place], [address], [place] tel:[phone] [facility] No Information 7-201 0 Leier Joanna. [address] [place], [address], [place]. tel:[phone] Referring Provider: REFERRAL SELFHUNTER. [facility], [facility], [address], [place], [place], [address], [place] tel:[phone] [facility] No Information 0-201 0 Cassim Hazmer. [address] , [address], [place], [address], [place]. tel:[phone] Referring Provider: REFERRAL SELFHUNTER. [facility], [facility], [address], [place], [place], [address], [place] tel:[phone] [facility] No Information 6 0 Cassim Hazmer. [address] , [address], [place], [address], [place]. tel:[phone] Referring Provider: REFERRAL SELF, HUNTER. Offic/outpt E&m Estab Mod-hi 2 [facility], [facility], [address], [place], [place], [address], [place] tel:[phone] [facility] No Information 1- 0 Leier Joanna. [address] [facility], [place], [address], [place]. tel:[phone] Referring Provider: REFERRAL SELF, HUNTER. Offic/outpt E&m Estab Mod-hi 2 [facility], [facility], [address], [place], [place], [address], [place] tel:[phone] [facility] No Information 0 Leier Joanna. [address] [facility], [place], [address], [place]. tel:[phone] Referring Provider: REFERRAL SELF, HUNTER. Offic/outpt E&m Estab Low-mod [facility], [facility], [address], [place], [place], [address], [place] tel:[phone] [facility] No Information 0 Leier Joanna. [address] [place], [address], [place]. tel:[phone] Referring Provider: REFERRAL SELFHUNTER. Offic/outpt E&m Estab Low-mod [facility], [facility], [address], [place], [place], [address], [place] tel:[phone] [facility] No Information 0 Budnick Noreen. [address], [address], [place], [place], [address], [place]. tel:[phone] Referring Provider: REFERRAL SELFHUNTER. Offic/outpt E&m Estab Low-mod [facility], [facility], [address], [place], [place], [address], [place] tel:[phone] [facility] No Information 0 Leier Joanna. [address] [place], [address], [place]. tel:[phone] Referring Provider: REFERRAL SELFHUNTER. Offic/outpt E&m Estab Mod-hi 2 [facility], [facility], [address], [place], [place], [address], [place] tel:[phone] [facility] No Information 0 Leier Joanna. [address] [place], [address], [place]. tel:[phone] Referring Provider: REFERRAL [place]ELF, [place]. Offic/outpt E&m Estab Mod-hi 2 [facility], [facility], [address], [place], [place], [address], [place] tel:[phone] [facility] No Information Dec-0 9-200 9 Leier Joanna. [address] [facility], [place], [place], [facility], [place]. tel:[phone] Referring Provider: REFERRAL SELF, HUNTER. Offic/outpt E&m Estab Mod-hi 2 [facility], [facility], [address], [place], [place], [address], [place] tel:[phone] [facility] No Information 6-200 9 Leier Joanna. [address] [place], [place], [facility], [place]. tel:[phone] Referring Provider: REFERRAL SELF, HUNTER. Offic/outpt E&m Estab Low-mod [facility], [facility], [address], [place], [place], [address], [place] tel:[phone] [facility] No Information Oct-2 3-200 9 Leier Joanan. [address], [place], [facility], [place]. tel:[phone] Referring Provider: REFERRAL SELF, TONI Power, [address], [place], [place], [address], [place] tel:[phone] [facility] No Information Oct-0 7-200 9 No Information Referring Provider: REFERRAL SELF, KEVIN Power, [address], [place], [place], [address], [place] tel:[phone] [facility] No Information Sep-3 0-200 9 No Information Referring Provider: REFERRAL SELF, TONI [facility]C, [address], [place], [place], [address], [place] tel:[phone] [facility] No Information Nov-2 3-200 9 No Information Referring Provider: REFERRAL SELF, [place]. Offic/outpt E&m Estab Mod-hi 2 [facility], [address], [place], [place], [address], [place] tel:[phone] [facility] No Information Sep-0 4200 9 Leier Joanna. [address] [place], [address], [place]. tel:[phone] Referring Provider: REFERRAL SELF, [place]. Offic/outpt E&m Estab Mod-hi 2 [facility], [facility], [address], [place], [place], [address], [place] tel:[phone] [facility] No Information 0-200 9 Leier Joanna. [address] [place], [address], [place]. tel:[phone] Referring Provider: REFERRAL SELF, [place]. [facility], [facility], [address], [place], [place], [address], [place] tel:[phone] [facility] No Information 2 2-200 9 No Information Referring Provider: REFERRAL SELF, [place]. [place], [facility], [address], [place], [place], [address], [place] tel:[phone] [facility] No Information 0 8200 9 No Information Referring Provider: REFERRAL SELF, [place]. Offic/outpt E&m Estab Mod-hi 2 [facility], [facility], [address], [place], [place], [address], [place] tel:[phone] [facility] No Information 2 6200 9 Leier Joanna. [address] [place], [address], [place]. tel:[phone] Referring Provider: REFERRAL SELF, [place]. Offic/outpt E&m Estab Low-mod [facility], [address] [facility], [place], [place], [address], [place] tel:[phone] [facility] No Information 1200 9 Leier Joanna. [address] [place], [address], [place]. tel:[phone] Referring Provider: REFERRAL SELF, HUNTER. Offic/outpt E&m Estab Mod-hi [address] [facility], [address], [place], [place], [address], [place] tel:[phone] [facility] No Information 6200 9 Leier Joanna. [address] [place], [address], [place]. tel:[phone] Referring Provider: REFERRAL SELF, HUNTER. Offic/outpt [facility] Est[facility], [address] [facility] [address], [place], [address], [place] tel:[phone] [facility] No Information 3200 9 Leier Joanna. [address] [place], [address], [place]. tel:[phone] Referring Provider: Nagi Bailey, [address], [place], [address]. tel:[phone] [facility], [address] [facility] [address], [place], [address], [place] tel:[phone] [facility] No Information 2 5200 9 Denice Kennedy. [address], [place], [address], [place]. tel:[phone] Referring Provider: REFERRAL SELF, [place]. [facility], [address] [facility] [address], [place], [address], [place] tel:[phone] [facility] No Information Mar 9 Denice Kennedy. [address], [address], [place], [address], [place]. tel:[phone] Referring Provider: REFERRAL SELF, HUNTER. KEVIN Ferris, [address], [place], [place], [address], [place] tel:[phone] [facility] No Information 9 Denice Kennedy. [address], [address], [place], [address], [place]. tel:[phone] Referring Provider: REFERRAL SELF, HUNTER. Offic/outpt E&m Estab Mod-hi 2 KEVIN Ferris, [address], [place], [address], [place] tel:[phone] [facility] No Information 9 Andres Marshall. [address] [place], [address], [place]. tel:[phone] Referring Provider: Brent Dutta, [address], [place], [address]. tel:[phone] KEVIN Ferris, [address], [place], [address], [place] tel:[phone] [facility] No Information 9 Denice Kennedy. [address], [place], [address], [place]. tel:[phone] Referring Provider: REFERRAL SELF, HUNTER. KEVIN Ferris, [address], [place], [address], [place] tel:[phone] [facility] No Information 9 Denice Kennedy. [address], [address], [place], [address], [place]. tel:[phone] Referring Provider: REFERRAL SELF, HUNTER. KEVIN Ferris, [address], [place], [place], [address], [place] tel:[phone] [facility] No Information 9 Denice Kennedy. [address], [address], [place], [address], [place]. tel:[phone] Referring Provider: REFERRAL SELF, HUNTER. KEVIN Ferris, [address], [place], [place], [address], [place] tel:[phone] [facility] No Information 9 Denice Kennedy. [address], [address], [place], [address], [place]. tel:[phone] Referring Provider: REFERRAL SELF, HUNTER. KEVIN Ferris, [address], [place], [place], [address], [place] tel:[phone] [facility] No Information 9 Denice Kennedy. [address], [address], [place], [address], [place]. tel:[phone] Referring Provider: REFERRAL SELF, HUNTER. KEVIN Ferris, [address] [facility] [facility], [place], [place], [address], [place] tel:[phone] [facility] No Information 9 Denice Kennedy. [address], [address], [place], [address], [place]. tel:[phone] Referring Provider: REFERRAL SELF, HUNTER. Offic/outpt E&m Estab Mod-hi 2 [facility], [address], [place], [place], [address], [place] tel:[phone] [facility] No Information 8 Andres Marshall. [address] [facility], [place], [address], [place]. tel:[phone] Referring Provider: Brent Dutta, [address], [place], [address]. tel:[phone] [place], [facility], [address], [place], [place], [address], [place] tel:[phone] [facility] No Information 7-200 8 Denice Kennedy. [address], [address], [place], [address], [place]. tel:[phone] Referring Provider: Brent Dutta, [address], [place], [address]. tel:[phone] [place], [facility], [address] [facility], [place], [place], [address], [place] tel:[phone] [facility] No Information 0200 8 Denice Kennedy. [address] , [address], [place], [address], [place]. tel:[phone] Referring Provider: REFERRAL SELF, HUNTER. [place], [facility], [address] [facility], [place], [place], [address], [place] tel:[phone] [facility] No Information 0 3200 8 Denice Kennedy. [address] , [address], [place], [address], [place]. tel:[phone] Referring Provider: REFERRAL SELF, HUNTER. Offic/outpt E&m Estab Mod-hi 2 [place], [facility], [address] [facility] , [place], [place], [address], [place] tel:[phone] [facility] No Information 8 Andres Marshall. [address] [facility], [place], [address], [place]. tel:[phone] Referring Provider: REFERRAL SELF, [place]. Offic/outpt E&m Estab Mod-hi 2 [facility], [address] [facility], [place], [place], [address], [place] tel:[phone] [facility] No Information Oct-2 7-200 8 Serena Chandra. [address] [place], [address], [place]. Referring Provider: REFERRAL SELFHUNTER. TONI Ferris, [address] [facility] [facility], [place], [place], [address], [place] tel:[phone] [facility] No Information Sep-2 5-200 8 Denice Kennedy. [address] [facility] [address], [place], [address], [place]. tel:[phone] Referring Provider: REFERRAL SELF, HUNTER. Offic/outpt E&m Estab Mod-hi 2 [place], [facility], [address] [facility] [address], [place], [place], [address], [place] tel:[phone] [facility] No Information Sep-1 9-200 8 Andres Marshall. [address] [place], [address], [place]. tel:[phone] Referring Provider: REFERRAL SELF, HUNTER. Offic/outpt E&m Estab Mod-hi 2 [place] [facility], [address] [facility], [place], [place], [address], [place] tel:[phone] [facility] No Information Sep-1 0-200 8 Andres Marshall. [address] [place], [address], [place]. tel:[phone] Referring Provider: REFERRAL SELF, HUNTER. Offic/outpt E&m Estab Low-mod [place], [facility], [address] [facility], [place], [place], [address], [place] tel:[phone] [facility] No Information Sep-0 8-200 8 Maria E Ying. [address], [place], [address], [place]. tel:[phone] Referring Provider: REFERRAL SELF, HUNTER. Offic/outpt E&m Estab Mod-hi 2 [place], [facility], [address] [facility] [address], [place], [place], [address], [place] tel:[phone] [facility] No Information 8 Leier Joanna. [address] [place], [address], [place]. tel:[phone] Referring Provider: [facility], HUNTER. Offic/outpt E&m Estab Low-mod [facility], [facility], [address] [facility] [address], [place], [place], [address], [place] tel:[phone] [facility] No Information 8 Leier Joanna. [address] [place], [address], [place]. tel:[phone] Referring Provider: Stepan Pryor, [address] [place], [address]. tel:[phone] Offic/outpt E&m Estab Low-mod [place], [facility], [address] [facility] [address], [place], [address], [place] tel:[phone] [facility] No Information 8 Leier Joanna. [address] [place], [address], [place]. tel:[phone] Referring Provider: Stepan Pryor, [address] [place], [address]. tel:[phone] Offic/outpt E&m Estab Low-mod [facility], [facility], [address] [facility] [address], [place], [address], [place] tel:[phone] [facility] No Information 8 Leier Joanna. [address] [place], [address], [place]. tel:[phone] Referring Provider: Stepan Pryor, [address] [place], [address]. tel:[phone] Offic/outpt E&m Estab Low-mod [facility], [address], [place], [place], [address], [place] tel:[phone] [facility] No Information 8 Korbitz DIE MAKER Gail. [address], [address], [place], [address], [place]. tel:[phone] Referring Provider: Brent Dutta, [address], [place], [address]. tel:[phone] Offic/outpt E&m Estab Low-mod [facility], [address], [place], [address], [place] tel:[phone] [facility] No Information 200 7 Korbitz DIE MAKER Gail. [address], [address], [place], [address], [place]. tel:[phone] Referring Provider: Stepan Pryor, [address] [facility], [place], [address]. tel:[phone] [facility], [address] [facility] , [place], [place], [address], [place] tel:[phone] [facility] No Information 7 Denice Kennedy. [address], [address], [place], [address], [place]. tel:[phone] Referring Provider: Brent Dutta, [address], [place], [address]. tel:[phone] [facility], [address] [facility] [address], [place], [address], [place] tel:[phone] [facility] No Information 200 7 Denice Kennedy. [address], [address], [place], [address], [place]. tel:[phone] Referring Provider: Brent Dutta, [address], [place], [address]. tel:[phone] Offic/outpt E&m Estab Low-mod [facility], [address] [facility] [address], [place], [place], [address], [place] tel:[phone] [facility] No Information Nov-0 2-200 7 Korbitz DIE MAKER Gail. [address] [facility], [address], [place], [address], [place]. tel:[phone] Referring Provider: Stepan Pryor, [address] [place], [address]. tel:[phone] Offic/outpt E&m Estab Mod-hi 2 [place], [facility], [address] [facility] [address], [place], [address], [place] tel:[phone] [facility] No Information Sep-2 1-200 7 Budnick Noreen. [address] [facility], [address], [place], [address], [place]. tel:[phone] Referring Provider: Stepan Pryor, [address] [place] [address], [address]. tel:[phone] Offic/outpt E&m Estab Low-mod [place], [facility], [address] [facility] [address], [place], [place], [address], [place] tel:[phone] [facility] No Information Sep-0 5-200 7 Korbitz DIE MAKER Gail. [address] [facility] [address], [place], [address], [place]. tel:[phone] Referring Provider: Brent Dutta, [address], [place], [address]. tel:[phone] Offic/outpt E&m Estab Mod-hi 2 [place], [facility], [address] [facility] [address], [place], [place], [address], [place] tel:[phone] [facility] No Information 6200 7 Korbitz DIE MAKER Gail. [address] [facility], [address], [place], [address], [place]. tel:[phone] Referring Provider: REFERRAL SELF, [place]. Offic/outpt E&m Estab Low-mod [place], [facility], [address] [facility] [address], [place], [place], [address], [place] tel:[phone] [facility] No Information 0200 7 Korbitz DIE MAKER Gail. [address] [facility], [facility] [address], [place], [address], [place]. tel:[phone] Referring Provider: REFERRAL SELF, HUNTER. Offic/outpt E&m Estab Mod-hi 2 [facility], [facility], [address] [facility] [address], [place], [place], [address], [place] tel:[phone] [facility] No Information 200 7 Korbitz DIE MAKER Gail. [address] [facility] [address], [place], [address], [place]. tel:[phone] Referring Provider: Stepan Pryor, [address] [place], [address]. tel:[phone] Offic/outpt E&m Estab Low-mod [facility], [facility], [address] [facility] [address], [place], [address], [place] tel:[phone] [facility] No Information 200 7 Korbitz DIE MAKER Gail. [address] [facility] [address], [place], [address], [place]. tel:[phone] Referring Provider: Stepan Pryor, [address] [place], [address]. tel:[phone] Offic/outpt E&m Estab Mod-hi 2 [place], [facility], [address] [facility] [address], [place], [address], [place] tel:[phone] [facility] No Information 6-200 7 Korbitz DIE MAKER Gail. [address] [facility], [address], [place], [address], [place]. tel:[phone] Referring Provider: Stepan Pryor, [address] [place], [address]. tel:[phone] Offic/outpt E&m Estab Mod-hi 2 [facility], [facility], [address], [address], [place] tel:[phone] [facility] No Information 7-200 6 Budnick Noreen. [address] , [address], [place], [place], [address], [place]. tel:[phone] Referring Provider: Stepan Pryor, [address] [facility], [place], [address]. tel:[phone] Offic/outpt E&m Estab Low-mod [facility], [facility], [address] [facility] [address], [place], [address], [place] tel:[phone] [facility] No Information Dec- 4-200 6 Budnick Noreen. [address] , [address], [place], [place], [address], [place]. tel:[phone] Offic/outpt E&m Estab Minor 10 [place], [facility], [address] [facility] [address], [place], [address], [place] tel:[phone] [facility] No Information Sep-0 5-200 6 Budnick Noreen. [address] , [address], [place], [place], [address], [place]. tel:[phone] Referring Provider: Brent Dutta, [address], [place], [address]. tel:[phone] Offic/outpt E&m Estab Low-mod [place], [facility], [address], [place], [place], [address], [place] tel:[phone] [facility] No Information 200 6 Pete Abdul. [address], [address], [place], [address], [place]. tel:[phone] Referring Provider: Brent Dutta, [address], [place], [address]. tel:[phone] Offic/outpt E&m Estab Low-mod [place], [facility], [address], [place], [place], [address], [place] tel:[phone] [facility] No Information 200 6 Budnick Noreen. [address], [address], [place], [place], [address], [place]. tel:[phone] Offic/outpt E&m Estab Low-mod [place], [facility], [address], [place], [place], [address], [place] tel:[phone] [facility] No Information 1-200 6 Budnick Noreen. [address], [address], [place], [place], [address], [place]. tel:[phone] Referring Provider: Stepan Pryor, [address] [facility], [place], [address]. tel:[phone] Offic/outpt E&m Estab Low-mod [place], [facility], [address], [place], [place], [address], [place] tel:[phone] [facility] No Information 5200 6 Budnick Noreen. [address], [address], [place], [place], [address], [place]. tel:[phone] Referring Provider: Leisa Moore MD, [address], [address]. tel:[phone] Offic/outpt E&m Estab Low-mod [facility], [address], [place], [place], [address], [place] tel:[phone] [facility] No Information 5 Pete Abdul. [address], [address], [place], [address], [place]. tel:[phone] Referring Provider: Stepan Pryor, [address] [place], [address]. tel:[phone] Offic/outpt E&m Estab Low-mod [facility], [address], [place], [place], [address], [place] tel:[phone] [facility] No Information 0 5 Pete Abdul. [address] , [address], [place], [address], [place]. tel:[phone] Referring Provider: Stepan Pryor, [address] [place], [address]. tel:[phone] Offic/outpt E&m Estab Low-mod [facility], [address], [place], [address], [place] tel:[phone] [facility] No Information 4200 5 Budchris Noreen. [address], [address], [place], [place], [address], [place]. tel:[phone] Referring Provider: Stepan Pryor, [address] [facility], [place], [address]. tel:[phone] Offic/outpt E&m Estab Low-mod [facility], [address] [facility] [address], [place], [place], [address], [place] tel:[phone] [facility] No Information 5 Debbie Sorto. [address] [facility] [address], [place], [place], [address], [place]. tel:[phone] Referring Provider: REFERRAL SELF, HUNTER. Family History Family Member Type Diagnosis Age At Onset No Information Payers Payer name Insurance type Covered republican ID Authordeepak butler(s) [facility] Administrators [facility] [id number] Blue Plus [id number] Social History Type Description Quantity Date Captured [...]
--- OUTSIDE RECORDS SUMMARY | 2023-09-22 20:33 | XMS_ITS | Clinical Summary ---
Author Organization [employer] [facility] Address [place], [place] [address] Care Team Providers Care Nip Wrapper Name Role Phone Marissa Williamson MD Primary [...] be used to read blood sugars per financial reporting advisor's directions. 1 Each 2 Active FreeStyle German 2 ReaderIndications: Type 2 diabetes mellitus with diabetic nephropathy, unspecified whether m[facility]p insulin use (HC) To be used to read blood sugars per financial reporting advisor's directions. 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 7 Each 3 2 Active BiPapIndications:C [...] (IMDUR) 120 mg Sustained-Release tabletIndications: CAD in [place] artery Take 2 Tablets (240 mg) by [...] be used to read blood sugars, follow financial reporting advisor directions. 9 Each 3 3 Active Dexcom G7 Warehouse Technician for continuous blood glucose monitor (CGM)Indications:T ype 2 diabetes mellitus with diabetic mononeuropathy, with long-term current use of insulin (HC) To be used to read blood sugars follow financial reporting advisor directions. 1 Each 3 Active Magnesium 200 [...] chewable 81 mg chewable tabletIndications: CAD in [place] artery CHEW AND SWALLOW 1 TABLET BY [...] XL) 50 mg sustained-release tabletIndications: CAD in [place] artery Take 1 Tablet (50 mg) by [...] artery disease, chronic low back pain to [facility] in [place] 1 Each 4 Active nitroglycerin (NITROSTAT) 0.4 mg sublingual tabletIndications: CAD in [place] artery PLACE 1 TABLET (0.4 MG) UNDER [...] (NITROSTAT) 0.4 mg sublingual tabletIndications: CAD in [place] artery Place 1 Tablet (0.4 mg) under [...] TWICE DAILY 60 Tablet 4 024 Discontinued doxycycline 100 mg tabletIndications: Bronchitis Take 1 Tablet (100 mg) by mouth two times daily before meals for 14 days. 28 Tablet 4 024 Active Problems Problem Noted Date Diagnosed Date Atherosclerosis of [place] co ronary artery of [place] heart with angina pectoris 04/01/2023 S/p Right [...] Type Department Care Team Description 09/17/[address] [address] Marissa Williamson MD Refill Request (Morphine Controlled Release) 09/13/2023 Refill [facility] [address] [place] [address] Marissa Williamson MD Refill Request (Nitroglycerin) 08/25/2023 Telephone [facility] [address] [place] [address] Marissa Williamson MD 08/21/2023 7:25 AM CDT Office Visit [facility] [address] [place] [address] Marissa Williamson MD Vascular Problems (f/u sores on legs) 08/21/[address] [address] Marissa Williamson MD Medication Management 08/21/2023 Travel 08/13/2023 Telephone [facility] [address] [place] [address] Marissa Williamson MD DME Supply (Left chair/) 08/12/2023 Telephone [facility] [address] [place] [address] Marissa Williamson MD Medication Management 08/08/2023 Telephone [facility] [address] [place] [address] Marissa Williamson MD Questions (recliner chair) 08/06/2023 Telephone [facility] [address] [place] [address] Marissa Williamson MD Medication Management 08/01/2023 Nurse Triage [address] [address] Gabrielle Sevilla NP Breathing Problem 07/31/[address] [address] Marissa Williamson MD Refill Request (Albuterol inhaler) 07/24/2023 Refill [facility] [address] [place] [address] Marissa Williamson MD Refill Request (Lantus Solostar U-100 Insulin) 07/23/2023 Nurse Triage [facility] [address] [place] [address] Marissa Williamson MD Toe Pain/problem 07/23/2023 Telephone [facility] [address] [place] [address] Marissa Williamson MD Concerns 07/22/2023 Telephone [facility] [address] [place] [address] Marissa Williamson MD Medication Management 07/21/2023 Telephone [facility] [address] [place] [address] Marissa Williamson MD Refill Request (bacitracin & doxycycline) 07/19/2023 Refill [facility] [address] [place] [address] Marissa Williamson MD Refill Request (Restasis) 07/17/[address] [address] Marissa Williamson MD Results 07/16/[address] [address] Marissa Williamson MD other (leg) 07/15/2023 8:50 AM CDT Office Visit [address] [address] Marissa Williamson MD Wound Check (Right outer leg, near the knee. X1 month); Fall (Fell trying to keep cat in her apartment. Aches all over) 07/15/2023 Travel 07/14/[address] [address] Marissa Williamson MD Refill Request (Morphine Controlled Release) 07/10/[address] [address] Marissa Williamson MD appointment 07/02/[address] [address] Marissa Williamson MD Referral 07/02/[address] [address] Marissa Williamson MD 06/30/[address] [address] Marissa Williamson MD Refill Request (Triamcinolone 0.1% Topical) 06/27/2023 Telephone [facility] [address] [place] [address] Marissa Williamson MD Questions 06/26/2023 7:00 AM CDT Office Visit [facility] [address] [facility] [address] Marissa Williamson MD Follow Up (Toes look much better. Would like the ingrown toe nail off. /Ankles both coming along. Did have bruise on right randall./Has had some low readings); Urinary Problem (Can not hold urine.) 06/26/2023 Travel 06/23/2023 Refill [facility] [address] [place] [address] Marissa Williamson MD Refill Request (Triamcinolone 0.1% Topical) from Last 3 Months Immunizations Name Administration Dates Next Due COVID-19 Vaccine Spikevax (M oderna 50mcg/0.5mL) 12YO+ [id number] Formula PF 01/23/2023 COVID-19 vaccine (Pfizer-Bio NTech 30mcg/0.3mL) 12YO+ BIVALENT PF, MDV 01/01/2022 COVID-19 vaccine (Pfizer-Bio NTech 30mcg/0.3mL) PF, MDV 01/05/2021,06/01/2020,05/11/2020 Hepatitis A (Adult) 07/25/2008,11/02/2007 Influenza A (H1N1), Inactivated 03/27/2009 Influenza A (H1N1), Inactiva gael (Age >=3 Years) 03/27/2009 Influenza, High-dose Inactivated 12/28/2015,12/16,11/18/2013 Influenza, IIV3 (Age 6-35 mos) 11/09/2010,2009 Influenza, IIV3 (Age >=3 years) 12/05/19 13,12/06/2011,11/09/2010,12/13,11/23/2008,02/15/2008,01/19/2007 ,12/18/2005,01/07/2005,01/05/2004,07/2002,01/21/2002 Influenza, Inactivated AIIV4 (Age 65+ Years) Preserv [...] Description 10/01/2023 1:45 PM CDT Office Visit [facility] [address] [place] [address] Bradford Guardado DPM [address] [place] [address] 10/02/2023 7:00 AM CDT Office Visit [facility] [address] [place] [address] Marissa Williamson MD [address] [place] [address] Health Maintenance Due Date Last Done Comments [...] 11/30/2020, 05/25/2010 Medical Devices Implanted Type Area Transportation Manager Device Identifier Shelf Expiration Date Model / Serial / Lot Screw Sm Joint 4.5x26mm Axsos Anthony Titnm - [id number] Implanted:Qty: 1 on 06/04/2021 by Roland Goel MD at [facility] Left: Arm [employer] [id number] / / Screw Sm Joint 6x35mm Axsos3 Canclls Full Thrd Titnm Implanted:Qty: 1 on 06/04/2021 at [facility] Left: Arm [id number] / / Description:SCREW SM JOINT 6 X35MM AXSOS3 CANCLLS FULL THRD TITNM Screw Sm Joint 2.7x20mm Variax 2 Bone Titnm - [id number] Implanted:Qty: 1 on 06/04/2021 at [facility] Left: Arm [employer] [id number] / / Screw Sm Joint 2.7x24mm Variax 2 Bone Titnm - [id number] Implanted:Qty: 2 on 06/04/2021 at [facility] Left: Arm [employer] [id number] / / Screw Sm Joint 4.5x28mm Axsos Anthony Titnm - [id number] Implanted:Qty: 2 on 06/04/2021 by Roland Goel MD at [facility] Left: Arm [employer] [id number] / / Screw Sm Joint 4.5x30mm Axsos Anthony Titnm - [id number] Implanted:Qty: 1 on 06/04/2021 by Roland Goel MD at [facility] Left: Arm [employer] [id number] / / Screw Sm Joint 4.5x32mm Axsos Anthony Titnm - [id number] Implanted:Qty: 1 on 06/04/2021 by Roland Goel MD at [facility] Left: Arm [employer] [id number] / / Screw Sm Joint 5x32mm Axsos Lock - [id number] Implanted:Qty: 1 on 06/04/2021 by Roland Goel MD at [facility] Left: Arm [employer] [id number] / / Screw Sm Joint 5x34mm Axsos Lock - [id number] Implanted:Qty: 1 on 06/04/2021 by Roland Goel MD at [facility] Left: Arm [employer] [id number] / / 12h Straight Narrow Plate Implanted:Qty: 1 on 06/04/2021 by Roland Goel MD at [facility] Left: Arm [id number] / / Description:12H STRAIGHT FERNANDO ROW PLATE Explanted Type Area Transportation Manager Device Identifier Shelf Expiration Date Model / Serial / Lot K-Wire [employer] 10pk - [id number] Explanted:Qty: 2 on 06/04/2021 at [facility] Left: Arm [employer] [id number] / / Screw Sm Joint 6x30mm Axsos3 Canclls Full Thrd Titnm Explanted:Qty: 1 on 06/04/2021 at [facility] Left: Arm [id number] / / Description:SCREW SM JOINT 6 X30MM AXSOS3 CANCLLS FULL THRD TITNM Screw Sm Joint 4.5x34mm Axsos Anthony Titnm - [id number] Explanted:Qty: 1 on 06/04/2021 at [facility] Left: Arm [employer] [id number] / / Screw Sm Joint 5x30mm Axsos Lock - [id number] Explanted:Qty: 1 on 06/04/2021 at [facility] Left: Arm [employer] [id number] / / Procedures Procedure Name Priority Date/Time [...] AM CDT) Case Report Pathology Report ?Case: [id number] ? Authorizing Provider: ??Marissa Williamson, ??Collected: ? 07/15/2023 0935 ? MD ? Ordering Location: ? [facility] ?? Received: ?07/15/2023 1004 ? Clinic ? Pathologist: ? Donnell Kohler MD ? Specimen: ?Right Leg ? 07/17/2023 3:07 PM CDT [facility] Final Diagnosis A) SKIN, RIGHT LEG, BIOPSY: 1. Ulcer with suppurative inflammation and granulation tissue 2. A PAS-F stain is negative for fungal micro-organisms 3. No evidence of malignancy 07/17/2023 3:07 PM CDT [facility] Comment A) Deeper sections were examined [...] recommended to determine if these features are sales representative publications of the entire targeted lesion. 07/17/2023 3:07 PM CDT [facility] Clinical Information Sore on leg 07/17/2023 3:07 PM CDT [facility] Gross Description A) Received in [...] cassette. EKW 07/15/2023 07/17/2023 3:07 PM CDT [facility] Microscopic Description The final diagnosis is based on microscopic examination of appropriate sections of all specimens. A) There is an ulcer beneath which is suppurative inflammation and granulation tissue. A distinct neoplastic process is not identified. The presence of red ink is confirmed on tissue sections. 07/17/2023 3:07 PM CDT [facility] Additional Information Interpreted at [facility] - [address], [place] [address] 07/17/2023 3:07 PM CDT [facility] Other (Right Leg) Non-Blood / Unknown 07/15/2023 9:35 AM CDT 07/15/2023 10:04 AM CDT Marissa Williamson MD PATHOLOGY/CYT [facility] [address] [place] [address], * (ABNORMAL) CBC WITH AUTO DIFFERENTIAL (06/26/2023 8:10 AM CDT) WHITE BLOOD COUNT 9.5 4.5 - 11.0 thou/cu mm 06/26/2023 8:21 AM CDT [facility] RED BLOOD COUNT 4.00 4.00 - 5.20 mil/cu mm 06/26/2023 8:21 AM CDT [facility] HEMOGLOBIN 10.9(L) 12.0 - 16.0 g/dL 06/26/2023 8:21 AM CDT [facility] HEMATOCRIT 34.4 33.0 - 51.0 % 06/26/2023 8:21 AM CDT [facility] MCV 86 80 - 100 fL 06/26/2023 8:21 AM CDT [facility] MCH 27.3 26.0 - 34.0 pg 06/26/2023 8:21 AM CDT [facility] MCHC 31.7(L) 32.0 - 36.0 g/dL 06/26/2023 8:21 AM CDT [facility] RDW 15.4 11.5 - 15.5 % 06/26/2023 8:21 AM CDT [facility] PLATELET COUNT 218 140 - 440 thou/cu mm 06/26/2023 8:21 AM CDT [facility] MPV 9.3 6.5 - 11.0 fL 06/26/2023 8:21 AM CDT [facility] % NEUT 64.6 % 06/26/2023 8:21 AM CDT [facility] % LYMPH 17.1 % 06/26/2023 8:21 AM CDT [facility] % MONO 8.0 % 06/26/2023 8:21 AM CDT [facility] % EOS 9.9 % 06/26/2023 8:21 AM CDT [facility] % BASO 0.4 % 06/26/2023 8:21 AM CDT [facility] ABSOLUTE NEUTROPHILS 6.1 1.7 - 7.0 thou/cu mm 06/26/2023 8:21 AM CDT [facility] ABSOLUTE LYMPHOCYTES 1.6 0.9 - 2.9 thou/cu mm 06/26/2023 8:21 AM CDT [facility] ABSOLUTE MONOCYTES 0.8 <0.9 thou/cu mm 06/26/2023 8:21 AM CDT [facility] ABSOLUTE EOSINOPHILS 0.9(H) <0.5 thou/cu mm 06/26/2023 8:21 AM CDT [facility] ABSOLUTE BASOPHILS 0.0 <0.3 thou/cu mm 06/26/2023 8:21 AM CDT [facility] Blood BLOOD SPECIMEN / Unknown Butterfly / Unknown 06/26/2023 8:10 AM CDT 06/26/2023 8:13 AM CDT Marissa Williamson MD HEMATOLOGY [facility] [address] [place] [address], * (ABNORMAL) HEMOGLOBIN A1C MONITORING (POCT) (06/26/2023 8:10 AM CDT) HEMOGLOBIN A1C MONITORING (POCT) 7.2(H) <=6.4 % 06/26/2023 8:43 AM CDT [facility] Blood BLOOD SPECIMEN / Unknown Butterfly / Unknown 06/26/2023 8:10 AM CDT 06/26/2023 8:13 AM CDT Narrative [facility] - 06/26/2023 8:43 AM CDT ? (<=6.9%) [...] Anemias, Splenectomy ? Marissa Williamson MD CHEMISTRY [facility] [address] [place] [address], * (ABNORMAL) BASIC METABOLIC PANEL (06/26/2023 8:10 AM CDT) SODIUM 140 136 - 145 mmol/L 06/26/2023 2:14 PM CDT [facility] POTASSIUM 4.7 3.5 - 5.1 mmol/L 06/26/2023 2:14 PM CDT [facility] CHLORIDE 99 98 - 107 mmol/L 06/26/2023 2:14 PM CDT [facility] CO2,TOTAL 29 22 - 29 mmol/L 06/26/2023 2:14 PM CDT [facility] ANION GAP 12 5 - 18 06/26/2023 2:14 PM CDT [facility] GLUCOSE 161(H) 70 - 99 mg/dL 06/26/2023 2:14 PM CDT [facility] CALCIUM 9.3 8.8 - 10.2 mg/dL 06/26/2023 2:14 PM CDT [facility] BUN 29(H) 8 - 23 mg/dL 06/26/2023 2:14 PM T [facility] CREATININE 1.67(H) 0.50 - 0.90 mg/dL 06/26/2023 2:14 PM T [facility] BUN/CREAT RATIO 17 10 - 20 2:14 PM T [facility] eGFR 30(L) >90 mL/min/1.7 3m2 06/26/2023 2:14 PM CDT [facility] Comment:As of 2021, eG FR [...] Marissa Williamson MD CHEMISTRY Performing Organization Address City/[facility]/ZIP Co de Phone Number [facility] [address] [place] [address], * URINALYSIS MICROSCOPIC (06/26/2023 7:34 AM CDT) RBC 0-2 0-2, None Seen /HPF 06/26/2023 7:46 AM CDT [facility] WBC 0-2 0-2, 3-5, None Seen /HPF 06/26/2023 7:46 AM CDT [facility] BACTERIA Few None Seen, Rare, Few Bacteria/H PF 06/26/2023 7:46 AM CDT [facility] EPITHELIAL CELLS Few None Seen, Few Epi/HPF 06/26/2023 7:46 AM CDT [facility] Urine URINE SPECIMEN / Unknown Non-Blood / Unknown 06/26/2023 7:34 AM CDT 06/26/2023 7:34 AM CDT Marissa Williamson MD URINE Performing Organization Address [facility] Co de Phone Number [facility] [address] [place] [address], * URINE CULTURE (06/26/2023 7:34 AM CDT) CULTURE <10,000 CFU/mL multiple organisms 06/27/2023 1:47 PM CDT [facility] Urine URINE SPECIMEN / Unknown Non-Blood / Unknown 06/26/2023 7:34 AM CDT 06/26/2023 7:34 AM CDT Marissa Williamson MD MICROBIOLOGY [facility] [address] [place] [id number], [place] * (ABNORMAL) UA W/ SEDIMENT EXAM REFLEXED PER CRITERIA (06/26/2023 7:34 AM CDT) COLOR Yellow Yellow Color 06/26/2023 7:46 AM CDT [facility] CLARITY Clear Clear Clarity 06/26/2023 7:46 AM CDT [facility] SPECIFIC GRAVITY,URINE 1.020 1.010, 1.015, 1.020, 1.025 06/26/2023 7:46 AM CDT [facility] PH,URINE 8.5 6.0, 7.0, 8.0, 5.5, 6.5, 7.5, 8.5 06/26/2023 7:46 AM CDT [facility] UROBILINOGEN, QUALITATIVE Normal Normal EU/dl 06/26/2023 7:46 AM CDT [facility] PROTEIN, URINE 30(A) Negative mg/dL 06/26/2023 7:46 AM CDT [facility] GLUCOSE, URINE 500(A) Negative mg/dL 06/26/2023 7:46 AM CDT [facility] KETONES,URINE Negative Negative mg/dL 06/26/2023 7:46 AM CDT [facility] BILIRUBIN,URI NE Negative Negative 06/26/2023 7:46 AM CDT [facility] OCCULT BLOOD,URINE Negative Negative 06/26/2023 7:46 AM CDT [facility] NITRITE Negative Negative 06/26/2023 7:46 AM CDT [facility] LEUKOCYTE ESTERASE Negative Negative 06/26/2023 7:46 AM CDT [facility] Urine URINE SPECIMEN / Unknown Non-Blood / Unknown 06/26/2023 7:34 AM CDT 06/26/2023 7:34 AM CDT Marissa Williamson MD URINE [facility] [address] [place] [address], [place] [phone] * XR DXA BONE DENSITY 2 SITES (10/25/2014 8:58 AM CDT) Anatomical Region Laterality Modality Spine, HIPS, HIPL, HIPR Other Narrative 10/26/2014 7:45 AM CDT Please see scanned document for results of this study. Marissa Williamson MD DEXA from Last 3 Months or Most Recently Relevant to Health Maintenance Advance Directives Documents on File Type Date Recorded Patient Merchandising Internship Expl anation POLST 12/10/2022 Healthcare Directive 05/29/2021 10:02 AM H EALTH CARE DIRECTIVE/NFLD [facility] 05/29/2021 Healthcare Directive 06/25/2017 12:08 PM H EALTHCARE DIRECTIVE, BAIRON BIRD, 06/13/17 Healthcare Directive 11/09/2015 12:00 AM C [...] 6:55 PM 07/25/2018 11:12 AM Care Teams Nip Wrapper Relationship Specialty Start Date End Date Marissa Williamson MD [address] [place] [address] PCP - General Family Practice 03/19/13
== END 2023-09-20 18:59 | disposition home or self-care (01) ==
LOC: AMB 09-22 20:32
PROVIDERS: PCP Family Medicine; Visit Provider Emergency Medicine
DX: R53.1 Weakness (principal); Z99.3 Dependence on wheelchair
CPT/HCPCS: A0425; A0428

== ENCOUNTER 2023-11-03 21:27 | Emergency (ER) | payer BC, SELFPAY ==
[2023-11-03 21:33] VITALS: BP 175/96; PULSE 78; RESP 18; TEMP 37.1; O2SAT 96; BMI 26.4
--- NOTE | 2023-11-03 21:39 | ED.SKABFB ---
HPI - Skin/Abscess/Foreign Bdy General Time Seen by Provider: 21:39 Date Seen: 11/03/23 Chief complaint: Skin/Abscess/Foreign Body Stated complaint: right hand poss cellulitis Time Seen by Provider: 11/03/23 21:39 Source: patient and RN notes reviewed Mode of arrival: ambulatory Limitations: no limitations History of Present Illness HPI narrative: Cathy Sahu is a very pleasant 82-year-old woman with multiple medical problems including history of coronary artery disease status post CABG, hypertension, hyperlipidemia, diabetes, chronic pain, COPD who comes to the emergency room for evaluation regarding right hand redness. Patient had the onset of redness on the back of her right hand on FridayOctober 30. It is painful. She cannot recall any specific trauma or injury. She does have pets but she notes no bites or injury. Cathy Sahu notes that she actually had a laceration at the base of her right thumb a few weeks ago. She felt that it healed up nicely. She did not require stitches. She notes that there is redness around this area as well. She denies any pain moving her fingers. She has not had fever or chills. Patient notes poorly healing wounds on her lower extremities. She notes that she does eat scratch these areas. 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 She does not recall a history of MRSA. She is a diabetic and does note poorly healing wounds. Related Data Home Medications ?Medication ?Instructions ?Recorded ?Confirmed amlodipine 5 mg tablet 5 mg PO DAILY 12/05/21 11/28/22 aspirin 81 mg chewable tablet 81 mg PO DAILY 12/05/21 11/28/22 atorvastatin 40 mg tablet 40 mg PO HS 12/05/21 11/28/22 calcium carbonate 600 mg-vitamin 1 tab PO DAILY 12/05/21 11/28/22 D3 10 mcg (400 unit) tablet cetirizine 10 mg tablet 10 mg PO DAILY 12/05/21 11/28/22 cholecalciferol (vitamin D3) 50 2,000 unit PO DAILY 12/05/21 11/28/22 mcg (2,000 unit) tablet furosemide 40 mg tablet 40 mg PO DAILY 12/05/21 11/28/22 isosorbide mononitrate 120 mg 240 mg PO DAILY 12/05/21 11/28/22 tablet,extended release 24 hr metformin 500 mg tablet 500 mg PO BIDWM 12/05/21 11/28/22 metoprolol succinate 50 mg 50 mg PO DAILY 12/05/21 11/28/22 tablet,extended release 24 hr morphine 60 mg tablet,extended 60 mg PO BID 12/05/21 11/28/22 release (MS Contin) nitroglycerin 0.4 mg sublingual 0.4 mg sublingual Q5-10M PRN 12/05/21 11/28/22 tablet omeprazole 20 mg capsule,delayed 20 mg PO DAILY 12/05/21 11/28/22 release sertraline 100 mg tablet 200 mg PO DAILY 12/05/21 11/28/22 guaifenesin 600 mg tablet, 600 mg PO BID 12/06/21 11/28/22 extended release 12 hr (Mucinex) acetaminophen 500 mg capsule 1,000 mg PO TID PRN 10/12/22 11/28/22 empagliflozin 10 mg tablet 20 mg PO DAILY 10/12/22 11/28/22 (Jardiance) magnesium gluconate 27 mg 27 mg PO DAILY 11/28/22 11/28/22 magnesium (500 mg) tablet trazodone 100 mg tablet 200 mg PO HS 11/28/22 11/28/22 Previous Rx's ?Medication ?Instructions ?Recorded cefdinir 300 mg capsule 300 mg PO BID 3 days #6 caps 11/29/22 sennosides 8.6 mg-docusate sodium 2 tab PO BID #120 tabs 11/29/22 50 mg tablet (Stool Softener-Laxative) doxycycline hyclate 100 mg tablet 100 mg PO BID #14 tabs 11/03/23 Allergies Allergy/AdvReac Type Severity Reaction Status Date / Time Sulfa (Sulfonamide Allergy Intermediate Hives Verified 11/27/22 19:33 Antibiotics) camphor AdvReac Intermediate Rash Verified 11/27/22 19:33 nitrofurantoin AdvReac Unknown Verified 11/27/22 19:33 [From Macrobid] Review of Systems Status of ROS: Reports: 10 or more systems reviewed and unremarkable except as noted in History and below Const: Denies: fever or chills PFSH PFS Medical History Dehydration ?E86.0 - Dehydration (ICD-10) Vomiting ?R11.10 - Vomiting, unspecified (ICD-10) Constipation ?K59.00 - Constipation, unspecified (ICD-10) Anemia ?D64.9 - Anemia, unspecified (ICD-10) 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 ?S42.332K - Displaced oblique fracture of shaft of humerus, left arm, subsequent encounter for fracture with nonunion (ICD-10) Chronic kidney disease ?N18.9 - Chronic kidney disease, unspecified (ICD-10) Stable angina pectoris ?I20.8 - Other forms of angina pectoris (ICD-10) Major depressive disorder, recurrent ?F33.9 - Major depressive disorder, recurrent, unspecified (ICD-10) Venous stasis ulcer ?I83.009 - Varicose veins of unspecified lower extremity with ulcer of unspecified site (ICD-10) ?L97.909 - Non-pressure chronic ulcer of unspecified part of unspecified lower leg with unspecified severity (ICD-10) Venous insufficiency (chronic) (peripheral) ?I87.2 - Venous insufficiency (chronic) (peripheral) (ICD-10) Paroxysmal atrial fibrillation ?I48.0 - Paroxysmal atrial fibrillation (ICD-10) Chronic, continuous use of opioids ?F11.90 - Opioid use, unspecified, uncomplicated (ICD-10) 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) ?J44.9 - Chronic obstructive pulmonary disease, unspecified (ICD-10) Chronic back pain ?M54.9 - Dorsalgia, unspecified (ICD-10) ?G89.29 - Other chronic pain (ICD-10) Pain medication agreement ?Z02.89 - Encounter for other administrative examinations (ICD-10) Primary central sleep apnea ?G47.31 - Primary central sleep apnea (ICD-10) Obstructive sleep apnea ?G47.33 - Obstructive sleep apnea (adult) (pediatric) (ICD-10) JOSE (stress urinary incontinence, female) ?N39.3 - Stress incontinence (female) (male) (ICD-10) Diabetes mellitus type 2 in nonobese ?E11.9 - Type 2 diabetes mellitus without complications (ICD-10) Osteopenia ?M85.80 - Other specified disorders of bone density and structure, unspecified site (ICD-10) Primary hypothyroidism ?E03.9 - Hypothyroidism, unspecified (ICD-10) Vitamin D deficiency ?E55.9 - Vitamin D deficiency, unspecified (ICD-10) Atopic dermatitis and related condition ?L20.9 - Atopic dermatitis, unspecified (ICD-10) Allergic rhinitis ?J30.9 - Allergic rhinitis, unspecified (ICD-10) Hyperlipidemia ?E78.5 - Hyperlipidemia, unspecified (ICD-10) Essential hypertension ?I10 - Essential (primary) hypertension (ICD-10) Atherosclerotic cardiovascular disease ?I25.10 - Atherosclerotic heart disease of [place] coronary artery without angina pectoris (ICD-10) Surgical History Status post vein stripping ?Z98.890 - Other specified postprocedural states (ICD-10) Status post uvulopalatopharyngoplasty ?Z98.890 - Other specified postprocedural states (ICD-10) Status post tonsillectomy ?Z90.89 - Acquired absence of other organs (ICD-10) Status post nasal septoplasty ?Z98.890 - Other specified postprocedural states (ICD-10) Status post abdominal hysterectomy and left salpingo-oophorectomy ?Z90.710 - Acquired absence of both cervix and uterus (ICD-10) ?Z90.721 - Acquired absence of ovaries, unilateral (ICD-10) ?Z90.79 - Acquired absence of other genital organ(s) (ICD-10) Status post carpal tunnel release ?Z98.890 - Other specified postprocedural states (ICD-10) Status post bunionectomy ?Z98.890 - Other specified postprocedural states (ICD-10) Status post appendectomy ?Z90.49 - Acquired absence of other specified parts of digestive tract (ICD-10) Status post bilateral cataract extraction ?Z98.41 - Cataract extraction status, right eye (ICD-10) ?Z98.42 - Cataract extraction status, left eye (ICD-10) Status post coronary artery bypass grafts x 5 ?Z95.1 - Presence of aortocoronary bypass graft (ICD-10) Family History Sister Cancer Brother FH: prostate cancer Mother Diabetes Father Coronary artery disease Social History Narrative: Lives with her girlfriend and with pet dog and cat. Adopted grand son, Omid Kaplan, is her POA for health. Requests full resuscitation measures in event of cardiopulmonary demise (12/14/2022). What is your current living situation?: I presently have a place to live Problems where you live: no known problems Problems where you live details: na In the past 12 months, utilities in danger of being shut off: no In past 12 months, lack of transportation kept you from medical appts, meetings, work, or getting things needed for daily living: yes In the past 12 mos, have been you worried that your food would run out before you had money to buy more?: never true In the past 12 mos, the food you bought just didn't last and you didn't have money to buy more?: never true Smoking Status: Former smoker What tobacco products do you use: cigarettes Smoking packs per day: 3 Smoking cigarettes per day: 60.0 Years smoked: 10 Smoking pack-years: 30.00 Smoking quit date/years: >15 years ago Do you use any of these nicotine containing products: None Second hand tobacco smoke exposure: No How often do you have a drink containing alcohol: monthly or less Alcohol type: other Alcohol type details: Occ [employer] How many standard drinks containing alcohol do you have on a typical day: 1 or 2 How often do you have six or more drinks on one occasion: Never AUDIT-C Alcohol total score: 1 Non-prescribed substance use: denies use Caffeine: Yes How often does anyone, including family, friends and others, physically hurt you: never How often does anyone, including family, friends and others, insult or talk down to you: never How often does anyone, including family, friends and others, threaten you with harm: never How often does anyone, including family, friends and others, scream or curse at you: never service: No Exam Narrative: Exam Narrative: Cathy Sahu is delightful and alert and oriented. Nontoxic in appearance EOM is full. Heart with regular rate and rhythm. Lungs are clear. Examination of her right hand shows erythema on the medial 75% of the hand. There is some swelling extended into the fingers. There is mild erythema noted around the area of the healed laceration on the base of the thumb. She has full movement of thumb and fingers. There is no discomfort with movement of her fingers. This area is warm to the touch. Lower extremities show various scabs in different stages of healing. No significant erythema. Const: Vital Signs, click to edit/add: Vital Signs - 24 hr 11/03/23 21:33 11/03/23 21:44 Temperature 98.8 F 98.1 F Pulse Rate [Pulse Oximeter] 78 69 Respiratory Rate 18 69 H Blood Pressure [Ri ght Upper Arm] 175/96 H 175/96 H Pulse Oximetry 96 94 Oxygen Delivery Me thod Room Air Documenting provider has reviewed patient's vital signs: yes Course Course ED Course: He Vital Signs Vital signs: Initial Vital Signs Temperature 98.8 F 11/03/23 21:33 Temperature Source Temporal Artery Scan 11/03/23 21:33 Pulse Rate 78 11/03/23 21:33 Respiratory Rate 18 11/03/23 21:33 Blood Pressure 175/96 H 11/03/23 21:33 Blood Pressure Mean 122 H 11/03/23 21:33 Blood Pressure Position Sitting 11/03/23 21:33 Pulse Oximetry 96 11/03/23 21:33 Vital Signs Temperature 98.8 F 11/03/23 21:33 Pulse Rate 78 11/03/23 21:33 Respiratory Rate 18 11/03/23 21:33 Blood Pressure 175/96 H 11/03/23 21:33 Pulse Oximetry 96 11/03/23 21:33 Temperature 98.1 F 11/03/23 21:44 Pulse Rate 69 11/03/23 21:44 Respiratory Rate 69 H 11/03/23 21:44 Blood Pressure 175/96 H 11/03/23 21:44 Pulse Oximetry 94 11/03/23 21:44 Oxygen Delivery Method Room Air 11/03/23 21:44 MDM - Skin/Abscess/Foreign Bdy MDM Narrative Medical decision making narrative: 1. Cellulitis-patient denies animal bite. She does have a remote wound on the base of her thumb and there is erythema around this. Otherwise appears to have cellulitis. Although she has no history of MRSA I do think that I will use doxycycline 100 mg p.o. b.i.d. x7 days for treatment also cover for MRSA. She does not appear to have systemic infection with no history of fever chills or vomiting. Would like her to continue to monitor at this time. Her grandson is here. He if Cathy Sahu has fever, vomiting, chills, worsened swelling, increasing redness I would like her to return to the emergency room for evaluation. 2. Disposition-home at this time. Return as needed for worsening symptoms. Patient has a pharmacy in her assisted living. We were unable to find that in the computer system and thus I hand wrote a prescription. She is given the 1st dose of doxycycline here in the emergency room. Medical Records Attestation: I reviewed the patient's medical records. Discharge Plan Discharge Clinical Impression: Cellulitis Qualifiers: Site of cellulitis: extremity Site of cellulitis of extremity: upper extremity Laterality: right Qualified Code(s): L03.113 - Cellulitis of right upper limb Patient Disposition: Home, Self-Care Condition: Unchanged Additional Instructions: The remainder of the antibiotic was sent to your pharmacy. You will be taking a pill every 12 hours. Your hand may not be significantly improved tomorrow but it should not be worsening. Seek medical attention for fever, vomiting, worsening symptoms, it redness going up into the arm and as needed. Prescriptions: New doxycycline hyclate 100 mg tablet 100 mg PO BID Qty: 14 0RF No Action furosemide 40 mg tablet 40 mg PO DAILY atorvastatin 40 mg tablet 40 mg PO HS metformin 500 mg tablet 500 mg PO BIDWM cetirizine 10 mg tablet 10 mg PO DAILY metoprolol succinate 50 mg tablet extended release 24 hr 50 mg PO DAILY sertraline 100 mg tablet 200 mg PO DAILY amlodipine 5 mg tablet 5 mg PO DAILY isosorbide mononitrate 120 mg tablet extended release 24 hr 240 mg PO DAILY morphine [MS Contin] 60 mg tablet extended release 60 mg PO BID nitroglycerin 0.4 mg tablet, sublingual 0.4 mg sublingual Q5-10M PRN omeprazole 20 mg capsule,delayed release(DR/EC) 20 mg PO DAILY aspirin 81 mg tablet,chewable 81 mg PO DAILY calcium carbonate-vitamin D3 600 mg-10 mcg (400 unit) tablet 1 tab PO DAILY cholecalciferol (vitamin D3) 50 mcg (2,000 unit) tablet 2,000 unit PO DAILY guaifenesin [Mucinex] 600 mg tablet extended release 12hr 600 mg PO BID acetaminophen 500 mg capsule 1,000 mg PO TID PRN Jardiance 10 mg tablet 20 mg PO DAILY magnesium gluconate 27 mg magnesium (500 mg) tablet 27 mg PO DAILY trazodone 100 mg tablet 200 mg PO HS sennosides-docusate sodium [Stool Softener-Laxative] 8.6-50 mg Tablet 2 tab PO BID Qty: 120 0RF cefdinir 300 mg capsule 300 mg PO BID 3 Days Qty: 6 0RF Follow Up/Referrals: Marissa Williamson MD [Primary Care Provider] - [facility] Alone [facility] Inst[facility]
[2023-11-03 21:44] VITALS: BP 175/96; PULSE 69; RESP 69; TEMP 36.7; O2SAT 94
--- OUTSIDE RECORDS SUMMARY | 2023-11-03 22:04 | XMS_ITS | Clinical Summary ---
Author Organization [facility] Address [place], [place] [address] Care Team Providers Care Toy Packer Name Role Phone Marissa Williamson MD Primary [...] mellitus As directed. 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 Max acetaminophen dose: 4000mg in 24 hrs. 30 Tablet 06/07/19 Active continuous glucose monitor READER (FREESYLE GERMAN)Indications: Type 2 diabetes mellitus without complication, without long-term current use of insulin (HC) To be used to read blood sugars per electric sign assembler's directions. 1 Each 10/10/19 Active FreeStyle German 2 ReaderIndications: Type 2 diabetes mellitus with diabetic nephropathy, unspecified whether fdc insulin use (HC) To be used to read blood sugars per electric sign assembler's directions. 1 Each 01/02/20 Active FreeStyle German 2 SensorIndications: Type 2 diabetes mellitus with diabetic nephropathy, unspecified whether rodent exterminator insulin use (HC) To be used to read blood sugars per electric sign assembler's directions. 7 Each 3 01/30/20 Active BiPapIndications:C omplex sleep apnea syndrome BIPAP machine for home use at pressure: epap 11cmw PS 3-8cmw , full face mask x1/3month with full face cushion x2/mo 1 Each 04/01/19 Active oxygen-air delivery systems (HOME OXYGEN)Indications :Chronic obstructive pulmonary disease, unspecified COPD type (HC) Oxygen conserving for home use. Liters per minute: 2 per nasal cannula. Frequency of use: Nocturnal and with activity Length of need: 99 Months. 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 180 Tablet 04/04/19 Active Viviana Pen Needle 32 gauge x 5/32Indications:T ype 2 diabetes mellitus without complication, with long-term current use of insulin (HC) USE DIRECTED FOR INJECTIONS TWO TIMES A DAY 100 Each 05/31/19 Active metFORMIN (GLUCOPHAGE) 500 mg tabletIndications: Type 2 diabetes mellitus without complication, without long-term current use of insulin (HC) Take 1 Tablet (500 mg) by mouth two times daily with meals. 270 Tablet 3 07/17/19 Active Diaper,Brief, Adult,DisposableIn dications:Female stress incontinence For home use. 120 per box 1 Each 08/21/19 Active Incontinence Pad, Liner, Disp padsIndications:Fe male stress incontinence As directed. Use the pads 3 times a day as needed. 96 Each 08/21/19 Active omeprazole 20 mg tabletIndications: Nausea Take 1 Tablet (20 mg) by mouth once daily before a meal. 90 Tablet 10/04/19 Active amLODIPine (NORVASC) 5 mg tabletIndications: HTN (hypertension) Take 1 Tablet (5 mg) by mouth once daily. 90 Tablet 10/04/19 Active miscellaneous medical supply miscIndications:Ur ge incontinence of urine As directed. Bedside commode 1 Each 10/04/19 Active OneTouch Ultra Test stripIndications:T ype 2 diabetes mellitus without complication, with long-term current use of insulin (HC) USE TO TEST BLOOD SUGAR FOUR TIMES A DAY 100 Each 3 10/29/19 23 Active magnesium oxide (MAG-OX 400) 400 mg tabletIndications: Hypomagnesemia Take 1 Tablet (400 mg) by mouth two times daily. 60 Tablet 3 10/30/19 23 Active Dexcom G7 Sensor for continuous blood glucose monitor (CGM)Indications:T ype 2 diabetes mellitus with diabetic mononeuropathy, with long-term current use of insulin (HC) To be used to read blood sugars, follow electric sign assembler directions. 9 Each 3 11/01/19 23 Active Dexcom G7 Lineman Service Or Work Dispatcher for continuous blood glucose monitor (CGM)Indications:T ype 2 diabetes mellitus with diabetic mononeuropathy, with long-term current use of insulin (HC) To be used to read blood sugars follow electric sign assembler directions. 1 Each 11/01/19 23 Active Magnesium 200 mg tabIndications:Low magnesium level Take 1 Tablet (200 mg) by mouth once daily. 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 120 Tablet 11 01/10/20 23 Active insulin lispro, U-100, (HumaLOG KwikPen Insulin) 100 unit/mL inpn penIndications:Typ e 2 diabetes mellitus with diabetic mononeuropathy, with long-term current use of insulin (HC) Inject 4 units subcutaneous two times daily after meals. Breakfast and lunch only. No Humalog at supper 3 mL 01/10/20 23 Active pen needle, diabetic, safety (DropSafe Pen Needle) 31 gauge x 1/4 ndleIndications:Ty pe 2 diabetes mellitus without complication, with long-term current use of insulin (HC) USE DIRECTED TO INJECT INSULIN 200 Each 3 01/15/20 23 Active ferrous gluconate 324 mg (37 mg iron) tabletIndications: Anemia of unknown etiology Take 1 Tablet by mouth once daily with a meal. 90 Tablet 3 02/22/20 23 Active honey (MediHoney, honey,) 80 % topical gelIndications:Lisa lulitis and abscess of left leg For bilateral lower extremities to be changed daily and PRN if saturated or falling off. 44 mL 2 03/04/20 23 Active Non-Adherent Bandage (Telfa) 3 X 8 bndgIndications:Ce llulitis and abscess of left leg For bilateral lower extremities to be changed daily and PRN if saturated or falling off. 144 Each 2 03/04/20 23 Active Gauze Bandage 2 X 5 -yard bndgIndications:Ce llulitis and abscess of left leg For bilateral lower extremities to be changed daily and PRN if saturated or falling off. 96 Each 2 03/04/20 23 Active Adhesive Tape (Paper Tape) 1 X 10 -yard tapeIndications:Ce llulitis and abscess of left leg For bilateral lower extremities to be changed daily and PRN if saturated or falling off. 1 Each 2 03/04/20 23 Active Phenyleph-Pramoxin -Glycr-W.Pet (Hemorrhoidal Cream) 0.25-1 % creaIndications:He morrhoids, external Apply 1 g topically to affected area(s) 2 times daily if needed (hemorrhoids). 51 g 3 04/11/19 24 Active dextrose (glucose) 2 gram chewIndications:Hy poglycemia Chew 2 Tablets by mouth 4 times daily if needed (hypoglycemia). 60 Tablet 3 04/15/19 24 Active white petrolatum-mineral oil-lanolin (Eucerin) topical creamIndications:D ry skin Apply topically to affected area(s) two times daily. 90 g 3 05/15/19 24 Active miscellaneous medical supply miscIndications:Ve nous stasis ulcer, unspecified site, unspecified ulcer stage, unspecified whether varicose veins present (HC),Peripheral sensory neuropathy,COPD mixed type (HC) As directed. Medical lift chair, diagnosis 1 Each 05/15/19 24 Active codeine-guaiFENesi n (ROBITUSSIN AC) 10-100 mg/5 mL liquidIndications: Cough, unspecified type Take 5 mL by mouth every 6 hours if needed for Cough. Max dose 60 mL per 24 hrs. 118 mL 05/15/19 24 Active atorvastatin (LIPITOR) 40 mg tabletIndications: S/P CABG x 5 Take 1 Tablet (40 mg) by mouth at bedtime. 90 Tablet 3 05/15/19 24 Active cetirizine (ZYRTEC) 10 mg tabletIndications: Seasonal allergic rhinitis due to pollen Take 1 Tablet (10 mg) by mouth once daily. 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 90 Tablet 3 05/15/19 24 Active sertraline (ZOLOFT) 100 mg tabletIndications: Major depressive disorder, recurrent episode, moderate (HC) TAKE 2 TABLETS (200MG) BY MOUTH ONCE DAILY. 180 Tablet 3 05/15/19 24 Active traZODone (DESYREL) 100 mg tabletIndications: Insomnia, idiopathic Take 2 Tablets (200 mg) by mouth at bedtime. 180 Tablet 3 05/15/19 24 Active guaiFENesin (Mucus Relief ER) 600 mg Extended-Release tabletIndications: Allergic rhinitis, unspecified seasonality, unspecified trigger Take 1 Tablet (600 mg) by mouth two times daily. 180 Tablet 1 05/16/19 24 Active miscellaneous medical supply miscIndications:Ac cidental fall, initial encounter As directed. Gripper socks--two pair 4 Each 07/15/19 24 Active Restasis 0.05 % ophthalmic emulsionIndication s:Dry eyes PLACE 1 DROP INTO THE EYE(S) TWO TIMES DAILY. 60 Each 13 07/21/19 24 Active bacitracin ointmentIndication s:Sore on leg Apply topically to affected area(s) two times daily. 28 g 3 07/21/19 24 Active insulin glargine, U-100, (Lantus Solostar U-100 Insulin) 100 unit/mL (3 mL) penIndications:Typ e 2 diabetes mellitus without complication, with long-term current use of insulin (HC) Inject 8 units subcutaneous before bedtime. Product desired: LANTUS SOLOSTAR 60 mL 07/25/19 Active dextromethorphan-g uaiFENesin (ROBITUSSIN DM) (5-50 mg/5 mL) liquidIndications: Cough, unspecified type Take 10 mL by mouth every 4 hours if needed for Cough 1st choice. 08/07/19 Active durable medical equipment (DME)Indications:C OPD mixed type (HC),Venous stasis ulcer, unspecified site, unspecified ulcer stage, unspecified whether varicose veins present (HC),ASCVD (arteriosclerotic cardiovascular disease),Chronic bilateral back pain, unspecified back location Recliner chair--motorized 1 Each 08/08/19 Active miscellaneous medical supply miscIndications:Ch ronic midline low back pain without sciatica As directed. 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 IF REQUESTING 25 OR MORE DOSE DOSES IN 30 DAYS TELL PROVIDER 25 Tablet 4 09/15/19 24 Active morphine CONTROLLED RELEASE (MS CONTIN) 30 mg CR tabletIndications: Peripheral sensory neuropathy,Celluli tis and abscess of toe of right foot,Chronic midline low back pain without sciatica Take 1 Tablet (30 mg) by mouth every 12 hours. 60 Tablet 10/10/19 24 Active morphine CONTROLLED RELEASE (MS CONTIN) 30 mg CR tabletIndications: Chronic midline low back pain without sciatica Take 1 Tablet (30 mg) by mouth two times daily. 60 Tablet 11/07/19 24 Active morphine CONTROLLED RELEASE (MS CONTIN) 30 mg CR tabletIndications: Chronic midline low back pain without sciatica Take 1 Tablet (30 mg) by mouth two times daily. 60 Tablet 12/05/19 24 Active lidocaine 5 % topical patchIndications:P ain of lower extremity, unspecified laterality Apply on dry, clean, hairless skin. Apply 1 patch to painful area of skin for up to to 12 hours within 24 hour period. 15 Patch 11 10/10/19 24 Active polyethylene glycoL (ClearLax) 17 gram/scoop powderIndications: Chronic constipation MIX 1 CAPFUL (17GM) IN LIQUID AND GIVE BY MOUTH EVERY OTHER DAY 765 g 2 10/19/19 24 Active furosemide (LASIX) 20 mg tabletIndications: Lower extremity edema Take 1 Tablet (20 mg) by mouth once daily in the morning. 90 Tablet 3 10/21/19 24 Active loperamide (IMODIUM) 2 mg capsuleIndications :Acute diarrhea Take 1 Capsule (2 mg) by mouth 4 times daily if needed for Diarrhea. 48 Capsule 1 10/24/19 24 Active Ventolin HFA 90 mcg/actuation inhalerIndications :Chronic obstructive pulmonary disease, unspecified COPD type (HC) Inhale 1-2 Puffs by mouth every 4 hours if needed for Shortness Of Breath. 1 Each 5 10/24/19 24 Active furosemide (LASIX) 20 mg tabletIndications: Lower extremity edema Take 1 Tablet (20 mg) by mouth every morning. 90 Tablet 3 01/24/20 23 024 Discontinued(Re order (E-cancel not sent)) polyethylene glycoL (MIRALAX) 17 gram/scoop powderIndications: Chronic constipation Mix 1 scoop (17 g) in liquid then take by mouth every other day. 850 g 5 04/11/19 24 024 Discontinued Ventolin HFA 90 mcg/actuation inhalerIndications :Chronic obstructive pulmonary disease, unspecified COPD type (HC) Inhale 1-2 Puffs by mouth every 4 hours if needed for Shortness Of Breath. 08/07/19 24 024 Discontinued(Re order (E-cancel not sent)) morphine CONTROLLED RELEASE (MS CONTIN) 30 mg CR tabletIndications: Peripheral sensory neuropathy,Celluli tis and abscess of toe of right foot Take 1 Tablet (30 mg) by mouth every 12 hours. 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 04/01/2023 S/p Right [...] 11/12/2010 REAL/CSA AHI-52 04/22, 08/25 AHI-12,CSA 6 09/30/ 1 Overview: 05/10/2005 AHI- 52, treatment brought [...] Encounters Date Type Department Care Team Description 11/03/2023 Telephone [facility] [address] [place] [address] Marissa Williamson MD DME Supply 11/03/[address] [address] Marissa Williamson MD Questions (Cellulitis ) 10/24/[address] [address] Marissa Williamson MD Medication Management 10/20/[address] [address] Marissa Williamson MD Outside Order 10/16/[address] [address] Marissa Williamson MD Refill Request (Clearlax) 10/10/2023 8:00 AM CDT Telemedicine [address] [address] Marissa Williamson MD Follow Up; Derm Problem (Sore on her leg.); Telehealth (No Vitals Done) 10/10/[address] [address] Marissa Williamson MD fax (physical orders ); Refill Request 10/10/[address] [address] Marissa Williamson MD Questions (please fax over physical copies of morphine orders. ) 10/10/[address] [address] Marissa Williamson MD Appointment 10/09/2023 Travel 10/09/2023 Telephone [facility] [address] [place] [address] Marissa Williamson MD Questions (IN REGARDS TO APPOINTMENT TIMES/) 10/06/2023 Telephone [facility] [address] [place] [address] Marissa Williamson MD Questions (appointment ) 10/06/[address] [address] Marissa Williamson MD Follow Up 10/02/[address] [address] Marissa Williamson MD ACC Order Request (Cognitive eval) 10/01/2023 1:45 PM CDT Office Visit [address] [address] Bradford Guardado DPM Consult (Left foot, 2nd and 5th toes ulcers) 10/01/2023 Travel 09/23/2023 1:05 PM CDT [place] [facility] [address] [place] [address] Patsy Peacock PA Phone Visit (no vitals diarrhea for 3 days she stated its getting less of ) 09/23/2023 Nurse Triage [address] [address] Marissa Williamson MD Diarrhea 09/17/[address] [address] Marissa Williamson MD Refill Request (Morphine Controlled Release) 09/13/[address] [address] Marissa Williamson MD Refill Request (Nitroglycerin) 08/25/[address] [address] Marissa Williamson MD 08/21/2023 7:25 AM CDT Office Visit [facility] [address] [place] [address] Marissa Williamson MD Vascular Problems (f/u sores on legs) 08/21/2023 Telephone [facility] [address] [place] [address] Marissa Williamson MD Medication Management 08/21/2023 Travel 08/13/2023 Telephone [facility] [address] [place] [address] Marissa Williamson MD DME Supply (Left chair/) 08/12/2023 Telephone [facility] [address] [place] [address] Marissa Williamson MD Medication Management 08/08/2023 Telephone [facility] [address] [place] [address] Marissa Williamson MD Questions (recliner chair) 08/06/2023 Telephone [facility] [address] [place] [address] Marissa Williamson MD Medication Management from Last 3 Months Immunizations Name Administration Dates Next Due COVID-19 Vaccine Spikevax (M oderna 50mcg/0.5mL) 12YO+ [id number] Formula PF 01/23/2023 COVID-19 vaccine (blur [employer] NTech 30mcg/0.3mL) 12YO+ BIVALENT PF, MDV 01/01/2022 COVID-19 vaccine (blur [employer] NTech 30mcg/0.3mL) PF, MDV 01/05/2021,06/01/2020,05/11/2020 Hepatitis A [...] 03/17/1970 Smokeless Tobacco: Never Tobacco Cessation:Counseling Given: No Alcohol Use Standard Drinks/Week Comments Not Currently 0 (1 standard drink = 0.6 oz pur e alcohol) very seldom PHQ-2 Answer Date Recorded PHQ-2 TOTAL SCORE 0 09/23/2023 Social Connections Answer Date Recorded Frequency of [...] 01/09/2023 9:18 AM CDT Plan of Treatment Health Maintenance Due Date Last Done Comments COVID-19 vaccine series ( season) 2023 01/23/2023, 01/01/2022, 01/05/2021, Additional history exists Influenza for age 65+ 11/16/2023 12/10/2022 , 01/01/2022, 11/30/2020, Additional history exists BMI (ht and wt on same day) for age 18+ 01/10/2024 01/09/2023, 01/01/2022, 05/29/2021, Additional history exists Medicare Wellness for age 65+ 05/15/2024, 01/01/2022, 09/24/2018, Additional history exists Depression screening for age 12+ 09/22/2024 09/23/2023, 09/23/2023, 05/16/2023, Additional history exists Tetanus booster 11/30/2030 11/30/2020, 05/15, 08/04/2006 DEXA/DXA scan for age 65+ Completed 2014, 11/03/2007, 11/24/2001 Pneumococcal series for age 65+ Completed 10/27/2014, 12/14/2010, 02/18/2003 Zoster (shingles) series for age 50+ Completed 01/22/2018, 07/31/2017, 08/03/2007 Tdap Completed 11/30/2020, 05/25/2010 Medical Devices Implanted Type Area Keypunch Operator Device Identifier Shelf Expiration Date Model / Serial / Lot Screw Sm Joint 4.5x26mm Axsos Anthony Titnm - [id number] Implanted:Qty: 1 on 06/04/2021 by Roland Goel MD at [facility] Left: Arm [employer] [id number] / / Screw Sm Joint 6x35mm Axsos3 Canclls Full Thrd Titnm Implanted:Qty: 1 on 06/04/2021 at [facility] Left: Arm [id number] / / Description:SCREW SM JOINT 6 X35MM AXSOS3 CANCLLS FULL THRD TITNM Screw Sm Joint 2.7x20mm Variax 2 Bone Titnm - [id number] Implanted:Qty: 1 on 06/04/2021 at [facility] Left: Arm [employer] [id number] / / Screw Sm Joint 2.7x24mm Variax 2 Bone Titnm - [id number] Implanted:Qty: 2 on 06/04/2021 at [facility] Left: Arm [employer] [id number] / / Screw Sm Joint 4.5x28mm Axsos Anthony Titnm - [id number] Implanted:Qty: 2 on 06/04/2021 by Roland Goel MD at [facility] Left: Arm [employer] [id number] / / Screw Sm Joint 4.5x30mm Axsos Anthony Titnm - [id number] Implanted:Qty: 1 on 06/04/2021 by Roland Goel MD at [facility] Left: Arm [employer] [id number] / / Screw Sm Joint 4.5x32mm Axsos Anthony Titnm - [id number] Implanted:Qty: 1 on 06/04/2021 by Roland Goel MD at [facility] Left: Arm [employer] [id number] / / Screw Sm Joint 5x32mm Axsos Lock - [id number] Implanted:Qty: 1 on 06/04/2021 by Roland Goel MD at [facility] Left: Arm [employer] [id number] / / Screw Sm Joint 5x34mm Axsos Lock - [id number] Implanted:Qty: 1 on 06/04/2021 by Roland Goel MD at [facility] Left: Arm [employer] [id number] / / 12h Straight Narrow Plate Implanted:Qty: 1 on 06/04/2021 by Roland Goel MD at [facility] Left: Arm [id number] / / Description:12H STRAIGHT FERNANDO ROW PLATE Explanted Type Area Keypunch Operator Device Identifier Shelf Expiration Date Model / Serial / Lot K-Wire [employer] 10pk - [id number] Explanted:Qty: 2 on 06/04/2021 at [facility] Left: Arm [employer] [id number] / / Screw Sm Joint 6x30mm Axsos3 Canclls Full Thrd Titnm Explanted:Qty: 1 on 06/04/2021 at [facility] Left: Arm [id number] / / Description:SCREW SM JOINT 6 X30MM AXSOS3 CANCLLS FULL THRD TITNM Screw Sm Joint 4.5x34mm Axsos Anthony Titnm - [id number] Explanted:Qty: 1 on 06/04/2021 at [facility] Left: Arm [employer] [id number] / / Screw Sm Joint 5x30mm Axsos Lock - [id number] Explanted:Qty: 1 on 06/04/2021 at [facility] Left: Arm [employer] [id number] / / Procedures Procedure Name Priority Date/Time Associated Diagnosis Comments XR DXA BONE DENSITY 2 SITES AXIAL Routine 10/25/2014 8:58 AM CDT VITAMIN D DEFICIENCY from Last 3 Months or Most Recently Relevant to Health Maintenance Results * XR DXA BONE DENSITY 2 SITES (10/25/2014 8:58 AM CDT) Anatomical Region Laterality Modality Spine, HIPS, HIPL, HIPR Other Narrative 10/26/2014 7:45 AM CDT Please see scanned document for results of this study. Marissa SAM from Last 3 Months or Most Recently Relevant to Health Maintenance Advance Directives Documents on File Type Date Recorded Patient Script Manager Expl anation POLST 12/10/2022 Healthcare Directive 05/29/2021 10:02 AM H EALTH CARE DIRECTIVE/[facility] 05/29/2021 Healthcare Directive 06/25/2017 12:08 PM H EALTHCARE DIRECTIVE, [facility], 06/13/17 Healthcare Directive 11/09/2015 12:00 AM C [...] 6:55 PM 07/25/2018 11:12 AM Care Teams Toy Packer Relationship Specialty Start Date End Date Marissa Williamson MD [address] [place] [address] PCP - General Family Practice 03/19/13
[2023-11-03] MEDS: DOXYCYCLINE HYCLATE 100 MG PO (22:06)
== END 2023-11-03 22:30 | disposition home or self-care (01) ==
LOC: ED 22:01
PROVIDERS: Emergency Provider Family Medicine; PCP Family Medicine
DX: L03.113 Cellulitis of right upper limb (principal)
CPT/HCPCS: 99283; A9270

== ENCOUNTER 2023-12-03 14:07 | Emergency (ER) | payer BC, SELFPAY ==
--- NOTE | 2023-12-03 14:17 | CRLHL7_ITS ---
For Patients: As a result of the Century Cures Act, medical imaging exams and procedure reports are released immediately into your electronic medical record. You may view this report before your referring provider. If you have questions, please contact your health care provider. INDICATION: Acute and chronic low back pain after fall. TECHNIQUE: CT of the lumbar spine without contrast. COMPARISON: MRI lumbar spine 02/10/2017. FINDINGS: Bone demineralization. Chronic compression fracture of the T12 vertebra with 50 percent loss of height anteriorly. No evidence of acute fracture or malalignment. No suspicious lytic or sclerotic osseous lesion. Phhh-ub-cjuncjtr multilevel degenerative changes with disc space narrowing, disc osteophyte complex formation and facet arthropathy. At L2-3, diffuse disc bulge and additional degenerative changes cause moderate to severe central canal stenosis and tixn-wz-ofuuduhr bilateral neural foraminal narrowing, yvon-xvbhgtg-cqtl-right. At L3-4, diffuse disc bulge and additional changes cause severe central canal stenosis. Jrre-rx-jbvxbkmr bilateral neural foraminal narrowing. At L4-5, diffuse disc bulge and additional degenerative changes cause moderate to severe central canal stenosis. Zmja-cs-mgpshkjd bilateral neural foraminal narrowing. At L5-S1, there are degenerative changes but no definite central canal stenosis. Mild bilateral neural foraminal narrowing, ydtd-uekiovx-sqmp-right. Extensive atherosclerotic disease. No abdominal aortic aneurysm. Paraspinal soft tissues elsewhere as imaged are unremarkable. IMPRESSION: 1. No acute lumbar spine fracture. 2. Chronic compression fracture of the T12 vertebra with 50 percent loss of height anteriorly. 3. 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 Dictated by Stan Barajas MD @ 12/03/2023 4:03:02 PM Please note that all CT scans at this facility use dose modulation, iterative reconstruction, and/or weight-based dosing when appropriate to reduce radiation dose to as low as reasonably achievable. Dictated by: Stan Barajas MD @ 12/03/2023 16:03:22 (Electronically Signed)
[2023-12-03 14:19] VITALS: BP 141/53; PULSE 64; RESP 18; TEMP 36.6; O2SAT 94; BMI 27.3
--- OUTSIDE RECORDS SUMMARY | 2023-12-03 14:57 | XMS_ITS | Clinical Summary ---
Author Organization [employer] [facility] Address [place], [place] [address] Care Team Providers Care Nursing Services Manager Name Role Phone Marissa Williamson MD Primary Care Provide r Allergies Active Allergy Reactions Criticality Noted Date Comments Camphor Rash High 06/13/2021 Camphor-Menthol Itching 12/06/2009 Sarna Lotion Makes itching worse Nitrofurantoin *Unknown 08/02/2005 Sulfa (Sulfonamide Antibiotics) Hives High 08/02/2005 Medications Medication Sig Dispensed Refills Start Date End Date Status flash glucose scanning reader (FREESTYLE GERMAN 14 DAY READER) miscIndications:rachel betes mellitus As directed. 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 Max acetaminophen dose: 4000mg in 24 hrs. 30 Tablet 2 Active continuous glucose monitor READER (FREESYLE GERMAN)Indications:T ype 2 diabetes mellitus without complication, without long-term current use of insulin (HC) To be used to read blood sugars per icicle machine operator's directions. 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 7 Each 3 2 Active BiPapIndications:Co mplex sleep apnea syndrome BIPAP machine for home use at pressure: epap 11cmw PS 3-8cmw , full face mask x1/3month with full face cushion x2/mo 1 Each 3 Active oxygen-air delivery systems (HOME OXYGEN)Indications: Chronic obstructive pulmonary disease, unspecified COPD type (HC) Oxygen conserving for home use. Liters per minute: 2 per nasal cannula. Frequency of use: Nocturnal and with activity Length of need: 99 Months. 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 180 Tablet 3 3 Active Viviana Pen Needle 32 gauge x 5/32Indications:Ty pe 2 diabetes mellitus without complication, with long-term current use of insulin (HC) USE DIRECTED FOR INJECTIONS TWO TIMES A DAY 100 Each 3 3 Active metFORMIN (GLUCOPHAGE) 500 mg tabletIndications:T ype 2 diabetes mellitus without complication, without long-term current use of insulin (HC) Take 1 Tablet (500 mg) by mouth two times daily with meals. 270 Tablet 3 3 Active Diaper,Brief, Adult,DisposableInd ications:Female stress incontinence For home use. 120 per box 1 Each 3 Active Incontinence Pad, Liner, Disp padsIndications:Fem jean carlos stress incontinence As directed. Use the pads 3 times a day as needed. 96 Each 3 Active omeprazole 20 mg tabletIndications:N ausea Take 1 Tablet (20 mg) by mouth once daily before a meal. 90 Tablet 3 3 Active amLODIPine (NORVASC) 5 mg tabletIndications:H TN (hypertension) Take 1 Tablet (5 mg) by mouth once daily. 90 Tablet 3 3 Active miscellaneous medical supply miscIndications:Urg e incontinence of urine As directed. Bedside commode 1 Each 3 Active OneTouch Ultra Test stripIndications:Ty pe 2 diabetes mellitus without complication, with long-term current use of insulin (HC) USE TO TEST BLOOD SUGAR FOUR TIMES A DAY 100 Each 3 3 Active magnesium oxide (MAG-OX 400) 400 mg tabletIndications:H ypomagnesemia Take 1 Tablet (400 mg) by mouth two times daily. 60 Tablet 3 3 Active Dexcom G7 Sensor for continuous blood glucose monitor (CGM)Indications:Ty pe 2 diabetes mellitus with diabetic mononeuropathy, with long-term current use of insulin (HC) To be used to read blood sugars, follow icicle machine operator directions. 9 Each 3 3 Active Dexcom G7 Housekeeper/Laundry Assistant for continuous blood glucose monitor (CGM)Indications:Ty pe 2 diabetes mellitus with diabetic mononeuropathy, with long-term current use of insulin (HC) To be used to read blood sugars follow icicle machine operator directions. 1 Each 3 Active Magnesium 200 mg tabIndications:Low magnesium level Take 1 Tablet (200 mg) by mouth once daily. 90 Tablet 3 3 Active cholecalciferol, Vitamin D3, 2,000 unit tabletIndications:V itamin D deficiency TAKE ONE TABLET BY MOUTH EVERY DAY 30 Tablet 3 3 Active durable medical equipment (DME)Indications:Ch ronic pain of both knees Foam Wedge for under legs at night Fax to [facility] Dhruv Escobar 1 Each 3 Active aspirin chewable 81 mg chewable tabletIndications:C AD in [place] artery CHEW AND SWALLOW 1 TABLET BY MOUTH ONCE A DAY WITH A MEAL 90 Tablet 2 3 Active ketoconazole 2% topical (NIZORAL) creamIndications:Ra sh Apply to itchy abdomen PRN 60 g 3 Active sennosides-docusate (SENOKOT S) (8.6-50 mg) tabletIndications:C hronic constipation Take 2 Tablets by mouth two times daily. 120 Tablet 11 3 Active insulin lispro, U-100, (HumaLOG KwikPen Insulin) 100 unit/mL inpn penIndications:Type 2 diabetes mellitus with diabetic mononeuropathy, with long-term current use of insulin (HC) Inject 4 units subcutaneous two times daily after meals. Breakfast and lunch only. No Humalog at supper 3 mL 3 Active pen needle, diabetic, safety (DropSafe Pen Needle) 31 gauge x 1/4 ndleIndications:Typ e 2 diabetes mellitus without complication, with long-term current use of insulin (HC) USE DIRECTED TO INJECT INSULIN 200 Each 3 3 Active ferrous gluconate 324 mg (37 mg iron) tabletIndications:A nemia of unknown etiology Take 1 Tablet by mouth once daily with a meal. 90 Tablet 3 3 Active honey (MediHoney, honey,) 80 % topical gelIndications:Cell ulitis and abscess of left leg For bilateral lower extremities to be changed daily and PRN if saturated or falling off. 44 mL 2 3 Active Non-Adherent Bandage (Telfa) 3 X 8 bndgIndications:Lisa lulitis and abscess of left leg For bilateral lower extremities to be changed daily and PRN if saturated or falling off. 144 Each 2 3 Active Gauze Bandage 2 X 5 -yard bndgIndications:Lisa lulitis and abscess of left leg For bilateral lower extremities to be changed daily and PRN if saturated or falling off. 96 Each 2 3 Active Adhesive Tape (Paper Tape) 1 X 10 -yard tapeIndications:Lisa lulitis and abscess of left leg For bilateral lower extremities to be changed daily and PRN if saturated or falling off. 1 Each 2 3 Active Phenyleph-Pramoxin- Glycr-W.Pet (Hemorrhoidal Cream) 0.25-1 % creaIndications:Hem orrhoids, external Apply 1 g topically to affected area(s) 2 times daily if needed (hemorrhoids). 51 g 3 4 Active dextrose (glucose) 2 gram chewIndications:Hyp oglycemia Chew 2 Tablets by mouth 4 times daily if needed (hypoglycemia). 60 Tablet 3 4 Active white petrolatum-mineral oil-lanolin (Eucerin) topical creamIndications:Dr castorena skin Apply topically to affected area(s) two times daily. 90 g 3 4 Active miscellaneous medical supply miscIndications:Alex ous stasis ulcer, unspecified site, unspecified ulcer stage, unspecified whether varicose veins present (HC),Peripheral sensory neuropathy,COPD mixed type (HC) As directed. Medical lift chair, diagnosis 1 Each 4 Active codeine-guaiFENesin (ROBITUSSIN AC) 10-100 mg/5 mL liquidIndications:C ough, unspecified type Take 5 mL by mouth every 6 hours if needed for Cough. Max dose 60 mL per 24 hrs. 118 mL 4 Active atorvastatin (LIPITOR) 40 mg tabletIndications:S /P CABG x 5 Take 1 Tablet (40 mg) by mouth at bedtime. 90 Tablet 3 4 Active cetirizine (ZYRTEC) 10 mg tabletIndications:S easonal allergic rhinitis due to pollen Take 1 Tablet (10 mg) by mouth once daily. 90 Tablet 3 4 Active metoprolol succinate (Toprol XL) 50 mg sustained-release tabletIndications:C AD in [place] artery Take 1 Tablet (50 mg) by mouth once daily. 90 Tablet 3 4 Active sertraline (ZOLOFT) 100 mg tabletIndications:M ajor depressive disorder, recurrent episode, moderate (HC) TAKE 2 TABLETS (200MG) BY MOUTH ONCE DAILY. 180 Tablet 3 4 Active traZODone (DESYREL) 100 mg tabletIndications:I nsomnia, idiopathic Take 2 Tablets (200 mg) by mouth at bedtime. 180 Tablet 3 4 Active guaiFENesin (Mucus Relief ER) 600 mg Extended-Release tabletIndications:A llergic rhinitis, unspecified seasonality, unspecified trigger Take 1 Tablet (600 mg) by mouth two times daily. 180 Tablet 1 4 Active miscellaneous medical supply miscIndications:Acc idental fall, initial encounter As directed. Gripper socks--two pair 4 Each 4 Active Restasis 0.05 % ophthalmic emulsionIndications :Dry eyes PLACE 1 DROP INTO THE EYE(S) TWO TIMES DAILY. 60 Each 13 4 Active bacitracin ointmentIndications :Sore on leg Apply topically to affected area(s) two times daily. 28 g 3 4 Active insulin glargine, U-100, (Lantus Solostar U-100 Insulin) 100 unit/mL (3 mL) penIndications:Type 2 diabetes mellitus without complication, with long-term current use of insulin (HC) Inject 8 units subcutaneous before bedtime. Product desired: LANTUS SOLOSTAR 60 mL 4 Active dextromethorphan-gu aiFENesin (ROBITUSSIN DM) (5-50 mg/5 mL) liquidIndications:C ough, unspecified type Take 10 mL by mouth every 4 hours if needed for Cough 1st choice. 4 Active durable medical equipment (DME)Indications:CO PD mixed type (HC),Venous stasis ulcer, unspecified site, unspecified ulcer stage, unspecified whether varicose veins present (HC),ASCVD (arteriosclerotic cardiovascular disease),Chronic bilateral back pain, unspecified back location Recliner chair--motorized 1 Each 4 Active miscellaneous medical supply miscIndications:Chr onic midline low back pain without sciatica As directed. Lift chair (recliner), patient is 150 lbs, diagnosis COPD, coronary artery disease, chronic low back pain to [facility] in [place] 1 Each 4 Active nitroglycerin (NITROSTAT) 0.4 mg sublingual tabletIndications:C AD in [place] artery PLACE 1 TABLET (0.4 MG) UNDER THE TONGUE EVERY 5 MINUTES IF NEEDED FOR CHEST PAIN. IF REQUESTING 25 OR MORE DOSE DOSES IN 30 DAYS TELL PROVIDER 25 Tablet 4 4 Active morphine CONTROLLED RELEASE (MS CONTIN) 30 mg CR tabletIndications:P eripheral sensory neuropathy,Cellulit is and abscess of toe of right foot,Chronic midline low back pain without sciatica Take 1 Tablet (30 mg) by mouth every 12 hours. 60 Tablet 4 Active morphine CONTROLLED RELEASE (MS CONTIN) 30 mg CR tabletIndications:C hronic midline low back pain without sciatica Take 1 Tablet (30 mg) by mouth two times daily. 60 Tablet 4 Active morphine CONTROLLED RELEASE (MS CONTIN) 30 mg CR tabletIndications:C hronic midline low back pain without sciatica Take 1 Tablet (30 mg) by mouth two times daily. 60 Tablet 4 Active lidocaine 5 % topical patchIndications:Pa in of lower extremity, unspecified laterality Apply on dry, clean, hairless skin. Apply 1 patch to painful area of skin for up to to 12 hours within 24 hour period. 15 Patch 11 4 Active furosemide (LASIX) 20 mg tabletIndications:L ower extremity edema Take 1 Tablet (20 mg) by mouth once daily in the morning. 90 Tablet 3 4 Active loperamide (IMODIUM) 2 mg capsuleIndications: Acute diarrhea Take 1 Capsule (2 mg) by mouth 4 times daily if needed for Diarrhea. 48 Capsule 1 4 Active Ventolin HFA 90 mcg/actuation inhalerIndications: Chronic obstructive pulmonary disease, unspecified COPD type (HC) Inhale 1-2 Puffs by mouth every 4 hours if needed for Shortness Of Breath. 1 Each 5 4 Active Walker - 4 wheelsIndications:C OPD mixed type (HC),Chronic midline low back pain without sciatica,Oxygen dependent,Frequent falls WITH A SEAT. For home use. Length of need: 99 months 1 Each 4 Active polyethylene glycoL (ClearLax) 17 gram/scoop powderIndications:C hronic constipation MIX 1 CAPFUL (17GM) IN LIQUID AND GIVE BY MOUTH EVERY OTHER DAY 765 g 2 4 Active Eucerin Original lotionIndications:R carolyn APPLY TOPICALLY 1 DOSE TO LEGS TWICE DAILY. 250 mL 4 Active polyethylene glycoL (ClearLax) 17 gram/scoop powderIndications:C hronic constipation MIX 1 CAPFUL (17GM) IN LIQUID AND GIVE BY MOUTH EVERY OTHER DAY 765 g 2 4 11/17/19 24 Discontinu ed(*Availa bility/For mulary change/Cos t of medication ) Active Problems Problem Noted Date Diagnosed Date Atherosclerosis of [place] co ronary artery of [place] heart with angina pectoris 04/01/2023 S/p Right [...] skin 01/28/2018 S/P CABG x 5 06/21/2017 Overview (06/21/2017): 06/20/17 s/p CABG X5 with MIR MIR to LAD Saphenous vein graft to PDA Saphenous vein graft sequential to D1, R1, OM ?? Chronic midline low back pain without sciatica 0 06/18/2017 COPD mixed type 06/03/2017 Overview (02/26/2021): - home O2 Prurigo nodularis 06/23/2015 HTN (hypertension) 01/18/2014 [facility] arthritis, thumb, degenerative 11/24/2013 Chronic back pain 05/28/2013 Pain medication agreement 08/16/2011 Overview (08/16/2011): Controlled substance agreement for MSContin 60mg, 3 tablets bid on file and signed 08/16/2011 . Designated pharmacy: [facility] [place] Prescribing physician: Duane Gardiner M.D Diagnosis: chronic severe back pain. Primary central sleep apnea 11/12/2010 REAL/CSA AHI-52 04/22, 08/25 AHI-12,CSA 6 1 Overview (09/30/2010): 05/10/2005 AHI- 52, treatment brought out central apnea Repeat 09/11/2010 AHI-12, CSA-6 Female stress incontinence 10/06/2009 DIABETES, type 2, A1c goal < 7 09/12/2008 Unspecified vitamin D deficiency 04/27/2007 ASCVD (arteriosclerotic cardiovascular disease) 06/05/2006 Overview (02/26/2021): - 06/20/17 s/p CABG X5: MIR to LAD, saphenous vein graft to PDA, Saphenous vein graft sequential to D1, R1, OM - 07/2018 angiogram: patent grafts - 08/30/2020 NM Stress test: There is a small area of mild ischemia in the apical inferolateral wall. EF 58%. Hypertension 06/05/2006 Hyperlipidemia 06/05/2006 Allergic rhinitis, cause unspecified 06/05/2006 Lumbago 06/05/2006 Overview (06/05/2006): INJURED WHEN MARTHA FELL ON HER Other [...] airway obstruction, not elsewhere classified 06/05/2006 07/24/2018 Overview (06/05/2006): WITH BRONCHOSPASM Sleep disturbance, unspecified 06/05/2006 08/31/2010 Unspecified essential hypertension 06/05/2006 04/27/2007 Other and unspecified hyperlipidemia 06/05/2006 04/27/2007 DIABETES 02/04/2002 09/12/2008 Anemia 12/04/2012 Acute postoperative pain 12/2018 Chest wall pain following surgery 07/24/2018 Hx of CABG 07/24/2018 Encounters Date Type Department Care Team Description 12/03/2023 Telephone [facility] [address] [place] [address] Marissa Williamson MD ACC Order Request (Right hip xray) 12/03/2023 Nurse Triage [facility] [address] [place] [address] Marissa Williamson MD Appointment Request (Fall / Hip Pain) 12/02/[address] [address] Marissa Williamson MD ORDER (VERBAL ORDER) 11/18/[address] [address] Marissa Williamson MD Refill Request (Eucerin Original) 11/14/[address] [address] Marissa Williamson MD Refill Request (Clearlax) 11/13/2023 Telephone [facility] [address] [place] [address] Marissa Williamson MD Refill Request (Morphine CONTROLLED RELEASE (MS CONTIN) 30 mg /) 11/13/[address] [address] Marissa Williamson MD Medication Management 11/13/[address] [address] Marissa Williamson MD Questions (white petrolatum-mineral oil-lanolin (Eucerin) topical cream /) 11/13/2023 Refill [facility] [address] [place] [address] Marissa Williamson MD Refill Request (Morphine CONTROLLED RELEASE (MS CONTIN) 30 mg) 11/10/[address] [address] Marissa Williamson MD Questions (COVID-19 results/Appointment ) 11/10/2023 Nurse Triage [facility] [address] [place] [address] Marissa Williamson MD Chills (COVID-19 exposure) 11/10/[address] [address] Marissa Williamson MD Outside Order (Nystatin powder) 11/03/[address] [address] Marissa Williamson MD DME Supply 11/03/[address] [address] Marissa Williamson MD Questions (Cellulitis ) 10/24/[address] [address] Marissa Williamson MD Medication Management 10/20/[address] [address] Marissa Williamson MD Outside Order 10/16/[address] [address] Marissa Williamson MD Refill Request (Clearlax) 10/10/2023 8:00 AM CDT Telemedicine [address] [address] Marissa Williamson MD Follow Up; Derm Problem (Sore on her leg.); Telehealth (No Vitals Done) 10/10/[address] [address] Marissa Williamson MD fax (physical orders ); Refill Request 10/10/2023 Telephone [facility] [address] [place] [address] Marissa Williamson MD Questions (please fax over physical copies of morphine orders. ) 10/10/2023 Telephone [facility] [address] [place] [address] Marissa Williamson MD Appointment 10/09/2023 Travel 10/09/2023 Telephone [facility] [address] [place] [address] Marissa Williamson MD Questions (IN REGARDS TO APPOINTMENT TIMES/) 10/06/[address] [address] Marissa Williamson MD Questions (appointment ) 10/06/[address] [address] Marissa Williamson MD Follow Up 10/02/2023 Telephone [facility] [address] [place] [address] Marissa Williamson MD ACC Order Request (Cognitive eval) 10/01/2023 1:45 PM CDT Office Visit [address] [address] Bradford Guardado, DPM Consult (Left foot, 2nd and 5th toes ulcers) 10/01/2023 Travel 09/23/2023 1:05 PM CDT Phone Office Visit [facility] [address] [place] [address] Patsy Peacock PA Phone Visit (no vitals diarrhea for 3 days she stated its getting less of ) 09/23/2023 Nurse Triage [facility] [address] [place] [address] Marissa Williamson MD Diarrhea 09/17/[address] [address] Marissa Williamson MD Refill Request (Morphine Controlled Release) 09/13/2023 Refill [facility] [address] [place] [address] Marissa Williamson MD Refill Request (Nitroglycerin) from Last 3 Months Immunizations Name Administration Dates Next Due COVID-19 VACCINE SPIKEVAX (M ODERNA 50MCG/0.5ML) 12YO+ PFS 01/23/2023 COVID-19 vaccine (Pfizer-Bio NTech 30mcg/0.3mL) 12YO+ BIVALENT PF, MDV 01/01/2022 COVID-19 vaccine (Pfizer-Bio NTech 30mcg/0.3mL) PF, MDV 01/05/2021,06/01/2020,05/11/2020 Hepatitis A (Adult) 07/25/2008,11/02/2007 Influenza A (H1N1), Inactivated 03/27/2009 Influenza A (H1N1), Inactiva gael (Age >=3 Years) 03/27/2009 Influenza, High-dose Inactivated 12/28/2015,12/16,11/18/2013 Influenza, IIV3 (Age 6-35 mos) 11/09/2010,2009 Influenza, IIV3 (Age >=3 years) 12/05/19 13,12/06/2011,11/09/2010,12/13,11/23/2008,02/15/2008,01/19/2007 ,12/18/2005,01/07/2005,01/05/2004,12/07/2002,01/21/2002 Influenza, Inactivated AIIV4 (Age 65+ Years) Preserv [...] 01/22/2018, 07/31/2017, 08/03/2007 Tdap Completed 11/30/2020, 05/25/2010 RSV vaccine for adults or Completed 12/12/2022 Medical Devices Implanted Type Area Marketing Communications Coordinator Device Identifier Shelf Expiration Date Model / Serial / Lot Screw Sm Joint 4.5x26mm Axsos Anthony Titnm - [id number] Implanted:Qty: 1 on 06/04/2021 by Roland Goel MD at [facility] Left: Arm [employer] [id number] / / Screw Sm Joint 6x35mm Axsos3 Canclls Full Thrd Titnm Implanted:Qty: 1 on 06/04/2021 at [facility] Left: Arm [id number] / / Description:SCREW SM JOINT 6 X35MM AXSOS3 CANCLLS FULL THRD TITNM Screw Sm Joint 2.7x20mm Variax 2 Bone Titnm - [id number] Implanted:Qty: 1 on 06/04/2021 at [facility] Left: Arm [employer] [id number] / / Screw Sm Joint 2.7x24mm Variax 2 Bone Titnm - [id number] Implanted:Qty: 2 on 06/04/2021 at [facility] Left: Arm [employer] [id number] / / Screw Sm Joint 4.5x28mm Axsos Anthony Titnm - [id number] Implanted:Qty: 2 on 06/04/2021 by Roland Goel MD at [facility] Left: Arm [employer] [id number] / / Screw Sm Joint 4.5x30mm Axsos Anthony Titnm - [id number] Implanted:Qty: 1 on 06/04/2021 by Roland Goel MD at [facility] Left: Arm [employer] [id number] / / Screw Sm Joint 4.5x32mm Axsos Anthony Titnm - [id number] Implanted:Qty: 1 on 06/04/2021 by Roland Goel MD at [facility] Left: Arm [employer] [id number] / / Screw Sm Joint 5x32mm Axsos Lock - [id number] Implanted:Qty: 1 on 06/04/2021 by Roland Goel MD at [facility] Left: Arm [employer] [id number] / / Screw Sm Joint 5x34mm Axsos Lock - [id number] Implanted:Qty: 1 on 06/04/2021 by Roland Goel MD at [facility] Left: Arm [employer] [id number] / / 12h Straight Narrow Plate Implanted:Qty: 1 on 06/04/2021 by Roland Goel MD at [facility] Left: Arm [id number] / / Description:12H STRAIGHT FERNANDO ROW PLATE Explanted Type Area Marketing Communications Coordinator Device Identifier Shelf Expiration Date Model / Serial / Lot K-Wire [employer] 10pk - [id number] Explanted:Qty: 2 on 06/04/2021 at [facility] Left: Arm [employer] [id number] / / Screw Sm Joint 6x30mm Axsos3 Canclls Full Thrd Titnm Explanted:Qty: 1 on 06/04/2021 at [facility] Left: Arm [id number] / / Description:SCREW SM JOINT 6 X30MM AXSOS3 CANCLLS FULL THRD TITNM Screw Sm Joint 4.5x34mm Axsos Anthony Titnm - [id number] Explanted:Qty: 1 on 06/04/2021 at [facility] Left: Arm [employer] [id number] / / Screw Sm Joint 5x30mm Axsos Lock - [id number] Explanted:Qty: 1 on 06/04/2021 at [facility] Left: Arm [employer] [id number] / / Procedures Procedure Name Priority Date/Time [...] Documents on File Type Date Recorded Patient Web Marketing Manager Expl anation POLST 12/10/2022 Healthcare Directive 05/29/2021 10:02 AM H EALTH CARE DIRECTIVE/[facility] 05/29/2021 Healthcare Directive 06/25/2017 12:08 PM H EALTHCARE DIRECTIVE, [facility], 06/13/17 Healthcare Directive 11/09/2015 12:00 AM [...] 6:55 PM 07/25/2018 11:12 AM Care Teams Nursing Services Manager Relationship Specialty Start Date End Date Marissa Williamson MD [address] [place] [address] PCP - General Family Practice 03/19/13
[2023-12-03] MEDS: MORPHINE 30 MG TABLET.ER PO (15:42)
--- NOTE | 2023-12-03 16:38 | ED_ITS ---
HPI - General Adult General Date Seen: 12/03/23 Chief complaint: Hip Injury/Pain Stated complaint: fall Time Seen by Provider: 12/03/23 14:09 Source: patient, EMS and RN notes reviewed Mode of arrival: ambulatory Limitations: no limitations History of Present Illness HPI narrative: Patient is an 83-year-old woman with chronic back pain, maintained currently on 30 mg b.i.d. of morphine sulfate. She had a fall few days ago, she is here noting what she describes as hip pain but which is really right lumbar pain. She has been walking with her walker, but arrives via EMS today saying that she is having ongoing pain. There is no reported head or neck injury. She has no radiating pain, numbness or weakness. She uses a walker and a wheelchair but says she has been able to get around with her walker the past few days. Related Data Home Medications ?Medication ?Instructions ?Recorded ?Confirmed amlodipine 5 mg tablet 5 mg PO DAILY 12/05/21 11/28/22 aspirin 81 mg chewable tablet 81 mg PO DAILY 12/05/21 11/28/22 atorvastatin 40 mg tablet 40 mg PO HS 12/05/21 11/28/22 calcium carbonate 600 mg-vitamin 1 tab PO DAILY 12/05/21 11/28/22 D3 10 mcg (400 unit) tablet cetirizine 10 mg tablet 10 mg PO DAILY 12/05/21 11/28/22 cholecalciferol (vitamin D3) 50 2,000 unit PO DAILY 12/05/21 11/28/22 mcg (2,000 unit) tablet furosemide 40 mg tablet 40 mg PO DAILY 12/05/21 11/28/22 isosorbide mononitrate 120 mg 240 mg PO DAILY 12/05/21 11/28/22 tablet,extended release 24 hr metformin 500 mg tablet 500 mg PO BIDWM 12/05/21 11/28/22 metoprolol succinate 50 mg 50 mg PO DAILY 12/05/21 11/28/22 tablet,extended release 24 hr morphine 60 mg tablet,extended 60 mg PO BID 12/05/21 11/28/22 release (MS Contin) nitroglycerin 0.4 mg sublingual 0.4 mg sublingual Q5-10M PRN 12/05/21 11/28/22 tablet omeprazole 20 mg capsule,delayed 20 mg PO DAILY 12/05/21 11/28/22 release sertraline 100 mg tablet 200 mg PO DAILY 12/05/21 11/28/22 guaifenesin 600 mg tablet, 600 mg PO BID 12/06/21 11/28/22 extended release 12 hr (Mucinex) acetaminophen 500 mg capsule 1,000 mg PO TID PRN 10/12/22 11/28/22 empagliflozin 10 mg tablet 20 mg PO DAILY 10/12/22 11/28/22 (Jardiance) magnesium gluconate 27 mg 27 mg PO DAILY 11/28/22 11/28/22 magnesium (500 mg) tablet trazodone 100 mg tablet 200 mg PO HS 11/28/22 11/28/22 Previous Rx's ?Medication ?Instructions ?Recorded cefdinir 300 mg capsule 300 mg PO BID 3 days #6 caps 11/29/22 sennosides 8.6 mg-docusate sodium 2 tab PO BID #120 tabs 11/29/22 50 mg tablet (Stool Softener-Laxative) doxycycline hyclate 100 mg tablet 100 mg PO BID #14 tabs 11/03/23 Allergies Allergy/AdvReac Type Severity Reaction Status Date / Time Sulfa (Sulfonamide Allergy Intermediate Hives Verified 11/27/22 19:33 Antibiotics) camphor AdvReac Intermediate Rash Verified 11/27/22 19:33 nitrofurantoin AdvReac Unknown Verified 11/27/22 19:33 [From Macrobid] Review of Systems Status of ROS: Reports: 10 or more systems reviewed and unremarkable except as noted in History and below [facility] Medical History Dehydration ?E86.0 - Dehydration (ICD-10) Vomiting ?R11.10 - Vomiting, unspecified (ICD-10) Constipation ?K59.00 - Constipation, unspecified (ICD-10) Anemia ?D64.9 - Anemia, unspecified (ICD-10) 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 ?S42.332K - Displaced oblique fracture of shaft of humerus, left arm, subsequent encounter for fracture with nonunion (ICD-10) Chronic kidney disease ?N18.9 - Chronic kidney disease, unspecified (ICD-10) Stable angina pectoris ?I20.8 - Other forms of angina pectoris (ICD-10) Major depressive disorder, recurrent ?F33.9 - Major depressive disorder, recurrent, unspecified (ICD-10) Venous stasis ulcer ?I83.009 - Varicose veins of unspecified lower extremity with ulcer of unspecified site (ICD-10) ?L97.909 - Non-pressure chronic ulcer of unspecified part of unspecified lower leg with unspecified severity (ICD-10) Venous insufficiency (chronic) (peripheral) ?I87.2 - Venous insufficiency (chronic) (peripheral) (ICD-10) Paroxysmal atrial fibrillation ?I48.0 - Paroxysmal atrial fibrillation (ICD-10) Chronic, continuous use of opioids ?F11.90 - Opioid use, unspecified, uncomplicated (ICD-10) 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) ?J44.9 - Chronic obstructive pulmonary disease, unspecified (ICD-10) Chronic back pain ?M54.9 - Dorsalgia, unspecified (ICD-10) ?G89.29 - Other chronic pain (ICD-10) Pain medication agreement ?Z02.89 - Encounter for other administrative examinations (ICD-10) Primary central sleep apnea ?G47.31 - Primary central sleep apnea (ICD-10) Obstructive sleep apnea ?G47.33 - Obstructive sleep apnea (adult) (pediatric) (ICD-10) JOSE (stress urinary incontinence, female) ?N39.3 - Stress incontinence (female) (male) (ICD-10) Diabetes mellitus type 2 in nonobese ?E11.9 - Type 2 diabetes mellitus without complications (ICD-10) Osteopenia ?M85.80 - Other specified disorders of bone density and structure, unspecified site (ICD-10) Primary hypothyroidism ?E03.9 - Hypothyroidism, unspecified (ICD-10) Vitamin D deficiency ?E55.9 - Vitamin D deficiency, unspecified (ICD-10) Atopic dermatitis and related condition ?L20.9 - Atopic dermatitis, unspecified (ICD-10) Allergic rhinitis ?J30.9 - Allergic rhinitis, unspecified (ICD-10) Hyperlipidemia ?E78.5 - Hyperlipidemia, unspecified (ICD-10) Essential hypertension ?I10 - Essential (primary) hypertension (ICD-10) Atherosclerotic cardiovascular disease ?I25.10 - Atherosclerotic heart disease of [place] coronary artery without angina pectoris (ICD-10) Surgical History Status post vein stripping ?Z98.890 - Other specified postprocedural states (ICD-10) Status post uvulopalatopharyngoplasty ?Z98.890 - Other specified postprocedural states (ICD-10) Status post tonsillectomy ?Z90.89 - Acquired absence of other organs (ICD-10) Status post nasal septoplasty ?Z98.890 - Other specified postprocedural states (ICD-10) Status post abdominal hysterectomy and left salpingo-oophorectomy ?Z90.710 - Acquired absence of both cervix and uterus (ICD-10) ?Z90.721 - Acquired absence of ovaries, unilateral (ICD-10) ?Z90.79 - Acquired absence of other genital organ(s) (ICD-10) Status post carpal tunnel release ?Z98.890 - Other specified postprocedural states (ICD-10) Status post bunionectomy ?Z98.890 - Other specified postprocedural states (ICD-10) Status post appendectomy ?Z90.49 - Acquired absence of other specified parts of digestive tract (ICD- 10) Status post bilateral cataract extraction ?Z98.41 - Cataract extraction status, right eye (ICD-10) ?Z98.42 - Cataract extraction status, left eye (ICD-10) Status post coronary artery bypass grafts x 5 ?Z95.1 - Presence of aortocoronary bypass graft (ICD-10) Family History Sister Cancer Brother FH: prostate cancer Mother Diabetes Father Coronary artery disease Social History Narrative: Lives with her girlfriend and with pet dog and cat. Adopted grand son, Omid Montgomery, is her POA for health. Requests full resuscitation measures in event of cardiopulmonary demise (12/14/2022). What is your current living situation?: I presently have a place to live Problems where you live: no known problems Problems where you live details: na In the past 12 months, utilities in danger of being shut off: no In past 12 months, lack of transportation kept you from medical appts, meetings, work, or getting things needed for daily living: yes In the past 12 mos, have been you worried that your food would run out before you had money to buy more?: never true In the past 12 mos, the food you bought just didn't last and you didn't have money to buy more?: never true Smoking Status: Former smoker What tobacco products do you use: cigarettes Smoking packs per day: 3 Smoking cigarettes per day: 60.0 Years smoked: 10 Smoking pack-years: 30.00 Smoking quit date/years: >15 years ago Do you use any of these nicotine containing products: None Second hand tobacco smoke exposure: No How often do you have a drink containing alcohol: monthly or less Alcohol type: other Alcohol type details: Occ [employer] How many standard drinks containing alcohol do you have on a typical day: 1 or 2 How often do you have six or more drinks on one occasion: Never AUDIT-C Alcohol total score: 1 Non-prescribed substance use: denies use Caffeine: Yes How often does anyone, including family, friends and others, physically hurt you : never How often does anyone, including family, friends and others, insult or talk down to you: never How often does anyone, including family, friends and others, threaten you with harm: never How often does anyone, including family, friends and others, scream or curse at you: never service: No Exam Narrative: Exam Narrative: Vital signs as noted above. In general, an alert, well-appearing elderly woman. She moves around easily in the bed. Head: Normocephalic, atraumatic. Eyes: Pupils are equal reactive. Extraocular movements are full. Conjunctivae are normal. ENT: Mucous membranes are moist. Throat is normal. Neck: Supple without lymphadenopathy. Heart: Regular rate and rhythm. No murmur or rub. Lungs: Clear bilaterally. No increased work of breathing, crackles or wheezes. Abdomen: Soft and nontender. No organomegaly. Back: She has some tenderness in the right lumbar region, kind of across the low back in general. Extremities: Well perfused. No edema. No calf tenderness. Pulses intact. She has full range of motion of the right hip, this does not seem to cause any discomfort. Neurologic: Patient is alert and oriented to person and place. Speech is fluent. Face is symmetric. Moves all extremities equally. Affect: Normal. Skin: Warm and dry. Well perfused. Const: Vital Signs, click to edit/add: Vital Signs - 24 hr 12/03/23 14:19 Temperature 97.9 F Pulse Rate [Pulse Oximeter] 64 Respiratory Rate 18 Blood Pressure [Ri ght Upper Arm] 141/53 H Pulse Oximetry 94 Oxygen Delivery Me thod Room Air Documenting provider has reviewed patient's vital signs: yes Course Course ED Course: Patient had an extra dose of 30 mg of morphine orally for pain. I ordered a CT scan of the lumbar spine to evaluate for possible compression fracture or other findings. Final radiology read as follows:Patient: REGIS MONTGOMERY Facility: [facility] RIS Site . Site : [id number] Study: CT-Spine Lumbar -12/03/2023 3:42:31 PM Ordering Physician: Liz Garner Final Report: INDICATION: Acute and chronic low back pain after fall. TECHNIQUE: CT of the lumbar spine without contrast. COMPARISON: MRI lumbar spine 02/10/2017. FINDINGS: Bone demineralization. Chronic compression fracture of the T12 vertebra with 50 percent loss of height anteriorly. No evidence of acute fracture or malalignment. No suspicious lytic or sclerotic osseous lesion. Sbnb-xn-iiwwmigv multilevel degenerative changes with disc space narrowing, disc osteophyte complex formation and facet arthropathy. At L2-3, diffuse disc bulge and additional degenerative changes cause moderate to severe central canal stenosis and rvku-wv-svtpgier bilateral neural foraminal narrowing, kayo-vozuvrx-uaxy-right. At L3-4, diffuse disc bulge and additional changes cause severe central canal stenosis. Vhoo-cv-offxqqzz bilateral neural foraminal narrowing. At L4-5, diffuse disc bulge and additional degenerative changes cause moderate to severe central canal stenosis. Epai-wo-ypjwcxwe bilateral neural foraminal narrowing. At L5-S1, there are degenerative changes but no definite central canal stenosis. Mild bilateral neural foraminal narrowing, xwyo-owbpkjv-umjm-right. Extensive atherosclerotic disease. No abdominal aortic aneurysm. Paraspinal soft tissues elsewhere as imaged are unremarkable. IMPRESSION: 1. No acute lumbar spine fracture. 2. Chronic compression fracture of the T12 vertebra with 50 percent loss of height anteriorly. 3. 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 Dictated by Stan Barajas MD @ 12/03/2023 4:03:02 PM Please note that all CT scans at this facility use dose modulation, iterative reconstruction, and/or weight-based dosing when appropriate to reduce radiation dose to as low as reasonably achievable. Dictated by: Stan Barajas MD @ 12/03/2023 16:03:22 Overall, this does not seem to be a problem with the hip. She has acute on chronic low back pain. I think we can add in an occasional dose of oxycodone, 2 and half to 5 mg for uncontrolled pain. See primary care if not improving over the next few days. Vital Signs Vital signs: Initial Vital Signs Temperature 97.9 F 12/03/23 14:19 Temperature Source Temporal Artery Scan 12/03/23 14:19 Pulse Rate 64 12/03/23 14:19 Pulse Rhythm Regular 12/03/23 14:19 Respiratory Rate 18 12/03/23 14:19 Blood Pressure 141/53 H 12/03/23 14:19 Blood Pressure Mean 82 12/03/23 14:19 Blood Pressure Position Supine 12/03/23 14:19 Pulse Oximetry 94 12/03/23 14:19 Oxygen Delivery Method Room Air 12/03/23 14:19 Vital Signs Temperature 97.9 F 12/03/23 14:19 Pulse Rate 64 12/03/23 14:19 Respiratory Rate 18 12/03/23 14:19 Blood Pressure 141/53 H 12/03/23 14:19 Pulse Oximetry 94 12/03/23 14:19 Oxygen Delivery Method Room Air 12/03/23 14:19 Temperature 97.9 F 12/03/23 14:19 Pulse Rate 64 12/03/23 14:19 Respiratory Rate 18 12/03/23 14:19 Blood Pressure 141/53 H 12/03/23 14:19 Pulse Oximetry 94 12/03/23 14:19 Oxygen Delivery Method Room Air 12/03/23 14:19 Medications Administered Medications: Discontinued Medications Generic Name Dose Route Start Last Admin Trade Name Freq PRN Reason Stop Dose Admin Morphine Sulfate 30 mg 12/03/23 15:05 12/03/23 15:42 Morphine 30 Mg Tablet.Er PO 12/03/23 15:06 30 mg ONCE ONE Administration Discharge Plan Discharge Clinical Impression: Acute exacerbation of chronic low back pain Patient Disposition: Xfer Other Condition: Stable Instructions: Chronic Pain (ED), Acute Low Back Pain (ED) Additional Instructions: Your CT scan today does not show any acute fractures. For now, I would recommend continuation of your usual morphine. I prescribed a few oxycodone, you can take 1/2-1 full tablet if needed for pain that is not well controlled. If not improving over the next few days, see her primary doctor. Return any time for severe uncontrolled pain, inability to walk, new symptoms such as fever, vomiting etcetera. Prescriptions: No Action furosemide 40 mg tablet 40 mg PO DAILY atorvastatin 40 mg tablet 40 mg PO HS metformin 500 mg tablet 500 mg PO BIDWM cetirizine 10 mg tablet 10 mg PO DAILY metoprolol succinate 50 mg tablet extended release 24 hr 50 mg PO DAILY sertraline 100 mg tablet 200 mg PO DAILY amlodipine 5 mg tablet 5 mg PO DAILY isosorbide mononitrate 120 mg tablet extended release 24 hr 240 mg PO DAILY morphine [MS Contin] 60 mg tablet extended release 60 mg PO BID nitroglycerin 0.4 mg tablet, sublingual 0.4 mg sublingual Q5-10M PRN omeprazole 20 mg capsule,delayed release(DR/EC) 20 mg PO DAILY aspirin 81 mg tablet,chewable 81 mg PO DAILY calcium carbonate-vitamin D3 600 mg-10 mcg (400 unit) tablet 1 tab PO DAILY cholecalciferol (vitamin D3) 50 mcg (2,000 unit) tablet 2,000 unit PO DAILY guaifenesin [Mucinex] 600 mg tablet extended release 12hr 600 mg PO BID acetaminophen 500 mg capsule 1,000 mg PO TID PRN Jardiance 10 mg tablet 20 mg PO DAILY magnesium gluconate 27 mg magnesium (500 mg) tablet 27 mg PO DAILY trazodone 100 mg tablet 200 mg PO HS sennosides-docusate sodium [Stool Softener-Laxative] 8.6-50 mg Tablet 2 tab PO BID Qty: 120 0RF cefdinir 300 mg capsule 300 mg PO BID 3 Days Qty: 6 0RF doxycycline hyclate 100 mg tablet 100 mg PO BID Qty: 14 0RF Stand Alone Forms: MyHealth Info Instructions
== END 2023-12-03 17:46 | disposition other institution (70) ==
PROVIDERS: Emergency Provider Emergency Medicine; PCP Family Medicine
DX: M54.50 Low back pain, unspecified (principal); G89.29 Other chronic pain
CPT/HCPCS: 72131; 99284; A9270

== ENCOUNTER 2024-04-10 04:09 | Emergency (ER) | payer BC, SELFPAY ==
[2024-04-10] VITALS (28 sets, daily range): BP systolic 120–153; BP diastolic 56–82; PULSE 62–74; RESP 16–20; TEMP 36.7; O2SAT 91–100; BMI 31.0
--- OUTSIDE RECORDS SUMMARY | 2024-04-10 04:11 | XMS_ITS | Clinical Summary ---
Author Organization [employer] [facility] Address [place], [place] [address] Care Team Providers Care Advertising Sales Consultant Name Role Phone Marissa Williamson MD Primary Care Provide r Allergies Active Allergy Reactions Criticality Noted Date Comments Camphor Rash High 06/13/2021 Camphor-Menthol Itching 12/06/2009 Sarna Lotion Makes itching worse Nitrofurantoin *Unknown 08/02/2005 Sulfa (Sulfonamide Antibiotics) Hives High 08/02/2005 Medications flash glucose scanning reader (FREESTYLE GERMAN 14 DAY READER) miscIndications:d iabetes mellitus As directed. 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 Max acetaminophen dose: 4000mg in 24 hrs. 30 Tablet 06/07/19 22 12:13 PM CDT 022 Active continuous glucose monitor READER (AchaogenSYLE GERMAN)Indications :Type 2 diabetes mellitus without complication, without long-term current use of insulin (HC) To be used to read blood sugars per bonding equipment operator's directions. 1 Each 022 Active FreeStyle German 2 SensorIndications :Type 2 diabetes mellitus with diabetic nephropathy, unspecified whether intermodal owner operator truck driver insulin use (HC) To be used to read blood sugars per bonding equipment operator's directions. 7 Each 3 022 Active BiPapIndications: Complex sleep apnea syndrome BIPAP machine for home use at pressure: epap 11cmw PS 3-8cmw , full face mask x1/3month with full face cushion x2/mo 1 Each 023 Active oxygen-air delivery systems (HOME OXYGEN)Indication s:Chronic obstructive pulmonary disease, unspecified COPD type (HC) Oxygen conserving for home use. Liters per minute: 2 per nasal cannula. Frequency of use: Nocturnal and with activity Length of need: 99 Months. 1 Each 023 Active isosorbide mononitrate SR (IMDUR) 120 mg Sustained-Release tabletIndications :CAD in [place] artery Take 2 Tablets (240 mg) by mouth once daily. 180 Tablet 023 Active Viviana Pen Needle 32 gauge x 5/32Indications: Type 2 diabetes mellitus without complication, with long-term current use of insulin (HC) USE DIRECTED FOR INJECTIONS TWO TIMES A DAY 100 Each 023 Active metFORMIN (GLUCOPHAGE) 500 mg tabletIndications :Type 2 diabetes mellitus without complication, without long-term current use of insulin (HC) Take 1 Tablet (500 mg) by mouth two times daily with meals. 270 Tablet 023 Active Diaper,Brief, Adult,DisposableI ndications:Female stress incontinence For home use. 120 per box 1 Each 023 Active Incontinence Pad, Liner, Disp padsIndications:F emale stress incontinence As directed. Use the pads 3 times a day as needed. 96 Each 023 Active omeprazole 20 mg tabletIndications :Nausea Take 1 Tablet (20 mg) by mouth once daily before a meal. 90 Tablet 023 Active miscellaneous medical supply miscIndications:U rge incontinence of urine As directed. Bedside commode 1 Each 023 Active OneTouch Ultra Test stripIndications: Type 2 diabetes mellitus without complication, with long-term current use of insulin (HC) USE TO TEST BLOOD SUGAR FOUR TIMES A DAY 100 Each 023 Active magnesium oxide (MAG-OX 400) 400 mg tabletIndications :Hypomagnesemia Take 1 Tablet (400 mg) by mouth two times daily. 60 Tablet 023 Active Dexcom G7 Sensor for continuous blood glucose monitor (CGM)Indications: Type 2 diabetes mellitus with diabetic mononeuropathy, with long-term current use of insulin (HC) To be used to read blood sugars, follow bonding equipment operator directions. 9 Each 3 023 Active Dexcom G7 Oracle Database Architect for continuous blood glucose monitor (CGM)Indications: Type 2 diabetes mellitus with diabetic mononeuropathy, with long-term current use of insulin (HC) To be used to read blood sugars follow bonding equipment operator directions. 1 Each 023 Active cholecalciferol, Vitamin D3, 2,000 unit tabletIndications :Vitamin D deficiency TAKE ONE TABLET BY MOUTH EVERY DAY 30 Tablet 3 023 Active durable medical equipment (DME)Indications: Chronic pain of both knees Foam Wedge for under legs at night Fax to [facility] Dhruv Luz 1 Each 023 Active aspirin chewable 81 mg chewable tabletIndications :CAD in [place] artery CHEW AND SWALLOW 1 TABLET BY MOUTH ONCE A DAY WITH A MEAL 90 Tablet 2 023 Active ketoconazole 2% topical (NIZORAL) creamIndications: Rash Apply to itchy abdomen PRN 60 g 023 Active sennosides-docusa te (SENOKOT S) (8.6-50 mg) tabletIndications :Chronic constipation Take 2 Tablets by mouth two times daily. 120 Tablet 11 023 Active ferrous gluconate 324 mg (37 mg iron) tabletIndications :Anemia of unknown etiology Take 1 Tablet by mouth once daily with a meal. 90 Tablet 3 023 Active honey (MediHoney, honey,) 80 % topical gelIndications:Ce llulitis and abscess of left leg For bilateral lower extremities to be changed daily and PRN if saturated or falling off. 44 mL 2 023 Active Non-Adherent Bandage (Telfa) 3 X 8 bndgIndications:C ellulitis and abscess of left leg For bilateral lower extremities to be changed daily and PRN if saturated or falling off. 144 Each 2 023 Active Gauze Bandage 2 X 5 -yard bndgIndications:C ellulitis and abscess of left leg For bilateral lower extremities to be changed daily and PRN if saturated or falling off. 96 Each 2 023 Active Adhesive Tape (Paper Tape) 1 X 10 -yard tapeIndications:C ellulitis and abscess of left leg For bilateral lower extremities to be changed daily and PRN if saturated or falling off. 1 Each 2 023 Active Phenyleph-Pramoxi n-Glycr-W.Pet (Hemorrhoidal Cream) 0.25-1 % creaIndications:H emorrhoids, external Apply 1 g topically to affected area(s) 2 times daily if needed (hemorrhoids). 51 g 3 024 Active dextrose (glucose) 2 gram chewIndications:H ypoglycemia Chew 2 Tablets by mouth 4 times daily if needed (hypoglycemia). 60 Tablet 3 024 Active white petrolatum-minera l oil-lanolin (Eucerin) topical creamIndications: Dry skin Apply topically to affected area(s) two times daily. 90 g 3 024 Active miscellaneous medical supply miscIndications:V enous stasis ulcer, unspecified site, unspecified ulcer stage, unspecified whether varicose veins present (HC),Peripheral sensory neuropathy,COPD mixed type (HC) As directed. Medical lift chair, diagnosis 1 Each Active codeine-guaiFENes in (ROBITUSSIN AC) 10-100 mg/5 mL liquidIndications :Cough, unspecified type Take 5 mL by mouth every 6 hours if needed for Cough. Max dose 60 mL per 24 hrs. 118 mL Active cetirizine (ZYRTEC) 10 mg tabletIndications :Seasonal allergic rhinitis due to pollen Take 1 Tablet (10 mg) by mouth once daily. 90 Tablet 3 024 Active metoprolol succinate (Toprol XL) 50 mg sustained-release tabletIndications :CAD in [place] artery Take 1 Tablet (50 mg) by mouth once daily. 90 Tablet 3 024 Active sertraline (ZOLOFT) 100 mg tabletIndications :Major depressive disorder, recurrent episode, moderate (HC) TAKE 2 TABLETS (200MG) BY MOUTH ONCE DAILY. 180 Tablet 3 024 Active traZODone (DESYREL) 100 mg tabletIndications :Insomnia, idiopathic Take 2 Tablets (200 mg) by mouth at bedtime. 180 Tablet 3 024 Active guaiFENesin (Mucus Relief ER) 600 mg Extended-Release tabletIndications :Allergic rhinitis, unspecified seasonality, unspecified trigger Take 1 Tablet (600 mg) by mouth two times daily. 180 Tablet 1 024 Active miscellaneous medical supply miscIndications:A ccidental fall, initial encounter As directed. Gripper socks--two pair 4 Each 024 Active bacitracin ointmentIndicatio ns:Sore on leg Apply topically to affected area(s) two times daily. 28 g 3 024 Active insulin glargine, U-100, (Lantus Solostar U-100 Insulin) 100 unit/mL (3 mL) penIndications:Ty pe 2 diabetes mellitus without complication, with long-term current use of insulin (HC) Inject 8 units subcutaneous before bedtime. Product desired: LANTUS SOLOSTAR 60 mL 024 Active dextromethorphan- guaiFENesin (ROBITUSSIN DM) (5-50 mg/5 mL) liquidIndications :Cough, unspecified type Take 10 mL by mouth every 4 hours if needed for Cough 1st choice. 024 Active durable medical equipment (DME)Indications: COPD mixed type (HC),Venous stasis ulcer, unspecified site, unspecified ulcer stage, unspecified whether varicose veins present (HC),ASCVD (arteriosclerotic cardiovascular disease),Chronic bilateral back pain, unspecified back location Recliner chair--motorize d 1 Each 024 Active miscellaneous medical supply miscIndications:C hronic midline low back pain without sciatica As directed. Lift chair (recliner), patient is 150 lbs, diagnosis COPD, coronary artery disease, chronic low back pain to [facility] in [place] 1 Each 024 Active lidocaine 5 % topical patchIndications: Pain of lower extremity, unspecified laterality Apply on dry, clean, hairless skin. Apply 1 patch to painful area of skin for up to to 12 hours within 24 hour period. 15 Patch 11 024 Active loperamide (IMODIUM) 2 mg capsuleIndication s:Acute diarrhea Take 1 Capsule (2 mg) by mouth 4 times daily if needed for Diarrhea. 48 Capsule 1 024 Active Walker - 4 wheelsIndications :COPD mixed type (HC),Chronic midline low back pain without sciatica,Oxygen dependent,Frequen t falls WITH A SEAT. For home use. Length of need: 99 months 1 Each 024 Active nystatin powder (MYCOSTATIN) powderIndications :Rash APPLY TOPICALLY TO AFFECTED AREA (S) TWICE DAILY NEEDED 60 g 024 Active polyethylene glycoL (ClearLax) 17 gram/scoop powderIndications :Chronic constipation MIX 1 CAPFUL (17GM) IN LIQUID AND GIVE BY MOUTH EVERY OTHER DAY 765 g 5 024 Active emollient (Vanicream) creamIndications: Neurodermatitis Apply topically to affected area(s) 2 times daily if needed for Dry Skin, Irritation or Itching. 453 g 1 024 Active Chest Congestion Relief DM 10-100 mg/5 mL syrupIndications: Cough, unspecified type TAKE 5-10ML BY MOUTH DAILY NEEDED 300 mL 024 Active Restasis 0.05 % ophthalmic emulsionIndicatio ns:Dry eyes Place 1 Drop into the eye(s) two times daily. 60 Each 13 024 Active Ventolin HFA 90 mcg/actuation inhalerIndication s:Chronic obstructive pulmonary disease, unspecified COPD type (HC) INHALE 2 PUFFS BY MOUTH EVERY 4 HOURS NEEDED FOR SHORTNESS OF BREATH 18 g 024 Active morphine CONTROLLED RELEASE (MS CONTIN) 30 mg CR tabletIndications :Chronic midline low back pain without sciatica Take 1 Tablet (30 mg) by mouth two times daily. 60 Tablet 024 Active Ventolin HFA 90 mcg/actuation inhalerIndication s:Chronic obstructive pulmonary disease, unspecified COPD type (HC) Inhale 1-2 Puffs by mouth every 4 hours if needed for Shortness Of Breath. 1 Each 5 024 Active insulin lispro, U-100, (HumaLOG KwikPen Insulin) 100 unit/mL inpn penIndications:Ty pe 2 diabetes mellitus with diabetic mononeuropathy, with long-term current use of insulin (HC) Inject 4 units subcutaneous before breakfast. Breakfast only. No Humalog at lunch or supper 024 Active pen needle, diabetic, safety (DropSafe Pen Needle) 31 gauge x / ndleIndications:T ype 2 diabetes mellitus without complication, with long-term current use of insulin (HC) USE DIRECTED TO INJECT INSULIN 200 Each 3 024 Active nitroglycerin (NITROSTAT) 0.4 mg sublingual tabletIndications :CAD in [place] artery Place 1 Tablet (0.4 mg) under the tongue every 5 minutes if needed for Chest Pain. Up to 3 tablets in 15 minutes. 25 Tablet 4 024 Active morphine CONTROLLED RELEASE (MS CONTIN) 30 mg CR tabletIndications :Chronic midline low back pain without sciatica Take 1 Tablet (30 mg) by mouth two times daily. 60 Tablet 024 Active continuous glucose monitor READER (FreeStyle German 2 [place])Indication s:Type 2 diabetes mellitus with diabetic nephropathy, unspecified whether [facility] insulin use (HC) USE DIRECTED 1 Each 025 Active FreeStyle German 2 ReaderIndications :Type 2 diabetes mellitus with other specified complication, with long-term current use of insulin (HC) To be used to read blood sugars per bonding equipment operator's directions. 1 Each 025 Active atorvastatin (LIPITOR) 40 mg tabletIndications :S/P CABG x 5 Take 1 Tablet (40 mg) by mouth at bedtime. 90 Tablet 3 025 Active amLODIPine (NORVASC) 5 mg tabletIndications :HTN (hypertension) Take 1 Tablet (5 mg) by mouth once daily. 90 Tablet 3 025 Active furosemide (LASIX) 20 mg tabletIndications :S/P CABG x 5 Take 1 Tablet (20 mg) by mouth once daily in the morning. 90 Tablet 3 025 Active amoxicillin-clavu lanate (Augmentin) 500-125 mg tabletIndications :urinary tract infection Take 1 Tablet by mouth two times daily with meals. 14 Tablet 025 Active white petrolatum (Aquaphor OriginaL) 41 % ointmentIndicatio ns:Rash Apply topically to affected area(s) two times daily. 396 g 025 Active FreeStyle German 2 ReaderIndications :Type 2 diabetes mellitus with diabetic nephropathy, unspecified whether [facility] insulin use (HC) To be used to read blood sugars per bonding equipment operator's directions. 1 Each 022 2024 Discontinued amLODIPine (NORVASC) 5 mg tabletIndications :HTN (hypertension) Take 1 Tablet (5 mg) by mouth once daily. 90 Tablet 3 023 2024 Discontinued(R eorder (E-cancel not sent)) atorvastatin (LIPITOR) 40 mg tabletIndications :S/P CABG x 5 Take 1 Tablet (40 mg) by mouth at bedtime. 90 Tablet 3 024 2024 Discontinued(R eorder (E-cancel not sent)) white petrolatum (Aquaphor OriginaL) 41 % ointmentIndicatio ns:Rash Apply topically to affected area(s) two times daily. 024 2024 Discontinued(R eorder (E-cancel not sent)) morphine CONTROLLED RELEASE (MS CONTIN) 30 mg CR tabletIndications :Chronic midline low back pain without sciatica TAKE ONE TABLET BY MOUTH TWICE DAILY 60 Tablet 024 2023 Discontinued(R eorder (E-cancel not sent)) cephalexin 500 mg capsuleIndication s:UTI (urinary tract infection), uncomplicated Take 1 Capsule (500 mg) by mouth two times daily for 7 days. 14 Capsule 025 2024 amoxicillin-clavu lanate (Augmentin) 500-125 mg tabletIndications :urinary tract infection Take 1 Tablet by mouth two times daily with meals. 14 Tablet 025 2024 Discontinued(R eorder (E-cancel not sent)) furosemide (LASIX) 40 mg tabletIndications :S/P CABG x 5 Take 1 Tablet (40 mg) by mouth once daily in the morning for 7 days. 7 Tablet 025 2024 Active Problems Problem Noted Date Diagnosed Date Type 2 diabetes mellitus, wi th long-term current use of insulin 03/29/2024 Atherosclerosis of [place] co ronary artery of [place] heart with angina pectoris 04/01/2023 S/p Right [...] vein graft sequential to D1, R1, OM Chronic midline low back pain without sciatica 0 06/18/2017 COPD mixed type 06/03/2017 Overview (02/26/2021): - home O2 Prurigo nodularis 06/23/2015 HTN (hypertension) 01/18/2014 [facility] arthritis, thumb, degenerative 11/24/2013 Chronic back pain 05/28/2013 Pain medication agreement 08/16/2011 Overview (08/16/2011): Controlled substance agreement for MSContin 60mg, 3 tablets bid on file and signed 08/16/2011 . Designated pharmacy: [facility] Prescribing physician: Duane Gardiner M.D Diagnosis: chronic [...] Encounters Date Type Department Care Team Description 04/09/[address] [phone] Marissa Williamson MD Out of refills (Out of refills ) 04/07/[address] [address] Marissa Williamson MD Questions (Fax not received ) 04/07/[address] [address] Marissa Williamson MD Outside Order (antibiotics ) 04/06/2024 Nurse Triage [address] [address] Marissa Williamson MD Urinary Problem 04/01/[address] [address] Marissa Williamson MD Outside Order (/) 03/31/[address] [address] Marissa Williamson MD Medication Management (cephalexin 500 mg capsule) 03/30/2024 1:00 PM COST CLERK Office Visit [facility] [address] [place] [phone] Liam James MD Follow Up (yearly) 03/30/2024 Travel 03/29/[address] [address] Marissa Williamson MD Medication Management (freestyle german 2 reader) 03/25/2024 Telephone [facility] [address] [place] [address] Marissa Williamson MD Follow Up (Questions ) 03/25/2024 Refill [facility] [address] [place] [address] Marissa Williamson MD Refill Request (Freestyle German 2 [place]) 03/23/2024 Telephone [facility] [address] [place] [address] Marissa Williamson MD Questions (appointment ) 03/19/[address] [address] Marissa Williamson MD Error-please disregard 03/19/[address] [address] Marissa Williamson MD Results (UA results) 03/18/2024 Refill [facility] [address] [place] [address] Marissa Williamson MD Refill Request (Morphine Controlled Release) 03/15/2024 Orders Only [facility] Scanner 1 scan: (1-Ord) [facility], 03/15/2024 03/15/2024 Telephone [facility] [address] [place] [address] Marissa Williamson MD Medication Management (morphine CONTROLLED RELEASE (MS CONTIN) 30 mg CR tablet) 03/15/2024 Telephone [facility] [address] [place] [address] Marissa Williamson MD Lab (Urine Analysis ) 03/08/2024 Telephone [facility] [address] [place] [address] Marissa Williamson MD ACC Order Request 02/26/[address] [address] Marissa Williamson MD Refill Request 02/26/2024 Refill [facility] [address] [place] [address] Marissa Williamson MD Refill Request (Nitroglycerin) 02/16/2024 Refill [facility] [address] [place] [address] Marissa Williamson MD Refill Request (Morphine Controlled Release) 02/09/2024 Telephone [facility] [address] [place] [address] Marissa Williamson MD Questions (UTI) 02/06/2024 Telephone [facility] [address] [place] [address] Marissa Williamson MD orders 02/02/2024 Telephone [facility] [address] [place] [address] Marissa Williamson MD Questions (Discontinue Eucerin and use Aquaflow.) 01/27/2024 10:05 AM COST CLERK Office Visit [facility] [address] [place] [address] Marissa Williamson MD Follow Up (Discuss labs/); Diabetes (BS's have been low.) 01/27/2024 Refill [facility] [address] [place] [address] Marissa Williamson MD Refill Request (Dropsafe Pen Needle) 01/27/2024 Travel 01/19/2024 Telephone [facility] [address] [place] [address] Marissa Williamson MD Need Meds (morphine CONTROLLED RELEASE (MS CONTIN) 30 mg CR tablet) 01/16/2024 Refill [facility] [address] [place] [address] Marissa Williamson MD Refill Request (Morphine Controlled Release) 01/15/2024 Refill [facility] [address] [facility] [place] [address] Marissa Williamson MD Refill Request (Ventolin Hfa, Morphine Controlled Release) 01/09/2024 Refill [facility] [address] [facility] [place] [address] Marissa Williamson MD Refill Request (Chest congestion syrup) from Last 3 Months Immunizations Name Administration Dates Next Due COVID-19 VACCINE SPIKEVAX (M ODERNA 50MCG/0.5ML) 12YO+ PFS 12/19/2023,01/23/2023 COVID-19 vaccine (Pfizer-Bio NTech 30mcg/0.3mL) 12YO+ BIVALENT [...] Inactivated IIV3 (Age 65+ Years) Preserv Free 12/19/2023,12/17/2018,12/18/2017,01/14 Pneumococcal Poly,23-Valent (Pneumovax) 12/14/2010,02/18/2003 Pneumococcal conj 13-Valent [...] 0 09/23/2023 Social Connections Answer Date Recorded Do you often feel lonely or isolated from those around you? 0 01/23/2023 Financial Resource Strain Answer Date R ecorded Difficulty of Paying Living Expenses 3 01/23/2023 Difficulty of Paying Living Expenses Not on file 01/23/2023 Food Insecurity Answer Date Recorded Do you worry your food will run out before you are able to buy more? 1 01/23/2023 Transportation Needs Answer Date Record ed Does lack of transportation keep you from medica l appointments? 1 01/23/2023 Does lack of transportation keep you from work, meetings or getting things that you need? 1 01/23/2023 Housing Stability Answer Date Recorded What is your housing situation today? 1 01/23/2023 Comments No Sex and Gender Information Value Date Recorded Sex Assigned at Not on file Legal Sex Female 5:23 AM COST CLERK Gender Identity Not on file Sexual Orientation Not on file Obstetrics History Last Filed Vital Signs Vital Sign Reading Time Taken Comments Blood Pressure 129/74 03/30/2024 1:07 PM COST CLERK Pulse 67 03/30/2024 1:07 PM COST CLERK Temperature 36.2 C (97.1 F) 11/04/2022 10:10 AM CDT Respiratory Rate 19 11/04/2022 10:1 0 AM CDT Oxygen Saturation 95% 03/30/2024 1:07 PM COST CLERK Inhaled Oxygen Concentration - - Weight 76.1 kg (167 lb 12.8 oz) 03/30/2024 1:07 PM COST CLERK Height 158.8 cm (5' 2.5) 03/30/2024 1:07 PM COST CLERK Body Mass Index 30.2 03/30/2024 1:07 PM COST CLERK Plan of Treatment Upcoming Encounters Date Type Department Care Team (Late st Contact Info) Description 04/15/2024 9:55 AM COST CLERK Office Visit [facility] [address] [place] [address] Marissa Williamson MD [address] [place] [address] 04/16/2024 12:30 PM COST CLERK Office Visit [facility] [address] [place] [address] Jaquan Fontana AuD [address] [place] [phone] Health Maintenance Due Date Last Done Comments Medicare Wellness for age 65+ 05/15/2024, 01/01/2022, 09/24/2018, Additional history exists Depression screening for age 12+ 09/22/2024 09/23/2023, 09/23/2023, 05/16/2023, Additional history exists BMI (ht and wt on same day) for age 18+ 03/30/2025 03/30/2024, 01/27/2024, 01/09/2023, Additional history exists Tetanus booster 11/30/2030 11/30/2020, 05/15, 08/04/2006 DEXA/DXA scan for age 65+ Completed 2014, 11/03/2007, 11/24/2001 Pneumococcal series for age 50+ Completed 10/27/2014, 12/14/2010, 02/18/2003 Zoster (shingles) series for age 50+ Completed 01/22/2018, 07/31/2017, 08/03/2007 Tdap Completed 11/30/2020, 05/25/2010 RSV vaccine for adults or Completed 12/12/2022 COVID-19 vaccine series Completed 12/19/19 24, 01/23/2023, 01/01/2022, Additional history exists Influenza for age 65+ Completed 12/19/2023 , 12/10/2022, 01/01/2022, Additional history exists Medical Devices Implanted Type Area Associate Theatre Professor Device Identifier Shelf Expiration Date Model / Serial / Lot Screw Sm Joint 4.5x26mm Axsos Anthony Titnm - [id number] Implanted:Qty: 1 on 06/04/2021 by Roland Goel MD at [facility] Left: Arm [employer] [id number] / / Screw Sm Joint 6x35mm Axsos3 Canclls Full Thrd Titnm Implanted:Qty: 1 on 06/04/2021 at [facility] Left: Arm [id number] / / Description:SCREW SM JOINT 6 X35MM AXSOS3 CANCLLS FULL THRD TITNM Screw Sm Joint 2.7x20mm Variax 2 Bone Titnm - [id number] Implanted:Qty: 1 on 06/04/2021 at [facility] Left: Arm [employer] [id number] / / Screw Sm Joint 2.7x24mm Variax 2 Bone Titnm - [id number] Implanted:Qty: 2 on 06/04/2021 at [facility] Left: Arm [employer] [id number] / / Screw Sm Joint 4.5x28mm Axsos Anthony Titnm - [id number] Implanted:Qty: 2 on 06/04/2021 by Roland Goel MD at [facility] Left: Arm [employer] [id number] / / Screw Sm Joint 4.5x30mm Axsos Anthony Titnm - [id number] Implanted:Qty: 1 on 06/04/2021 by Roland Goel MD at [facility] Left: Arm [employer] [id number] / / Screw Sm Joint 4.5x32mm Axsos Anthony Titnm - [id number] Implanted:Qty: 1 on 06/04/2021 by Roland Goel MD at [facility] Left: Arm [employer] [id number] / / Screw Sm Joint 5x32mm Axsos Lock - [id number] Implanted:Qty: 1 on 06/04/2021 by Roland Goel MD at [facility] Left: Arm [employer] [id number] / / Screw Sm Joint 5x34mm Axsos Lock - [id number] Implanted:Qty: 1 on 06/04/2021 by Roland Goel MD at [facility] Left: Arm [employer] [id number] / / 12h Straight Narrow Plate Implanted:Qty: 1 on 06/04/2021 by Roland Goel MD at [facility] Left: Arm [id number] / / Description:12H STRAIGHT FERNANDO ROW PLATE Explanted Type Area Associate Theatre Professor Device Identifier Shelf Expiration Date Model / Serial / Lot [employer] [place] [employer]pk - [id number] Explanted:Qty: 2 on 06/04/2021 at [facility] Left: Arm [employer] [id number] / / Screw Sm Joint 6x30mm Axsos3 Canclls Full Thrd Titnm Explanted:Qty: 1 on 06/04/2021 at [facility] Left: Arm [id number] / / Description:SCREW SM JOINT 6 X30MM AXSOS3 CANCLLS FULL THRD TITNM Screw Sm Joint 4.5x34mm Axsos Anthony Titnm - [id number] Explanted:Qty: 1 on 06/04/2021 at [facility] Left: Arm [employer] [id number] / / Screw Sm Joint 5x30mm A[employer] Lock - [id number] Explanted:Qty: 1 on 06/04/2021 at [facility] Left: Arm [employer] [id number] / / Procedures Procedure Name Priority Date/Time Associated Diagnosis Comments SCAN-EYE EXAM 03/15/2024 12:00 AM COST CLERK XR DXA BONE DENSITY 2 SITES AXIAL Routine 10/25/2014 8:58 AM CDT VITAMIN D DEFICIENCY from Last 3 Months or Most Recently Relevant to Health Maintenance Results * SCAN-EYE EXAM (03/15/2024 12:00 AM COST CLERK) us Scanner OTHER Final Result * XR DXA BONE DENSITY 2 SITES (10/25/2014 8:58 AM CDT) Anatomical Region Laterality Modality Spine, HIPS, HIPL, HIPR Other Narrative 10/26/2014 7:45 AM CDT Please see scanned document for results of this study. us Marissa Williamson MD DEXA Final Result from Last 3 Months or Most Recently Relevant to Health Maintenance Insurance [id number] [place] [id number] MEDICARE PART A HB ONLY [facility] Member Subscriber Plan / Payer (Ef fective 2023-Present) Name:Cathy Kaplan Jo Relation to Subscriber:Self Name:Cathy Kaplan Jo Payer ID:[id number] (NAIC) Group ID:[id number] Type:Not on file Address: MAILSTOP: [id number] [place] [address] [id number] [place] [id number] [facility] [place] Advance Directives Documents on File Type Date 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
--- NOTE | 2024-04-10 04:24 | ED_ITS ---
HPI - General Adult General Chief complaint: Fall/Minor Trauma Stated complaint: Fall Time Seen by Provider: 04/10/24 04:10 History of Present Illness HPI narrative: CC: Bilateral Leg Swelling/ Pain s/p Fall pt. was sitting on toilet when she missed the toilet and fell on her butt. both legs below the knee with swelling. unable to bear weight. denies LOC, hitting head. 83-year-old woman presenting to the emergency department via EMS after falling trying to sit on the toilet. Unable to bear weight on her legs after this. Was noted to have deformities to the upper aspect of bilateral lower legs. Has pain here as well. Was given fentanyl initially by EMS and then half a mg of Dilaudid just before injury to the emergency department. She is not complaining of pain at this point. She denies having had new pain in her back. No buttock pain. Did not hit head. There was no loss of consciousness. Related Data Home Medications ?Medication ?Instructions ?Recorded ?Confirmed amlodipine 5 mg tablet 5 mg PO DAILY 12/05/21 04/10/24 aspirin 81 mg chewable tablet 81 mg PO DAILY 12/05/21 04/10/24 atorvastatin 40 mg tablet 40 mg PO HS 12/05/21 04/10/24 cetirizine 10 mg tablet 10 mg PO DAILY 12/05/21 04/10/24 cholecalciferol (vitamin D3) 50 2,000 unit PO DAILY 12/05/21 04/10/24 mcg (2,000 unit) tablet furosemide 40 mg tablet 40 mg PO DAILY 12/05/21 04/10/24 isosorbide mononitrate 120 mg 240 mg PO DAILY 12/05/21 04/10/24 tablet,extended release 24 hr metformin 500 mg tablet 500 mg PO BIDWM 12/05/21 04/10/24 metoprolol succinate 50 mg 50 mg PO DAILY 12/05/21 04/10/24 tablet,extended release 24 hr nitroglycerin 0.4 mg sublingual 0.4 mg sublingual Q5-10M PRN 12/05/21 04/10/24 tablet omeprazole 20 mg capsule,delayed 20 mg PO DAILY 12/05/21 04/10/24 release sertraline 100 mg tablet 200 mg PO DAILY 12/05/21 04/10/24 guaifenesin 600 mg tablet, 600 mg PO BID 12/06/21 04/10/24 extended release 12 hr (Mucinex) acetaminophen 500 mg capsule 1,000 mg PO TID PRN 10/12/22 04/10/24 trazodone 100 mg tablet 200 mg PO HS 11/28/22 04/10/24 albuterol sulfate 90 mcg/actuation 2 puff inhalation DIRECTED PRN 04/10/24 04/10/24 aerosol inhaler (Ventolin HFA) ferrous gluconate 324 mg (37.5 mg 324 mg PO DAILY 04/10/24 04/10/24 iron) tablet insulin glargine 100 unit/mL (3 8 unit subcut HS 04/10/24 04/10/24 mL) subcutaneous pen (Lantus Solostar U-100 Insulin) insulin lispro 100 unit/mL 4 unit subcut BID 04/10/24 04/10/24 subcutaneous pen (Humalog KwikPen (U-100) Insulin) magnesium oxide 400 mg (241.3 mg 400 mg PO BID 04/10/24 04/10/24 magnesium) tablet oxycodone 5 mg tablet 5 mg PO Q6H PRN 04/10/24 04/10/24 polyethylene glycol 3350 17 17 g PO DIRECTED 04/10/24 04/10/24 gram/dose oral powder (ClearLax) Previous Rx's ?Medication ?Instructions ?Recorded sennosides 8.6 mg-docusate sodium 2 tab PO BID #120 tabs 11/29/22 50 mg tablet (Stool Softener-Laxative) Allergies Allergy/AdvReac Type Severity Reaction Status Date / Time Sulfa (Sulfonamide Allergy Intermediate Hives Verified 04/10/24 04:27 Antibiotics) camphor AdvReac Intermediate Rash Verified 04/10/24 04:27 nitrofurantoin (From AdvReac Unknown Verified 04/10/24 04:27 Macrobid) Review of Systems Status of ROS: Reports: 6 or more systems reviewed and unremarkable except as noted in History and below [facility] Medical History Dehydration ?E86.0 - Dehydration (ICD-10) Vomiting ?R11.10 - Vomiting, unspecified (ICD-10) Constipation ?K59.00 - Constipation, unspecified (ICD-10) Anemia ?D64.9 - Anemia, unspecified (ICD-10) 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 ?S42.332K - Displaced oblique fracture of shaft of humerus, left arm, subsequent encounter for fracture with nonunion (ICD-10) Chronic kidney disease ?N18.9 - Chronic kidney disease, unspecified (ICD-10) Stable angina pectoris ?I20.8 - Other forms of angina pectoris (ICD-10) Major depressive disorder, recurrent ?F33.9 - Major depressive disorder, recurrent, unspecified (ICD-10) Venous stasis ulcer ?I83.009 - Varicose veins of unspecified lower extremity with ulcer of unspecified site (ICD-10) ?L97.909 - Non-pressure chronic ulcer of unspecified part of unspecified lower leg with unspecified severity (ICD-10) Venous insufficiency (chronic) (peripheral) ?I87.2 - Venous insufficiency (chronic) (peripheral) (ICD-10) Paroxysmal atrial fibrillation ?I48.0 - Paroxysmal atrial fibrillation (ICD-10) Chronic, continuous use of opioids ?F11.90 - Opioid use, unspecified, uncomplicated (ICD-10) 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) ?J44.9 - Chronic obstructive pulmonary disease, unspecified (ICD-10) Chronic back pain ?M54.9 - Dorsalgia, unspecified (ICD-10) ?G89.29 - Other chronic pain (ICD-10) Pain medication agreement ?Z02.89 - Encounter for other administrative examinations (ICD-10) Primary central sleep apnea ?G47.31 - Primary central sleep apnea (ICD-10) Obstructive sleep apnea ?G47.33 - Obstructive sleep apnea (adult) (pediatric) (ICD-10) JOSE (stress urinary incontinence, female) ?N39.3 - Stress incontinence (female) (male) (ICD-10) Diabetes mellitus type 2 in nonobese ?E11.9 - Type 2 diabetes mellitus without complications (ICD-10) Osteopenia ?M85.80 - Other specified disorders of bone density and structure, unspecified site (ICD-10) Primary hypothyroidism ?E03.9 - Hypothyroidism, unspecified (ICD-10) Vitamin D deficiency ?E55.9 - Vitamin D deficiency, unspecified (ICD-10) Atopic dermatitis and related condition ?L20.9 - Atopic dermatitis, unspecified (ICD-10) Allergic rhinitis ?J30.9 - Allergic rhinitis, unspecified (ICD-10) Hyperlipidemia ?E78.5 - Hyperlipidemia, unspecified (ICD-10) Essential hypertension ?I10 - Essential (primary) hypertension (ICD-10) Atherosclerotic cardiovascular disease ?I25.10 - Atherosclerotic heart disease of [place] coronary artery without angina pectoris (ICD-10) Surgical History Status post vein stripping ?Z98.890 - Other specified postprocedural states (ICD-10) Status post uvulopalatopharyngoplasty ?Z98.890 - Other specified postprocedural states (ICD-10) Status post tonsillectomy ?Z90.89 - Acquired absence of other organs (ICD-10) Status post nasal septoplasty ?Z98.890 - Other specified postprocedural states (ICD-10) Status post abdominal hysterectomy and left salpingo-oophorectomy ?Z90.710 - Acquired absence of both cervix and uterus (ICD-10) ?Z90.721 - Acquired absence of ovaries, unilateral (ICD-10) ?Z90.79 - Acquired absence of other genital organ(s) (ICD-10) Status post carpal tunnel release ?Z98.890 - Other specified postprocedural states (ICD-10) Status post bunionectomy ?Z98.890 - Other specified postprocedural states (ICD-10) Status post appendectomy ?Z90.49 - Acquired absence of other specified parts of digestive tract (ICD- 10) Status post bilateral cataract extraction ?Z98.41 - Cataract extraction status, right eye (ICD-10) ?Z98.42 - Cataract extraction status, left eye (ICD-10) Status post coronary artery bypass grafts x 5 ?Z95.1 - Presence of aortocoronary bypass graft (ICD-10) Family History Sister Cancer Brother FH: prostate cancer Mother Diabetes Father Coronary artery disease Social History Narrative: Lives with her girlfriend and with pet dog and cat. Adopted grand son, Omid Kaplan, is her POA for health. Requests full resuscitation measures in event of cardiopulmonary demise (12/14/2022). What is your current living situation?: I presently have a place to live Problems where you live: no known problems Problems where you live details: na In the past 12 months, utilities in danger of being shut off: no In past 12 months, lack of transportation kept you from medical appts, meetings, work, or getting things needed for daily living: yes In the past 12 mos, have been you worried that your food would run out before you had money to buy more?: never true In the past 12 mos, the food you bought just didn't last and you didn't have money to buy more?: never true Smoking Status: Former smoker What tobacco products do you use: cigarettes Smoking packs per day: 3 Smoking cigarettes per day: 60.0 Years smoked: 10 Smoking pack-years: 30.00 Smoking quit date/years: >15 years ago Do you use any of these nicotine containing products: None Second hand tobacco smoke exposure: No How often do you have a drink containing alcohol: monthly or less Alcohol type: other Alcohol type details: Occ [employer] How many standard drinks containing alcohol do you have on a typical day: 1 or 2 How often do you have six or more drinks on one occasion: Never AUDIT-C Alcohol total score: 1 Non-prescribed substance use: denies use Caffeine: Yes How often does anyone, including family, friends and others, physically hurt you : never How often does anyone, including family, friends and others, insult or talk down to you: never How often does anyone, including family, friends and others, threaten you with harm: never How often does anyone, including family, friends and others, scream or curse at you: never service: No Health Related Social Needs: transportation insecurity (Z59.82) Exam Narrative: Exam Narrative: Pleasant. Edentulous. Makeup in place. Breathing easily. Lower extremities are warm. Trace an intact dorsalis pedis pulses. Able to flex and extend at the ankles right though better than left. Rather swollen/deformed upper tib-fib area bilaterally. Very prominent fibular heads bilaterally. A little tender to palpation. Abdomen, pelvis is soft nontender. I do not see any tenting to the skin to suggest imminent skin injury. Right randall with a few bandages over small healing pressure ulcers Const: Vital Signs, click to edit/add: Vital Signs - 24 hr 04/10/24 04:15 04/10/24 04:46 04/10/24 05:15 Temperature 98.0 F Pulse Rate 68 Pulse Rate [Right Pulse Oximeter] 74 Respiratory Rate 20 16 Blood Pressure 148/81 H Blood Pressure [Ri ght Upper Arm] 145/75 H Pulse Oximetry 94 94 96 Oxygen Delivery Me thod Room Air Oxygen Flow Rate 04/10/24 05:16 04/10/24 06:02 04/10/24 06:06 Temperature Pulse Rate 66 64 Pulse Rate [Right Pulse Oximeter] Respiratory Rate 20 Blood Pressure 129/56 L Blood Pressure [Ri ght Upper Arm] Pulse Oximetry 93 97 98 Oxygen Delivery Me thod Nasal Cannula Nasal Cannula Oxygen Flow Rate 2 2 Documenting provider has reviewed patient's vital signs: yes Course Vital Signs Vital signs: Initial Vital Signs Temperature 98.0 F 04/10/24 04:15 Temperature Source Temporal Artery Scan 04/10/24 04:15 Pulse Rate 74 04/10/24 04:15 Respiratory Rate 20 04/10/24 04:15 Blood Pressure 145/75 H 04/10/24 04:15 Blood Pressure Mean 98 04/10/24 04:15 Blood Pressure Position Supine 04/10/24 04:15 Pulse Oximetry 94 04/10/24 04:15 Oxygen Delivery Method Room Air 04/10/24 04:15 Vital Signs Temperature 98.0 F 04/10/24 04:15 Pulse Rate 74 04/10/24 04:15 Respiratory Rate 20 04/10/24 04:15 Blood Pressure 145/75 H 04/10/24 04:15 Pulse Oximetry 94 04/10/24 04:15 Oxygen Delivery Method Room Air 04/10/24 04:15 Temperature 98.0 F 04/10/24 04:15 Pulse Rate 64 04/10/24 06:02 Respiratory Rate 20 04/10/24 06:02 Blood Pressure 129/56 L 04/10/24 06:02 Pulse Oximetry 98 04/10/24 06:06 Oxygen Delivery Method Nasal Cannula 04/10/24 06:06 Oxygen Flow Rate 2 04/10/24 06:06 Medications Administered Medications: Generic Name Dose Route Start Last Admin Trade Name Freq PRN Reason Stop Dose Admin Fentanyl 50 mcg 04/10/24 05:49 04/10/24 05:56 Fentanyl 100 Mcg/2 Ml Inj IVP 04/10/24 05:50 50 mcg ONCE ONE Administration Hydromorphone HCl 0.5 mg 04/10/24 05:14 04/10/24 05:18 Hydromorphone 0.5 Mg/0.5 Ml Inj IVP 04/10/24 05:15 0.5 mg ONCE ONE Administration Sodium Chloride 500 mls @ 500 mls/hr 04/10/24 05:15 04/10/24 06:18 0.9 % Sodium Chloride 500 Ml IV 04/10/24 06:14 Infused .Q1H ONE Infusion Medical Decision Making MDM Narrative Medical decision making narrative: Appears to have potentially dislocated fibular heads at a minimum. May have some significant hematoma and will have to be alert for compartment syndrome otherwise. Will be imaging looking for fracture of proximal tib-fib bilaterally. Address pain as needed. X-rays of bilateral tib-fib independently reviewed by me shows on the right a tibial plateau fracture with mild displacement. Looks like there is a fracture of the proximal fibula as well. X-rays of the left tib-fib independently reviewed by me show an angulated and displaced oblique fracture of the proximal tibia Have paged orthopedics to discuss next step in cares. Indication: Deformity after a fall. Technique: Two view(s) of the right tibia and fibula. Comparison: None available. Findings: There is an acute mildly displaced fracture involving the lateral tibial plateau with vertical split fracture extending from the lateral tibial spine to the lateral aspect of the proximal tibial metaphysis. Additionally, there is a transverse metaphyseal component. Minimal apex medial angulation is present. There is approximately 5 mm posterior displacement. No definite involvement of the medial tibial plateau. No appreciable articular surface depression. Mildly comminuted and displaced fibular neck fracture. Osseous demineralization. Medial calf soft tissue swelling. Extensive atherosclerotic arterial calcifications. Impression: 1. Vertical split fracture of the lateral tibial plateau with a transverse metaphyseal component (Schatzker ). 2. Mildly displaced and comminuted fibular neck fracture. Dictated by Gemma Sparks MD @ 04/10/2024 5:32:17 AM Indication: Deformity after a fall. Technique: Two view(s) of the left tibia and fibula. Comparison: None available. Findings: Acute displaced and angulated oblique fracture involving the proximal tibial metaphysis with approximately 1.5 cm lateral and 1.3 cm posterior displacement. There is apex anterior angulation. Probable vertical nondisplaced split fracture into the lateral tibial plateau. Questionable articular depression along the medial tibial plateau without definite fracture line. There is adjacent soft tissue swelling and deformity. No definite soft tissue gas. Extensive atherosclerotic arterial calcifications. Medial leg surgical clips. Impression: Acute displaced and angulated proximal tibial fracture with probable nondisplaced vertical split fracture involving the lateral tibial plateau and possible articular surface depression along the medial tibial plateau (Schatzker ). Dictated by Gemma Sparks MD @ 04/10/2024 5:36:40 AM Our orthopedics notes concern regarding this Schatzker variant fracture; that would be better cared for by trauma specialist. Did place a call to [facility] and then to [facility]. Accepted to both locations through the emergency department. Due to duration of wait time will go to [facility]. Placed Bowman. Knee immobilizer is placed bilaterally. Pending ambulance transport. Medical Records Medical records reviewed: Yes I reviewed the patient's medical records Discharge Plan Discharge Clinical Impression: Closed fracture of tibial plateau, Fracture of tibia and fibula Patient Disposition: Xfer Other Discharge Location: [facility] Condition: Stable Prescriptions: No Action furosemide 40 mg tablet 40 mg PO DAILY atorvastatin 40 mg tablet 40 mg PO HS metformin 500 mg tablet 500 mg PO BIDWM cetirizine 10 mg tablet 10 mg PO DAILY metoprolol succinate 50 mg tablet extended release 24 hr 50 mg PO DAILY sertraline 100 mg tablet 200 mg PO DAILY amlodipine 5 mg tablet 5 mg PO DAILY isosorbide mononitrate 120 mg tablet extended release 24 hr 240 mg PO DAILY nitroglycerin 0.4 mg tablet, sublingual 0.4 mg sublingual Q5-10M PRN omeprazole 20 mg capsule,delayed release(DR/EC) 20 mg PO DAILY aspirin 81 mg tablet,chewable 81 mg PO DAILY cholecalciferol (vitamin D3) 50 mcg (2,000 unit) tablet 2,000 unit PO DAILY guaifenesin [Mucinex] 600 mg tablet extended release 12hr 600 mg PO BID acetaminophen 500 mg capsule 1,000 mg PO TID PRN trazodone 100 mg tablet 200 mg PO HS sennosides-docusate sodium [Stool Softener-Laxative] 8.6-50 mg Tablet 2 tab PO BID Qty: 120 0RF ferrous gluconate 324 mg (37.5 mg iron) tablet 324 mg PO DAILY magnesium oxide 400 mg (241.3 mg magnesium) tablet 400 mg PO BID insulin lispro [Humalog KwikPen Insulin] 100 unit/mL insulin pen 4 unit subcut BID Rx Instructions: breakfast and lunch only insulin glargine [Lantus Solostar U-100 Insulin] 100 unit/mL (3 mL) insulin pen 8 unit subcut HS polyethylene glycol 3350 [ClearLax] 17 gram/dose powder 17 g PO DIRECTED Patient Comments: [NO ORIGINAL SIG] Rx Instructions: give every other day albuterol sulfate [Ventolin HFA] 90 mcg/actuation HFA aerosol inhaler 2 puff INHALATION DIRECTED PRN Patient Comments: [NO ORIGINAL SIG] oxycodone 5 mg tablet 5 mg PO Q6H PRN Follow Up/Referrals: Marissa Williamson MD [Primary Care Provider] - [facility]one [facility] Inst[facility]
--- NOTE | 2024-04-10 04:27 | CRLHL7_ITS ---
For Patients: As a result of the Century Cures Act, medical imaging exams and procedure reports are released immediately into your electronic medical record. You may view this report before your referring provider. If you have questions, please contact your health care provider. Indication: Deformity after a fall. Technique: Two view(s) of the left tibia and fibula. Comparison: None available. Findings: Acute displaced and angulated oblique fracture involving the proximal tibial metaphysis with approximately 1.5 cm lateral and 1.3 cm posterior displacement. There is apex anterior angulation. Probable vertical nondisplaced split fracture into the lateral tibial plateau. Questionable articular depression along the medial tibial plateau without definite fracture line. There is adjacent soft tissue swelling and deformity. No definite soft tissue gas. Extensive atherosclerotic arterial calcifications. Medial leg surgical clips. Impression: Acute displaced and angulated proximal tibial fracture with probable nondisplaced vertical split fracture involving the lateral tibial plateau and possible articular surface depression along the medial tibial plateau (Schatzker ). Dictated by Gemma Sparks MD @ 04/10/2024 5:36:40 AM (Electronically Signed)
--- NOTE | 2024-04-10 04:27 | CRLHL7_ITS ---
For Patients: As a result of the Century Cures Act, medical imaging exams and procedure reports are released immediately into your electronic medical record. You may view this report before your referring provider. If you have questions, please contact your health care provider. Indication: Deformity after a fall. Technique: Two view(s) of the right tibia and fibula. Comparison: None available. Findings: There is an acute mildly displaced fracture involving the lateral tibial plateau with vertical split fracture extending from the lateral tibial spine to the lateral aspect of the proximal tibial metaphysis. Additionally, there is a transverse metaphyseal component. Minimal apex medial angulation is present. There is approximately 5 mm posterior displacement. No definite involvement of the medial tibial plateau. No appreciable articular surface depression. Mildly comminuted and displaced fibular neck fracture. Osseous demineralization. Medial calf soft tissue swelling. Extensive atherosclerotic arterial calcifications. Impression: 1. Vertical split fracture of the lateral tibial plateau with a transverse metaphyseal component (Schatzker ). 2. Mildly displaced and comminuted fibular neck fracture. Dictated by Gemma Sparks MD @ 04/10/2024 5:32:17 AM (Electronically Signed)
[2024-04-10] MEDS: HYDROmorphone 0.5 mg/0.5 ml inj IVP (05:18)
[2024-04-10] MEDS: 0.9 % SODIUM CHLORIDE 500 ML 500 ML IV (05:18)
[2024-04-10] MEDS: fentaNYL 100 MCG/2 ML inj 50 MCG IVP (05:56)
== END 2024-04-10 07:50 | disposition other institution (70) ==
PROVIDERS: Emergency Provider Family Medicine; PCP Family Medicine
DX: S82.401A Unspecified fracture of shaft of right fibula, initial encounter for closed fracture (principal); W18.30XA Fall on same level, unspecified, initial encounter; S82.141A Displaced bicondylar fracture of right tibia, initial encounter for closed fracture
CPT/HCPCS: 73590; 94761; 96374; 96375; 99284; 99285; J1171; J3010; J7030

== ENCOUNTER 2024-04-10 07:31 | Outpatient (CLI) | payer BC, SELFPAY | END 2024-04-10 07:32 | disposition home or self-care (01) | LOC: AMB 04-18 07:43 | PROVIDERS: PCP Family Medicine; Visit Provider Family Medicine | DX: S82.143A Displaced bicondylar fracture of unspecified tibia, initial encounter for closed fracture (principal) | CPT/HCPCS: A0425; A0427 ==

== ENCOUNTER 2024-08-15 19:41 | Emergency (ER) | payer BC, SELFPAY ==
--- OUTSIDE RECORDS SUMMARY | 2011-06-28 03:45 | XMS_ITS | Continuity of Care Document ---
Author Organization TONI Ferris Address [address] [place] [address] Phone Care Team Providers Care Security Chief [employer] Name Role Phone Leidy Hernandez PA-C Unavailable Unavailab le Procedures Procedure Date Offic/outpt E&m Estab Mod Offic/outpt E&m Estab Low Offic/outpt E&m Estab Mod Inj Anes Facet Jt; Lumb/sac-1st Level De Inj Anes Facet Jt; Lumb/sac-2nd Level De Inj Anes Facet Jt; Lumb/sac-3rd Level De QA DONE Inj Anes Facet Jt; Lumb/sac-1st Level De Inj Anes Facet Jt; Lumb/sac-2nd Level De Inj Anes Facet Jt; Lumb/sac-3rd Level De QA DONE Inj-s I Jt Arthrog &/ Anes/wang 11 Rad Exam S I Jt Arthrogrphy Ra 11 QA DONE Offic/outpt E&m Estab Mod Offic/outpt E&m Estab Low Offic/outpt E&m Estab Low Offic/outpt E&m Estab Mod Offic/outpt E&m Estab Mod Offic/outpt E&m Estab Mod-hi 2 11 Offic/outpt E&m Estab Mod Lumbar MB addl level Lumbar MB single level Fluoroscopic Guidance For Needle Placeme nt - Spine Inj Anes Facet Jt; Lumb/sac-2nd Level Inj Anes Facet Jt; Lumb/sac-1st Level Inj Anes Facet Jt; Lumb/sac-1st Level Inj Anes Facet Jt; Lumb/sac-2nd Level Inj Anes Epidur; Lumb/sac-ea A 11 Inj Anes Epidur; Lumb/sac 1 Le 11 Offic/outpt E&m Estab [facility]-sd 2 11 Trans Epid Lumbosac each addl 1 Inj Anes Epidur; Lumb/sac 1 Le 11 QA DONE Offic/outpt E&m Estab [facility] Offic/outpt E&m Estab [facility] [place] 0 Offic/outpt E&m Estab [facility] [place] 0 Offic/outpt E&m Estab [facility] [place]-sd 2 10 Offic/outpt E&m Estab [facility] [place] 0 Offic/outpt E&m Estab [facility] 0 Offic/outpt E&m Estab [facility] [place] [facility]-sd 2 10 Offic/outpt E&m Estab [facility]-sd 2 10 Destrct; Nerv Lumbar Ea Add Le 10 Destrct; Paravert Facet Jt Lum 10 Fluoroscopic Guidance For Needle Placeme nt - Spine Destrct; Nerv Lumbar Ea Add Le 10 Destrct; Nerv Lumbar Ea Add Le 10 Offic/outpt E&m Estab [facility] [place] 0 Inj Anes Epidur; Lumb/sac 1 Le 10 Fluoroscopic Guidance For Needle Placeme nt - Spine Inj Not Lytic-epidur; Lumb/sac 10 Epidurography Rad S&i Offic/outpt E&m Estab Mod-sd 2 10 Offic/outpt E&m Estab Mod-sd 2 10 Offic/outpt E&m Estab Low-mod 0 Offic/outpt E&m Estab Low-mod 0 Offic/outpt E&m Estab Low-mod 0 Offic/outpt E&m Estab Mod-sd 2 10 Offic/outpt E&m Estab Mod-sd 2 09 Offic/outpt E&m Estab Mod-sd 2 09 Offic/outpt E&m Estab Low-mod 9 Destruc Facet Nrv; Cerv/thor 1 09 Destruc Facet Nrv; Crv/thor-ea 09 Fluoroscopic Guidance For Needle Placeme nt - Spine Inj Anes Facet Jt; Cerv/thor-1 09 Inj Anes Facet Jt; Cerv/thor-e 09 Fluoroscopic Guidance For Needle Placeme nt - Spine Inj Anes Facet Jt; Cerv/thor-1 09 Inj Anes Facet Jt; Cerv/thor-e 09 Fluoroscopic Guidance For Needle Placeme nt - Spine Offic/outpt E&m Estab Mod-sd 2 09 Offic/outpt E&m Estab [facility] [place] 2 09 Current Med Dosages Verified & Documente d Subsequent Visit For Low Back Pain Destrct; Paravert Facet Jt Lum 09 Destrct; Nerv Lumbar Ea Add Le 09 Fluoroscopic Guidance For Needle Placeme nt - Spine Mod cs by same phys, 5 yrs + Fluoroscopy Radiation Exposure Not Docum ented In Final Report Inj Anes Facet Jt; Lumb/sac-1l 09 Inj Anes Facet Jt; Lumb/sac-ea 09 Fluoroscopic Guidance For Needle Placeme nt - Spine Fluoroscopy Radiation Exposure Not Docum ented In Final Report Offic/outpt E&m Estab Mod-sd 2 09 Patient encounter was documented using a CCHIT cer Subsequent Visit For Low Back Pain Offic/outpt E&m Estab Low-mod 9 Offic/outpt E&m Estab Mod-hi 2 09 Offic/outpt E&m Estab Mod-sd 2 09 Destruc Facet Nrv; Cerv/thor 1 09 Destruc Facet Nrv; Crv/thor-ea 09 Fluoroscopic Guidance For Needle Placeme nt - Spine Inj Anes Facet Jt; Lumb/sac-1l 09 Inj Anes Facet Jt; Lumb/sac-ea 09 Fluoroscopic Guidance For Needle Placeme nt - Spine Inj Anes Facet Jt; Cerv/thor-1 09 Inj Anes Facet Jt; Cerv/thor-e 09 Fluoroscopic Guidance For Needle Placeme nt - Spine Offic/outpt E&m Estab Mod-sd 2 09 Destrct; Paravert Facet Jt Lum 09 Fluoroscopic Guidance For Needle Placeme nt - Spine Destrct; Nerv Lumbar Ea Add Le 09 Inj Anes Facet Jt; Cerv/thor-1 09 Inj Anes Facet Jt; Cerv/thor-e 09 Fluoroscopic Guidance For Needle Placeme nt - Spine Inj Anes Facet Jt; Cerv/thor-1 09 Inj Anes Facet Jt; Cerv/thor-e 09 Fluoroscopic Guidance For Needle Placeme nt - Spine Destrct; Paravert Facet Jt Lum 09 Fluoroscopic Guidance For Needle Placeme nt - Spine Inj Anes Facet Jt; Lumb/sac-1l 09 Fluoroscopic Guidance For Needle Placeme nt - Spine Inj Anes Facet Jt; Lumb/sac-1l 09 Fluoroscopic Guidance For Needle Placeme nt - Spine Offic/outpt E&m Estab [facility]-sd 2 08 Destrct; Paravert Facet Jt Lum 08 Destrct; Nerv Lumbar Ea Add Le 08 Destrct; Nerv Lumbar Ea Add Le 08 Fluoroscopic Guidance For Needle Placeme nt - Spine Inj Anes Facet Jt; Lumb/sac-1l 08 Inj Anes Facet Jt; Lumb/sac-ea 08 Inj Anes Facet Jt; Lumb/sac-1l 08 Fluoroscopic Guidance For Needle Placeme nt - Spine Offic/outpt E&m Estab [facility]-sd 2 08 Offic/outpt E&m Estab [facility]-sd 2 08 Inj Not Lytic-epidur; Lumb/sac 08 Fluoroscopic Guidance For Needle Placeme nt - Spine Offic/outpt E&m Estab [facility] [place]-sd 2 08 Offic/outpt E&m Estab [facility]-sd 2 08 Offic/outpt E&m Estab [facility] [place] 8 Inj Anes Facet Jt; Cerv/thor-1 08 Inj Anes Facet Jt; Cerv/thor-e 08 Fluoroscopic Guidance For Needle Placeme nt - Spine Offic/outpt E&m Estab [facility] 2 08 Offic/outpt E&[facility] 8 Offic/outpt E&m Estab [facility] [place] 8 Offic/outpt E&m Estab [facility] [place] 8 Offic/outpt E&[facility] Est[facility] 7 Offic/outpt E&m Est[facility] 7 Inj Not Lytic-epidur; Lumb/sac 07 Fluoroscopic Guidance For Needle Placeme nt - Spine Inj Not Lytic-epidur; Lumb/sac 07 Fluoroscopic Guidance For Needle Placeme nt - Spine Offic/outpt E&m Estab [facility] 7 Offic/outpt E&m Estab [facility] 2 07 Offic/outpt E&m Estab [facility] 7 Offic/outpt E&m Estab [facility] 2 07 Offic/outpt E&m Estab [facility] 7 Offic/outpt E&m Estab [facility] 2 07 Offic/outpt E&m Estab [facility] 7 Offic/outpt E&m Estab [facility] 2 07 Offic/outpt E&m Estab [facility] 2 06 Offic/outpt E&m Estab [facility] 6 Offic/outpt E&m Estab Minor 06 Offic/outpt E&m Estab [facility] 6 Offic/outpt E&m Estab [facility] [place] 6 Offic/outpt E&m Estab [facility] [place] 6 Offic/outpt E&m Estab [facility] [place] 6 Offic/outpt E&m Estab [facility] 5 Offic/outpt E&m Estab [facility] 5 Offic/outpt E&m Estab [facility] 5 Offic/outpt E&m Estab [facility] 5 Advance Directives Directive Yes / No Effective Date File Name No Information Encounters Encounter Description Practice Location Reason(s) For Visit Diagnoses Date Provider Providers Copied on Encounter Offic/outpt E&m Estab [facility], [address], [place], [place], [address], [place] tel:[phone] [facility] No Information 2 David Forbes. [address] [place], [address], [place]. tel:[phone] Referring Provider: Duane Gardiner MD, [address] [place], [address]. tel:[phone] Offic/outpt E&m Estab Low [facility], [address], [place], [place], [address], [place] tel:[phone] [facility] No Information 4201 2 David Forbes. [address], [place], [address], [place]. tel:[phone] Referring Provider: Duane Gardiner MD, [address] [place], [address]. tel:[phone] Offic/outpt E&m Estab Mod [facility], [address], [place], [place], [address], [place] tel:[phone] [facility] No Information Dec-2 0-201 1 David Forbes. [address], [place], [address], [place]. tel:[phone] KEVIN Ferris, [address], [place], [place], [address], [place] tel:[phone] [facility] No Information Dec-0 9-201 1 Cassim Hazmer. [address], [place], [address], [place]. tel:[phone] Referring Provider: REFERRAL SELF, [place]. TONI Ferris, [address], [place], [place], [address], [place] tel:[phone] [facility] No Information Dec-0 2-201 1 Cassim Hazmer. [address], [address], [place], [address], [place]. tel:[phone] Referring Provider: REFERRAL SELF[place]. KEVIN Ferris, [address], [place], [place], [address], [place] tel:[phone] [facility] No Information 1 Mikel Corey. [address], [place], [address], [place]. tel:[phone] Referring Provider: REFERRAL SELF, [place]. Offic/outpt E&m Estab [facility], [facility], [address], [place], [place], [address], [place] tel:[phone] [facility] No Information 1 David Forbes. [address], [place], [address], [place]. tel:[phone] Referring Provider: REFERRAL SELF, HUNTER. Offic/outpt E&m Estab [facility], [facility], [address], [place], [place], [address], [place] tel:[phone] [facility] No Information 1 David Forbes. [address], [place], [address], [place]. tel:[phone] Referring Provider: REFERRAL SELF, HUNTER. Offic/outpt E&m Estab Low [facility], [facility], [address], [place], [place], [address], [place] tel:[phone] [facility] No Information 1 David Forbes. [address], [place], [address], [place]. tel:[phone] Referring Provider: REFERRAL SELF, HUNTER. Offic/outpt E&m Estab [facility], [facility], [address] [facility], [place], [place], [address], [place] tel:[phone] [facility] No Information 1 David Forbes. [address], [facility], [place], [address], [place]. tel:[phone] Referring Provider: REFERRAL [place], [address], [place], [place], [address], [place] tel:[phone] [facility] No Information 1 David Forbes. [address], [facility], [place], [address], [place]. tel:[phone] Referring Provider: REFERRAL [place] [facility]. Offic/outpt E&m Estab Mod-hi 2 TONI Ferris, [address], [place], [place], [address], [place] tel:[phone] [facility] No Information 1 Doleandra IRON ASSORTER Joanna. [address], [place], [address], [place]. tel:[phone] Referring Provider: REFERRAL [place], [address], [place], [place], [address], [place] tel:[phone] [facility] No Information 1 Dobrochanell IRON ASSORTER Joanna. [address], [place], [address], [place]. tel:[phone] Referring Provider: REFERRAL [place], [address], [place], [place], [address], [place] tel:[phone] [facility] No Information 1 Mikel Corey. [address], [place], [address], [place]. tel:[phone] Referring Provider: REFERRAL [place], [address], [place], [place], [address], [place] tel:[phone] [facility] No Information 1 Cassim Hazmer. [address], [address], [place], [address], [place]. tel:[phone] Referring Provider: REFERRAL SELF, [place]. KEVIN Ferris, [address], [place], [place], [address], [place] tel:[phone] [facility] No Information 1 Cassim Hazmer. [address], [address], [place], [address], [place]. tel:[phone] Referring Provider: REFERRAL [place]ELF[place] KEVIN Ferris, [address], [place], [place], [address], [place] tel:[phone] [facility] No Information 1 Cassim Hazmer. [address], [address], [place], [address], [place]. tel:[phone] Referring Provider: Minor Fierro MD, [address] [facility], [place], [address]. tel:[phone] Offic/outpt E&m Estab Mod-hi 2 KEVIN Ferris, [address], [place], [place], [address], [place] tel:[phone] [facility] No Information 1 Prudence Marshall. [address] [address], [place], [address], [place]. tel:[phone] Referring Provider: Minor Fierro MD, [address] [facility], [place], [address]. tel:[phone] TONI Ferris, [address], [place], [place], [address], [place] tel:[phone] [facility] No Information 1 Mikel Leora. [address], [place], [address], [place]. tel:[phone] Referring Provider: Leora Griffiths, [address], [place], [address]. tel:[phone] [facility], [facility], [address], [place], [place], [address], [place] tel:[phone] [facility] No Information 0 Prudence POWELL Joanna. [address], [address], [place]. tel:[phone] Referring Provider: REFERRAL [facility], [place]. Offic/outpt E&m Estab Low-mod [facility], [facility], [address], [place], [place], [address], [place] tel:[phone] [facility] No Information 0 Prudence HAILEP Joanna. [address] [address], [place], [address], [place]. tel:[phone] Referring Provider: Joanna POWELL, [address], [address]. tel:[phone] Offic/outpt E&m Estab [facility], [address] [facility] [address] [facility] [address], [place], [place], [address], [place] tel:[phone] [facility] No Information 0-201 0 Dobrochanell HAILEP Joanna. [address] [address], [place], [address], [place]. tel:[phone] Referring Provider: REFERRAL SELF, HUNTER. Offic/outpt E&m Estab Mod-hi 2 [facility], [facility], [address] [facility] [address], [place], [place], [address], [place] tel:[phone] [facility] No Information 2- 0 Dobrowski IRON ASSORTER Joanan. [address] [facility], [place], [address], [place]. tel:[phone] Referring Provider: REFERRAL SELF, HUNTER. Offic/outpt E&m Estab Low-mod [facility], [facility], [address] [facility] [address], [place], [place], [address], [place] tel:[phone] [facility] No Information - 0 Dobrowski IRON ASSORTER Joanna. [address] [address], [place], [address], [place]. tel:[phone] Referring Provider: REFERRAL SELF, HUNTER. Offic/outpt E&m Estab Low-mod [facility], [facility], [address] [facility] [address], [place], [place], [address], [place] tel:[phone] [facility] No Information 0-201 0 Dobrowski IRON ASSORTER Joanna. [address] [address], [place], [address], [place]. tel:[phone] Referring Provider: REFERRAL SELFHUNTER. Offic/outpt E&m Estab Mod-hi 2 [facility], [facility], [address] [facility] [address], [place], [place], [address], [place] tel:[phone] [facility] No Information 3 0 Dobrowski IRON ASSORTER Joanna. [address] [facility] [address], [place], [address], [place]. tel:[phone] Referring Provider: REFERRAL SELFHUNTER. Offic/outpt E&m Estab Mod-hi 2 [facility], [address], [place], [place], [address], [place] tel:[phone] [facility] No Information 0-201 0 Dobrochanell IRON ASSORTER Joanna. [address] [facility] [address], [place], [address], [place]. tel:[phone] Referring Provider: REFERRAL SELF, [place]. KEVIN Ferris, [address], [place], [place], [address], [place] tel:[phone] [facility] No Information 4-201 0 Cassim Hazmer. [address], [place], [address], [place]. tel:[phone] Referring Provider: REFERRAL SELFHUNTER. Offic/outpt E&m Estab Low-mod [facility], [address], [place], [place], [address], [place] tel:[phone] [facility] No Information 7-201 0 Dobrochanell IRON ASSORTER Joanna. [address], [address], [place]. tel:[phone] Referring Provider: REFERRAL SELFHUNTER. KEVIN Ferris, [address], [place], [place], [address], [place] tel:[phone] [facility] No Information 0-201 0 Cassim Hazmer. [address], [place], [address], [place]. tel:[phone] Referring Provider: REFERRAL [place] [facility]. KEVIN Ferris, [address], [place], [place], [address], [place] tel:[phone] [facility] No Information 6-201 0 Cassim Hazmer. [address], [address], [place], [address], [place]. tel:[phone] Referring Provider: REFERRAL SELF, HUNTER. Offic/outpt E&m Estab Mod-hi 2 [facility], [facility], [address], [place], [place], [address], [place] tel:[phone] [facility] No Information 0 Dobrowski IRON ASSORTER Joanna. [address] [facility] [address], [place], [address], [place]. tel:[phone] Referring Provider: REFERRAL SELFHUNTER. Offic/outpt E&m Estab Mod-hi 2 [facility], [facility], [address] [facility] [address], [place], [place], [address], [place] tel:[phone] [facility] No Information 0 Dobrowski IRON ASSORTER Joanna. [address] [facility] [address], [place], [address], [place]. tel:[phone] Referring Provider: REFERRAL SELFHUNTER. Offic/outpt E&m Estab Low-mod [facility], [facility], [address], [place], [place], [address], [place] tel:[phone] [facility] No Information 0 Dobrowski IRON ASSORTER Joanna. [address] [facility] [address], [place], [address], [place]. tel:[phone] Referring Provider: REFERRAL SELFHUNTER. Offic/outpt E&m Estab Low-mod [facility], [address] [facility] [address], [place], [place], [address], [place] tel:[phone] [facility] No Information 0 Budnick Noreen. [address] [facility], [place], [place], [address], [place]. tel:[phone] Referring Provider: REFERRAL SELF, HUNTER. Offic/outpt E&m Estab Low-mod [facility], [facility], [address] [address], [place], [place], [address], [place] tel:[phone] [facility] No Information 0 Dobrowski IRON ASSORTER Joanna. [address] [facility] [address], [place], [address], [place]. tel:[phone] Referring Provider: REFERRAL SELFHUNTER. Offic/outpt E&m Estab Mod-hi 2 [facility], [facility], [address], [address], [place] tel:[phone] [facility] No Information 0 Dobrowski IRON ASSORTER Joanna. [address] [address], [place], [address], [place]. tel:[phone] Referring Provider: REFERRAL SELFHUNTER. Offic/outpt E&m Estab Mod-hi 2 [facility], [facility], [address], [address], [place] tel:[phone] [facility] No Information 200 9 Dobrowski IRON ASSORTER Joanna. [address] [facility] [address], [place], [address], [place]. tel:[phone] Referring Provider: REFERRAL SELF, HUNTER. Offic/outpt E&m Estab Mod-hi 2 [facility], [facility], [address] [facility] [address], [place], [address], [place] tel:[phone] [facility] No Information 6200 9 Dobrowski IRON ASSORTER Joanna. [address] [facility] [address], [place], [address], [place]. tel:[phone] Referring Provider: REFERRAL SELFHUNTER. Offic/outpt E&m Estab Low-mod [facility], [facility], [address], [place], [place], [address], [place] tel:[phone] [facility] No Information Oct-2 3-200 9 Dobrowski IRON ASSORTER Joanna. [address] [facility] [address], [place], [address], [place]. tel:[phone] Referring Provider: REFERRAL SELF, HUNTER. [facility], [facility], [address], [place], [place], [address], [place] tel:[phone] [facility] No Information Oct-0 7-200 9 No Information Referring Provider: REFERRAL SELF, HUNTER. [facility], [facility], [address], [place], [place], [address], [place] tel:[phone] [facility] No Information Sep-3 0-200 9 No Information Referring Provider: REFERRAL SELF, HUNTER. [facility], [facility], [address], [place], [place], [address], [place] tel:[phone] [facility] No Information Sep-2 3-200 9 No Information Referring Provider: REFERRAL SELF, HUNTER. Offic/outpt E&m Estab Mod-hi 2 [facility], [facility], [address], [place], [place], [address], [place] tel:[phone] [facility] No Information Sep-0 4-200 9 Dobrowski IRON ASSORTER Joanna. [address] [facility] [address], [place], [address], [place]. tel:[phone] Referring Provider: REFERRAL SELF, HUNTER. Offic/outpt E&m Estab Mod-hi 2 [facility], [facility], [address], [place], [place], [address], [place] tel:[phone] [facility] No Information Aug-1 0-200 9 Dobrowski IRON ASSORTER Joanna. [address] [facility] [address], [place], [address], [place]. tel:[phone] Referring Provider: REFERRAL SELFHUNTER. [facility], [facility], [address], [place], [place], [address], [place] tel:[phone] [facility] No Information 9 No Information Referring Provider: REFERRAL SELF, HUNTER. [facility], [facility], [address] [facility] [address], [place], [place], [address], [place] tel:[phone] [facility] No Information 9 No Information Referring Provider: REFERRAL SELF, HUNTER. Offic/outpt E&m Estab Mod-hi 2 [facility], [facility], [address] [facility] [address], [place], [place], [address], [place] tel:[phone] [facility] No Information 9 Donirwski IRON ASSORTER Joanna. [address] [facility] [address], [place], [address], [place]. tel:[phone] Referring Provider: REFERRAL SELFHUNTER. Offic/outpt E&m Estab Low-mod [facility], [facility], [address] [facility] [address], [place], [place], [address], [place] tel:[phone] [facility] No Information 9 Dobrowski IRON ASSORTER Joanna. [address] [facility] [address], [place], [address], [place]. tel:[phone] Referring Provider: REFERRAL SELF, HUNTER. Offic/outpt E&m Estab [facility]hi 2 [facility], [address] [facility] [address], [place], [place], [address], [place] tel:[phone] [facility] No Information 9 Dobrowski IRON ASSORTER Joanna. [address] [facility] [address], [place], [address], [place]. tel:[phone] Referring Provider: REFERRAL SELF, HUNTER. Offic/outpt E&m Estab Mod-hi 2 TONI Ferris, [address], [place], [place], [address], [place] tel:[phone] [facility] No Information 9 Prudence Hoyti. [address] [facility] [address], [place], [address], [place]. tel:[phone] Referring Provider: Nagi Bailey, [address], [place], [address]. tel:[phone] TONI Ferris, [address] [facility] [address], [place], [place], [address], [place] tel:[phone] [facility] No Information 9 Denice Kennedy. [address], [place], [address], [place]. tel:[phone] Referring Provider: REFERRAL SELFHUNTER. KEVIN Ferris, [address], [place], [place], [address], [place] tel:[phone] [facility] No Information 9 Denice Kennedy. [address], [address], [place], [address], [place]. tel:[phone] Referring Provider: REFERRAL HUNTER SHIELDS. KEVIN Ferris, [address], [place], [place], [address], [place] tel:[phone] [facility] No Information 9 Denice Kennedy. [address], [address], [place], [address], [place]. tel:[phone] Referring Provider: REFERRAL SELFHUNTER. Offic/outpt E&m Estab Mod-hi 2 TONI Ferris, [address], [place], [place], [address], [place] tel:[phone] [facility] No Information 9 Prudence Marshall. [address] [facility] [address], [place], [address], [place]. tel:[phone] Referring Provider: Brent Dutta, [address], [place], [address]. tel:[phone] [facility], [address], [place], [place], [address], [place] tel:[phone] [facility] No Information 9 Denice Kennedy. [address], [address], [place], [address], [place]. tel:[phone] Referring Provider: REFERRAL SELF, HUNTER. TONI Ferris, [address], [place], [place], [address], [place] tel:[phone] [facility] No Information 9 Denice Kennedy. [address], [address], [place], [address], [place]. tel:[phone] Referring Provider: REFERRAL SELF, HUNTER. KEVIN Ferris, [address], [place], [place], [address], [place] tel:[phone] [facility] No Information 9 Denice Kennedy. [address], [address], [place], [address], [place]. tel:[phone] Referring Provider: REFERRAL SELF, HUNTER. TONI Ferris, [address], [place], [place], [address], [place] tel:[phone] [facility] No Information 9 Denice Kennedy. [address], [address], [place], [address], [place]. tel:[phone] Referring Provider: REFERRAL SELF, HUNTER. KEVIN Ferris, [address], [place], [place], [address], [place] tel:[phone] [facility] No Information 9 Denice Kennedy. [address], [address], [place], [address], [place]. tel:[phone] Referring Provider: REFERRAL SELFHUNTER. KEVIN Ferris, [address], [place], [place], [address], [place] tel:[phone] [facility] No Information 9 Denice Kennedy. [address], [address], [place], [address], [place]. tel:[phone] Referring Provider: REFERRAL SELFHUNTER. Offic/outpt E&m Estab Mod-hi 2 EKVIN Ferris, [address], [place], [place], [address], [place] tel:[phone] [facility] No Information 8 Prudence Marshall. [address] [address], [place], [address], [place]. tel:[phone] Referring Provider: Brent Dutta, [address], [place], [address]. tel:[phone] KEVIN Ferris, [address], [place], [place], [address], [place] tel:[phone] [facility] No Information 8 Denice Kennedy. [address], [address], [place], [address], [place]. tel:[phone] Referring Provider: Brent Dutta, [address], [place], [address]. tel:[phone] TONI Ferris, [address] [facility] [address], [place], [place], [address], [place] tel:[phone] [facility] No Information Feb-1 0-200 8 Denice Kennedy. [address] [facility], [address], [place], [address], [place]. tel:[phone] Referring Provider: REFERRAL SELFHUNTER. TONI Ferris, [address] [facility], [place], [place], [address], [place] tel:[phone] [facility] No Information Feb-0 3-200 8 Denice Kennedy. [address] [facility], [address], [place], [address], [place]. tel:[phone] Referring Provider: REFERRAL SELFHUNTER. Offic/outpt E&m Estab Mod-hi 2 TONI Ferris, [address] [facility] [address], [place], [place], [address], [place] tel:[phone] [facility] No Information 4200 8 Prudence Marshall. [address], [address], [place]. tel:[phone] Referring Provider: REFERRAL SELFHUNTER. Offic/outpt E&m Estab Mod-hi 2 [facility], [address] [facility] , [place], [place], [address], [place] tel:[phone] [facility] No Information 7200 8 Serena Chandra. [address] [place], [address], [place]. Referring Provider: REFERRAL HUNTER SHIELDS. TONI Ferris, [address] [facility] [address], [place], [place], [address], [place] tel:[phone] [facility] No Information Nov-2 5200 8 Denice Kennedy. [address] [facility], [address], [place], [address], [place]. tel:[phone] Referring Provider: REFERRAL SELFHUNTER. Offic/outpt E&m Estab Mod-hi 2 [facility], [facility], [address] [facility] [address], [place], [place], [address], [place] tel:[phone] [facility] No Information Sep- 9200 8 Doleandra IRON ASSORTER Joanna. [address] [facility] [address], [place], [address], [place]. tel:[phone] Referring Provider: REFERRAL SELFHUNTER. Offic/outpt E&m Estab Mod-hi 2 [facility], [facility], [address] [facility], [place], [place], [address], [place] tel:[phone] [facility] No Information Sep- 0 8 Doleandra IRON ASSORTER Joanna. [address] [address], [place], [address], [place]. tel:[phone] Referring Provider: REFERRAL SELFHUNTER. Offic/outpt E&m Estab Low-mod [facility], [facility], [address] [facility] [address] , [place], [place], [address], [place] tel:[phone] [facility] No Information Sep-0 8200 8 Maria E BANKS Stepan. [address], [place] [place], [address], [place]. tel:[phone] Referring Provider: REFERRAL SELFHUNTER. Offic/outpt E&m Estab Mod-hi [address] [facility], [address] [facility] [place], [place], [address], [place] tel:[phone] [facility] No Information 1200 8 Doleandra IRON ASSORTER Joanna. [address] [facility] [address], [place], [address], [place]. tel:[phone] Referring Provider: RAMIRO SHIELDS, HUNTER. Offic/outpt E&m Estab Low-mod [facility], [facility], [address], [id number], tel:[phone] [facility] No Information 8 Dobrowski IRON ASSORTER Joanna. [address] [address], [place], [address], [place]. tel:[phone] Referring Provider: Stepan Pryor, [address] [place], [address]. tel:[phone] Offic/outpt E&m Estab Low-mod [facility], [facility], [address], [id number], tel:[phone] [facility] No Information 8 Dobrowski IRON ASSORTER Joanna. [address] [address], [place], [address], [place]. tel:[phone] Referring Provider: Stepan Pryor, [address] [place], [address]. tel:[phone] Offic/outpt E&m Estab Low-mod [facility], [facility], [address], [id number], [place] tel:[phone] [facility] No Information 8 Dobrowski IRON ASSORTER Joanna. [address] [address], [place], [address], [place]. tel:[phone] Referring Provider: Stepan Pryor, [address], [address]. tel:[phone] Offic/outpt E&m Estab Low-mod [facility], [facility], [address], [id number], [place] tel:[phone] [facility] No Information [address] COMMISSIONER Gail. [address], [address], [place], [address], [place]. tel:[phone] Referring Provider: Brent Dutta, [address], [place], [address]. tel:[phone] Offic/outpt E&m Estab Low-mod [facility], [address], [place], [place], [address], [place] tel:[phone] [facility] No Information [address] COMMISSIONER Gail. [address], [address], [place], [address], [place]. tel:[phone] Referring Provider: Stepan Pryor, [address] [facility], [address]. tel:[phone] [facility], [address], [place], [address], [place] tel:[phone] [facility] No Information 7 Denice Kennedy. [address], [address], [place], [address], [place]. tel:[phone] Referring Provider: Brent Dutta, [address], [place], [address]. tel:[phone] [facility], [address], [place], [address], [place] tel:[phone] [facility] No Information 7 Denice Kennedy. [address], [address], [place], [address], [place]. tel:[phone] Referring Provider: Brent Dutta, [address], [place], [address]. tel:[phone] Offic/outpt E&m Estab Low-mod [facility], [address], [place], [place], [address], [place] tel:[phone] [facility] No Information Nov-0 2-[address] COMMISSIONER Gail. [address], [address], [place], [address], [place]. tel:[phone] Referring Provider: Stepan Pryor, [address] [place], [address]. tel:[phone] Offic/outpt E&m Estab Mod-hi 2 [facility], [facility], [address] [facility] [address], [place], [address], [place] tel:[phone] [facility] No Information Sep-2 1-200 7 Budnick Noreen. [address] , [facility] [address], [place], [address], [place]. tel:[phone] Referring Provider: Stepan Pryor, [address] [place] [address], [address]. tel:[phone] Offic/outpt E&m Estab Low-mod [facility], [address] [facility] [address], [place], [place], [address], [place] tel:[phone] [facility] No Information Sep-0 5-[address] COMMISSIONER Gail[address] , [address], [place], [address], [place]. tel:[phone] Referring Provider: Brent Dutta, [address], [place], [address]. tel:[phone] Offic/outpt E&m Estab Mod-hi 2 [facility], [address] [facility] [address], [place], [address], [place] tel:[phone] [facility] No Information [address] COMMISSIONER Gail. [address], [address], [place], [address], [place]. tel:[phone] Referring Provider: REFERRAL SELFHUNTER. Offic/outpt E&m Estab Low-mod [facility], [address], [place], [place], [address], [place] tel:[phone] [facility] No Information [address] COMMISSIONER Gail. [address], [address], [place], [address], [place]. tel:[phone] Referring Provider: REFERRAL SELFHUNTER. Offic/outpt E&m Estab Mod-hi 2 [facility], [address], [address], [place] tel:[phone] [facility] No Information [address] COMMISSIONER Gail. [address], [address], [place], [address], [place]. tel:[phone] Referring Provider: Stepan Pryor, [address] [place], [address]. tel:[phone] Offic/outpt E&m Estab Low-mod [facility], [facility], [address], [address], [place] tel:[phone] [facility] No Information [address] COMMISSIONER Gail. [address], [address], [place], [address], [place]. tel:[phone] Referring Provider: Stepan Pryor, [address] [place], [address]. tel:[phone] Offic/outpt E&m Estab Mod-hi 2 [facility], [facility], [address], [place], [place], [address], [place] tel:[phone] [facility] No Information 6-[address] COMMISSIONER Gail. [address], [address], [place], [address], [place]. tel:[phone] Referring Provider: Stepan Pryor, [address] [place], [address]. tel:[phone] Offic/outpt E&m Estab Mod-hi 2 [facility], [address], [place], [place], [address], [place] tel:[phone] [facility] No Information 7-200 6 Budnick Noreen. [address], [place], [place], [address], [place]. tel:[phone] Referring Provider: Stepan Pryor, [address] [place], [address]. tel:[phone] Offic/outpt E&m Estab Low-mod [facility], [address], [address], [place] tel:[phone] [facility] No Information Dec- 4-200 6 Budnick Noreen. [address], [place], [place], [address], [place]. tel:[phone] Offic/outpt E&m Estab Minor 10 [facility], [address], [place], [place], [address], [place] tel:[phone] [facility] No Information Sep-0 5-200 6 Budnick Noreen. [address], [address], [place], [place], [address], [place]. tel:[phone] Referring Provider: Brent Dutta, [address], [place], [address]. tel:[phone] Offic/outpt E&m Estab Low-mod [facility], [facility], [address] [facility] [address], [place], [place], [address], [place] tel:[phone] [facility] No Information 6 Pete Abdul. [address] , [address], [place], [address], [place]. tel:[phone] Referring Provider: Brent Dutta, [address], [place], [address]. tel:[phone] Offic/outpt E&m Estab Low-mod [facility], [address] [facility] [address], [place], [address], [place] tel:[phone] [facility] No Information 6 Budnick Noreen. [address], [place], [place], [address], [place]. tel:[phone] Offic/outpt E&m Estab Low-mod [facility], [address] [facility] [address], [place], [address], [place] tel:[phone] [facility] No Information 6 Budnick Noreen. [address] , [facility] [address], [place], [address], [place]. tel:[phone] Referring Provider: Stepan Pryor, [address] [facility], [place], [address]. tel:[phone] Offic/outpt E&m Estab Low-mod [facility], [address] [facility] [address], [place], [address], [place] tel:[phone] [facility] No Information 6 Budnick Noreen. [address] , [address], [place], [place], [address], [place]. tel:[phone] Referring Provider: Leisa Moore MD, [address], [address]. tel:[phone] Offic/outpt E&m Estab Low-mod [facility], [facility], [address] [facility] [address], [place], [place], [address], [place] tel:[phone] [facility] No Information 9200 5 Pete Abdul. [address] , [address], [place], [address], [place]. tel:[phone] Referring Provider: Stepan Pryor, [address] [place], [address]. tel:[phone] Offic/outpt E&m Estab Low-mod [facility], [facility], [address] [facility] [address], [place], [place], [address], [place] tel:[phone] [facility] No Information 0200 5 Pete Abdul. [address] , [facility] [address], [place], [address], [place]. tel:[phone] Referring Provider: Stepan Pryor, [address] [place], [address]. tel:[phone] Offic/outpt E&m Estab Low-mod [facility], [facility], [address] [facility] [address], [address], [place] tel:[phone] [facility] No Information 4200 5 Debbie Sorto. [address] , [address], [place], [place], [address], [place]. tel:[phone] Referring Provider: Stepan Pryor, [address] [place], [address]. tel:[phone] Offic/outpt E&m Estab Low-mod [facility], [facility], [address], [place], [place], [address], [place] tel:[phone] [facility] No Information 5 Debbie Sorto. [address], [place], [place], [address], [place]. tel:[phone] Referring Provider: REFERRAL SELF, HUNTER. Family History Family Member Type Diagnosis Age At Onset No Information Payers Payer name Insurance type Covered democrat ID Authordeepak butler(s) [facility] [id number] [employer] [id number] Social History Type Description Quantity Date Captured Comments Sex Female Smoking Status No Information Chief Complaint And Reason For Visit No Information Reason For Referral Reason For Referral No Information History Of Present Illness Encounter Date Complaint History Of Prese nt Illness No Information Functional Status Date Functional Assessmen t No Information Instructions Date Instruction Additional Infor mation No Information Assessments Type Assessment Date No Information Patient Care Teams Name Effective Dates (start - stop) Status Members No Information
--- OUTSIDE RECORDS SUMMARY | 2011-06-28 03:45 | XMS_ITS | Continuity of Care Document ---
Author Organization TONI Ferris Address [address] [place] [address] Phone Care Team Providers Care Activities Officer Name Role Phone Leidy Hernandez PA-C Unavailable [...] Lumb/sac 1 Le 11 Offic/outpt E&m Estab [facility] 2 11 Trans Epid Lumbosac each addl 1 Inj Anes Epidur; Lumb/sac 1 Le 11 QA DONE Offic/outpt E&m Estab [facility] Offic/outpt E&m Estab [facility] 0 Offic/outpt E&m Estab [facility] 0 Offic/outpt E&m Estab [facility] 2 10 Offic/outpt E&m Estab [facility] 0 Offic/outpt E&m Estab [facility] 0 Offic/outpt E&m Estab [facility] 2 10 Offic/outpt E&m Estab [facility] 2 10 Destrct; Nerv Lumbar Ea Add Le 10 Destrct; Paravert Facet Jt Lum 10 Fluoroscopic Guidance For Needle Placeme nt - Spine Destrct; Nerv Lumbar Ea Add Le 10 Destrct; Nerv Lumbar Ea Add Le 10 Offic/outpt E&m Estab [facility] 0 Inj Anes Epidur; Lumb/sac 1 Le 10 Fluoroscopic Guidance For Needle Placeme nt - Spine Inj Not Lytic-epidur; Lumb/sac 10 Epidurography Rad S&i Offic/outpt E&m Estab Mod-ca 2 10 Offic/outpt E&m Estab Mod-ca 2 10 Offic/outpt E&m Estab Low-mod 0 Offic/outpt E&m Estab Low-mod 0 Offic/outpt E&m Estab Low-mod 0 Offic/outpt E&m Estab Mod-ca 2 10 Offic/outpt E&m Estab Mod-ca 2 09 Offic/outpt E&m Estab Mod-ca 2 09 Offic/outpt E&m Estab Low-mod 9 [...] Placeme nt - Spine Offic/outpt E&m Estab Mod-ca 2 09 Offic/outpt E&m Estab [facility] 2 09 Current Med Dosages Verified & [...] ented In Final Report Offic/outpt E&m Estab Mod-ca 2 09 Patient encounter was documented using a CCHIT cer Subsequent Visit For Low Back Pain Offic/outpt E&m Estab Low-mod 9 Offic/outpt E&m Estab Mod-hi 2 09 Offic/outpt E&m Estab Mod-ca 2 09 Destruc Facet Nrv; Cerv/thor 1 [...] Placeme nt - Spine Offic/outpt E&m Estab Mod-ca 2 09 Destrct; Paravert Facet Jt Lum [...] Placeme nt - Spine Offic/outpt E&m Estab [facility] 2 08 Destrct; Paravert Facet Jt Lum 08 Destrct; Nerv Lumbar Ea Add Le 08 Destrct; Nerv Lumbar Ea Add Le 08 Fluoroscopic Guidance For Needle Placeme nt - Spine Inj Anes Facet Jt; Lumb/sac-1l 08 Inj Anes Facet Jt; Lumb/sac-ea 08 Inj Anes Facet Jt; Lumb/sac-1l 08 Fluoroscopic Guidance For Needle Placeme nt - Spine Offic/outpt E&m Estab [facility] 2 08 Offic/outpt E&m Estab [facility] 2 08 Inj Not Lytic-epidur; Lumb/sac 08 Fluoroscopic Guidance For Needle Placeme nt - Spine Offic/outpt E&m Estab [facility] 2 08 Offic/outpt E&m Estab [facility] 2 08 Offic/outpt E&m Estab [facility] 8 Inj Anes Facet Jt; Cerv/thor-1 08 Inj Anes Facet Jt; Cerv/thor-e 08 Fluoroscopic Guidance For Needle Placeme nt - Spine Offic/outpt E&m Estab [facility] 2 08 Offic/outpt E&[facility] Est[facility] Offic/outpt E&m Estab [facility] 8 Offic/outpt E&m Estab [facility] 8 Offic/outpt E&m Est[facility] 7 Offic/outpt E&m Est[facility] 7 Inj Not Lytic-epidur; Lumb/sac 07 Fluoroscopic Guidance For Needle Placeme nt - Spine Inj Not Lytic-epidur; Lumb/sac 07 Fluoroscopic Guidance For Needle Placeme nt - Spine Offic/outpt E&m Est[facility] Offic/outpt E&m Estab [facility] 2 07 Offic/outpt E&m Estab [facility] 7 Offic/outpt E&m Estab [facility] 2 07 Offic/outpt E&m Estab [facility] 7 Offic/outpt E&m Estab [facility] 2 07 Offic/outpt E&m Est[facility] Offic/outpt E&m Estab [facility] 2 07 Offic/outpt E&m Estab [facility] 2 06 Offic/outpt E&m Estab [facility] 6 Offic/outpt E&m Estab Minor 06 Offic/outpt E&m Est[facility] 6 Offic/outpt E&m Estab [facility] 6 Offic/outpt E&m Estab [facility] 6 Offic/outpt E&m Estab [facility] 6 Offic/outpt E&m Est[facility] 5 Offic/outpt E&m Estab [facility] 5 Offic/outpt E&m Est[facility] 5 Offic/outpt E&m Est[facility] 5 Advance Directives Directive Yes / No Effective Date File Name No Information Encounters Encounter Description Practice Location Reason(s) For Visit Diagnoses Date Provider Providers Copied on Encounter Offic/outpt E&m Estab [facility] [place] [facility], [address], [place], [place], [address], [place] tel:[phone] [facility] No Information 2 David Forbes. [address] [place], [address], [place]. tel:[phone] Referring Provider: Duane Gardiner MD, [address] [place], [address]. tel:[phone] Offic/outpt E&m Estab Low [place] [facility], [address], [place], [place], [address], [place] tel:[phone] [facility] No Information 4201 2 David Forbes. [address], [facility] [place], [address], [place]. tel:[phone] Referring Provider: Duane Gardiner MD, [address] [place], [address]. tel:[phone] Offic/outpt E&m Estab Mod [place] [facility], [address], [place], [place], [address], [place] tel:[phone] [facility] No Information Dec-2 0-201 1 David Forbes. [address], [place], [address], [place]. tel:[phone] KEVIN Ferris, [address], [place], [place], [address], [place] tel:[phone] [facility] No Information Dec-0 9-201 1 Cassim Hazmer. [address], [address], [place], [address], [place]. tel:[phone] Referring Provider: REFERRAL SELF, [place]. TONI Ferris, [address], [place], [place], [address], [place] tel:[phone] [facility] No Information Dec-0 2-201 1 Cassim Hazmer. [address], [address], [place], [address], [place]. tel:[phone] Referring Provider: REFERRAL [place]ELF[place] KEVIN Ferris, [address], [place], [place], [address], [place] tel:[phone] [facility] No Information 1 Mikel Corey. [address], [address], [place], [address], [place]. tel:[phone] Referring Provider: REFERRAL SELF, HUNTER. Offic/outpt E&m Estab [facility], [facility], [address], [place], [place], [address], [place] tel:[phone] [facility] No Information 1 David Forbes. [address], [facility] [place], [address], [place]. tel:[phone] Referring Provider: REFERRAL SELF, HUNTER. Offic/outpt E&m Estab [facility], [facility], [address], [place], [place], [address], [place] tel:[phone] [facility] No Information 1 David Forbes. [address], [facility] [place], [address], [place]. tel:[phone] Referring Provider: REFERRAL SELF, HUNTER. Offic/outpt E&m Estab Low [facility], [facility], [address], [place], [place], [address], [place] tel:[phone] [facility] No Information 1 David Forbes. [address], [place], [address], [place]. tel:[phone] Referring Provider: REFERRAL SELF, HUNTER. Offic/outpt E&m Estab [facility], [facility], [address] [facility] [address], [place], [place], [address], [place] tel:[phone] [facility] No Information 1 David Forbes. [address], [facility], [place], [address], [place]. tel:[phone] Referring Provider: REFERRAL [place], [address], [place], [place], [address], [place] tel:[phone] [facility] No Information 1 David Forbes. [address], [facility], [place], [address], [place]. tel:[phone] Referring Provider: REFERRAL [place] SH[facility]. Offic/outpt E&m Estab Mod-hi 2 TONI Ferris, [address], [place], [place], [address], [place] tel:[phone] [facility] No Information 1 Doleandra SETTLEMENT WORKER Joanna. [address] [facility] [address], [place], [address], [place]. tel:[phone] Referring Provider: REFERRAL [place], [address], [place], [place], [address], [place] tel:[phone] [facility] No Information 1 Dobrochanell SETTLEMENT WORKER Joanna. [address] [facility] [address], [place], [address], [place]. tel:[phone] Referring Provider: REFERRAL [place], [address], [place], [place], [address], [place] tel:[phone] [facility] No Information 1 Mikel Corey. [address], [address], [place], [address], [place]. tel:[phone] Referring Provider: REFERRAL [place], [address], [place], [place], [address], [place] tel:[phone] [facility] No Information 1 Cassim Hazmer. [address], [address], [place], [address], [place]. tel:[phone] Referring Provider: REFERRAL [place]ELF[place] KEVIN Ferris, [address], [place], [place], [address], [place] tel:[phone] [facility] No Information 1 Cassim Hazmer. [address], [address], [place], [address], [place]. tel:[phone] Referring Provider: REFERRAL [place] KEVIN Ferris, [address], [place], [place], [address], [place] tel:[phone] [facility] No Information 1 Cassim Hazmer. [address], [address], [place], [address], [place]. tel:[phone] Referring Provider: Minor Fierro MD, [address] [facility], [place], [address]. tel:[phone] Offic/outpt E&m Estab Mod-hi 2 KEVIN Ferris, [address], [place], [place], [address], [place] tel:[phone] [facility] No Information 1 Prudence Marshall. [address] [address], [place], [address], [place]. tel:[phone] Referring Provider: Minor Fierro MD, [address] [facility], [place], [address]. tel:[phone] TONI Ferris, [address], [place], [place], [address], [place] tel:[phone] [facility] No Information 1 Mikel Leora. [address], [address], [place], [address], [place]. tel:[phone] Referring Provider: Leora Griffiths, [address], [place], [address]. tel:[phone] [place], [facility], [address], [place], [place], [address], [place] tel:[phone] [facility] No Information 0 Prudence POWELL Joanna. [address], [address], [place]. tel:[phone] Referring Provider: REFERRAL [facility], [place]. Offic/outpt E&m Estab Low-mod [place], [facility], [address], [place], [place], [address], [place] tel:[phone] [facility] No Information 0 Prudence HAILEP Joanna. [address] [address], [place], [address], [place]. tel:[phone] Referring Provider: Joanna POWELL, [address], [address]. tel:[phone] Offic/outpt E&m Estab [facility], [address] [facility] [address], [place], [place], [address], [place] tel:[phone] [facility] No Information 0-201 0 Dobrochanell HAILEP Joanna. [address] [address], [place], [address], [place]. tel:[phone] Referring Provider: REFERRAL SELF, [place]TER. Offic/outpt E&m Estab Mod-hi 2 [place], [facility], [address] [facility] [address], [place], [place], [address], [place] tel:[phone] [facility] No Information 2- 0 Dobrowski SETTLEMENT WORKER Ojanna. [address] [facility] [address], [place], [address], [place]. tel:[phone] Referring Provider: REFERRAL SELF, [place]TER. Offic/outpt E&m Estab Low-mod [place], [facility], [address] [facility] [address], [place], [place], [address], [place] tel:[phone] [facility] No Information - 0 Dobrowski SETTLEMENT WORKER Joanna. [address] [address], [place], [address], [place]. tel:[phone] Referring Provider: REFERRAL SELF, [place]TER. Offic/outpt E&m Estab Low-mod [place], [facility], [address] [facility] [address], [place], [place], [address], [place] tel:[phone] [facility] No Information 0-201 0 Dobrowski SETTLEMENT WORKER Joanna. [address] [address], [place], [address], [place]. tel:[phone] Referring Provider: REFERRAL SELFHUNTER. Offic/outpt E&m Estab Mod-hi 2 [place], [facility], [address] [facility] [address], [place], [place], [address], [place] tel:[phone] [facility] No Information 3 0 Dobrowski SETTLEMENT WORKER Joanna. [address] [facility] [address], [place], [address], [place]. tel:[phone] Referring Provider: REFERRAL SELFHUNTER. Offic/outpt E&m Estab Mod-hi 2 [facility], [address], [place], [place], [address], [place] tel:[phone] [facility] No Information 0-201 0 Dobrochanell SETTLEMENT WORKER Joanna. [address] [facility] [address], [place], [address], [place]. tel:[phone] Referring Provider: REFERRAL SELF, [place]TER. KEVIN Ferris, [address], [place], [place], [address], [place] tel:[phone] [facility] No Information 4-201 0 Cassim Hazmer. [address], [address], [place], [address], [place]. tel:[phone] Referring Provider: REFERRAL SELFHUNTER. Offic/outpt E&m Estab Low-mod [place] [facility], [address], [place], [place], [address], [place] tel:[phone] [facility] No Information 7-201 0 Dobrochanell SETTLEMENT WORKER Joanna. [address], [address], [place]. tel:[phone] Referring Provider: REFERRAL SELFHUNTER. KEVIN Ferris, [address], [place], [place], [address], [place] tel:[phone] [facility] No Information 0-201 0 Cassim Hazmer. [address], [address], [place], [address], [place]. tel:[phone] Referring Provider: REFERRAL [place] [facility]. KEVIN Ferris, [address], [place], [place], [address], [place] tel:[phone] [facility] No Information 6-201 0 Cassim Hazmer. [address], [address], [place], [address], [place]. tel:[phone] Referring Provider: REFERRAL SELF, HUNTER. Offic/outpt E&m Estab Mod-hi 2 [place], [facility], [address], [place], [place], [address], [place] tel:[phone] [facility] No Information 0 Dobrowski SETTLEMENT WORKER Joanna. [address] [facility] [address], [place], [address], [place]. tel:[phone] Referring Provider: REFERRAL SELFHUNTER. Offic/outpt E&m Estab Mod-hi 2 [place], [facility], [address] [facility] [address], [place], [place], [address], [place] tel:[phone] [facility] No Information 0 Dobrowski SETTLEMENT WORKER Joanna. [address] [facility] [address], [place], [address], [place]. tel:[phone] Referring Provider: REFERRAL SELFHUNTER. Offic/outpt E&m Estab Low-mod [facility], [facility], [address], [place], [place], [address], [place] tel:[phone] [facility] No Information 0 Dobrowski SETTLEMENT WORKER Joanna. [address] [facility] [address], [place], [address], [place]. tel:[phone] Referring Provider: REFERRAL SELFHUNTER. Offic/outpt E&m Estab Low-mod [facility], [address] [facility] [address], [place], [place], [address], [place] tel:[phone] [facility] No Information 0 Budnick Noreen. [address] [facility], [place], [place], [address], [place]. tel:[phone] Referring Provider: REFERRAL SELF, HUNTER. Offic/outpt E&m Estab Low-mod [place], [facility], [address] [address], [place], [place], [address], [place] tel:[phone] [facility] No Information 0 Dobrowski SETTLEMENT WORKER Joanna. [address] [facility] [address], [place], [address], [place]. tel:[phone] Referring Provider: REFERRAL SELFHUNTER. Offic/outpt E&m Estab Mod-hi 2 [place], [facility], [address], [address], [place] tel:[phone] [facility] No Information 0 Dobrowski SETTLEMENT WORKER Joanna. [address] [address], [place], [address], [place]. tel:[phone] Referring Provider: REFERRAL SELFHUNTER. Offic/outpt E&m Estab Mod-hi 2 [place], [facility], [address], [address], [place] tel:[phone] [facility] No Information 200 9 Dobrowski SETTLEMENT WORKER Joanna. [address] [facility] [address], [place], [address], [place]. tel:[phone] Referring Provider: REFERRAL SELF, HUNTER. Offic/outpt E&m Estab Mod-hi 2 [place], [facility], [address] [facility] [address], [place], [address], [place] tel:[phone] [facility] No Information 6200 9 Dobrowski SETTLEMENT WORKER Joanna. [address] [facility] [address], [place], [address], [place]. tel:[phone] Referring Provider: REFERRAL SELFHUNTER. Offic/outpt E&m Estab Low-mod [place], [facility], [address], [place], [place], [address], [place] tel:[phone] [facility] No Information Oct-2 3-200 9 Dobrowski SETTLEMENT WORKER Joanna. [address] [facility] [address], [place], [address], [place]. tel:[phone] Referring Provider: REFERRAL SELF, [place]TER. [place], [facility], [address], [place], [place], [address], [place] tel:[phone] [facility] No Information Oct-0 7-200 9 No Information Referring Provider: REFERRAL SELF, H[place]TER. [place], [facility], [address], [place], [place], [address], [place] tel:[phone] [facility] No Information Sep-3 0-200 9 No Information Referring Provider: REFERRAL SELF, HUNTER. [place], [facility], [address], [place], [place], [address], [place] tel:[phone] [facility] No Information Sep-2 3-200 9 No Information Referring Provider: REFERRAL SELF, HUNTER. Offic/outpt E&m Estab Mod-hi 2 [place], [facility], [address], [place], [place], [address], [place] tel:[phone] [facility] No Information Sep-0 4-200 9 Dobrowski SETTLEMENT WORKER Joanna. [address] [facility] [address], [place], [address], [place]. tel:[phone] Referring Provider: REFERRAL SELF, HUNTER. Offic/outpt E&m Estab Mod-hi 2 [place], [facility], [address], [place], [place], [address], [place] tel:[phone] [facility] No Information Aug-1 0-200 9 Dobrowski SETTLEMENT WORKER Joanna. [address] [facility] [address], [place], [address], [place]. tel:[phone] Referring Provider: REFERRAL SELFHUNTER. [place], [facility], [address], [place], [place], [address], [place] tel:[phone] [facility] No Information 9 No Information Referring Provider: REFERRAL SELF, H[place]TER. [place], [facility], [address] [facility] [address], [place], [place], [address], [place] tel:[phone] [facility] No Information 9 No Information Referring Provider: REFERRAL SELF, HUNTER. Offic/outpt E&m Estab Mod-hi 2 [place], [facility], [address] [facility] [address], [place], [place], [address], [place] tel:[phone] [facility] No Information 9 Donirwski SETTLEMENT WORKER Joanna. [address] [facility] [address], [place], [address], [place]. tel:[phone] Referring Provider: REFERRAL SELFHUNTER. Offic/outpt E&m Estab Low-mod [place], [facility], [address] [facility] [address], [place], [place], [address], [place] tel:[phone] [facility] No Information 9 Dobrowski SETTLEMENT WORKER Joanna. [address] [facility] [address], [place], [address], [place]. tel:[phone] Referring Provider: REFERRAL SELF, HUNTER. Offic/outpt E&m Estab [facility]hi 2 [facility], [address] [facility] [address], [place], [place], [address], [place] tel:[phone] [facility] No Information 9 Dobrowski SETTLEMENT WORKER Joanna. [address] [facility] [address], [place], [address], [place]. tel:[phone] Referring Provider: REFERRAL SELF, HUNTER. Offic/outpt E&m Estab Mod-hi 2 TONI Ferris, [address], [place], [place], [address], [place] tel:[phone] [facility] No Information 9 Prudence Hoyti. [address] [facility] [address], [place], [address], [place]. tel:[phone] Referring Provider: Nagi Bailey, [address], [place], [address]. tel:[phone] TONI Ferris, [address] [facility] [address], [place], [place], [address], [place] tel:[phone] [facility] No Information 9 Denice Kennedy. [address], [place], [address], [place]. tel:[phone] Referring Provider: REFERRAL SELFHUNTER. KEVIN Ferris, [address], [place], [place], [address], [place] tel:[phone] [facility] No Information 9 Denice Kennedy. [address], [place], [address], [place]. tel:[phone] Referring Provider: REFERRAL [place]TER [facility]. KEVIN Ferris, [address], [place], [place], [address], [place] tel:[phone] [facility] No Information 9 Denice Kennedy. [address], [place], [address], [place]. tel:[phone] Referring Provider: REFERRAL SELFHUNTER. Offic/outpt E&m Estab Mod-hi 2 TONI Ferris, [address], [place], [place], [address], [place] tel:[phone] [facility] No Information [address] [facility] [address], [place], [address], [place]. tel:[phone] Referring Provider: Brent Dutta, [address], [place], [address]. tel:[phone] [facility] [facility], [address], [place], [place], [address], [place] tel:[phone] [facility] No Information 9 Denice Kennedy. [address], [place], [address], [place]. tel:[phone] Referring Provider: REFERRAL SELF, HUNTER. TONI Ferris, [address], [place], [place], [address], [place] tel:[phone] [facility] No Information 9 Denice Kennedy. [address], [place], [address], [place]. tel:[phone] Referring Provider: REFERRAL SELF, HUNTER. KEVIN Ferris, [address], [place], [place], [address], [place] tel:[phone] [facility] No Information 9 Denice Kennedy. [address], [place], [address], [place]. tel:[phone] Referring Provider: REFERRAL SELF, HUNTER. TONI Ferris, [address], [place], [place], [address], [place] tel:[phone] [facility] No Information 9 Denice Kennedy. [address], [address], [place], [address], [place]. tel:[phone] Referring Provider: REFERRAL SELF, HUNTER. KEVIN Ferris, [address], [place], [place], [address], [place] tel:[phone] [facility] No Information 9 Denice Kennedy. [address], [address], [place], [address], [place]. tel:[phone] Referring Provider: REFERRAL SELFHUNTER. KEVIN Ferris, [address], [place], [place], [address], [place] tel:[phone] [facility] No Information 9 Denice Kennedy. [address], [address], [place], [address], [place]. tel:[phone] Referring Provider: REFERRAL SELFHUNTER. Offic/outpt E&m Estab Mod-hi 2 KEVIN Ferris, [address], [place], [place], [address], [place] tel:[phone] [facility] No Information 8 Prudence Marshall. [address] [address], [place], [address], [place]. tel:[phone] Referring Provider: Brent Dutta, [address], [place], [address]. tel:[phone] KEVIN Ferris, [address], [place], [place], [address], [place] tel:[phone] [facility] No Information 8 Denice Kennedy. [address], [address], [place], [address], [place]. tel:[phone] Referring Provider: Brent Dutta, [address], [place], [address]. tel:[phone] TONI Ferris, [address] [facility] [address], [place], [place], [address], [place] tel:[phone] [facility] No Information Feb-1 0-200 8 Denice Kennedy. [address] [facility], [address], [place], [address], [place]. tel:[phone] Referring Provider: REFERRAL SELFHUNTER. TONI Ferris, [address] [facility], [place], [place], [address], [place] tel:[phone] [facility] No Information Feb-0 3-200 8 Denice Kennedy. [address] [facility], [address], [place], [address], [place]. tel:[phone] Referring Provider: REFERRAL SELFHUNTER. Offic/outpt E&m Estab Mod-hi 2 TONI Ferris, [address] [facility] [address], [place], [place], [address], [place] tel:[phone] [facility] No Information 4200 8 Prudence Marshall. [address], [address], [place]. tel:[phone] Referring Provider: REFERRAL SELFHUNTER. Offic/outpt E&m Estab Mod-hi 2 [place] [facility], [address] [facility] , [place], [place], [address], [place] tel:[phone] [facility] No Information 7200 8 Serena Chandra. [address] [place], [address], [place]. Referring Provider: REFERRAL HUNTER SHIELDS. TONI Ferris, [address] [facility] [address], [place], [place], [address], [place] tel:[phone] [facility] No Information Nov-2 5200 8 Denice Kennedy. [address] [facility], [address], [place], [address], [place]. tel:[phone] Referring Provider: REFERRAL SELFHUNTER. Offic/outpt E&m Estab Mod-hi 2 [place], [facility], [address] [facility] [address], [place], [place], [address], [place] tel:[phone] [facility] No Information Sep- 9200 8 Doleandra SETTLEMENT WORKER Joanna. [address] [facility] [address], [place], [address], [place]. tel:[phone] Referring Provider: REFERRAL SELFHUNTER. Offic/outpt E&m Estab Mod-hi 2 [place], [facility], [address] [facility] [address], [place], [place], [address], [place] tel:[phone] [facility] No Information Sep- 0 8 Doleandra SETTLEMENT WORKER Joanna. [address] [address], [place], [address], [place]. tel:[phone] Referring Provider: REFERRAL SELFHUNTER. Offic/outpt E&m Estab Low-mod [facility], [facility], [address] , [place], [place], [address], [place] tel:[phone] [facility] No Information Sep-0 8200 8 Maria E BANKS Stepan. [address], [place], [address], [place]. tel:[phone] Referring Provider: REFERRAL SELFHUNTER. Offic/outpt E&m Estab Mod-hi 2 [facility], [address] [facility] [place], [place], [id number], [place] tel:[phone] [facility] No Information 1200 8 Doleandra SETTLEMENT WORKER Joanna. [address] [facility] [address], [place], [address], [place]. tel:[phone] Referring Provider: RAMIRO SHIELDS, HUNTER. Offic/outpt E&m Estab Low-mod [place], [facility], [address], [id number], tel:[phone] [facility] No Information 8 Dobrowski SETTLEMENT WORKER Joanna. [address] [address], [place], [address], [place]. tel:[phone] Referring Provider: Stepan Pryor, [address] [place], [address]. tel:[phone] Offic/outpt E&m Estab Low-mod [place], [facility], [address], [id number], tel:[phone] [facility] No Information 8 Dobrowski SETTLEMENT WORKER Joanna. [address] [address], [place], [address], [place]. tel:[phone] Referring Provider: Stepan Pryor, [address] [place], [address]. tel:[phone] Offic/outpt E&m Estab Low-mod [place], [facility], [address], [id number], [place] tel:[phone] [facility] No Information 8 Dobrowski SETTLEMENT WORKER Joanna. [address] [address], [place], [address], [place]. tel:[phone] Referring Provider: Stepan Pryor, [address], [address]. tel:[phone] Offic/outpt E&m Estab Low-mod [place], [facility], [address], [id number], [place] tel:[phone] [facility] No Information 8 Korbitz CARDROOM WORKER Gail. [address], [address], [place], [address], [place]. tel:[phone] Referring Provider: Brent Dutta, [address], [place], [address]. tel:[phone] Offic/outpt E&m Estab Low-mod [facility], [address], [place], [place], [address], [place] tel:[phone] [facility] No Information 7 Korbitz CARDROOM WORKER Gail. [address], [address], [place], [address], [place]. tel:[phone] Referring Provider: Stepan Pryor, [address] [place], [address]. tel:[phone] [facility], [address], [place], [address], [place] tel:[phone] [facility] No Information 7 Denice Kennedy. [address], [address], [place], [address], [place]. tel:[phone] Referring Provider: Brent Dutta, [address], [place], [address]. tel:[phone] [facility], [address], [place], [address], [place] tel:[phone] [facility] No Information 7 Denice Kennedy. [address], [address], [place], [address], [place]. tel:[phone] Referring Provider: Brent Dutta, [address], [place], [address]. tel:[phone] Offic/outpt E&m Estab Low-mod [facility], [address], [place], [place], [address], [place] tel:[phone] [facility] No Information Nov-0 2-200 7 Korbitz CARDROOM WORKER Gail. [address], [address], [place], [address], [place]. tel:[phone] Referring Provider: Stepan Pryor, [address] [place], [address]. tel:[phone] Offic/outpt E&m Estab Mod-hi 2 [place], [facility], [address] [facility] [address], [place], [address], [place] tel:[phone] [facility] No Information Sep-2 1-200 7 Budnick Noreen. [address] , [facility] [address], [place], [address], [place]. tel:[phone] Referring Provider: Stepan Pryor, [address] [place] [address], [address]. tel:[phone] Offic/outpt E&m Estab Low-mod [facility], [address] [facility] [address], [place], [place], [address], [place] tel:[phone] [facility] No Information Sep-0 5-200 7 Korbitz CARDROOM WORKER Gail. [address] , [address], [place], [address], [place]. tel:[phone] Referring Provider: Brent Dutta, [address], [place], [address]. tel:[phone] Offic/outpt E&m Estab Mod-hi 2 [facility], [address] [facility] [address], [place], [address], [place] tel:[phone] [facility] No Information 200 7 Korbitz CARDROOM WORKER Gail. [address], [address], [place], [address], [place]. tel:[phone] Referring Provider: REFERRAL SELFHUNTER. Offic/outpt E&m Estab Low-mod [facility], [address], [place], [place], [address], [place] tel:[phone] [facility] No Information 0200 7 Korbitz CARDROOM WORKER Gail. [address], [address], [place], [address], [place]. tel:[phone] Referring Provider: REFERRAL SELFHUNTER. Offic/outpt E&m Estab Mod-hi 2 [facility], [address], [place], [address], [place] tel:[phone] [facility] No Information 7 Korbitz CARDROOM WORKER Gail. [address], [address], [place], [address], [place]. tel:[phone] Referring Provider: Stepan Pryor, [address] [place], [address]. tel:[phone] Offic/outpt E&m Estab Low-mod [place], [facility], [address], [place], [address], [place] tel:[phone] [facility] No Information 200 7 Korbitz CARDROOM WORKER Gail. [address], [address], [place], [address], [place]. tel:[phone] Referring Provider: Stepan Pryor, [address] [place], [address]. tel:[phone] Offic/outpt E&m Estab Mod-hi 2 [place], [facility], [address], [place], [place], [address], [place] tel:[phone] [facility] No Information 6-200 7 Korbitz CARDROOM WORKER Gail. [address], [address], [place], [address], [place]. tel:[phone] Referring Provider: Stepan Pryor, [address] [place], [address]. tel:[phone] Offic/outpt E&m Estab Mod-hi 2 [facility], [address], [place], [place], [address], [place] tel:[phone] [facility] No Information 7-200 6 Budnick Noreen. [address], [place], [place], [address], [place]. tel:[phone] Referring Provider: Stepan Pryor, [address] [place], [address]. tel:[phone] Offic/outpt E&m Estab Low-mod [facility], [address], [place], [address], [place] tel:[phone] [facility] No Information Dec- 4-200 6 Budnick Noreen. [address], [place], [place], [address], [place]. tel:[phone] Offic/outpt E&m Estab Minor 10 [facility], [address], [place], [place], [address], [place] tel:[phone] [facility] No Information Sep-0 5-200 6 Budnick Noreen. [address], [address], [place], [place], [address], [place]. tel:[phone] Referring Provider: Brent Dutta, [address], [place], [address]. tel:[phone] Offic/outpt E&m Estab Low-mod [place], [facility], [address] [facility] [address], [place], [place], [address], [place] tel:[phone] [facility] No Information 6 Pete Abdul. [address] , [address], [place], [address], [place]. tel:[phone] Referring Provider: Brent Dutta, [address], [place], [address]. tel:[phone] Offic/outpt E&m Estab Low-mod [place] [facility], [address] [facility] [address], [place], [address], [place] tel:[phone] [facility] No Information 6 Budnick Noreen. [address] , [address], [place], [place], [address], [place]. tel:[phone] Offic/outpt E&m Estab Low-mod [facility], [address] [facility] [address], [place], [address], [place] tel:[phone] [facility] No Information 6 Budnick Noreen. [address] , [facility] [address], [place], [address], [place]. tel:[phone] Referring Provider: Stepan Pryor, [address] [facility], [place], [address]. tel:[phone] Offic/outpt E&m Estab Low-mod [place] [facility], [address] [facility] [address], [place], [address], [place] tel:[phone] [facility] No Information 6 Budnick Noreen. [address] , [address], [place], [place], [address], [place]. tel:[phone] Referring Provider: Leisa Moore MD, [address], [address]. tel:[phone] Offic/outpt E&m Estab Low-mod [place], [facility], [address] [facility], [place], [place], [address], [place] tel:[phone] [facility] No Information 9200 5 Pete Abdul. [address] , [address], [place], [address], [place]. tel:[phone] Referring Provider: Stepan Pryor, [address] [place], [address]. tel:[phone] Offic/outpt E&m Estab Low-mod [place], [facility], [address] [facility], [place], [place], [address], [place] tel:[phone] [facility] No Information 0200 5 Pete Abdul. [address] , [facility] [address], [place], [address], [place]. tel:[phone] Referring Provider: Stepan Pryor, [address] [place], [address]. tel:[phone] Offic/outpt E&m Estab Low-mod [place], [facility], [address] [facility] [address], [place], [address], [place] tel:[phone] [facility] No Information 4200 5 Debbie Sorto. [address] , [address], [place], [place], [address], [place]. tel:[phone] Referring Provider: Stepan Pryor, [address] [place], [address]. tel:[phone] Offic/outpt E&m Estab Low-mod [place], [facility], [address], [place], [place], [address], [place] tel:[phone] [facility] No Information 5 Debbie Sorto. [address], [address], [place], [place], [address], [place]. tel:[phone] Referring Provider: REFERRAL SELF, HUNTER. Family History Family Member Type Diagnosis Age At Onset No Information Payers Payer name Insurance type Covered democrat ID Authordeepak butler(s) [facility] Administrators [facility] [id number] [id number] Social History Type Description Quantity Date Captured [...]
--- OUTSIDE RECORDS SUMMARY | 2024-08-15 19:43 | XMS_ITS | Clinical Summary ---
Author Organization [employer] [facility] Address [address] [place] [id number] Care Team Providers Care Sales Solutions Representative Name Role Phone Marissa Williamson MD Primary Care Provide r Allergies Active Allergy Reactions Criticality Noted Date Comments Camphor Rash High 06/13/2021 Rash/Itching. From Sarna lotion Camphor-Menthol Itching 12/06/2009 Sarna Lotion Makes itching worse Nitrofurantoin *Unknown 08/02/2005 Nitrofurantoin Monohyd/M-Cryst *Unknown 04/10/2024 Sulfa (Sulfonamide Antibiotics) Hives High 08/02/2005 Medications [...] 4000mg in 24 hrs. 30 Tablet 2 12:13 PM CDT 06/07/19 Active continuous glucose monitor READER (FREESYLE GERMAN)Indications: Type 2 diabetes mellitus without complication, without long-term current use of insulin (HC) To be used to read blood sugars per recreation therapy aide's directions. 1 Each 10/10/19 Active FreeStyle German 2 SensorIndications: Type 2 diabetes mellitus with diabetic nephropathy, unspecified whether longterm insulin use (HC) To be used to read blood sugars per recreation therapy aide's directions. 7 Each 3 01/30/20 22 Active BiPapIndications:C omplex sleep apnea syndrome BIPAP [...] (IMDUR) 120 mg Sustained-Release tabletIndications: CAD in [place] artery Take 2 Tablets (240 mg) by mouth once daily. 180 Tablet 3 04/04/19 Active Viviana Pen Needle 32 gauge x 5/32Indications:T ype 2 diabetes mellitus without complication, with long-term current use of insulin (HC) USE DIRECTED FOR INJECTIONS TWO TIMES A DAY 100 Each 3 05/31/19 23 Active metFORMIN (GLUCOPHAGE) 500 mg tabletIndications: Type [...] daily before a meal. 90 Tablet 3 10/04/19 Active miscellaneous medical supply miscIndications:Ur ge [...] be used to read blood sugars, follow recreation therapy aide directions. 9 Each 3 11/01/19 23 Active Dexcom G7 Battery Repairer for continuous blood glucose monitor (CGM)Indications:T ype 2 diabetes mellitus with diabetic mononeuropathy, with long-term current use of insulin (HC) To be used to read blood sugars follow recreation therapy aide directions. 1 Each 11/01/19 23 Active cholecalciferol, Vitamin D3, 2,000 unit tabletIndications: Vitamin D deficiency TAKE ONE TABLET BY MOUTH EVERY DAY 30 Tablet 3 11/16/19 23 Active durable medical equipment (DME)Indications:C hronic pain of both knees Foam Wedge for under legs at night Fax to [facility] Dhruv Escobar 1 Each 11/22/19 23 Active aspirin chewable 81 mg chewable tabletIndications: CAD in [place] artery CHEW AND SWALLOW 1 TABLET BY MOUTH ONCE A DAY WITH A MEAL 90 Tablet 2 12/17/19 23 Active ketoconazole 2% topical (NIZORAL) creamIndications:R carolyn Apply to itchy abdomen PRN 60 g 12/18/19 23 Active sennosides-docusat e (SENOKOT S) (8.6-50 mg) tabletIndications: Chronic constipation Take 2 Tablets by mouth two times daily. 120 Tablet 11 01/10/20 23 Active ferrous gluconate 324 mg (37 [...] 24 hrs. 118 mL 05/15/19 24 Active cetirizine (ZYRTEC) 10 mg tabletIndications: Seasonal allergic rhinitis due to pollen Take 1 Tablet (10 mg) by mouth once daily. 90 Tablet 3 05/15/19 24 Active metoprolol succinate (Toprol XL) 50 mg sustained-release tabletIndications: CAD in [place] artery Take 1 Tablet (50 mg) by [...] directed. Gripper socks--two pair 4 Each 07/15/19 Active bacitracin ointmentIndication s:Sore on leg Apply topically to affected area(s) two times daily. 28 g 3 07/21/19 24 Active insulin glargine, U-100, (Lantus Solostar U-100 Insulin) 100 unit/mL (3 mL) penIndications:Typ e 2 diabetes mellitus without complication, with long-term current use of insulin (HC) Inject 8 units subcutaneous before bedtime. Product desired: LANTUS SOLOSTAR 60 mL 07/25/19 24 Active dextromethorphan-g uaiFENesin (ROBITUSSIN DM) (5-50 mg/5 mL) liquidIndications: Cough, unspecified type Take 10 mL by mouth every 4 hours if needed for Cough 1st choice. 08/07/19 24 Active durable medical equipment (DME)Indications:C OPD mixed type (HC),Venous stasis ulcer, unspecified site, unspecified ulcer stage, unspecified whether varicose veins present (HC),ASCVD (arteriosclerotic cardiovascular disease),Chronic bilateral back pain, unspecified back location Recliner chair--motorized 1 Each 08/08/19 24 Active miscellaneous medical supply miscIndications:Ch ronic midline low back pain without sciatica As directed. Lift chair (recliner), patient is 150 lbs, diagnosis COPD, coronary artery disease, chronic low back pain to [facility] in [place] 1 Each 08/21/19 24 Active lidocaine 5 % topical patchIndications:P ain of lower extremity, unspecified laterality Apply on dry, clean, hairless skin. Apply 1 patch to painful area of skin for up to to 12 hours within 24 hour period. 15 Patch 11 10/10/19 24 Active loperamide (IMODIUM) 2 mg capsuleIndications :Acute diarrhea Take 1 Capsule (2 mg) by mouth 4 times daily if needed for Diarrhea. 48 Capsule 1 10/24/19 24 Active Walker - 4 wheelsIndications: COPD mixed type (HC),Chronic midline low back pain without sciatica,Oxygen dependent,Frequent falls WITH A SEAT. For home use. Length of need: 99 months 1 Each 11/04/19 24 Active nystatin powder (MYCOSTATIN) powderIndications: Rash APPLY TOPICALLY TO AFFECTED AREA (S) TWICE DAILY NEEDED 60 g 12/16/19 24 Active polyethylene glycoL (ClearLax) 17 gram/scoop powderIndications: Chronic constipation MIX 1 CAPFUL (17GM) IN LIQUID AND GIVE BY MOUTH EVERY OTHER DAY 765 g 5 12/17/19 24 Active emollient (Vanicream) creamIndications:N eurodermatitis Apply topically to affected area(s) 2 times daily if needed for Dry Skin, Irritation or Itching. 453 g 1 01/01/20 24 Active Chest Congestion Relief DM 10-100 mg/5 mL syrupIndications:C ough, unspecified type TAKE 5-10ML BY MOUTH DAILY NEEDED 300 mL 01/12/20 24 Active Restasis 0.05 % ophthalmic emulsionIndication s:Dry eyes Place 1 Drop into the eye(s) two times daily. 60 Each 13 01/08/20 24 Active Ventolin HFA 90 mcg/actuation inhalerIndications :Chronic obstructive pulmonary disease, unspecified COPD type (HC) INHALE 2 PUFFS BY MOUTH EVERY 4 HOURS NEEDED FOR SHORTNESS OF BREATH 18 g 01/21/20 24 Active morphine CONTROLLED RELEASE (MS CONTIN) 30 mg CR tabletIndications: Chronic midline low back pain without sciatica Take 1 Tablet (30 mg) by mouth two times daily. 60 Tablet 01/19/20 24 Active Ventolin HFA 90 mcg/actuation inhalerIndications :Chronic obstructive pulmonary disease, unspecified COPD type (HC) Inhale 1-2 Puffs by mouth every 4 hours if needed for Shortness Of Breath. 1 Each 5 01/19/20 24 Active insulin lispro, U-100, (HumaLOG KwikPen Insulin) 100 unit/mL inpn penIndications:Typ e 2 diabetes mellitus with diabetic mononeuropathy, with long-term current use of insulin (HC) Inject 4 units subcutaneous before breakfast. Breakfast only. No Humalog at lunch or supper 01/27/20 24 Active pen needle, diabetic, safety (DropSafe Pen Needle) 31 gauge x 1/4 ndleIndications:Ty pe 2 diabetes mellitus without complication, with long-term current use of insulin (HC) USE DIRECTED TO INJECT INSULIN 200 Each 3 01/30/20 24 Active nitroglycerin (NITROSTAT) 0.4 mg sublingual tabletIndications: CAD in [place] artery Place 1 Tablet (0.4 mg) under the tongue every 5 minutes if needed for Chest Pain. Up to 3 tablets in 15 minutes. 25 Tablet 4 02/26/20 24 Active morphine CONTROLLED RELEASE (MS CONTIN) 30 mg CR tabletIndications: Chronic midline low back pain without sciatica Take 1 Tablet (30 mg) by mouth two times daily. 60 Tablet 03/15/20 24 Active continuous glucose monitor READER (FreeStyle German 2 [place])Indications :Type 2 diabetes mellitus with diabetic nephropathy, unspecified whether termination clerk insulin use (HC) USE DIRECTED 1 Each 03/31/19 25 Active FreeStyle German 2 ReaderIndications: Type 2 diabetes mellitus with other specified complication, with long-term current use of insulin (HC) To be used to read blood sugars per recreation therapy aide's directions. 1 Each 03/30/19 25 Active atorvastatin (LIPITOR) 40 mg tabletIndications: S/P CABG x 5 Take 1 Tablet (40 mg) by mouth at bedtime. 90 Tablet 3 03/30/19 25 Active amLODIPine (NORVASC) 5 mg tabletIndications: HTN (hypertension) Take 1 Tablet (5 mg) by mouth once daily. 90 Tablet 3 03/30/19 25 Active furosemide (LASIX) 20 mg tabletIndications: S/P CABG x 5 Take 1 Tablet (20 mg) by mouth once daily in the morning. 90 Tablet 3 04/06/19 25 Active amoxicillin-clavul anate (Augmentin) 500-125 mg tabletIndications: urinary tract infection Take 1 Tablet by mouth two times daily with meals. 14 Tablet 04/06/19 25 Active white petrolatum (Aquaphor OriginaL) 41 % ointmentIndication s:Rash Apply topically to affected area(s) two times daily. 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 Designated pharmacy: [facility] Prescribing physician: Duane Gardiner M.D Diagnosis: chronic [...] Encounters Date Type Department Care Team Description 08/03/2024 Lab Requisition [facility] [phone] Unknown, Doctor 06/17/2024 Lab Requisition [facility] [address] [place] [address] Dustin Lima MD 06/01/2024 Lab Requisition [facility] [phone] Unknown, Doctor from Last 3 Months Immunizations Immunization Administration Dates Next Due COVID-19 VACCINE SPIKEVAX [...] is your housing situation today? 1 01/23/2023 Interpersonal Safety Answer Date Record ed Are you being hit, kicked, p ushed or yelled at (see row info)? No 05/10/2024 Interpersonal Safety Abuse 12 - 18 Not on file 05/10/2024 Interpersonal Safety Ambulatory Vulnerability No t on file 05/10/2024 Comments No Sex and Gender Information Value Date Recorded Sex Assigned at Not on file Legal Sex Female 5:23 AM DIESEL STATIONARY ENGINEER Gender Identity Not on file Sexual Orientation Not on file Obstetrics History Last Filed Vital Signs Vital Sign Reading Time Taken Comments Blood Pressure 180/77 05/11/2024 12:00 AM DIESEL STATIONARY ENGINEER Pulse 63 05/11/2024 12:00 AM DIESEL STATIONARY ENGINEER Temperature 36.8 C (98.2 F) 05/10/2024 10:25 PM DIESEL STATIONARY ENGINEER Respiratory Rate 14 05/10/2024 10:25 PM DIESEL STATIONARY ENGINEER Oxygen Saturation 98% 05/11/2024 12:00 AM DIESEL STATIONARY ENGINEER Inhaled Oxygen Concentration - - Weight 69.7 kg (153 lb 9.6 oz) 05/10/2024 10:25 PM DIESEL STATIONARY ENGINEER Height 158.8 cm (5' 2.52) 05/10/2024 10:[address] Body Mass Index 27.63 05/10/2024 10:25 PM DIESEL STATIONARY ENGINEER Plan of Treatment Upcoming Encounters Date Type Department Care Team (Late st Contact Info) Description 09/07/2024 9:40 AM CDT Office Visit [facility] [address] [place] [address] Marissa Williamson MD [address] [place] [address] Health Maintenance Due Date Last Done Comments Medicare Wellness for age 65+ 05/15/2024 05/15/2023, 01/01/2022, 09/24/2018, Additional history exists COVID-19 vaccine series ( season) 2024 12/19/2023, 01/23/2023, 01/01/2022, Additional history exists Depression screening for age [...] RSV vaccine for adults or Completed 12/12/2022 Influenza Vaccine Completed 12/19/2023, , 01/01/2022, Additional history exists Hepatitis B series for 19+ Aged Out N o longer eligible based on patient's age to complete this topic Medical Devices Implanted Type Area Water Proofer Device Identifier Shelf Expiration Date Model / Serial / Lot Screw Sm Joint 4.5x26mm Axsos Anthony Titnm - [id number] Implanted:Qty: 1 on 06/04/2021 by Roland Goel MD at [facility] Left: Arm [employer] [id number] / / Screw Sm Joint 6x35mm Axsos3 Canclls Full Thrd Titnm Implanted:Qty: 1 on 06/04/2021 at [facility] Left: Arm [id number] / / Description:SCREW SM JOINT 6 X35MM AXSOS3 CANCLLS FULL THRD TITNM Screw Sm Joint 2.7x20mm Variax 2 Bone Titnm - [id number] Implanted:Qty: 1 on 06/04/2021 at [facility] Left: Arm [employer] [id number] / / Screw Sm Joint 2.7x24mm Variax 2 Bone Titnm - [id number] Implanted:Qty: 2 on 06/04/2021 at [facility] Left: Arm [employer] [id number] / / Screw Sm Joint 4.5x28mm Axsos Anthony Titnm - [id number] Implanted:Qty: 2 on 06/04/2021 by Roland Goel MD at [facility] Left: Arm [employer] [id number] / / Screw Sm Joint 4.5x30mm Axsos Anthony Titnm - [id number] Implanted:Qty: 1 on 06/04/2021 by Roland Goel MD at [facility] Left: Arm [employer] [id number] / / Screw Sm Joint 4.5x32mm Axsos Anthony Titnm - [id number] Implanted:Qty: 1 on 06/04/2021 by Roland Goel MD at [facility] Left: Arm [employer] [id number] / / Screw Sm Joint 5x32mm Axsos Lock - [id number] Implanted:Qty: 1 on 06/04/2021 by Roland Goel MD at [facility] Left: Arm [employer] [id number] / / Screw Sm Joint 5x34mm Axsos Lock - [id number] Implanted:Qty: 1 on 06/04/2021 by Roland Goel MD at [facility] Left: Arm [employer] [id number] / / 12h Straight Narrow Plate Implanted:Qty: 1 on 06/04/2021 by Roland Goel MD at [facility] Left: Arm [id number] / / Description:12H STRAIGHT FERNANDO ROW PLATE Explanted Type Area Water Proofer Device Identifier Shelf Expiration Date Model / Serial / Lot K-Wire Trocar Point 10pk - [id number] Explanted:Qty: 2 on 06/04/2021 at [facility] Left: Arm [employer] [id number] / / Screw Sm Joint 6x30mm Axsos3 Canclls Full Thrd Titnm Explanted:Qty: 1 on 06/04/2021 at [facility] Left: Arm [id number] / / Description:SCREW SM JOINT 6 X30MM AXSOS3 CANCLLS FULL THRD TITNM Screw Sm Joint 4.5x34mm Axsos Anthony Titnm - [id number] Explanted:Qty: 1 on 06/04/2021 at [facility] Left: Arm [employer] [id number] / / Screw Sm Joint 5x30mm Axsos Lock - [id number] Explanted:Qty: 1 on 06/04/2021 at [facility] Left: Arm [employer] [id number] / / Procedures Procedure Name Priority Date/Time Associated Diagnosis Comments BASIC METABOLIC PANEL Routine 08/04/2024 6:25 AM CDT Muscle weakness (generalized) Anemia, unspecified Chronic kidney disease, unspecified Essential (primary) hypertension CBC W PLT NO DIFF Routine 08/04/2024 6:2 5 AM CDT Muscle weakness (generalized) Anemia, unspecified Chronic kidney disease, unspecified Essential (primary) hypertension AEROBIC BACTERIAL CULTURE, STAIN Routine 06/17/2024 2:45 PM CDT Cutaneous abscess, unspecified CBC W PLT NO DIFF Routine 06/02/2024 7:1 5 AM CDT Displaced bicondylar fracture of left tibia, subsequent encounter for closed fracture with routine healing Anemia, unspecified Muscle weakness (generalized) XR DXA BONE DENSITY 2 SITES AXIAL Routine 10/25/2014 8:58 AM CDT VITAMIN D DEFICIENCY from Last 3 Months or Most Recently Relevant to Health Maintenance Results * (ABNORMAL) CBC W PLT NO DIFF (08/04/2024 6:25 AM CDT) Only the most recent of2 resultswithin the time period is included. WHITE BLOOD COUNT 7.1 4.5 - 11.0 thou/cu mm 08/04/2024 8:17 AM CDT [facility] RED BLOOD COUNT 3.92(L) 4.00 - 5.20 mil/cu mm 08/04/2024 8:17 AM CDT [facility] HEMOGLOBIN 11.1(L) 12.0 - 16.0 g/dL 08/04/2024 8:17 AM CDT [facility] HEMATOCRIT 34.8 33.0 - 51.0 % 08/04/2024 8:17 AM [facility]GED WITH [facility] MCV 89 80 - 100 fL 08/04/2024 8:17 AM [facility] WITH [facility] MCH 28.3 26.0 - 34.0 pg 08/04/2024 8:17 AM [facility] MCHC 31.9(L) 32.0 - 36.0 g/dL 08/04/2024 8:17 AM [facility] WITH [facility] RDW 14.9 11.5 - 15.5 % 08/04/2024 8:17 AM [facility] PLATELET COUNT 203 140 - 440 thou/cu mm 08/04/2024 8:17 AM [facility] MPV 10.5 6.5 - 11.0 fL 08/04/2024 8:17 AM [facility] Blood BLOOD SPECIMEN / Unknown Venipuncture / Unknown 08/04/2024 6:25 AM CDT 08/04/2024 8:04 AM CDT us Doctor Unknown HEMATOLOGY Final Result [facility] [address] [id number] * (ABNORMAL) BASIC METABOLIC PANEL (08/04/2024 6:25 AM CDT) SODIUM 138 136 - 145 mmol/L 08/04/2024 8:36 AM [facility]ED WITH [facility] POTASSIUM 4.6 3.5 - 5.1 mmol/L 08/04/2024 8:36 AM [facility] WITH [facility] CHLORIDE 101 98 - 107 mmol/L 08/04/2024 8:36 AM [facility] WITH [facility] CO2,TOTAL 26 22 - 29 mmol/L 08/04/2024 8:36 AM [facility]ED WITH [facility] ANION GAP 11 5 - 18 08/04/2024 8:36 AM [facility] GLUCOSE 229(H) 70 - 99 mg/dL 08/04/2024 8:36 AM [facility] WITH [facility] CALCIUM 9.2 8.8 - 10.4 mg/dL 08/04/2024 8:36 AM T [facility] Comment: Reference ranges for this test were updated on 01/20/2024 to reflect our healthy population more accurately. Reference range changes are not retroactively applied to results, but previous results using the same methodology can be interpreted in the context of the new reference range. BUN 39(H) 8 - 23 mg/dL 08/04/2024 8:36 AM T [facility] CREATININE 1.48(H) 0.50 - 0.90 mg/dL 08/04/2024 8:36 AM [facility]ED WITH [facility] BUN/CREAT RATIO 26(H) 10 - 20 8:36 AM [facility]ED WITH [facility] eGFR 35(L) >90 mL/min/1. 73m2 08/04/2024 8:36 AM [facility] Comment:As of 2021, eG FR is calculated by the CKD-EPI creatinine equation without race adjustment. eGFR can be influenced by muscle mass, exercise, and diet. The reported eGFR is an estimation only and is only applicable if the renal function is stable. Blood BLOOD SPECIMEN / Unknown Venipuncture / Unknown 08/04/2024 6:25 AM CDT 08/04/2024 8:04 AM CDT us Doctor Unknown CHEMISTRY Final Result Performing Organization Address City/State/[facility] Co de Phone Number [facility] [address] [place] [address] * (ABNORMAL) AEROBIC BACTERIAL CULTURE, STAIN (06/17/2024 2:45 PM CDT) CULTURE RESULT(A) 06/20/2024 8:21 AM CDT [facility] CULTURE 4+ Staphylococcus aureus 06/20/2024 8:21 AM CDT [facility] Comment:Isolate is MRSA (Met hicillin-resistant Staph aureus). GRAM STAIN No PMNs 06/20/2024 8:21 AM CDT [facility] GRAM STAIN No Epithelial cells 06/20/2024 8:21 AM CDT [facility] GRAM STAIN No RBCs 06/20/2024 8:21 AM CDT [facility] GRAM STAIN 3+ Gram Positive Cocci 06/20/2024 8:21 AM CDT [facility] Other (Other) Client Collect / Unknown 06/17/2024 2:45 PM CDT 06/17/2024 3:22 PM CDT Narrative Organism Antibiotic Method Susceptibility Staphylococcus aureus OXACILLIN >=4: R Staphylococcus aureus CLINDAMYCIN 0.25: S Staphylococcus aureus DOXYCYCLINE 2: S Staphylococcus aureus CEFAZOLIN R Staphylococcus aureus VANCOMYCIN <=0.5: S Staphylococcus aureus TRIMETHOPRIM/SULF <=0.5/9.5: S us Dustin Lima MD MICROBIOLOGY Final Result [facility] [address] [address], [place] * XR DXA BONE DENSITY 2 SITES (10/25/2014 8:58 AM CDT) Anatomical Region Laterality Modality Spine, HIPS, HIPL, HIPR Other Narrative 10/26/2014 7:45 AM CDT Please see scanned document for results of this study. us Marissa Williamson MD DEXA Final Result from Last 3 Months or Most Recently Relevant to Health Maintenance Additional Health Concerns Infection Onset Date Last Indicated MRSA Comment:Order Contact Precautions. Nares surveillance cultures needed to clear patient if <12 months since positive culture. If >12 months since positive culture, precautions can be discontinued if patient has no MRSA risk factors. 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 Member Subscriber Plan / Payer (Ef fective 2023-Present) Name:Cathy Kaplan Relation to Subscriber:Self Name:aCthy Kaplan Payer ID:[id number] (NAIC) Group ID:[id number] Type:Not on file Address: MAILSTOP: [id number] [place] [address] [facility] [place] [address] [phone] [place] [address] [facility] Advance Directives Documents on File Type Date Recorded Patient Rock Cutter Expl anation POLST 12/10/2022 Healthcare Directive 05/29/2021 10:02 AM H EALTH CARE DIRECTIVE/NFLD [facility] 05/29/2021 Healthcare Directive 06/25/2017 12:08 PM H EALTHCARE DIRECTIVE, AH [place], 06/13/17 Healthcare Directive 11/09/2015 12:00 AM C [...] 6:55 PM 07/25/2018 11:12 AM Care Teams Sales Solutions Representative Relationship Specialty Start Date End Date Marissa Williamson MD [address] [place] [address] PCP - General Family Practice 03/19/13
--- OUTSIDE RECORDS SUMMARY | 2024-08-15 19:44 | XMS_ITS | Referral Summary ---
Author Organization [facility] Address [address] [place] [id number] Care Team Providers Care Pediatric Orthodontist Name Role Phone Marissa Williamson MD Primary Care Provide r Allergies Active Allergy Reactions Criticality Noted Date Comments Camphor 04/10/2024 Nitrofurantoin Monohyd/M-Cryst 04/10 Sulfa (Sulfonamide Antibiotics) 03/18 Medications amLODIPine (NORVASC) 5 mg oral tablet Take 1 tablet (5 mg) by mouth once daily. Active aspirin 81 mg oral chewable tablet Chew 1 tablet (81 mg) once daily. Active cetirizine (ZYRTEC) 10 mg oral tablet Take 1 tablet (10 mg) by mouth once daily. Active ferrous gluconate 324 mg (38 mg iron) oral tablet Take 1 tablet (324 mg) by mouth once daily. Active furosemide (LASIX) 20 mg oral tablet Take 1 tablet (20 mg) by mouth once daily. Active guaiFENesin (MUCINEX) 600 mg oral extended release tablet 12 HR Take 1 tablet (600 mg) by mouth twice a day. Active insulin lispro (HUMALOG; ADMELOG) 100 unit/mL SubQ pen Inject 4 Units under the skin twice a day with breakfast and lunch. Active isosorbide mononitrate (IMDUR) 120 mg oral extended release tablet 24 HR Take 2 tablets (240 mg) by mouth once daily. Active magnesium oxide (MAG-OX) 400 mg oral tablet Take 1 tablet (400 mg) by mouth twice a day. Active metFORMIN (GLUCOPHAGE) 500 mg oral tablet Take 1 tablet (500 mg) by mouth twice a day with breakfast and dinner. Active metoprolol succinate, XL, (TOPROL XL) 50 mg oral extended release tablet 24 HR Take 1 tablet (50 mg) by mouth once daily. Active cycloSPORINE 0.05 % ophthalmic (EYE) emulsion Instill 1 drop into EACH eye every 12 (twelve) hours. Active sertraline (ZOLOFT) 100 mg oral tablet Take 2 tablets (200 mg) by mouth once daily. Active Cholecalciferol, Vitamin D3, (VITAMIN D3) 50 mcg (2,000 unit) oral tablet Take 1 tablet (50 mcg) by mouth once daily. Active atorvastatin (LIPITOR) 40 mg oral tablet Take 1 tablet (40 mg) by mouth at bedtime. Active polyethylene glycol (MIRALAX) 17 gram oral packet Take 17 g by mouth once a day as needed. Mix each dose in 4-8 ounces of liquid as directed. Active dextrose (GLUCOSE) 2 gram oral chew tab Chew 4 g four times a day as needed. Active loperamide (IMODIUM) 2 mg oral capsule Take 1 capsule (2 mg) by mouth every 6 (six) hours as needed for diarrhea. Active nitroGLYCERIN (NITROSTAT) 0.4 mg sublingual tablet Take 1 tablet (0.4 mg) under the tongue every 5 (five) minutes as needed for chest pain. Active nystatin (MYCOSTATIN) 100,000 unit/gram Top Powd powder Apply to skin twice a day as needed. Active albuterol HFA (PROVENTIL;SARAH JORGE HFA) 90 mcg/actuation Inhl inhaler Inhale 2 puffs every 4 (four) hours as needed. Active calcium carbonate (TUMS) 200 mg calcium (500 mg) oral chew tab Chew 1 tablet (500 mg) twice a day with breakfast and dinner. 5 Active guaiFENesin (ROBITUSSIN) 100 mg/5 mL oral syrup Take 10 mL (200 mg) by mouth once a day as needed. 5 Active insulin glargine, pen, (LANTUS SOLOSTAR U-100 INSULIN) 100 unit/mL SubQ pen Inject 6 Units under the skin at bedtime. 5 Active lidocaine 4% (SALONPAS) 4 % Top patch Apply 2 patches to skin once a day as needed (Pain). Keep on for 12 hours and remove for 12 hours. 5 Active melatonin 3 mg oral tablet Take 1 tablet (3 mg) by mouth at bedtime. 5 Active senna-docusate (SENNA-S) 8.6-50 mg oral tablet Take 2 tablets by mouth twice a day. 5 Active omeprazole (PRILOSEC) 20 mg oral delayed release capsule Take 1 capsule (20 mg) by mouth once daily. Active oseltamivir (TAMIFLU) 30 mg oral capsule Take 1 capsule (30 mg) by mouth every other day. Every other day for 14 days (started 04/19/24) Active tuberculin PPD (APLISOL/TUBERSO L) 5 tub. unit /0.1 mL IDrm Soln 0.1 mL (5 Units) by Intradermal route ONCE. 04/25/2024 Active oxyCODONE, immediate release, (ROXICODONE) 5 mg oral tablet Take 1-2 tablets (5-10 mg) by mouth every 6 (six) hours as needed. Take 5mg for pain rating of 3-6, take 10mg for pain rating 7-10. Based on a pain scale of 0-10 with 0 being no pain and 10 being severe pain. 30 tablet Active methocarbamoL (ROBAXIN) 500 mg oral tablet Take 2 tablets (1,000 mg) by mouth every 6 (six) hours as needed (Muscle spasm pain). Active acetaminophen (TYLENOL) 500 mg oral tablet Take 2 tablets (1,000 mg) by mouth three times a day. 5 Active Active Problems Problem Noted Date Diagnosed Date Displaced bicondylar fractur e of right tibia, initial encounter for closed fracture 04/27/2024 COPD (chronic obstructive pulmonary disease) Hx of CABG 04/11/2024 HLD (hyperlipidemia) 04/11/2024 Primary hypertension 04/11/2024 Type 2 diabetes mellitus wit hout complication, with long-term current use of insulin 04/11/2024 GERD (gastroesophageal reflux disease) Other chronic pain 04/11/2024 Atherosclerotic heart disease 04/11/2024 Episode of recurrent major depressive disorder 0 04/11/2024 Fall from standing 04/11/2024 Frailty 04/11/2024 Tibial plateau fracture, left, closed, initial e ncounter 04/10/2024 Tibial plateau fracture, right 04/10/2024 Closed fracture of proximal end of right fibula 04/10/2024 Closed fracture of proximal end of left fibula 0 04/10/2024 Social History Tobacco Use Types Packs/Day Years Used Date Smoking Tobacco: Former Cigarettes Passive Smoke Exposure: Past Tobacco Cessation:Counseling Given: Not Answered Alcohol Use Standard Drinks/Week Comments Not Currently 0 (1 standard drink = 0.6 oz pur e alcohol) [facility] Utilities Answer Date Recorded In the past 12 months has e Ribbit, gas, oil, or water Ku6 threatened to shut off services in your home? No 04/27/2024 Humiliation, Afraid, Rape, and Kick questionnair e Answer Date Recorded Within the last year, have y ou been afraid of your partner or ex-partner? No 04/27/2024 Within the last year, have y ou been humiliated or emotionally abused in other ways by your partner or ex-partner? No Within the last year, have y ou been kicked, hit, slapped, or otherwise physically hurt by your partner or ex-partner? No 04/27/2024 Within the last year, have y ou been raped or forced to have any kind of sexual activity by your partner or ex-partner? No 04/27/2024 Hunger Vital Sign Answer Date Recorded Within the past 12 months, y ou worried that your food would run out before you got the money to buy more. Never true 04/27/19 Within the past 12 months, t he food you bought just didn't last and you didn't have money to get more. Never true 04/27/2024 PRAPARE - Transportation Answer Date Re corded In the past 12 months, has l ack of transportation kept you from medical appointments or from getting medications? No 04/17 In the past 12 months, has l ack of transportation kept you from meetings, work, or from getting things needed for daily living? No 04/27/2024 Housing Stability Vital Sign Answer Patrick e Recorded In the last 12 months, was t here a time when you were not able to pay the mortgage or rent on time? No 04/27/2024 In the past 12 months, how m any times have you moved where you were living? 1 04/27/2024 At any time in the past 12 m [facility], were you homeless or living in a nursing home (including now)? No 04/27/2024 Comments Unknown Sex and Gender Information Value Date Recorded Sex Assigned at Not on file Legal Sex Female 12:47 PM CDT Gender Identity Not on file Sexual Orientation Not on file Last Filed Vital Signs Vital Sign Reading Time Taken Comments Blood Pressure 126/63 04/29/2024 10:44 AM [facility] Pulse 83 04/29/2024 10:44 AM [facility] Temperature 36.8 C (98.3 F) 04/29/2024 10:44 AM [facility] Respiratory Rate 18 04/29/2024 10:4 4 AM [facility] Oxygen Saturation 96% 04/29/2024 10: 44 AM [facility] Inhaled Oxygen Concentration - - Weight 74.8 kg (164 lb 12.8 oz) 04/28/2024 9:00 AM [facility] Height 160 cm (5' 3) 04/28/2024 9:00 AM [facility] Body Mass Index 29.19 04/28/2024 9:00 AM [facility] Plan of Treatment Not on file Medical Devices Implanted Type Area Engraver Signature Device Identifier Shelf Expiration Date Model / Serial / Lot Scr Syn Schnz 5.0/150 294.784 - [id number] Implanted:Qty : 2 on 04/12/2024 by Jason Balbuena MD at [facility] Pin/wire Right: [employer] 294.784 / / Pltsyn Lcp 3.5/137/10h 223.601 - [id number] Implanted:Qty : 1 on 04/12/2024 by Jason Balbuena MD at [facility] Plate Left: [employer] 223.601 / / Pl 3.5 Lcp Medial Prx 8h/L/145 - [id number] Implanted:Qty : 1 on 04/12/2024 by Jason Balbuena MD at [facility] Plate Left: [employer] 239.959 / / Pl 3.5 Lcp Medial Prx 6h/R/119 - [id number] Implanted:Qty : 1 on 04/27/2024 by Jason Balbuena MD at [facility] Plate Right: [employer] 239.956 / / Pl 3.5 Lcp Prox Tib Sm 8h/R/14 - [id number] Implanted:Qty : 1 on 04/27/2024 by Jason Balbuena MD at [facility] Plate Right: [employer] 02.127.230 / / Scr Syn Crtx S/T3.528 204.828 - [id number] Implanted:Qty : 3 on 04/12/2024 by Jason Balbuena MD at [facility] Screw/Anc hor Left: Leg [employer] 204.828 / / Scrsyn Crtx S/T 3.5/44 204.844 - [id number] Implanted:Qty : 1 on 04/12/2024 by Jason Balbuena MD at [facility] Screw/Anc hor Left: [employer] 204.844 / / Screw Lock 3.5 Stardrive 48mm - [id number] Implanted:Qty : 1 on 04/12/2024 by Jason Balbuena MD at [facility] Screw/Anc hor Left: [employer] 212.120 / / Scr Syn Schnz 5.0/175 294.785 - [id number] Implanted:Qty : 2 on 04/12/2024 by Jason Balbuena MD at [facility] Screw/Anc hor Right: [employer] 294.785 / / Scrsynlkngs/T strdr 65 212.125 - [id number] Implanted:Qty : 1 on 04/12/2024 by Jason Balbuena MD at [facility] Screw/Anc hor Right: [employer] 212.125 / / Scrsynlckstdr v3.08/11 212.110 - [id number] Implanted:Qty : 1 on 04/12/2024 by Jason Balbuena MD at [facility] Screw/Anc hor Left: [employer] 212.110 / / Scrsynlckstdr v3./30 212.111 - [id number] Implanted:Qty : 1 on 04/12/2024 by Jason Balbuena MD at [facility] Screw/Anc hor Left: Leg [employer] 212.111 / / Scrsynlckstdr v3.5/40 212.117 - [id number] Implanted:Qty : 1 on 04/12/2024 by Jason Balbuena MD at [facility] Screw/Anc hor Left: [employer] 212.117 / / Scr Syn Crtx S/T3.20 204.820 - [id number] Implanted:Qty : 1 on 04/12/2024 by Jason Balbuena MD at [facility] Screw/Anc hor Left: [employer] 204.820 / / Scr Syn Crtx S/T3.08/05 204.822 - [id number] Implanted:Qty : 1 on 04/12/2024 by Jason Balbuena MD at [facility] Screw/Anc hor Left: [employer] 204.822 / / Scr Syn Crtx S/T3.08/09 204.826 - [id number] Implanted:Qty : 2 on 04/27/2024 by Jason Balbuena MD at [facility] Screw/Anc hor Right: [employer] 204.826 / / Scr Syn Crtx S/T3.08/11 204.828 - [id number] Implanted:Qty : 1 on 04/27/2024 by Jason Balbuena MD at [facility] Screw/Anc hor Right: [employer] 204.828 / / Scr Syn Crtx S/T3. 204.832 - [id number] Implanted:Qty : 1 on 04/27/2024 by Jason Balbuena MD at [facility] Screw/Anc hor Right: [employer] 204.832 / / Scr Syn Crtx S/T3.34 204.834 - [id number] Implanted:Qty : 1 on 04/27/2024 by Jason Balbuena MD at [facility] Screw/Anc hor Right: [employer] 204.834 / / Scr 3.5mm Va Lck Slf-Tp 26mm - [id number] Implanted:Qty : 1 on 04/27/2024 by Jason Balbuena MD at [facility] Screw/Anc hor Right: [employer] 02.127.126 / / Screw 3.5mm Va Lck Slf-Tp 65mm - [id number] Implanted:Qty : 2 on 04/27/2024 by Jason Balbuena MD at [facility] Screw/Anc hor Right: [employer] 02.127.165 / / Screw 3.5mm Va Lck Slf-Tp 75mm - [id number] Implanted:Qty : 3 on 04/27/2024 by Jason Balbuena MD at [facility] Screw/Anc hor Right: [employer] 02.127.175 / / Scrsynlkngs/T strdr 75 212.127 - [id number] Implanted:Qty : 1 on 04/27/2024 by Jason Balbuena MD at [facility] Screw/Anc hor Right: [employer] 212.127 / / Scrsynlkngs/T strdr 70 212.126 - [id number] Implanted:Qty : 1 on 04/27/2024 by Jason Balbuena MD at [facility] Screw/Anc hor Right: [employer] 212.126 / / Scrsynlkngs/T strdr 65 212.125 - [id number] Implanted:Qty : 2 on 04/27/2024 by Jason Balbuena MD at [facility] Screw/Anc hor Right: [employer] 212.125 / / Explanted Type Area Engraver Signature Device Identifier Shelf Expiration Date Model / Serial / Lot Scrsynlckstdrv 212.111 - [id number] Explanted:Qty: 2 on 04/27/2024 by Jason Balbuena MD at [facility] Screw/An chor Right: [employer] 212.111 / / Scr Syn Crtx S/T3. 204.845 - [id number] Explanted:Qty: 1 on 04/27/2024 by Jason Balbuena MD at [facility] Screw/An chor Right: [employer] 204.845 / / Procedures Procedure Name Priority Date/Time Associated Diagnosis Comments BASIC METAB PROFILE Routine 04/29/2024 6 :59 AM [facility] HBA1C / EAG Add On 04/11/2024 7:40 AM [facility] from Last 3 Months or Most Recently Relevant to Health Maintenance Results * (ABNORMAL) Basic Metab Profile (04/29/2024 6:59 AM [facility]) Sodium 137 136 - 145 mmol/L 04/29/2024 7:47 AM [facility] Potassium 4.3 3.4 - 5.1 mmol/L 04/29/2024 7:47 AM [facility] Chloride 104 98 - 108 mmol/L 04/29/2024 7:47 AM [facility] Carbon Dioxide 26 20 - 31 mmol/L 04/29/2024 7:47 AM [facility] BUN (Urea Nitro) 26(H) 9 - 23 mg/dL 04/29/2024 7:47 AM [facility] Creatinine 1.21(H) 0.55 - 1.02 mg/dL 04/29/2024 7:47 AM [facility] Est GFR (CKD-EPI) 44.01(L) >60.00 mL/min/1. 73m2 04/29/2024 7:47 AM [facility] Comment:Calculation based on the Chronic Kidney Disease Epidemiology Collaboration (CKD-EPI) equation refit without adjustment for race. Glucose 214(H) 74 - 106 mg/dL 04/29/2024 7:47 AM [facility] Calcium, Serum 9.4 8.7 - 10.4 mg/dL 04/29/2024 7:47 AM [facility] Anion Gap 7.0 0.0 - 15.0 mmol/L 04/29/2024 7:47 AM [facility] Blood 04/29/2024 6:59 AM [facility] 04/29/2024 7:20 AM [facility] us Alec Mei MD CHEMISTRY ORDERABLE Final Res ult [facility] [address] [place] [address] * (ABNORMAL) Hgb A1c (Glycosolated Hgb) (04/11/2024 7:40 AM [facility]) HBA1C (GLYCOSOLATED HGB) 7.6(H) <5.7 % 04/11/2024 2:[address] [facility] EAG (EST. AVERAGE GLUCOSE) 171(H) <117 mg/dL 04/11/2024 2:06 PM [facility] Blood 04/11/2024 7:40 AM [facility] 04/11/2024 8:04 AM [facility] us Leonor Jorgensen PA-C CHEMISTRY ORDERABLE Final Res ult [facility] [address] [place] [address] from Last 3 Months or Most Recently Relevant to Health Maintenance Insurance [place] [phone] [place] [address] [facility] Advance Directives For more information, please contact: [phone] * Full Code (Latest Code Status on File) Date Activated Date Inactivated Comments 04/29/2024 10:27 AM Question Answer Comments How was code status determined? Previous Documen tation * Full Code Date Activated Date Inactivated Comments 04/27/2024 2:23 PM 04/29/2024 10:27 AM Question Answer Comments How was code status determined? Patient * DNAR/DNI Date Activated Date Inactivated Comments 04/15/2024 8:56 AM 04/27/2024 6:23 AM Question Answer Comments How was code status determined? Previous Documen tation * DNAR/DNI Date Activated Date Inactivated Comments 04/10/2024 2:42 PM 04/15/2024 8:56 AM Question Answer Comments How was code status determined? Patient Care Teams Pediatric Orthodontist Relationship Specialty Start Date End Date Marissa Williamson MD [address] [place] [address] PCP - General 04/10/24
--- OUTSIDE RECORDS SUMMARY | 2024-08-15 19:44 | XMS_ITS | Clinical Summary ---
Author Organization [facility] Address [address] [place] [id number] Care Team Providers Care Double Needle Operator Lockstitch Name Role Phone Marissa Williamson MD Primary [...] proximal end of left fibula 0 04/10/2024 Family History Medical History Relation Comments Heart Disease Father Diabetes Mother Relation Status Comments Father Mother Social History Tobacco Use Types Packs/Day Years Used Date Smoking Tobacco: Former Cigarettes Passive Smoke Exposure: Past Tobacco Cessation:Counseling Given: Not Answered Alcohol Use Standard Drinks/Week Comments Not Currently 0 (1 standard drink = 0.6 oz pur e alcohol) [facility] Utilities Answer Date Recorded In the past 12 months has th e electric, gas, oil, or water company threatened to shut off services in your [...] any time in the past 12 m [facility], were you homeless or living in a long term (including now)? No 04/27/2024 Comments Unknown Sex and Gender Information Value Date Recorded Sex Assigned at Not on file Legal Sex Female 12:47 PM CDT Gender Identity Not on file Sexual Orientation Not on file Last Filed Vital Signs Vital Sign Reading Time Taken Comments Blood Pressure 126/63 04/29/2024 10:44 AM [facility] EYE [facility]TER Pulse 83 04/29/2024 10:44 AM DOLL EYE SETTER Temperature 36.8 C (98.3 F) 04/29/2024 10:44 AM DOLL EYE SETTER Respiratory Rate 18 04/29/2024 10:4 4 AM DOLL EYE SETTER Oxygen Saturation 96% 04/29/2024 10: 44 AM DOLL EYE SETTER Inhaled Oxygen Concentration - - Weight 74.8 kg (164 lb 12.8 oz) 04/28/2024 9:00 AM DOLL EYE SETTER Height 160 cm (5' 3) 04/28/2024 9:00 AM DOLL EYE SETTER Body Mass Index 29.19 04/28/2024 9:00 AM DOLL EYE SETTER Plan of Treatment Health Maintenance Due Date Last Done Comments Colonoscopy 1940 Eye Exam 1940 Depression Follow-Up (PHQ-9) 11/28/1939 Spirometry 05/28/1943 Osteoporosis Screening 10/25/2016 10/25/2014 COVID-19 Vaccine ( season) 2024 12/19/2023, 01/23/2023, 01/01/2022, Additional history exists HgbA1C 10/09/2024 04/11/2024 Yearly Review of HCD 04/10/2025 04/10/2024 Creatinine 04/29/2025 04/29/2024, 09/2024, 04/15/2024, Additional history exists Adult Tetanus Booster 11/30/2030 11/30/2020 , 05/25/2010, 08/04/2006 Pneumococcal 50+ Years Completed 5, 12/14/2010, 02/18/2003 Zoster Vaccine Completed 01/23/2018, 07/15, 08/03/2007 RSV Vaccines Completed 12/12/2022 Influenza Vaccine Completed 12/19/2023, , 01/01/2022, Additional history exists Meningococcal B Vaccine Aged Out No l onger eligible based on patient's age to complete this topic Medical Devices Implanted Type Area Wood Experimental Mechanic Device Identifier Shelf Expiration Date Model / Serial / Lot Scr Syn Schnz 5.0/150 294.784 - [id number] Implanted:Qty : 2 on 04/12/2024 by Jason Balbuena MD at [facility] Pin/wire Right: [employer] 294.784 / / Pltsyn Lcp 3.5/137/10h 223.601 - [id number] Implanted:Qty : 1 on 04/12/2024 by Jason Balbuena MD at [facility] Plate Left: [employer] 223.601 / / Pl 3.5 Lcp Medial Prx 8h/L/145 - [id number] Implanted:Qty : 1 on 04/12/2024 by Jason Balbuena MD at [facility] Plate Left: [employer] 239.959 / / Pl 3.5 Lcp Medial Prx 6h/R/119 - [id number] Implanted:Qty : 1 on 04/27/2024 by Jason Balbuena MD at [facility] Plate Right: [employer] 239.956 / / Pl 3.5 Lcp Prox Tib Sm 8h/R/14 - [id number] Implanted:Qty : 1 on 04/27/2024 by Jason Balbuena MD at [facility] Plate Right: [employer] 02.127.230 / / Scr Syn Crtx S/T3.5/28 204.828 - [id number] Implanted:Qty : 3 on 04/12/2024 by Jason Balbuena MD at [facility] Screw/Anc hor Left: [employer] 204.828 / / Scrsyn Crtx S/T 3.5/44 204.844 - [id number] Implanted:Qty : 1 on 04/12/2024 by Jason Balbuena MD at [facility] Screw/Anc hor Left: [employer] 204.844 / / Screw Lock 3.5 Stardrive 48mm - [id number] Implanted:Qty : 1 on 04/12/2024 by Jason Balbuena MD at [facility] Screw/Anc hor Left: [employer] 212.120 / / Scr Syn Schnz 5.0/175 294.785 - [id number] Implanted:Qty : 2 on 04/12/2024 by Jason Balbuena MD at [facility] Screw/Anc hor Right: [employer] 294.785 / / Scrsynlkngs/T strdr 65 212.125 - [id number] Implanted:Qty : 1 on 04/12/2024 by Jason Balbuena MD at [facility] Screw/Anc hor Right: [employer] 212.125 / / Scrsynlckstdr v3.5/28 212.110 - [id number] Implanted:Qty : 1 on 04/12/2024 by Jason Balbuena MD at [facility] Screw/Anc hor Left: [employer] 212.110 / / Scrsynlckstdr v3.5/30 212.111 - [id number] Implanted:Qty : 1 on 04/12/2024 by Jason Balbuena MD at [facility] Screw/Anc hor Left: [employer] 212.111 / / Scrsynlckstdr v3.5/40 212.117 - [id number] Implanted:Qty : 1 on 04/12/2024 by Jason Balbuena MD at [facility] Screw/Anc hor Left: [employer] 212.117 / / Scr Syn Crtx S/T3.5 204.820 - [id number] Implanted:Qty : 1 on 04/12/2024 by Jason Balbuena MD at [facility] Screw/Anc hor Left: [employer] 204.820 / / Scr Syn Crtx S/T3.08/05 204.822 - [id number] Implanted:Qty : 1 on 04/12/2024 by Jason Balbuena MD at [facility] Screw/Anc hor Left: [employer] 204.822 / / Scr Syn Crtx S/T3.08/09 204.826 - [id number] Implanted:Qty : 2 on 04/27/2024 by Jason Balbuena MD at [facility] Screw/Anc hor Right: [employer] 204.826 / / Scr Syn Crtx S/T3.08/11 204.828 - [id number] Implanted:Qty : 1 on 04/27/2024 by Jason Balbuena MD at [facility] Screw/Anc hor Right: [employer] 204.828 / / Scr Syn Crtx S/T3. 204.832 - [id number] Implanted:Qty : 1 on 04/27/2024 by Jason Balbuena MD at [facility] Screw/Anc hor Right: [employer] 204.832 / / Scr Syn Crtx S/T3. 204.834 - [id number] Implanted:Qty : 1 on 04/27/2024 by Jason Balbuena MD at [facility] Screw/Anc hor Right: [employer] 204.834 / / Scr 3.5mm Va Lck Slf-Tp 26mm - [id number] Implanted:Qty : 1 on 04/27/2024 by Jason Balbuena MD at [facility] Screw/Anc hor Right: [employer] 02.127.126 / / Screw 3.5mm Va Lck Slf-Tp 65mm - [id number] Implanted:Qty : 2 on 04/27/2024 by Jason Balbuena MD at [facility] Screw/Anc hor Right: [employer] 02.127.165 / / Screw 3.5mm Va Lck Slf-Tp 75mm - [id number] Implanted:Qty : 3 on 04/27/2024 by Jason Balbuena MD at [facility] Screw/Anc hor Right: [employer] 02.127.175 / / Scrsynlkngs/T strdr 75 212.127 - [id number] Implanted:Qty : 1 on 04/27/2024 by Jason Balbuena MD at [facility] Screw/Anc hor Right: [employer] 212.127 / / Scrsynlkngs/T strdr 70 212.126 - [id number] Implanted:Qty : 1 on 04/27/2024 by Jason Balbuena MD at [facility] Screw/Anc hor Right: [employer] 212.126 / / Scrsynlkngs/T strdr 65 212.125 - [id number] Implanted:Qty : 2 on 04/27/2024 by Jason Balbuena MD at [facility] Screw/Anc hor Right: [employer] 212.125 / / Explanted Type Area Wood Experimental Mechanic Device Identifier Shelf Expiration Date Model / Serial / Lot Scrsynlckstdrv 3.08/13 212.111 - [id number] Explanted:Qty: 2 on 04/27/2024 by Jason Balbuena MD at [facility] Screw/An chor Right: [employer] 212.111 / / Scr Syn Crtx S/T3. 204.845 - [id number] Explanted:Qty: 1 on 04/27/2024 by Jason Balbuena MD at [facility] Screw/An chor Right: [employer] 204.845 / / Procedures Procedure Name Priority Date/Time Associated Diagnosis Comments BASIC METAB PROFILE Routine 04/29/2024 6 :59 AM [facility] E[facility]TER HBA1C / EAG Add On 04/11/2024 7:40 AM DO[facility] EYE SETTER from Last 3 Months or Most Recently Relevant to Health Maintenance Results * (ABNORMAL) Basic Metab Profile (04/29/2024 6:59 AM DOLL EYE SETTER) Sodium 137 136 - 145 mmol/L 04/29/2024 7:47 AM DOLL EYE SETTER [facility] Potassium 4.3 3.4 - 5.1 mmol/L 04/29/2024 7:47 AM DOLL EYE SETTER [facility] Chloride 104 98 - 108 mmol/L 04/29/2024 7:47 AM DO[facility] EYE SETTER [facility] Carbon Dioxide 26 20 - 31 mmol/L 04/29/2024 7:47 AM DOLL EYE SETTER [facility] BUN (Urea Nitro) 26(H) 9 - 23 mg/dL 04/29/2024 7:47 AM [facility] Creatinine 1.21(H) 0.55 - 1.02 mg/dL 04/29/2024 7:47 AM [facility] Est GFR (CKD-EPI) 44.01(L) >60.00 mL/min/1. 73m2 04/29/2024 7:47 AM [facility] Comment:Calculation based on the Chronic Kidney Disease Epidemiology Collaboration (CKD-EPI) equation refit without adjustment for race. Glucose 214(H) 74 - 106 mg/dL 04/29/2024 7:47 AM [facility] Calcium, Serum 9.4 8.7 - 10.4 mg/dL 04/29/2024 7:47 AM [facility] Anion Gap 7.0 0.0 - 15.0 mmol/L 04/29/2024 7:47 AM [facility] Blood 04/29/2024 6:59 AM [facility] EYE SETTER 04/29/2024 7:20 AM DO[facility] EYE SETTER us Alec Mei MD CHEMISTRY ORDERABLE Final Res ult Performing Organization Address City/[facility]/ZIP Co de Phone Number [facility] [address] [place] [id number] * (ABNORMAL) Hgb A1c (Glycosolated Hgb) (04/11/2024 7:40 AM DOLL EYE SETTER) HBA1C (GLYCOSOLATED HGB) 7.6(H) <5.7 % 04/11/2024 2:06 PM [facility] EAG (EST. AVERAGE GLUCOSE) 171(H) <117 mg/dL 04/11/2024 2:06 PM [facility] Blood 04/11/2024 7:40 AM [facility] EYE [facility]TER 04/11/2024 8:04 AM [facility] EYE SETTER us Leonor Jorgensen PA-C CHEMISTRY ORDERABLE Final Res ult [facility] [address] [place] [address] from Last 3 Months or Most Recently Relevant to Health Maintenance Insurance [place] [phone] [place] [address] [facility] [place] Advance Directives For more information, please contact: [phone] * Full Code (Latest Code Status on [...] was code status determined? Patient Care Teams Double Needle Operator Lockstitch Relationship Specialty Start Date End Date Marissa Williamson MD [address] [place] [address] PCP - General 04/10/24
[2024-08-15 19:46] VITALS: BP 110/70; PULSE 89; RESP 20; TEMP 37.5; O2SAT 92; BMI 21.5
--- NOTE | 2024-08-15 20:19 | ED.GENADULT ---
HPI - General Adult General Chief complaint: Cough Stated complaint: Cough Time Seen by Provider: 08/15/24 20:10 History of Present Illness HPI narrative: pt from [facility], 3months of chronic cough, states a few weeks ago had in house cxr that she was told was negative. has been taking cough syrup. triple swabs were negative, as well. states cough is now worse and she cant sleep. ems gave albuterol neb, blood sugar 232. pt states she is immobile due to broken legs in jannuary 83-year-old woman presenting to the emergency department with concern of cough since March. She does have a history of COPD and is maintained on 2 L of oxygen. Today her roommate apparently said that she just needs to be seen. She has been though treating she says with her primary care provider. Has been receiving Robitussin. Did have a chest x-ray few weeks ago was unremarkable. Does take chronic opiates noting herself to originally have been on 240 mg morphine now 15 mg of morphine. I see oxycodone listed. Does note a history of heart failure having had bypasses. She does cough more lying down. She feels like the cough is coming from low down sternal. She does admit that she is struggling with some nasopharyngeal congestion. Related Data Home Medications ?Medication ?Instructions ?Recorded ?Confirmed amlodipine 5 mg tablet 5 mg PO DAILY 12/05/21 04/10/24 aspirin 81 mg chewable tablet 81 mg PO DAILY 12/05/21 04/10/24 atorvastatin 40 mg tablet 40 mg PO HS 12/05/21 04/10/24 cetirizine 10 mg tablet 10 mg PO DAILY 12/05/21 04/10/24 cholecalciferol (vitamin D3) 50 2,000 unit PO DAILY 12/05/21 04/10/24 mcg (2,000 unit) tablet furosemide 40 mg tablet 40 mg PO DAILY 12/05/21 04/10/24 isosorbide mononitrate 120 mg 240 mg PO DAILY 12/05/21 04/10/24 tablet,extended release 24 hr metformin 500 mg tablet 500 mg PO BIDWM 12/05/21 04/10/24 metoprolol succinate 50 mg 50 mg PO DAILY 12/05/21 04/10/24 tablet,extended release 24 hr nitroglycerin 0.4 mg sublingual 0.4 mg sublingual Q5-10M PRN 12/05/21 04/10/24 tablet omeprazole 20 mg capsule,delayed 20 mg PO DAILY 12/05/21 04/10/24 release sertraline 100 mg tablet 200 mg PO DAILY 12/05/21 04/10/24 guaifenesin 600 mg tablet, 600 mg PO BID 12/06/21 04/10/24 extended release 12 hr (Mucinex) acetaminophen 500 mg capsule 1,000 mg PO TID PRN 10/12/22 04/10/24 trazodone 100 mg tablet 200 mg PO HS 11/28/22 04/10/24 albuterol sulfate 90 mcg/actuation 2 puff inhalation DIRECTED PRN 04/10/24 04/10/24 aerosol inhaler (Ventolin HFA) ferrous gluconate 324 mg (37.5 mg 324 mg PO DAILY 04/10/24 04/10/24 iron) tablet insulin glargine 100 unit/mL (3 8 unit subcut HS 04/10/24 04/10/24 mL) subcutaneous pen (Lantus Solostar U-100 Insulin) insulin lispro 100 unit/mL 4 unit subcut BID 04/10/24 04/10/24 subcutaneous pen (Humalog KwikPen (U-100) Insulin) magnesium oxide 400 mg (241.3 mg 400 mg PO BID 04/10/24 04/10/24 magnesium) tablet oxycodone 5 mg tablet 5 mg PO Q6H PRN 04/10/24 04/10/24 polyethylene glycol 3350 17 17 g PO DIRECTED 04/10/24 04/10/24 gram/dose oral powder (ClearLax) Previous Rx's ?Medication ?Instructions ?Recorded sennosides 8.6 mg-docusate sodium 2 tab PO BID #120 tabs 11/29/22 50 mg tablet (Stool Softener-Laxative) Allergies Allergy/AdvReac Type Severity Reaction Status Date / Time Sulfa (Sulfonamide Allergy Intermediate Hives Verified 04/10/24 04:27 Antibiotics) camphor AdvReac Intermediate Rash Verified 04/10/24 04:27 nitrofurantoin (From AdvReac Unknown Verified 04/10/24 04:27 Macrobid) Review of Systems Status of ROS: Reports: 6 or more systems reviewed and unremarkable except as noted in History and below PFSH PFSH Medical History Dehydration ?E86.0 - Dehydration (ICD-10) Vomiting ?R11.10 - Vomiting, unspecified (ICD-10) Constipation ?K59.00 - Constipation, unspecified (ICD-10) Anemia ?D64.9 - Anemia, unspecified (ICD-10) 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 ?S42.332K - Displaced oblique fracture of shaft of humerus, left arm, subsequent encounter for fracture with nonunion (ICD-10) Chronic kidney disease ?N18.9 - Chronic kidney disease, unspecified (ICD-10) Stable angina pectoris ?I20.8 - Other forms of angina pectoris (ICD-10) Major depressive disorder, recurrent ?F33.9 - Major depressive disorder, recurrent, unspecified (ICD-10) Venous stasis ulcer ?I83.009 - Varicose veins of unspecified lower extremity with ulcer of unspecified site (ICD-10) ?L97.909 - Non-pressure chronic ulcer of unspecified part of unspecified lower leg with unspecified severity (ICD-10) Venous insufficiency (chronic) (peripheral) ?I87.2 - Venous insufficiency (chronic) (peripheral) (ICD-10) Paroxysmal atrial fibrillation ?I48.0 - Paroxysmal atrial fibrillation (ICD-10) Chronic, continuous use of opioids ?F11.90 - Opioid use, unspecified, uncomplicated (ICD-10) 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) ?J44.9 - Chronic obstructive pulmonary disease, unspecified (ICD-10) Chronic back pain ?M54.9 - Dorsalgia, unspecified (ICD-10) ?G89.29 - Other chronic pain (ICD-10) Pain medication agreement ?Z02.89 - Encounter for other administrative examinations (ICD-10) Primary central sleep apnea ?G47.31 - Primary central sleep apnea (ICD-10) Obstructive sleep apnea ?G47.33 - Obstructive sleep apnea (adult) (pediatric) (ICD-10) JOSE (stress urinary incontinence, female) ?N39.3 - Stress incontinence (female) (male) (ICD-10) Diabetes mellitus type 2 in nonobese ?E11.9 - Type 2 diabetes mellitus without complications (ICD-10) Osteopenia ?M85.80 - Other specified disorders of bone density and structure, unspecified site (ICD-10) Primary hypothyroidism ?E03.9 - Hypothyroidism, unspecified (ICD-10) Vitamin D deficiency ?E55.9 - Vitamin D deficiency, unspecified (ICD-10) Atopic dermatitis and related condition ?L20.9 - Atopic dermatitis, unspecified (ICD-10) Allergic rhinitis ?J30.9 - Allergic rhinitis, unspecified (ICD-10) Hyperlipidemia ?E78.5 - Hyperlipidemia, unspecified (ICD-10) Essential hypertension ?I10 - Essential (primary) hypertension (ICD-10) Atherosclerotic cardiovascular disease ?I25.10 - Atherosclerotic heart disease of [place] coronary artery without angina pectoris (ICD-10) Surgical History Status post vein stripping ?Z98.890 - Other specified postprocedural states (ICD-10) Status post uvulopalatopharyngoplasty ?Z98.890 - Other specified postprocedural states (ICD-10) Status post tonsillectomy ?Z90.89 - Acquired absence of other organs (ICD-10) Status post nasal septoplasty ?Z98.890 - Other specified postprocedural states (ICD-10) Status post abdominal hysterectomy and left salpingo-oophorectomy ?Z90.710 - Acquired absence of both cervix and uterus (ICD-10) ?Z90.721 - Acquired absence of ovaries, unilateral (ICD-10) ?Z90.79 - Acquired absence of other genital organ(s) (ICD-10) Status post carpal tunnel release ?Z98.890 - Other specified postprocedural states (ICD-10) Status post bunionectomy ?Z98.890 - Other specified postprocedural states (ICD-10) Status post appendectomy ?Z90.49 - Acquired absence of other specified parts of digestive tract (ICD-10) Status post bilateral cataract extraction ?Z98.41 - Cataract extraction status, right eye (ICD-10) ?Z98.42 - Cataract extraction status, left eye (ICD-10) Status post coronary artery bypass grafts x 5 ?Z95.1 - Presence of aortocoronary bypass graft (ICD-10) Family History Sister Cancer Brother FH: prostate cancer Mother Diabetes Father Coronary artery disease Social History Narrative: Lives with her girlfriend and with pet dog and cat. Adopted grand son, Omid Kaplan, is her POA for health. Requests full resuscitation measures in event of cardiopulmonary demise (12/14/2022). What is your current living situation?: I presently have a place to live Problems where you live: no known problems Problems where you live details: na In the past 12 months, utilities in danger of being shut off: no In past 12 months, lack of transportation kept you from medical appts, meetings, work, or getting things needed for daily living: yes In the past 12 mos, have been you worried that your food would run out before you had money to buy more?: never true In the past 12 mos, the food you bought just didn't last and you didn't have money to buy more?: never true Smoking Status: Former smoker What tobacco products do you use: cigarettes Smoking packs per day: 3 Smoking cigarettes per day: 60.0 Years smoked: 10 Smoking pack-years: 30.00 Smoking quit date/years: >15 years ago Do you use any of these nicotine containing products: None Second hand tobacco smoke exposure: No How often do you have a drink containing alcohol: monthly or less Alcohol type: other Alcohol type details: Occ [employer] How many standard drinks containing alcohol do you have on a typical day: 1 or 2 How often do you have six or more drinks on one occasion: Never AUDIT-C Alcohol total score: 1 Non-prescribed substance use: denies use Caffeine: Yes How often does anyone, including family, friends and others, physically hurt you: never How often does anyone, including family, friends and others, insult or talk down to you: never How often does anyone, including family, friends and others, threaten you with harm: never How often does anyone, including family, friends and others, scream or curse at you: never service: No Health Related Social Needs: transportation insecurity (Z59.82) Exam Narrative: Exam Narrative: Lungs actually seem clear. Right lower leg with soft bandages in place. No inflammatory changes surrounding this. Heart in regular rate and rhythm. Intermittent moist cough but does not seem to produce anything. Appears tired generally. Congested nasopharynx without facial swelling or erythema. Upper denture plate. Const: Vital Signs, click to edit/add: Vital Signs - 24 hr 08/15/24 19:46 Temperature 99.5 F Pulse Rate [Pulse Oximeter] 89 Respiratory Rate 20 Blood Pressure [Ri ght Upper Arm] 110/70 Pulse Oximetry 92 Oxygen Delivery Me thod Room Air Documenting provider has reviewed patient's vital signs: yes Course Vital Signs Vital signs: Initial Vital Signs Temperature 99.5 F 08/15/24 19:46 Temperature Source Temporal Artery Scan 08/15/24 19:46 Pulse Rate 89 08/15/24 19:46 Respiratory Rate 20 08/15/24 19:46 Blood Pressure 110/70 08/15/24 19:46 Blood Pressure Mean 83 08/15/24 19:46 Blood Pressure Position Sitting 08/15/24 19:46 Pulse Oximetry 92 08/15/24 19:46 Oxygen Delivery Method Room Air 08/15/24 19:46 Vital Signs Temperature 99.5 F 08/15/24 19:46 Pulse Rate 89 08/15/24 19:46 Respiratory Rate 20 08/15/24 19:46 Blood Pressure 110/70 08/15/24 19:46 Pulse Oximetry 92 08/15/24 19:46 Oxygen Delivery Method Room Air 08/15/24 19:46 Temperature 99.5 F 08/15/24 19:46 Pulse Rate 81 08/15/24 22:15 Respiratory Rate 18 08/15/24 22:15 Blood Pressure 117/64 08/15/24 22:15 Pulse Oximetry 94 08/15/24 22:15 Oxygen Delivery Method Room Air 08/15/24 22:15 Medications Administered Medications: Discontinued Medications Generic Name Dose Route Start Last Admin Trade Name Freq PRN Reason Stop Dose Admin Benzocaine 1 each 08/15/24 21:19 08/15/24 21:57 Benzocaine 20 % Jane Lew PO 08/15/24 21:20 1 each ONCE ONE Administration Prednisone 40 mg 08/15/24 21:19 08/15/24 21:34 Prednisone 20 Mg Tablet PO 08/15/24 21:20 40 mg ONCE ONE Administration Pseudoephedrine HCl 30 mg 08/15/24 21:19 08/15/24 21:34 Pseudoephedrine Hcl 30 Mg Tablet PO 08/15/24 21:20 30 mg ONCE ONE Administration Medical Decision Making MDM Narrative Medical decision making narrative: Environmental allergies or URI otherwise. In the setting of COPD. Probably needs some prednisone but I did not hear any wheeze. Decongestant. Do not think this is heart failure. Would have concern the this has become a chronic cough in need of other sorts of management. Chest x-ray independently reviewed by me looks to be unremarkable. Does demonstrate fits of coughing here in the emergency department. Radiology over-read below INDICATION: Shortness of breath, chest pain, cough TECHNIQUE: Chest radiograph 2 views COMPARISON: 02/03/2023 FINDINGS: The sensitivity and specificity of the exam are moderately limited by the patient`s body habitus. Mediastinum: Previous median sternotomy and coronary artery bypass grafting (CABG) noted. The heart silhouette is normal in size and morphology. Lung: Both lungs are unremarkable in appearance. No sign of pleural effusion seen. No pneumothorax is identified. Bone and Soft tissue: There are several new vague densities in the right clavicle measuring up to 6 mm. A moderate chronic appearing compression deformity is present in the inferior thoracic spine. IMPRESSIONS: 1. No acute cardiopulmonary disease is seen. 2. There are several new vague densities in the right clavicle measuring up to 6 mm. If there is clinical history of a primary malignancy, dedicated radiograph of the clavicle is recommended to exclude metastatic disease. Dictated by Dieudonne Gill MD @ 08/15/2024 8:47:48 PM I did discuss these findings with Ms. Kaplan. She denies any malignancy. My thought is that the cough seems to really be coming from more the throat area. Perhaps limiting some postnasal drip would be beneficial. Given pseudoephedrine prednisone here in the ER. Trial of oral benzocaine spray does appear to help. Has been vitally well during time emergency department. See patient discharge plan for further discussion Is good to know that you think the numbing spray worked. Talk with your primary MD about a similar numbing medicine that is available in extra-strength Orajel [id number]. It might be helpful for you to suck on ice chips to help with your cough. I would consider sleeping under the mist of a cool mist humidifier. Consult with your primary MD about Menthol vapors might also be helpful. Since you have COPD although I do not think this is significant exacerbation I am prescribing you brief course of prednisone to help with your cough. While you are taking prednisone watch your blood sugars closely as they can go up. Prescribing Tessalon Perles. These seem to numb the back of the throat a little bit as well. You might benefit from pseudoephedrine. Talk with your primary MD about which can be purchased [id number]. This would be for decongestion and maybe drying up throat tickle. Medical Records Medical records reviewed: Yes I reviewed the patient's medical records Lab Data Labs: Lab Results 08/15/24 Range/Units 19:47 SARS-CoV-2 (PCR) Negative SARS-CoV-2 (Negative) Influenza Type A (PCR) Negative PCR FLU A (Negative) Influenza Type B (PCR) Negative PCR FLU B (Negative) RSV (PCR) Negative PCR RSV (Negative) Discharge Plan Discharge Clinical Impression: Chronic cough, COPD (chronic obstructive pulmonary disease) Patient Disposition: Home w/ Parent or Adult Condition: Improved Additional Instructions: Is good to know that you think the numbing spray worked. Talk with your primary MD about a similar numbing medicine that is available in extra-strength Orajel [id number]. It might be helpful for you to suck on ice chips to help with your cough. I would consider sleeping under the mist of a cool mist humidifier. Consult with your primary MD about Menthol vapors might also be helpful. Since you have COPD although I do not think this is significant exacerbation I am prescribing you brief course of prednisone to help with your cough. While you are taking prednisone watch your blood sugars closely as they can go up. Prescribing Tessalon Perles. These seem to numb the back of the throat a little bit as well. You might benefit from pseudoephedrine. Talk with your primary MD about which can be purchased [id number]. This would be for decongestion and maybe drying up throat tickle. Prescriptions: No Action furosemide 40 mg tablet 40 mg PO DAILY atorvastatin 40 mg tablet 40 mg PO HS metformin 500 mg tablet 500 mg PO BIDWM cetirizine 10 mg tablet 10 mg PO DAILY metoprolol succinate 50 mg tablet extended release 24 hr 50 mg PO DAILY sertraline 100 mg tablet 200 mg PO DAILY amlodipine 5 mg tablet 5 mg PO DAILY isosorbide mononitrate 120 mg tablet extended release 24 hr 240 mg PO DAILY nitroglycerin 0.4 mg tablet, sublingual 0.4 mg sublingual Q5-10M PRN omeprazole 20 mg capsule,delayed release(DR/EC) 20 mg PO DAILY aspirin 81 mg tablet,chewable 81 mg PO DAILY cholecalciferol (vitamin D3) 50 mcg (2,000 unit) tablet 2,000 unit PO DAILY guaifenesin [Mucinex] 600 mg tablet extended release 12hr 600 mg PO BID acetaminophen 500 mg capsule 1,000 mg PO TID PRN trazodone 100 mg tablet 200 mg PO HS sennosides-docusate sodium [Stool Softener-Laxative] 8.6-50 mg Tablet 2 tab PO BID Qty: 120 0RF ferrous gluconate 324 mg (37.5 mg iron) tablet 324 mg PO DAILY magnesium oxide 400 mg (241.3 mg magnesium) tablet 400 mg PO BID insulin lispro [Humalog KwikPen Insulin] 100 unit/mL insulin pen 4 unit subcut BID Rx Instructions: breakfast and lunch only insulin glargine [Lantus Solostar U-100 Insulin] 100 unit/mL (3 mL) insulin pen 8 unit subcut HS polyethylene glycol 3350 [ClearLax] 17 gram/dose powder 17 g PO DIRECTED Patient Comments: [NO ORIGINAL SIG] Rx Instructions: give every other day albuterol sulfate [Ventolin HFA] 90 mcg/actuation HFA aerosol inhaler 2 puff INHALATION DIRECTED PRN Patient Comments: [NO ORIGINAL SIG] oxycodone 5 mg tablet 5 mg PO Q6H PRN Follow Up/Referrals: Marissa Williamson MD [Primary Care Provider, Family Practice] Stand Alone Forms: [employer] Info Instructions
--- NOTE | 2024-08-15 20:20 | CRLHL7_ITS ---
For Patients: As a result of the Cures Act, medical imaging exams and procedure reports are released immediately into your electronic medical record. You may view this report before your referring provider. If you have questions, please contact your health care provider. INDICATION: Shortness of breath, chest pain, cough TECHNIQUE: Chest radiograph 2 views COMPARISON: 02/03/2023 FINDINGS: The sensitivity and specificity of the exam are moderately limited by the patient`s body habitus. Mediastinum: Previous median sternotomy and coronary artery bypass grafting (CABG) noted. The heart silhouette is normal in size and morphology. Lung: Both lungs are unremarkable in appearance. No sign of pleural effusion seen. No pneumothorax is identified. Bone and Soft tissue: There are several new vague densities in the right clavicle measuring up to 6 mm. A moderate chronic appearing compression deformity is present in the inferior thoracic spine. IMPRESSIONS: 1. No acute cardiopulmonary disease is seen. 2. There are several new vague densities in the right clavicle measuring up to 6 mm. If there is clinical history of a primary malignancy, dedicated radiograph of the clavicle is recommended to exclude metastatic disease. Dictated by Dieudonne Gill MD @ 08/15/2024 8:47:48 PM Dictated by: Dieudonne Gill MD @ 08/15/2024 20:47:53 (Electronically Signed)
[2024-08-15 20:23] VITALS: O2SAT 94
[2024-08-15 20:32] LABS: PCR FLU A Negative PCR FLU A (Negative); PCR FLU B Negative PCR FLU B (Negative); PCR RSV Negative PCR RSV (Negative); SARS PCR* Negative SARS-CoV-2 (Negative)
[2024-08-15] MEDS: PSEUDOEPHEDRINE HCL 30 MG TABLET PO (21:34)
[2024-08-15] MEDS: predniSONE 20 MG TABLET 40 MG PO (21:34)
[2024-08-15] MEDS: BENZOCAINE 20 % SPRAY 1 EACH PO (21:57)
[2024-08-15 22:15] VITALS: BP 117/64; PULSE 81; RESP 18; O2SAT 94
== END 2024-08-15 22:28 | disposition home or self-care (01) ==
PROVIDERS: Emergency Provider Family Medicine; PCP Family Medicine
DX: R05.3 Chronic cough (principal); J44.9 Chronic obstructive pulmonary disease, unspecified; R06.02 Shortness of breath
CPT/HCPCS: 71046; 87631; 94761; 99284; A9270; J7512

== ENCOUNTER 2024-08-15 22:24 | Outpatient (CLI) | payer BC, SELFPAY | END 2024-08-15 22:25 | disposition home or self-care (01) | LOC: AMB 08-19 14:54 | PROVIDERS: PCP Family Medicine; Visit Provider Family Medicine | DX: R05.3 Chronic cough (principal); J44.9 Chronic obstructive pulmonary disease, unspecified | CPT/HCPCS: A0425; A0428 ==